=== PATIENT | male | born 1965 | race Caucasian/White ===

== ENCOUNTER 2017-08-11 11:17 | Inpatient (IN) | payer OTHER ==
[2017-08-11] VITALS (15 sets, daily range): BP systolic 61–130; BP diastolic 31–65; PULSE 84–145; RESP 16–24; TEMP 99.1–100.4; O2SAT 86–100
[~2017-08-11] VITALS: Ht 185.4 cm; Wt 152.9 kg
[2017-08-11] MEDS ORDERED: MANNITOL INJ 100 ML ONE (11:28)
[2017-08-11] MEDS ORDERED: DIPHTH/TETANUS/ACEL PERTUSSIS (BOOSTER) 0.5 ML VIAL/PFS IM ONE (11:28)
[2017-08-11] MEDS ORDERED: ceFAZolin 2 GM PREMIX 50 ML ONE (11:28)
[2017-08-11] MEDS ORDERED: ROCURONIUM INJ 50 MG/5 ML VIAL ONE (11:33)
[2017-08-11] MEDS ORDERED: MIDAZOLAM HCL 5 MG/ML VIAL (1 ML) ONE ×2 (11:41→16:43)
[2017-08-11] MEDS ORDERED: fentaNYL DRIP 250 ML IV PRN (11:45)
[2017-08-11] MEDS ORDERED: NALOXONE HCL 0.4 MG/ML AMP IV PUSH PRN (11:45)
[2017-08-11] MEDS ORDERED: SODIUM CHLORIDE 0.9% FLUSH 10 ML FLUSH IV FLUSH PRN (11:45)
[2017-08-11] MEDS ORDERED: PROPOFOL 1000 MG/100 ML INJ 100 ML IV PRN (11:45)
[2017-08-11] MEDS ORDERED: Post-op Orders (for Pharmacy) XX ONE (11:45)
[2017-08-11 11:48] LABS: AUTOMATED NEUTROPHIL # 20.5 TH/MM3 (1.8-7.7); BASOPHIL # 0.2 TH/MM3 (0-0.2); BASOPHIL % 0.6 % (0.0-2.0); EOSINOPHIL # 0.3 TH/MM3 (0-0.4); HEMATOCRIT 39.2 % (39.0-51.0); HEMOGLOBIN 12.4 GM/DL (13.0-17.0); LYMPH % 23.8 % (9.0-44.0); LYMPHOCYTE # 6.9 TH/MM3 (1.0-4.8); MEAN CELL VOLUME 86.7 FL (80.0-100.0); MEAN CORPUSCULAR HEMOGLOBIN 27.4 PG (27.0-34.0); MEAN CORPUSCULAR HGB CONC 31.6 % (32.0-36.0); MEAN PLATELET VOLUME 8.3 FL (7.0-11.0); MONO % 3.7 % (0.0-8.0); MONOCYTE # 1.1 TH/MM3 (0-0.9); NEUT % 70.9 % (16.0-70.0); PLATELET COUNT 452 TH/MM3 (150-450); RED BLOOD COUNT 4.52 MIL/MM3 (4.50-5.90); RED CELL DISTRIBUTION WIDTH 14.2 % (11.6-17.2); WHITE BLOOD COUNT 28.9 TH/MM3 (4.0-11.0)
--- NOTE | 2017-08-11 11:53 | RADRPT ---
EXAM DATE: 08/11/2017 11:36 AM EDT AGE/SEX: 89 years / Male INDICATIONS: Trauma alert, fell CLINICAL DATA: This is the patient's initial encounter. Patient reports that signs and symptoms have been present for 1 day and indicates a pain score of Nonresponsive. MEDICAL/SURGICAL HISTORY: Non-responsive. Non-responsive. COMPARISON: No prior exams available for comparison. FINDINGS: 2 AP views of the chest performed on a trauma backboard demonstrates a normal-sized cardiac silhouett e. Mediastinum is prominent in transverse diameter. There is airspace consolidation in the left upper and left midlung zone. No definite pneumothorax is identified. The right fourth and ribs appear frac tured laterally. Also, there is at least one fracture involving the left fourth rib. There are degene rative changes of the thoracic spine. Metallic samantha overlie the patient. CONCLUSION: 1. Airspace consolidation in the left upper left midlung zone likely representing pulmonary contusio n given the recent trauma. No definite pneumothorax is seen. 2. There is a left pleural-based opacity in the upper hemithorax. 3. Bilateral rib fractures are identified. Electronically signed by: Colin Ziegler MD 08/11/2017 11:52 AM EDT
[2017-08-11 11:57] LABS: INTERNATIONAL NORMALIZED RATIO 1.1 RATIO; PROTHROMBIN TIME - PATIENT 10.7 SEC (9.8-11.6)
--- NOTE | 2017-08-11 12:02 | RADRPT ---
EXAM DATE: 08/11/2017 11:54 AM EDT AGE/SEX: 89 years / Male INDICATIONS: TRAUMA ALERT. Fall from a tree. CLINICAL DATA: This is the patient's initial encounter. Patient reports that signs and symptoms have been present for 1 day and indicates a pain score of Nonresponsive. MEDICAL/SURGICAL HISTORY: Non-responsive. Non-responsive. RADIATION DOSE: 69.73 CTDI (mGy) COMPARISON: No prior exams available for comparison. TECHNIQUE: CT of the head without contrast. Using automated exposure control and adjustment of the mA and/or kV according to patient size, radiation dose was kept as low as reasonably achievable to ob tain optimal diagnostic quality images. FINDINGS: There is a 1 cm thick subdural hematoma involving the right frontal region most conspicuous at the hi gh convexity level. There is mild parenchymal and subarachnoid hemorrhage most evident in the right t emporal region. There is mild effacement of hemispheric cortical sulci and slight asymmetric compress ion of the right lateral ventricle without significant brain shift at present. Minimal blood in the p aramesencephalic cisterns. Sinuses are opacified and facial fractures are evident. CONCLUSION: Intracranial hemorrhage with extra-axial blood and parenchymal blood most significantly in the right frontal and temporal regions. Electronically signed by: Colin Tinsley MD 08/11/2017 12:01 PM EDT
[2017-08-11 12:14] LABS: BICARBONATE 18.5 MEQ/L (21.0-32.0); CALCIUM 7.9 MG/DL (8.5-10.1); CREATININE 1.28 MG/DL (0.60-1.30)
[2017-08-11 12:29] LABS: BANDS 9 % (0-6); LYMPHOCYTES 27 % (9-44); MONOCYTES 3 % (0-8); NEUTROPHIL # MANUAL DIFF 20.2 TH/MM3 (1.8-7.7); POLYS (SEG NEUTROPHILS) 61 % (16-70)
[2017-08-11] MEDS: SODIUM CHLOR 0.9% 1000 ML INJ 1,000 ML IV SCH ×2 (12:30→21:17)
--- NOTE | 2017-08-11 12:31 | RADRPT ---
EXAM DATE: 08/11/2017 12:23 PM EDT AGE/SEX: 89 years / Male INDICATIONS: TRAUMA ALERT. Fall from a tree. CLINICAL DATA: This is the patient's initial encounter. Patient reports that signs and symptoms have been present for 1 day and indicates a pain score of Nonresponsive. MEDICAL/SURGICAL HISTORY: Non-responsive. Non-responsive. RADIATION DOSE: 20.43 CTDI (mGy) ; Combined studies COMPARISON: No prior exams available for comparison. TECHNIQUE: Multiple contiguous axial images were obtained through the chest during bolus infusion of 91 ml Omnipaque 350 (iohexol) nonionic water-soluble contrast as a cumulative dose for multiple exa ms. Images were obtained in suspended respiration using multiple row detector helical technique. U sing automated exposure control and adjustment of the mA and/or kV according to patient size, radiati on dose was kept as low as reasonably achievable to obtain optimal diagnostic quality images. FINDINGS: Lungs: There is moderate airspace opacity involving the posterior lung paul bilaterally, worse on the left than the right and somewhat upper lobe predominant. Mediastinum: There is a hematoma in the anterior upper mediastinum associated with some fractures at the costosternal junction. No evidence of great vessel injury. No mediastinal mass or adenopathy Pleurae: No evidence of pneumothorax. Small left hemothorax. Axillae: Unremarkable. Bony Structures: Multiple bilateral rib fractures. Comminuted left clavicle fracture. CONCLUSION: 1. Bilateral parenchymal lung airspace opacities which may be contusion, however aspiration could phelan ve a similar appearance. 2. Upper mediastinal hematoma appears related to musculoskeletal injury. There does not appear to be a great vessel injury. Electronically signed by: Colin Tinsley MD 08/11/2017 12:30 PM EDT
--- NOTE | 2017-08-11 12:35 | RADRPT ---
EXAM DATE: 08/11/2017 12:22 PM EDT AGE/SEX: 89 years / Male INDICATIONS: TRAUMA ALERT. Fall from a tree. CLINICAL DATA: This is the patient's initial encounter. Patient reports that signs and symptoms have been present for 1 day and indicates a pain score of Nonresponsive. MEDICAL/SURGICAL HISTORY: Non-responsive. Non-responsive. ORAL CONTRAST: No oral contrast ingested. RADIATION DOSE: 20.43 CTDI (mGy) ; Combined studies COMPARISON: No prior exams available for comparison. TECHNIQUE: Multiple contiguous axial images were obtained through the abdomen and pelvis following b olus infusion of 91 ml Omnipaque 350 (iohexol) nonionic water-soluble contrast as a cumulative dose for multiple exams. No oral contrast ingested. Using automated exposure control and adjustment of t he mA and/or kV according to patient size, the radiation dose was kept as low as reasonably achievabl e to obtain optimal diagnostic quality images. FINDINGS: Liver: The liver has a homogeneous density without space-occupying lesion. There is no dilation of th e biliary tree. Spleen: Mild splenic contusion. Minimal perisplenic hematoma. Pancreas: Unremarkable without mass or calcification. Kidneys: Normal in size and shape. No evidence of mass or hydronephrosis. Adrenal Glands: Unremarkable. Aorta: The aorta and proximal iliac vessels are grossly unremarkable without aneurysmal dilation. Bowel/Mesentery: The bowel loops are grossly unremarkable. The cecum and sigmoid colon have a normal configuration. Abdominal Wall: Intact. Retroperitoneum: No evidence of adenopathy in the retrocrural, para-aortic, or deep pelvic regions. Bladder: Contours are smooth. Reproductive Organs: No abnormal masses or calcifications seen. Inguinal: The inguinal region is unremarkable without evidence of adenopathy. Bony Structures: Rib fractures CONCLUSION: Mild splenic contusion and minimal perisplenic hematoma. Electronically signed by: Colin Tinsley MD 08/11/2017 12:34 PM EDT
--- NOTE | 2017-08-11 12:42 | PD.CONS ---
HPI Service Neurosurgery Consult Requested By Trauma surgeon Reason for Consult Trauma alert Primary Care Physician Unknown History of Present Illness This is a 52-year-old male who was working on a tree and fell downonto the concrete deck below about 10 feet. The reported. No tonic-clonic movement seen. No tongue biting. No incontinence of stool or urine. Nobody witnessed the event; however, apparently was bleeding on the pavement and finally ambulance was called. It is unknown how long patient had been lying there. The patient was brought to [place] as Trauma alert, priority 1 trauma alert, intubated in the field with C-collar in place on a spinal board by air ambulance. On arrival, patient's [place] Coma Scale was 3 which improved to about 5. He had unequal pupils with anisocoria. He was resuscitated according to the ATLS protocol. Trauma workup revealed multiple injuries including a severe left-sided facial fractures involving the orbit, zygoma, maxilla, nasal fracture, as well as fracture of the base of the skull going through the petrous bone, a right frontotemporal subarachnoid and subdural bleeding with brain contusions on the right, multiple left rib fractures with chest wall deformity, bilateral lung contusion and bilateral aspiration lacerations, laceration probably grade II of the spleen with slight amount of blood around the spleen Neurosurgical consultation was requested Review of Systems Unobtainable due to his neurological condition ROS Limitations: Clinical Condition, Intubated, Altered Mental Status, Unresponsive Past Family Social History Allergies: Coded Allergies: No Known Allergies (Unverified , 08/11/17) Past Medical History Unobtainable due to his neurological condition Past Surgical History Unobtainable due to his neurological condition Reported Medications Unobtainable due to his neurological condition Active Ordered Medications Current Medications Mannitol 100 ml @ As Directed STK-MED ONCE .ROUTE ; Start 08/11/17 at 11:28; Stop 08/11/17 at 11:29; Status DC Cefazolin Sodium/ Dextrose 50 ml @ As Directed STK-MED ONCE .ROUTE ; Start at 11:28; Stop 08/11/17 at 11:29; Status DC Diphtheria/ Tetanus/Acell Pertussis (Boostrix Inj) 0.5 ml STK-MED ONCE IM ; Start 08/11/17 at 11:28; Stop 08/11/17 at 11:29; Status DC Rocuronium Ethel (Zemuron Inj) 50 mg STK-MED ONCE .ROUTE ; Start 08/11/17 at 11 :33; Stop 08/11/17 at 11:34; Status DC Midazolam HCl (Versed Inj) 5 mg STK-MED ONCE .ROUTE ; Start 08/11/17 at 11:41; Stop 08/11/17 at 11:42; Status DC Sodium Chloride 1,000 ml @ 100 mls/hr Q10H IV Last administered on 08/11/17at 12 :30; Start 08/11/17 at 11:44 Sodium Chloride (NS Flush) 2 ml UNSCH PRN IV FLUSH FLUSH AFTER USING IV ACCESS ; Start 08/11/17 at 11:45 Sodium Chloride (NS Flush) 2 ml BID IV FLUSH ; Start 08/11/17 at 21:00 Pantoprazole Sodium (Protonix Inj) 40 mg Q24H IV PUSH Last administered on at 14:00; Start 08/11/17 at 14:00 Cefazolin Sodium 1000 mg/Sodium Chloride 100 ml @ 200 mls/hr Q8H IV ; Start 08/11/17 at 20:00; Stop 08/12/17 at 12:29 Miscellaneous Information ([facility] [place] Post-op Orders (for Pharmacy)) STAT ONCE XX Last administered on 08/11/17at 11:45; Start 08/11/17 at 11:45; Stop 08/11/17 at 13: 50; Status DC Naloxone HCl (Narcan Inj) 0.4 mg UNSCH PRN IV PUSH SEE LABEL COMMENTS; Start at 11:45 Propofol 100 ml @ 0 mls/hr TITRATE PRN IV SEDATION; Start 08/11/17 at 11:45; Stop 08/11/17 at 13:58; Status DC Fentanyl Citrate 250 ml TITRATE PRN IV SEDATION; Start 08/11/17 at 11:45; Stop 08/11/17 at 13:57; Status DC Levetriacetam 500 mg/Sodium Chloride 105 ml @ 420 mls/hr Q12HR IV Last administered on 08/11/17at 13:15; Start 08/11/17 at 13:15 Sodium Chloride 500 ml @ 30 mls/hr UNSCH PRN IV icp; Start 08/11/17 at 12:00; Stop 08/16/17 at 11:59 Iohexol (Omnipaque 350 Inj) 100 ml STK-MED ONCE IVCONTRAST Last administered on 08/11/17at 12:51; Start 08/11/17 at 12:51; Stop 08/11/17 at 12:52; Status DC Fentanyl Citrate 250 ml @ 5 mls/hr TITRATE PRN IV Sedation Last administered on 08/11/17at 15:30; Start 08/11/17 at 14:00 Propofol 100 ml @ 3.987 mls/ hr TITRATE PRN IV SEDATION Last administered on at 15:30; Start 08/11/17 at 14:00 Norepinephrine Bitartrate 4 mg/ Sodium Chloride 250 ml @ 7.5 mls/hr TITRATE PRN IV Maintain MAP > 65 mmHg; Start 08/11/17 at 14:15 Senna/Docusate Sodium (Ronda-Colace) 1 tab BID PO ; Start 08/11/17 at 21:00 Magnesium Hydroxide (Milk Of Magnesia Liq) 30 ml BID PO ; Start 08/11/17 at 21:00 Lactulose (Lactulose Liq) 30 ml DAILY PRN PO If no BM in 2 days; Start 08/11/17 at 14:30 Potassium Chloride 100 ml @ 50 mls/hr Q2H PRN IV For Potassium 2.8 - 3.2 mEq/L ; Start 08/11/17 at 14:30 Potassium Chloride 100 ml @ 50 mls/hr Q2H PRN IV For Potassium 2.8 - 3.2 mEq/L ; Start 08/11/17 at 14:30 Potassium Bicarb/ Potassium Chloride (K-Lyte Cl Eff) 50 meq UNSCH PRN PO For Potassium 3.3 - 3.5 mEq/L; Start 08/11/17 at 14:30 Potassium Chloride 100 ml @ 25 mls/hr UNSCH PRN IV For Potassium 3.3 - 3.5 mEq /L; Start 08/11/17 at 14:30 Potassium Chloride 100 ml @ 50 mls/hr Q2H PRN IV For Potassium 3.3 - 3.5 mEq/L ; Start 08/11/17 at 14:30 Magnesium Sulfate 4 gm/Sodium Chloride 100 ml @ 50 mls/hr UNSCH PRN IV For Magnesium 0.9 - 1.1 mg/dL; Start 08/11/17 at 14:30 Magnesium Oxide (Mag-Ox) 800 mg UNSCH PRN PO For Magnesium 1.2 - 1.6 mg/dL; Start 08/11/17 at 14:30 Magnesium Sulfate 2 gm/Sodium Chloride 100 ml @ 50 mls/hr UNSCH PRN IV For Magnesium 1.2 - 1.6 mg/dL; Start 08/11/17 at 14:30 Potassium Phosphate (K-Phos) 2,000 mg Q4H PRN PO For Phosphorus < 2.5 mg/dL; Start 08/11/17 at 14:30 Sodium Phosphate 30 mmol/Sodium Chloride 250 ml @ 42 mls/hr UNSCH PRN IV For Phosphorus < 2.5 mg/dL; Start 08/11/17 at 14:30 Potassium Phosphate (K-Phos) 2,000 mg UNSCH PRN PO/TUBE SEE LABEL COMMENTS; Start 08/11/17 at 14:30 Potassium Phosphate 30 mmol/ Sodium Chloride 260 ml @ 42 mls/hr UNSCH PRN IV SEE LABEL COMMENTS; Start 08/11/17 at 14:30 Chlorhexidine Gluconate (Peridex 0.12% Liq) 15 ml BID@08,20 MT ; Start 08/11/17 at 20:00 Methocarbamol (Robaxin) 500 mg Q8HR PO ; Start 08/11/17 at 22:00 Lidocaine HCl (Lidoderm 5% Patch.12 Hr) 1 patch DAILY T-DERMAL ; Start 08/11/17 at 14:30 Acetaminophen 100 ml @ 400 mls/hr Q6H IV Last administered on 08/11/17at 15:00; Start 08/11/17 at 15:00; Stop 08/12/17 at 14:59 Insulin Aspart (NovoLOG SUPPLEMENTAL SCALE) 1 Q6HR SQ ; Start 08/11/17 at 18:00 Dextrose (D50w (Syr) Inj) 50 ml UNSCH PRN IV PUSH HYPOGLYCEMIA-SEE COMMENTS; Start 08/11/17 at 14:30 Glucagon (Glucagon Inj) 1 mg UNSCH PRN OTHER HYPOGLYCEMIA-SEE COMMENTS; Start 08/11/17 at 14:30 Albuterol/ Ipratropium (Duoneb Neb) 1 ampule Q6HR NEB NEB ; Start 08/11/17 at 16 :00 Albuterol/ Ipratropium (Duoneb Neb) 1 ampule Q2HR NEB PRN NEB wheezing; Start 08/11/17 at 14:45 Miscellaneous Information 1 Q24H T-DERMAL ; Start 08/11/17 at 21:00 Family History Unobtainable due to his neurological condition Social History Unobtainable due to his neurological condition Physical Exam Vital Signs Vital Signs Date Time Temp Pulse Resp B/P (MAP) Pulse Ox O2 Delivery O2 Flow Rate FiO2 08/11/17 12:31 88 100 08/11/17 11:34 86 100 Physical Exam He has facial abrasions to left cheeck and left ear GENERAL: Reveals a 52-year-old male. HEENT: Normocephalic, trauma to the head consisting of left severe facial bruising with swelling of the left palpebral and raccoon eye on the left, some bruising over the right side. Pupils are unequal. Left pupil is fixed and dilated. The right pupil is poorly reactive, but small, about 2 mm. The extraocular muscles cannot be tested. Bilateral blood in the ears; however, patient on the right side has blood in the ear and on the left side, appears to be hemotympanum with some leakage of clear fluid, might be cerebrospinal. NECK: Very short. Bilateral carotid pulses. No bruits. CHEST: Bilateral breath sounds. The patient has clearly a left chest deformity with swelling over the left chest. Clavicle is clearly broken and there is movement of the left chest consistent with serial rib fractures on the left. HEART: Regular rhythm. Blood pressure on arrival was 80/50, which improved with some fluids. ABDOMEN: Soft. No rebound, no guarding, no masses. Morbidly obese. Some bruising noted over the left flank. EXTREMITIES: The patient has bilateral femoral, popliteal, dorsalis pedis and posterior tibial pulses. No signs of acute vascular deficit. No deformations. NEUROLOGIC: Cervical spine in the hard collar He withdraws minimally the arms and withdrawals the legs. Deep tendon reflexes are trace bilaterally. There is a Babinski on the left. Sensory exam he withdraws minimally to pain Cerebellar examination is not possible due to his neurological condition Laboratory Laboratory Tests Test 08/11/17 11:25 White Blood Count 28.9 Red Blood Count 4.52 Hemoglobin 12.4 Bedside Hemoglobin 12.9 Hematocrit 39.2 Bedside Hematocrit 38.0 Mean Corpuscular Volume 86.7 Mean Corpuscular Hemoglobin 27.4 Mean Corpuscular Hemoglobin Concent 31.6 Red Cell Distribution Width 14.2 Platelet Count 452 Mean Platelet Volume 8.3 Neutrophils (%) (Auto) 70.9 Lymphocytes (%) (Auto) 23.8 Monocytes (%) (Auto) 3.7 Eosinophils (%) (Auto) 1.0 Basophils (%) (Auto) 0.6 Neutrophils # (Auto) 20.5 Lymphocytes # (Auto) 6.9 Monocytes # (Auto) 1.1 Eosinophils # (Auto) 0.3 Basophils # (Auto) 0.2 CBC Comment AUTO DIFF Differential Total Cells Counted 100 Neutrophils % (Manual) 61 Band Neutrophils % 9 Lymphocytes % 27 Monocytes % 3 Neutrophils # (Manual) 20.2 Differential Comment FINAL DIFF MANUAL Platelet Estimate HIGH Platelet Morphology Comment NORMAL Prothrombin Time 10.7 Prothromb Time International Ratio 1.1 Activated Partial Thromboplast Time 22.4 Fibrinogen 235 Bedside Sodium 140 Blood Urea Nitrogen 15 Creatinine 1.28 Random Glucose 271 Calcium Level 7.9 Sodium Level 139 Potassium Level 4.2 Chloride Level 105 Carbon Dioxide Level 18.5 Bedside Potassium 4.3 Bedside Chloride 103 Anion Gap 16 Bedside Blood Urea Nitrogen 15 Bedside Creatinine 1.1 Estimat Glomerular Filtration Rate 48 Bedside Glucose 261 Result Diagram: 08/11/17 1125 08/11/17 1125 Attending Statement Last [address] 08/11/17 1121 Signed Impressions: CONCLUSION: Intracranial hemorrhage with extra-axial blood and parenchymal blood most signi ficantly in the right frontal and temporal regions. Chest X-Ray 08/11/17 1120 Signed Impressions: CONCLUSION: 1. Airspace consolidation in the left upper left midlung zone likely represent ing pulmonary contusion given the recent trauma. No definite pneumothorax is se en. 2. There is a left pleural-based opacity in the upper hemithorax. 3. Bilateral rib fractures are identified. Chest CT 08/11/17 0000 Signed Impressions: CONCLUSION: 1. Bilateral parenchymal lung airspace opacities which may be contusion, howev er aspiration could have a similar appearance. 2. Upper mediastinal hematoma appears related to musculoskeletal injury. There does not appear to be a great vessel injury. Abdomen/Pelvis CT 08/11/17 0000 Signed Impressions: CONCLUSION: Mild splenic contusion and minimal perisplenic hematoma. Right frontotemporal subarachnoid and subdural bleeding with brain contusions on the right. Neuro checks. Placement of ICP monitor was indicated as recommended by the Trauma [employer] of [employer]. HOB elevation 30 degrees. Monitor PCO2 facial abrasion. Wound care with bacitracin Thoracic spine fracture. Recommend nonoperative treatment. Pain controlled with analgesics Severe left-sided facial fractures involving the orbit, zygoma, maxilla, nasal fracture, as well as fracture of the base of the skull going through the petrous bone. Consult oral maxillofacial surgeon Multiple left rib fractures with chest wall deformity, bilateral lung contusion and bilateral aspiration. A small amount of subcutaneous air, but no pneumothorax. Narcotics for pain control Spleen lacerations, laceration probably grade II of the spleen with slight amount of blood around the spleen. Defer to trauma surgeon. Monitor hemoglobin and hematocrit Pulmonary..aggressive pulmonary toilette, nasotracheal suction, and breathing treatments with nebulizers. Nutrition. NPO Renal. monitor closely urine output, BUN and creatinine Endocrine. Monitor serial Acu checks and SSI as needed in detail ID monitor for signs of infection Protonix for stress ulcer prophylaxis Sonido hose and SCD's for DVT prophylaxis. Further recommendations will depend on his clinical evolution and follow up Studies Kameron Peoples MD Aug 11, 2017 12:42
--- NOTE | 2017-08-11 12:45 | RADRPT ---
EXAM DATE: 08/11/2017 12:25 PM EDT AGE/SEX: 89 years / Male INDICATIONS: TRAUMA ALERT. Fall from a tree. CLINICAL DATA: This is the patient's initial encounter. Patient reports that signs and symptoms have been present for 1 day and indicates a pain score of Nonresponsive. MEDICAL/SURGICAL HISTORY: Non-responsive. Non-responsive. RADIATION DOSE: 64.36 CTDI (mGy) COMPARISON: No prior exams available for comparison. TECHNIQUE: Contiguous images in the axial and coronal planes were obtained using helical multirow de tector technique. Using automated exposure control and adjustment of the mA and/or kV according to p atient size, radiation dose was kept as low as reasonably achievable to obtain optimal diagnostic lucretia lity images. FINDINGS: There is fracturing at the left middle cranial fossa. There is fracturing of the squamosal portion of the left temporal bone extending towards the anterior aspect of the petrous temporal bone. There is also fracturing of the left sphenoid bone involving the anterior lateral aspect of the left middle cranial fossa extending to the anterior floor of the left middle cranial fossa and through th e lateral aspect of the left sphenoid sinus. There is fracturing at the posterior medial right sphenoid bone extending into the posterior aspect o f the carotid canal. This fracture is seen along the posterior aspect of the intercanalicular right i nternal carotid artery. There is fracturing of the anterior aspects of the pterygoid plates bilaterally. There is fracturing of the left zygomatic arch and the left frontal zygomatic suture region and the l eft superior lateral orbital margin There is fracturing of the proximal medial left nasal bone. There is fracturing of the anterior medial right maxillary sinus there is is seen medial to the orbit al foramen. There is fracturing of the lateral right maxillary sinus. The right orbit is intact. There is soft tissue swelling and skin colby seen in the left frontal and temporal scalp regions. T here is left periorbital soft tissue swelling. There is increased density and hemorrhage seen through out the paranasal sinuses. CONCLUSION: Numerous fractures as described above. These include skull base fractures and facial fractures. Electronically signed by: Colin Greene MD 08/11/2017 12:44 PM EDT
[2017-08-11] MEDS ORDERED: IOHEXOL 350 MG/ML 10 ML VIAL (for RAD DIAG) IVCONTRAST ONE (12:51)
[2017-08-11] MEDS: NOREPINEPHRINE INJ 4 MG in SODIUM CHLOR 0.9% 250 ML INJ 246 ML IV PRN ×5 (13:00→23:37)
[2017-08-11] MEDS: PROPOFOL 1000 MG/100 ML IV PRN ×2 (13:00→15:30)
[2017-08-11] MEDS: levETIRAcetam INJ 500 MG in SODIUM CHLORIDE 0.9% INJ 100 ML IV SCH ×2 (13:15→21:16)
--- NOTE | 2017-08-11 13:24 | RADRPT ---
EXAM DATE: 08/11/2017 12:53 PM EDT AGE/SEX: 89 years / Male INDICATIONS: Trauma, fall from tree. CLINICAL DATA: This is the patient's initial encounter. Patient reports that signs and symptoms have been present for 1 day and indicates a pain score of Nonresponsive. MEDICAL/SURGICAL HISTORY: Non-responsive. Non-responsive. RADIATION DOSE: . CTDI (mGy) ; Reconstructed from previous dataset, no dose COMPARISON: [facility] [place], CT THORAX W CONTRAST, 08/11/2017. . TECHNIQUE: Contiguous axial images were acquired using a multirow detector CT scanner after intraven ous administration of 100 ml Omnipaque 350 (iohexol) nonionic water-soluble contrast as a single exa m dose. Multiplanar reconstruction in the sagittal and coronal planes was performed. Using automat ed exposure control and adjustment of the mA and/or kV according to patient size, radiation dose was kept as low as reasonably achievable to obtain optimal diagnostic quality images. FINDINGS: There is normal sagittal spinal alignment of the thoracic spine. No compression deformity is present and there is no anterolisthesis or retrolisthesis. There are endplate osteophytes at multiple levels extending from C3 through T12. There is a minimally displaced fracture at the tip of the left T1 drake sverse process. No other thoracic spine fracture is identified. The canal is not well visualized give n the technique but no definite canal stenosis or abnormality is seen. There are multiple bilateral r ib fractures. These include the left second through sixth ribs and the left ninth rib. There is also a fracture of the right third rib. CONCLUSION: 1. There is a minimally displaced fracture at the tip of the left T1 transverse process. No other th oracic spine fracture or acute injury is identified. 2. Multiple bilateral rib fractures, as above. These are more completely visualized on the contempor aneously acquired chest CT. Electronically signed by: Colin Ziegler MD 08/11/2017 1:22 PM EDT
--- NOTE | 2017-08-11 13:27 | RADRPT ---
EXAM DATE: 08/11/2017 12:50 PM EDT AGE/SEX: 89 years / Male INDICATIONS: Trauma, fall from tree. CLINICAL DATA: This is the patient's initial encounter. Patient reports that signs and symptoms have been present for 1 day and indicates a pain score of Nonresponsive. MEDICAL/SURGICAL HISTORY: Non-responsive. Non-responsive. RADIATION DOSE: . CTDI (mGy) ; Reconstructed from previous dataset, no dose COMPARISON: [facility] [place], CT ABDOMEN & PELVIS W CONTRAST, 08/11/2017. . TECHNIQUE: Contiguous axial images were acquired with a multirow detector CT scanner after intraveno us administration of 100 ml Omnipaque 350 (iohexol) nonionic water-soluble contrast as a single exam dose. Multiplanar reconstructions in the sagittal and coronal plane were also performed. Using auto mated exposure control and adjustment of the mA and/or kV according to patient size, radiation dose w as kept as low as reasonably achievable to obtain optimal diagnostic quality images. FINDINGS: There is normal sagittal spinal alignment. No fracture or compression deformity is present. No teodoro listhesis or retrolisthesis is present. Facet hypertrophy is present at L4-L5 and to a lesser extent L5-S1. The spinal canal is not well visualized but no definite abnormality is identified. The paraspi nous soft tissues are further described on the contemporaneously acquired abdomen and pelvis CT. CONCLUSION: 1. No acute lumbar spine abnormality is identified. 2. There is facet arthrosis at L4-L5 and L5-S1. Electronically signed by: Colin Ziegler MD 08/11/2017 1:26 PM EDT
[2017-08-11] MEDS: 3% SALINE INJ 500 ML IV PRN (13:30)
[2017-08-11] MEDS: PANTOPRAZOLE SODIUM 40 MG VIAL IV PUSH SCH (14:00)
--- NOTE | 2017-08-11 14:10 | RADRPT ---
EXAM DATE: 08/11/2017 12:17 PM EDT AGE/SEX: 89 years / Male INDICATIONS: TRAUMA ALERT. Fall from a tree. CLINICAL DATA: This is the patient's initial encounter. Patient reports that signs and symptoms have been present for 1 day and indicates a pain score of Nonresponsive. MEDICAL/SURGICAL HISTORY: Non-responsive. Non-responsive. RADIATION DOSE: 25.96 CTDI (mGy) COMPARISON: No prior exams available for comparison. TECHNIQUE: Contiguous axial images were obtained using helical multirow detector technique. The vol umetric data was post-processed with multiplanar reconstruction in oblique axial, sagittal, and coron al planes. Using automated exposure control and adjustment of the mA and/or kV according to patient s ize, radiation dose was kept as low as reasonably achievable to obtain optimal diagnostic quality shavonne ges. FINDINGS: There is normal sagittal spinal alignment of the cervical spine. A mildly comminuted fracture of the left C7 transverse process is present with a minimally displaced fracture at the left T1 transverse p rocess tip. No other fracture is identified. No spinal canal stenosis is appreciated. The atlantoaxia l relationship is within normal limits. Patient is intubated and there is opacification of the paranasal sinuses. Please refer to maxillofaci al CT and chest CT for further evaluation of the adjacent findings. CONCLUSION: 1. Mildly comminuted fracture of the left C7 transverse process. 2. Minimally displaced fracture at the tip of the left T1 transverse process. Electronically signed by: Colin Ziegler MD 08/11/2017 2:09 PM EDT
[2017-08-11 14:12] LABS: HEMATOCRIT 34.2 % (39.0-51.0)
--- NOTE | 2017-08-11 14:19 | RADRPT ---
EXAM DATE: 08/11/2017 2:07 PM EDT AGE/SEX: 52 years / Male INDICATIONS: Left chest tube placement and right central line placement. CLINICAL DATA: This is the patient's subsequent encounter. Patient reports that signs and symptoms h ave been present for 1 day and indicates a pain score of Nonresponsive. MEDICAL/SURGICAL HISTORY: None. . Unknown COMPARISON: [facility] – [place], CHEST SINGLE AP, 08/11/2017. . FINDINGS: There is now a small lateral left pneumothorax. A left thoracostomy tube is present at the mid lung l evel. Airspace disease involving much of the left lung and the right upper lung zone. A right subclav emir central line has been placed and is in good position. No evidence of pneumothorax on the right po st placement. Endotracheal tube and nasogastric tube are present in satisfactory position. Cardiac co ntours are unchanged. Multiple rib fractures again noted and comminuted left clavicle fracture noted. CONCLUSION: Satisfactory central line positioning. Small left pneumothorax with left thoracostomy tube in place. Electronically signed by: Colin Tinsley MD 08/11/2017 2:18 PM EDT
[2017-08-11] MEDS ORDERED: POTASSIUM PHOSPHATE INJ 30 MMOL in SODIUM CHLOR 0.9% 250 ML INJ 250 ML IV PRN (14:30)
[2017-08-11] MEDS ORDERED: LACTULOSE SYRUP 20 GM/30 ML CUP PO PRN (14:30)
[2017-08-11] MEDS ORDERED: MAGNESIUM OXIDE 400 MG TAB PO PRN (14:30)
[2017-08-11] MEDS ORDERED: GLUCAGON 1 MG/ML VIAL OTHER PRN (14:30)
[2017-08-11] MEDS ORDERED: MAGNESIUM SULFATE INJ 4 GM in SODIUM CHLORIDE 0.9% INJ 92 ML IV PRN (14:30)
[2017-08-11] MEDS ORDERED: POTASSIUM PHOSPHATE MONOBASIC 500 MG TAB PO PRN (14:30)
[2017-08-11] MEDS ORDERED: POTASSIUM PHOSPHATE MONOBASIC 500 MG TAB PO/TUBE PRN (14:30)
[2017-08-11] MEDS ORDERED: POTASSIUM CHLORIDE 25 MEQ EFFERVESCENT TAB PO PRN (14:30)
[2017-08-11] MEDS ORDERED: DEXTROSE 50% IN WATER 50 ML SYRINGE IV PUSH PRN (14:30)
[2017-08-11] MEDS ORDERED: SODIUM PHOSPHATE INJ 30 MMOL in SODIUM CHLOR 0.9% 250 ML INJ 240 ML IV PRN (14:30)
[2017-08-11] MEDS ORDERED: MAGNESIUM SULFATE INJ 2 GM in SODIUM CHLORIDE 0.9% INJ 96 ML IV PRN (14:30)
[2017-08-11] MEDS ORDERED: POTASSIUM CHLOR 40 MEQ PREMIX 100 ML IV PRN (14:30)
[2017-08-11] MEDS ORDERED: RESP: ALBUTEROL 2.5 MG/IPRATROPIUM 0.5 MG NEB (PRN) NEB (14:45)
--- NOTE | 2017-08-11 14:59 | MH ---
cc: Alfred Wright MD DATE OF ADMISSION: 08/11/2017 ADMITTING PHYSICIAN: Alfred Wright MD, trauma surgery ADMITTING DIAGNOSIS: Fall out of a tree, massive multi-organ trauma. HISTORY OF PRESENT DISEASE: This 52-year-old male fell while working on a tree onto the concrete deck below about 10 feet. Nobody witnessed the event; however, apparently was bleeding on the pavement and finally ambulance was called. It is unknown how long patient had been lying there. The patient was brought to our institution as priority 1 trauma alert, intubated in the field with C-collar in place on a spinal board by air ambulance. On arrival, patient's [place] Coma Scale was 3 and improved to about 5. PAST MEDICAL HISTORY: Hypertension, diabetes mellitus, and N1H1 flu a few years ago, for which the patient was apparently on a respirator for about 2 weeks. PAST SURGICAL HISTORY: Unknown. MEDICATIONS: Unknown. ALLERGIES: UNKNOWN. SOCIAL HISTORY: The patient does not smoke. PHYSICAL EXAMINATION: GENERAL: Reveals a 52-year-old male. HEENT: Normocephalic, trauma to the head consisting of left severe facial bruising with swelling of the left palpebral and raccoon eye on the left, some bruising over the right side. Pupils are unequal. Left pupil is fixed and dilated. The right pupil is poorly reactive, but small, about 2 mm. The extraocular muscles cannot be tested. Bilateral blood in the ears; however, patient on the right side has blood in the ear and on the left side, appears to be hemotympanum with some leakage of clear fluid, might be cerebrospinal. NECK: Very short. Bilateral carotid pulses. No bruits. CHEST: Bilateral breath sounds. The patient has clearly a left chest deformity with swelling over the left chest. Clavicle is clearly broken and there is movement of the left chest consistent with serial rib fractures on the left. HEART: Regular rhythm. Blood pressure on arrival was 80/50, which improved with some fluids. ABDOMEN: Soft. No rebound, no guarding, no masses. Morbidly obese. Some bruising noted over the left flank. EXTREMITIES: The patient has bilateral femoral, popliteal, dorsalis pedis and posterior tibial pulses. No signs of acute vascular deficit. No deformations. NEUROLOGIC: Amelie Coma Scale is 3, improved to about 5. The patient moves a little bit the arms and withdrawals the leg. Motorically, exam cannot be performed but patient seems to be moving all 4. Deep tendon reflexes are weak, bilateral. There is a Babinski on the left. PROTOCOL RESUSCITATION: The patient is resuscitated according to trauma principles. Primary, secondary survey, resuscitation, definitive care carried out simultaneously. The patient was then taken to the CT scan. FINAL INJURIES DETECTED: 1. Severe left-sided facial fractures involving the orbit, zygoma, maxilla, nasal fracture, as well as fracture of the base of the skull going through the petrous bone. 2. Right frontotemporal subarachnoid and subdural bleeding with brain contusions on the right. 3. Chest revealed serial left rib fractures with chest wall deformity, bilateral lung contusion and bilateral aspiration. A small amount of subcutaneous air, but no pneumothorax. Left clavicle fracture 4. Abdominal CAT scan revealed small lacerations, laceration probably grade II of the spleen with slight amount of blood around the spleen, but that is about it. PLAN: Neurosurgery is consulted. The patient will be placed in the ICU. Neuroprotective measures are instituted. Further care per clinical indices. CRITICAL CARE TIME: 1 hour. MD CAIN Liu/TANJA , 02:27 PM , 02:58 PM TIANA
[2017-08-11] MEDS: ACETAMINOPHEN 1000 MG/100 ML 100 ML IV SCH ×2 (15:00→20:26)
--- NOTE | 2017-08-11 15:20 | MP ---
cc: Alfred Wright MD DATE OF OPERATION: DATE OF SURGERY: 08/11/2017. PREOPERATIVE DIAGNOSES: Multilevel trauma, contusions both lungs, brain injury. POSTOPERATIVE DIAGNOSES: Multilevel trauma, contusions both lungs, brain injury. PROCEDURE PERFORMED: Left chest tube placement. SURGEON: Dr. Wright. ANESTHESIA: 1% Xylocaine and general. ESTIMATED BLOOD LOSS: Minimal. INDICATIONS FOR PROCEDURE: This gentleman had a massive chest trauma resulting in multiple rib fractures and pulmonary contusions. Initially, there was no pneumothorax; however, now I can feel subcutaneous air in prepectoral area on the left. Hence, the patient is on the ventilator. Chest tube is recommended. PROCEDURE: The patient was prepped and draped in usual fashion. The area infiltrated with 1% Xylocaine. Small incision was made in the fifth intercostal space in the midaxillary line, deepened down with a hemostat into the chest cavity. A 32-Pashto chest tube was placed, sutured in place with 0 silk connected to Pleur-Evac and small air leak is noted. The patient tolerated the procedure well. MD CAIN Liu/LETI , 03:05 PM , 03:19 PM
[2017-08-11] MEDS: fentaNYL 2,500 MCG/NS 250 ML IV PRN ×2 (15:30→23:34)
--- NOTE | 2017-08-11 15:32 | MP ---
cc: Alfred Wright MD DATE OF OPERATION: 08/11/2017 PREOPERATIVE DIAGNOSIS: Chest and brain trauma. POSTOPERATIVE DIAGNOSIS: Chest and brain trauma. PROCEDURE PERFORMED: Triple lumen placement, right subclavian. SURGEON: Alfred Wright MD ANESTHESIA: 1% Xylocaine. ESTIMATED BLOOD LOSS: Minimal. DESCRIPTION OF PROCEDURE: The patient was prepped and draped in the usual sterile fashion. The was area infiltrated with 1% Xylocaine. Needle inserted into the right subclavian. Through the needle, the J-wire was passed. Over the J-wire, the dilator and a triple lumen placed. Triple lumen was sutured in place with 2-0 silk. Chest x-ray obtained. Alfred Wright MD SJ/KD , 03:06 PM , 03:31 PM
--- NOTE | 2017-08-11 15:51 | PD.OP ---
Operative Report Date of Surgery: Aug 11, 2017 Preoperative Diagnosis: Severe traumatic brain injury Postoperative Diagnosis: Severe traumatic brain injury Procedure: Right frontal mela hole, placement of bur hole with placement of intracranial pressure monitor. Anesthesia: Local Surgeon: Kameron Peoples Mine Car Repairer(s): ZACH Operation and Findings: INDICATIONS FOR THE PROCEDURE The patient is an adult male who was brought to [facility] as a trauma alert with a severe traumatic brain injury GCS was 3 CT of the brain showed traumatic subarachnoid hemorrhage and a small subdural hematoma. Placement of ICP monitor was indicated as recommended by the Tra[employer] of [employer] DETAILS OF THE SURGICAL PROCEDURE The right frontal area was shaved, prepped and draped in the usual sterile fashion. An entry point was selected behind the hairline, approximately 30 mm lateral to the midline. The incision was infiltrated with 1% lidocaine with epinephrine 1:100,000 dilution. A small incision was made with a 15 blade down to the level of the periosteum. Using a twist drill a mela hole was made. The dura was opened with a blunt stylet, and a Evelyn bolt was secured to the bone. A fiberoptic transducer was calibrated according to the deployment engineer's instructions, and advanced into the parenchyma of the frontal lobe through the bolt. An intracranial pressure of 12 mmHg was achieved with a good waveform. A Betadine sterile dressing was applied. The patient tolerated the procedure well. There were no intraoperative complications. Blood loss was minimal. Kameron Peoples MD Aug 11, 2017 15:51
[2017-08-11] MEDS: RESP: ALBUTEROL 2.5 MG/IPRATROPIUM 0.5 MG NEB (SCH) NEB ×2 (16:00→19:59)
[2017-08-11] MEDS: PHENYLEPHRINE INJ 40 MG in SODIUM CHLORID 0.9% 500 ML INJ 496 ML IV PRN ×3 (16:40→22:20)
[2017-08-11] MEDS ORDERED: PHENYLEPHRINE HCL 10 MG/ML VIAL ONE (16:45)
[2017-08-11] MEDS ORDERED: ALBUMIN 5% INJ 250 ML IV ONE (16:59)
[2017-08-11] MEDS ORDERED: ALBUMIN 5% INJ 500 ML IV ONE (17:15)
--- NOTE | 2017-08-11 17:22 | HHI.CCPN ---
Subjective Brief History This 52-year-old male fell while working on a tree onto the concrete deck below about 10 feet. Nobody witnessed the event; however, apparently was bleeding on the pavement and finally ambulance was called. It is unknown how long patient had been lying there. The patient was brought to our institution as priority 1 trauma alert, intubated in the field with C-collar in place on a spinal board by air ambulance. On arrival, patient's Amelie Coma Scale was 3 and improved to about 5. FINAL INJURIES DETECTED: 1. Severe left-sided facial fractures involving the orbit, zygoma, maxilla, nasal fracture, as well as fracture of the base of the skull going through the petrous bone. 2. Right frontotemporal subarachnoid and subdural bleeding with brain contusions on the right. 2.a.C7 transverse process fracture right 3. Chest revealed serial left rib fractures with chest wall deformity, bilateral lung contusion and bilateral aspiration. A small amount of subcutaneous air, but no pneumothorax. 4. Abdominal CAT scan revealed small lacerations, laceration probably grade II of the spleen with slight amount of blood around the spleen This patient has severe multisystem injuries and in addition it is not clear whether patient might of had suffered a heart attack or some other posterior problem prior to falling off the ladder. This will be worked up now after patient is admitted Neurosurgery is consulted and workup and further ICU resuscitation is in progress Patient is critical and there is a high mortality rate associated with these injuries probably ranging over 50% in the age group Objective Vital Signs Date Time Temp Pulse Resp B/P (MAP) Pulse Ox O2 Delivery O2 Flow Rate FiO2 08/11/17 15:19 99 70 08/11/17 14:00 132 08/11/17 12:30 99.3 16 130/59 (82) Result Diagram: 08/11/17 1333 08/11/17 1125 Other Results Laboratory Tests Test 08/11/17 12:45 Blood Gas Puncture Site RT RADIAL Blood Gas Patient Temperature 98.6 Blood Gas HCO3 21 mmol/L (22-26) Blood Gas Base Excess -5.9 mmol/L (-2-2) Blood Gas Oxygen Saturation 86 % (90-100) Arterial Blood pH 7.22 (7.380-7.420) Arterial Blood Partial Pressure CO2 51 mmHg (38-42) Arterial Blood Partial Pressure O2 65 mmHg (61-120) Arterial Blood Oxygen Content 14.6 Vol % (12.0-20.0) Arterial Blood Carboxyhemoglobin 0.6 % (0-4) Arterial Blood Methemoglobin 1.4 % (0-2) Blood Gas Hemoglobin 12.1 G/DL (12.0-16.0) Oxygen Delivery Device VENTILATOR Blood Gas Ventilator Setting Blood Gas Inspired Oxygen 100 % Imaging Last [address] 08/11/171120 Signed Impressions: CONCLUSION: Intracranial hemorrhage with extra-axial blood and parenchymal blood most signi ficantly in the right frontal and temporal regions. Cervical Spine CT 08/11/171120 Signed Impressions: CONCLUSION: 1. Mildly comminuted fracture of the left C7 transverse process. 2. Minimally displaced fracture at the tip of the left T1 transverse process. Chest X-Ray 08/11/171119 Signed Impressions: CONCLUSION: 1. Airspace consolidation in the left upper left midlung zone likely represent ing pulmonary contusion given the recent trauma. No definite pneumothorax is se en. 2. There is a left pleural-based opacity in the upper hemithorax. 3. Bilateral rib fractures are identified. Thoracic Spine CT 08/11/17 Signed Impressions: CONCLUSION: 1. There is a minimally displaced fracture at the tip of the left T1 transvers e process. No other thoracic spine fracture or acute injury is identified. 2. Multiple bilateral rib fractures, as above. These are more completely visua lized on the contemporaneously acquired chest CT. Maxillofacial CT 08/11/17 Signed Impressions: CONCLUSION: Numerous fractures as described above. These include skull base fractures and f acial fractures. Lumbar Spine CT 08/11/17 Signed Impressions: CONCLUSION: 1. No acute lumbar spine abnormality is identified. 2. There is facet arthrosis at L4-L5 and L5-S1. Chest X-Ray 08/11/17 Signed Impressions: CONCLUSION: Satisfactory central line positioning. Small left pneumothorax with left thoracostomy tube in place. Chest CT 08/11/17 Signed Impressions: CONCLUSION: 1. Bilateral parenchymal lung airspace opacities which may be contusion, howev er aspiration could have a similar appearance. 2. Upper mediastinal hematoma appears related to musculoskeletal injury. There does not appear to be a great vessel injury. Abdomen/Pelvis CT 08/11/17 Signed Impressions: CONCLUSION: Mild splenic contusion and minimal perisplenic hematoma. Alfred Wright MD Aug 11, 2017 17:22
[2017-08-11] MEDS ORDERED: TERBUTALINE INJ 1 MG/ML AMP SQ PRN ×2 (17:45→18:00)
[2017-08-11] MEDS: MIDAZOLAM 50 MG/NS 50 ML DRIP Premix IV PRN ×2 (17:50→20:27)
[2017-08-11] MEDS ORDERED: PHENYLEPHRINE 40 MG in D5W 500 ML IV PRN (18:00)
[2017-08-11] MEDS: INSULIN ASPART SUPPLEMENTAL SCALE SQ SCH ×2 (18:00→23:34)
--- NOTE | 2017-08-11 18:19 | ECHRPT ---
Indication: R/O CARDIAC CONTUSION CONCLUSIONS The left ventricle is not well visualized. Normal left ventricular size. Mild concentric left ventricular hypertrophy. The left ventricular systolic function is low normal with an estimated ejection fraction in the rang e of 50- 55%. No atrial level shunt is demonstrated by color flow Doppler interrogation. The aortic root and proximal ascending aorta are not well visualized. The pulmonary valve is not well visualized. There is less than 50% respiratory change in dimension of the inferior vena cava (abnormal). A prominent epicardial fat pad is present. BP: / HR: Rhythm: Sinus MEASUREMENTS (Male / Female) Normal Values Technical Quality:Very technically difficult study 2D ECHO LV Diastolic Diameter PLAX 4.1 cm 4.2 - 5.9 / 3.9 - 5.3 cm LV Systolic Diameter PLAX 2.6 cm IVS Diastolic Thickness 1.2 cm 0.6 - 1.0 / 0.6 - 0.9 cm LVPW Diastolic Thickness 1.2 cm 0.6 - 1.0 / 0.6 - 0.9 cm LV Relative Wall Thickness 0.6 RV Internal Dim ED PLAX 2.6 cm LA Systolic Diameter LX 3.1 cm 3.0 - 4.0 / 2.7 - 3.8 cm DOPPLER LVOT Peak Velocity 50.4 cm/s LVOT Peak Gradient 1.0 mmHg LVOT Velocity Time Integral 9.8 cm Mitral E Point Velocity 47.4 cm/s Mitral A Point Velocity 38.5 cm/s Mitral E to A Ratio 1.2 FINDINGS LEFT VENTRICLE The left ventricle is not well visualized. Normal left ventricular size. Mild concentric left ventricular hypertrophy. The left ventricular systolic function is low normal with an estimated ejection fraction in the rang e of 50- 55%. RIGHT VENTRICLE Normal right ventricular size and systolic function. LEFT ATRIUM The left atrial size is normal. RIGHT ATRIUM The right atrial size is normal. ATRIAL SEPTUM No atrial level shunt is demonstrated by color flow Doppler interrogation. AORTA The aortic root and proximal ascending aorta are not well visualized. MITRAL VALVE Structurally normal mitral valve. No mitral valve stenosis or regurgitation. AORTIC VALVE No aortic valve stenosis or regurgitation. TRICUSPID VALVE Structurally normal tricuspid valve. No tricuspid valve stenosis or regurgitation. PULMONARY VALVE The pulmonary valve is not well visualized. VESSELS The inferior vena cava is normal in size. There is less than 50% respiratory change in dimension of the inferior vena cava (abnormal). PERICARDIUM No pericardial effusion. A prominent epicardial fat pad is present. Eliazar Minor MD, FACC (Electronically Signed) Final Date:11 August 2017 18:18
[2017-08-11] MEDS: METHOCARBAMOL 500 MG TAB PO SCH (20:26)
[2017-08-11] MEDS: MAGNESIUM HYDROXIDE SUSP 30 ML CUP PO SCH (20:26)
[2017-08-11] MEDS: DOCUSATE SODIUM 50 MG/SENNA 8.6 MG TAB PO SCH (20:26)
[2017-08-11] MEDS: CHLORHEXIDINE 0.12% (ORAL KIT) 15 ML CUP MT SCH (20:27)
[2017-08-11] MEDS: REMOVE OLD LIDOCAINE PATCH T-DERMAL SCH (20:28)
[2017-08-11] MEDS: SODIUM CHLORIDE 0.9% FLUSH 10 ML FLUSH IV FLUSH SCH (20:28)
[2017-08-12] VITALS (20 sets, daily range): BP systolic 108–147; BP diastolic 52–66; PULSE 69–84; RESP 21–26; TEMP 99.7–102; O2SAT 94–100
[2017-08-12] MEDS: NOREPINEPHRINE INJ 4 MG in SODIUM CHLOR 0.9% 250 ML INJ 246 ML IV PRN ×8 (01:32→21:45)
[2017-08-12] MEDS: ACETAMINOPHEN 1000 MG/100 ML 100 ML IV SCH ×2 (01:32→09:19)
[2017-08-12] MEDS: MIDAZOLAM 50 MG/NS 50 ML DRIP Premix IV PRN ×6 (01:32→22:42)
[2017-08-12] MEDS: PHENYLEPHRINE INJ 40 MG in SODIUM CHLORID 0.9% 500 ML INJ 496 ML IV PRN ×4 (03:02→18:13)
[2017-08-12] MEDS: RESP: ALBUTEROL 2.5 MG/IPRATROPIUM 0.5 MG NEB (SCH) NEB ×4 (03:05→19:33)
[2017-08-12] MEDS: 3% SALINE INJ 500 ML IV PRN ×2 (03:06→19:48)
[2017-08-12] MEDS: PROPOFOL 1000 MG/100 ML IV PRN ×7 (03:40→22:18)
[2017-08-12] MEDS: METHOCARBAMOL 500 MG TAB PO SCH ×3 (04:21→20:34)
--- NOTE | 2017-08-12 04:52 | RADRPT ---
EXAM DATE: 08/12/2017 4:46 AM EDT AGE/SEX: 52 years / Male INDICATIONS: Follow up trauma. CLINICAL DATA: This is the patient's subsequent encounter. Patient reports that signs and symptoms h ave been present for 2 days and indicates a pain score of Nonresponsive. MEDICAL/SURGICAL HISTORY: Non-responsive. Non-responsive. COMPARISON: [facility], CHEST SINGLE AP, 08/11/2017. . FINDINGS: NG enters stomach. Endotracheal tube in good position. Right central line in superior vena cava. Left chest tube without significant pneumothorax. Slight increase in right basilar airspace disease since August 11. Left-sided airspace disease and right upper lobe disease remain. There is left-sided pleural thickening or loculated fluid. CONCLUSION: Support apparatus unchanged. Left chest tube without significant pneumothorax. Slight worsening of ri ght basilar airspace disease. Electronically signed by: Tesfaye Pacheco MD 08/12/2017 4:51 AM EDT
[2017-08-12] MEDS ORDERED: SODIUM CHLORIDE 23.4% INJ 240 MEQ in SYRINGE/BAG 1 EA IV SCH (05:15)
[2017-08-12] MEDS: INSULIN ASPART SUPPLEMENTAL SCALE SQ SCH ×4 (05:47→22:43)
[2017-08-12 06:26] LABS: AUTOMATED NEUTROPHIL # 8.9 TH/MM3 (1.8-7.7); BASOPHIL % 0.3 % (0.0-2.0); EOSINOPHIL % 0.1 % (0.0-4.0); HEMATOCRIT 28.3 % (39.0-51.0); HEMOGLOBIN 9.7 GM/DL (13.0-17.0); MEAN CORPUSCULAR HEMOGLOBIN 28.9 PG (27.0-34.0); MEAN CORPUSCULAR HGB CONC 34.4 % (32.0-36.0); MEAN PLATELET VOLUME 8.1 FL (7.0-11.0); MONO % 9.2 % (0.0-8.0); NEUT % 81.4 % (16.0-70.0); PLATELET COUNT 217 TH/MM3 (150-450); RED BLOOD COUNT 3.37 MIL/MM3 (4.50-5.90); RED CELL DISTRIBUTION WIDTH 14.5 % (11.6-17.2); WHITE BLOOD COUNT 10.9 TH/MM3 (4.0-11.0)
[2017-08-12 07:01] LABS: ALBUMIN 2.5 GM/DL (3.4-5.0); BICARBONATE 19.5 MEQ/L (21.0-32.0); CALCIUM 6.3 MG/DL (8.5-10.1); CREATININE 0.98 MG/DL (0.60-1.30); DIRECT BILIRUBIN ADULT 0.2 MG/DL (0.0-0.2); INDIRECT BILIRUBIN 0.4 MG/DL (0.0-0.8); TOTAL BILIRUBIN ADULT 0.6 MG/DL (0.2-1.0)
[2017-08-12 07:59] LABS: CALCIUM-PROTEIN CORRECTED 7.3 MG/DL (8.5-10.1)
--- NOTE | 2017-08-12 08:30 | MB ---
cc: Te Jiemnez MD DATE: 08/12/2017 REASON FOR CONSULTATION: Left clavicle fracture. CONSULTING PHYSICIAN: Dr. Wright HISTORY OF PRESENT ILLNESS: Callum is a 52-year-old male who was reportedly working on trimming a tree. He fell approximately 10 feet and landed on concrete. He was found on the ground. It is unclear how long he was on the ground. He presented to the emergency room where he was found to have multiple facial fractures and skull fracture. He was also found to have multiple left rib fractures and left clavicle fracture. He is currently intubated and sedated in the intensive care unit. No other history is obtainable. PAST MEDICAL HISTORY: Unobtainable. FAMILY HISTORY: Unobtainable. REVIEW OF SYSTEMS: Unobtainable. SOCIAL HISTORY: Unobtainable. PHYSICAL EXAMINATION: GENERAL: The patient is a 52-year-old male who is intubated and sedated. He is morbidly obese. VITAL SIGNS: Temperature 102, pulse 84, respirations 24, blood pressure 138/63, O2 saturation 96 percent on FiO2 of 60 percent. HEAD: The patient has swelling and bruising of his face. He has an intracranial pressure monitor in place. NECK: Soft, nontender. The trachea is in the midline. ABDOMEN: Soft, nontender, nondistended. EXTREMITIES: Examination of bilateral upper extremities reveals no obvious pain or deformity with shoulder, elbow or wrist motion. He has good capillary refill in his fingers. Motor and sensory exams are not possible. He does have some mild deformity of the left clavicle. Skin is intact. There is mild swelling present. Examination of bilateral lower extremities reveals no pain with hip, knee or ankle motion. Skin is intact. Dorsalis pedis pulses are palpable. Motor and sensory exams are not possible. IMAGING STUDIES: CT scan of thorax was reviewed. The patient has a comminuted fracture of the medial left clavicle shaft. IMPRESSION: 1. Multiple facial fractures. 2. Skull fracture. 3. Left clavicle fracture. 4. Multiple left rib fractures. 5. Splenic laceration. PLAN: At this point, I would recommend nonsurgical treatment of the left clavicle fracture and left-sided rib fractures. The patient will need to wear a sling and avoid use of the left arm at this time. He will need to continue the critical care treatment in the intensive care unit. I will continue to follow the patient's progress. A mid-level provider in my office, nurse practitioner or PA, may see this patient on a follow-up basis and continue to implement the objective of this plan including: Starting or adjusting medications, injections of muscle, tendon, bursa or joints, cast application, orthotic or brace application, physical therapy, further radiographic studies including x-ray, MRI, CT, ultrasounds or bone scan, vascular studies, neurologic studies, or other specialist consultations, and proceeding with surgical management as appropriate. MD ALCON Bartlett/TANJA , 07:50 AM , 08:29 AM
[2017-08-12] MEDS: CHLORHEXIDINE 0.12% (ORAL KIT) 15 ML CUP MT SCH ×2 (08:46→19:49)
[2017-08-12] MEDS: LIDOCAINE HCL 5% PATCH T-DERMAL SCH (09:00)
[2017-08-12] MEDS: SODIUM CHLORIDE 0.9% FLUSH 10 ML FLUSH IV FLUSH SCH ×2 (09:00→19:49)
[2017-08-12] MEDS: MAGNESIUM HYDROXIDE SUSP 30 ML CUP PO SCH ×2 (09:00→20:34)
[2017-08-12 09:10] LABS: TROPONIN I 0.28 NG/ML (0.02-0.05)
[2017-08-12] MEDS: levETIRAcetam INJ 500 MG in SODIUM CHLORIDE 0.9% INJ 100 ML IV SCH ×2 (09:19→20:34)
[2017-08-12] MEDS: DOCUSATE SODIUM 50 MG/SENNA 8.6 MG TAB PO SCH ×2 (09:19→20:34)
--- NOTE | 2017-08-12 11:32 | PD.HHIRBSE ---
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 The patient was trimming a tree and fell out of the tree onto concrete. He was admitted as Level I Trauma. His GCS was 3 in the field, 5 on arrival. Injuries are significant and include facial fractures, serial rib fractures and lung contusions. Head CT showed right frontotemporal SAH and SDH with contusions, and basal skull fracture. He is referred for baseline neurobehavioral status examination per trauma protocol to assess cognitive, behavioral and emotional aspects of the injury and to provide treatment recommendations. Past Surgical/Medical History Past Surgery: No Major surgery in last 100 days: Unknown Hx of Neuro Prob: No Hx of Musculoskeletal Pro: No Hx of Cardiovascular Prob: No Hx of Respiratory Problem: Yes Hx Sleep Apnea: Yes Hx of GI Problems: Yes (Obesity) Hx of Problems: No Hx of Immuno Disor: No Hx of Endocrine Problems: Yes Hx Diabetes: Yes Does Patient Currently Take Gl: No Hx of Eye Probl: No Hx of Hearing or Ear Problems: No Hx Dental Problems: No Hx Psychiatric Problems: No Hx Blood Dyscrasias: No Hx of MDRO: No Hx of MRSA: No Hx of VRE: No Hx of CDIFF: No Hx of Tuberculosis: No Hx Chicken Pox: Yes If No, Have You Been Exposed W: No Hx Measles: No Hx of Body/Medical Devices: No Blood Transfusion History Will receive Blood /Blood prod: Yes Hx Blood Transfusions: No Medication Active Medications Acetaminophen 100 ml @ 400 mls/hr Q6H IV Last administered on 08/12/17at 09:19; Admin Dose 400 MLS/HR; Start 08/11/17 at 15:00; Stop 08/12/17 at 09:44; Status DC Acetaminophen 100 ml @ 400 mls/hr Q6H PRN IV; Start 08/12/17 at 15:00 Albumin Human 250 ml @ As Directed STK-MED ONCE IV; Start 08/11/17 at 16:59; Stop 08/11/17 at 17:00; Status DC Albumin Human 500 ml @ 500 mls/hr ONCE ONCE IV Last administered on 08/11/17at 17:15; Admin Dose 500 MLS/HR; Start 08/11/17 at 17:15; Stop 08/11/17 at 18:14; Status DC Albuterol/ Ipratropium (Duoneb Neb) 1 ampule Q2HR NEB PRN NEB; Start 08/11/17 at 14:45 Albuterol/ Ipratropium (Duoneb Neb) 1 ampule Q6HR NEB NEB Last administered on 08/12/17at 08:13; Admin Dose 1 AMPULE; Start 08/11/17 at 16:00 Cefazolin Sodium 1000 mg/Sodium Chloride 100 ml @ 200 mls/hr Q8H IV Last administered on 08/12/17at 03:05; Admin Dose 200 MLS/HR; Start 08/11/17 at 20:00; Stop 08/12/17 at 12:29 Chlorhexidine Gluconate (Peridex 0.12% Liq) 15 ml BID@08,20 MT Last administered on 08/12/17at 08:46; Admin Dose 15 ML; Start 08/11/17 at 20:00 Dextrose (D50w (Syr) Inj) 50 ml UNSCH PRN IV PUSH; Start 08/11/17 at 14:30 Fentanyl Citrate 250 ml TITRATE PRN IV; Start 08/11/17 at 11:45; Stop 08/11/17 at 13:57; Status DC Fentanyl Citrate 250 ml @ 5 mls/hr TITRATE PRN IV Last administered on at 23:34; Admin Dose 20 MLS/HR; Start 08/11/17 at 14:00 Glucagon (Glucagon Inj) 1 mg UNSCH PRN OTHER; Start 08/11/17 at 14:30 Insulin Aspart (NovoLOG SUPPLEMENTAL SCALE) 1 Q6HR SQ; Start 08/11/17 at 18:00 Iohexol (Omnipaque 350 Inj) 100 ml STK-MED ONCE IVCONTRAST Last administered on 08/11/17at 12:51; Admin Dose 100 ML; Start 08/11/17 at 12:51; Stop 08/11/17 at 12:52 ; Status DC Lactulose (Lactulose Liq) 30 ml DAILY PRN PO; Start 08/11/17 at 14:30 Levetriacetam 500 mg/Sodium Chloride 105 ml @ 420 mls/hr Q12HR IV Last administered on 08/12/17at 09:19; Admin Dose 420 MLS/HR; Start 08/11/17 at 13:15 Lidocaine HCl (Lidoderm 5% Patch.12 Hr) 1 patch DAILY T-DERMAL Last administered on 08/12/17at 09:00; Admin Dose 1 PATCH; Start 08/11/17 at 14:30 Magnesium Hydroxide (Milk Of Jodi Liq) 30 ml BID PO Last administered on 08/11at 20:26; Admin Dose 30 ML; Start 08/11/17 at 21:00 Magnesium Oxide (Mag-Ox) 800 mg UNSCH PRN PO; Start 08/11/17 at 14:30 Magnesium Sulfate 2 gm/Sodium Chloride 100 ml @ 50 mls/hr UNSCH PRN IV; Start 08/11/17 at 14:30 Magnesium Sulfate 4 gm/Sodium Chloride 100 ml @ 50 mls/hr UNSCH PRN IV; Start 08/11/17 at 14:30 Methocarbamol (Robaxin) 500 mg Q8HR PO Last administered on 08/12/17 04:21; Admin Dose 500 MG; Start 08/11/17 at 22:00 Midazolam HCl 50 ml @ 2 mls/hr TITRATE PRN IV Last administered on 08/12/17at 11: 03; Admin Dose 10 MLS/HR; Start 08/11/17 at 17:45 Midazolam HCl (Versed Inj) 5 mg STK-MED ONCE .ROUTE; Start 08/11/17 at 11:41; Stop 08/11/17 at 11:42; Status DC Midazolam HCl (Versed Inj) 5 mg STK-MED ONCE .ROUTE; Start 08/11/17 at 16:43; Stop 08/11/17 at 16:44; Status DC Miscellaneous Information 1 Q24H T-DERMAL; Start 08/11/17 at 21:00 Miscellaneous Information [facility] STAT ONCE XX Last administered on 08/11/17at 11:45; Admin Dose 1; Start 08/11/17 at 11:45; Stop 08/11/17 at 13:50; Status DC Naloxone HCl (Narcan Inj) 0.4 mg UNSCH PRN IV PUSH; Start 08/11/17 at 11:45 Norepinephrine Bitartrate 4 mg/ Sodium Chloride 250 ml @ 7.5 mls/hr TITRATE PRN IV Last administered on 08/12/17at 04:19; Admin Dose 93.75 MLS/HR; Start at 14:15 Pantoprazole Sodium (Protonix Inj) 40 mg Q24H IV PUSH Last administered on at 14:00; Admin Dose 40 MG; Start 08/11/17 at 14:00 Phenylephrine HCl (Neosynephrine Inj) 40 mg STK-MED ONCE .ROUTE; Start 08/11/17 at 16:45; Stop 08/11/17 at 16:46; Status DC Phenylephrine HCl 40 mg/Dextrose 500 ml @ 30 mls/hr TITRATE PRN IV; Start 08/11 at 18:00; Status Cancel Phenylephrine HCl 40 mg/Sodium Chloride 500 ml @ 30 mls/hr TITRATE PRN IV Last administered on 08/12/17at 05:06; Admin Dose 150 MLS/HR; Start 08/11/17 at 17: 45 Potassium Phosphate (K-Phos) 2,000 mg Q4H PRN PO; Start 08/11/17 at 14:30 Potassium Phosphate (K-Phos) 2,000 mg UNSCH PRN PO/TUBE; Start 08/11/17 at 14:30 Potassium Phosphate 30 mmol/ Sodium Chloride 260 ml @ 42 mls/hr UNSCH PRN IV; Start 08/11/17 at 14:30 Potassium Bicarb/ Potassium Chloride (K-Lyte Cl Eff) 50 meq UNSCH PRN PO; Start 08/11/17 at 14:30 Potassium Chloride 100 ml @ 25 mls/hr UNSCH PRN IV; Start 08/11/17 at 14:30 Potassium Chloride 100 ml @ 50 mls/hr Q2H PRN IV; Start 08/11/17 at 14:30 Potassium Chloride 100 ml @ 50 mls/hr Q2H PRN IV; Start 08/11/17 at 14:30 Potassium Chloride 100 ml @ 50 mls/hr Q2H PRN IV; Start 08/11/17 at 14:30 Propofol 100 ml @ 3.987 mls/ hr TITRATE PRN IV Last administered on 08/12/17at 06:26; Admin Dose 23.922 MLS/HR; Start 08/11/17 at 14:00 Propofol 100 ml @ 0 mls/hr TITRATE PRN IV; Start 08/11/17 at 11:45; Stop at 13:58; Status DC Rocuronium [place] (Zemuron Inj) 50 mg STK-MED ONCE .ROUTE; Start 08/11/17 at 11: 33; Stop 08/11/17 at 11:34; Status DC Senna/Docusate Sodium (Ronda-Colace) 1 tab BID PO Last administered on 08/12/17at 09:19; Admin Dose 1 TAB; Start 08/11/17 at 21:00 Sodium Chloride 500 ml @ 20 mls/hr UNSCH PRN IV Last administered on 08/12/17at 03:06; Admin Dose 30 MLS/HR; Start 08/11/17 at 12:00; Stop 08/16/17 at 11:59 Sodium Chloride 1,000 ml @ 100 mls/hr Q10H IV Last administered on 08/11/17at 21: 17; Admin Dose 100 MLS/HR; Start 08/11/17 at 11:44; Stop 08/12/17 at 09:40; Status DC Sodium Chloride (NS Flush) 2 ml BID IV FLUSH Last administered on 08/11/17at 20:28 ; Admin Dose 2 ML; Start 08/11/17 at 21:00 Sodium Chloride (NS Flush) 2 ml UNSCH PRN IV FLUSH; Start 08/11/17 at 11:45 Sodium Chloride 240 meq/Syringe / Bag 60 ml @ 60 mls/hr NOW IV Last administered on 08/12/17at 05:05; Admin Dose 60 MLS/HR; Start 08/12/17 at 05:15; Stop 08/12/17 at 06:14; Status DC Sodium Phosphate 30 mmol/Sodium Chloride 250 ml @ 42 mls/hr UNSCH PRN IV; Start 08/11/17 at 14:30 Terbutaline Sulfate (Brethine Inj) 1 mg UNSCH PRN SQ; Start 08/11/17 at 17:45 Terbutaline Sulfate (Brethine Inj) 1 mg UNSCH PRN SQ; Start 08/11/17 at 18:00 Mental Status Assessment Orientation: unable to asses Self, unable to asses Place, unable to asses Time , unable to asses Situation Observation The patient is intubated and sedated. Adjustment/Coping Assessment Adjustment/Coping: Not Assessed: Depression, Anxiety, Pain, Apathy, Awareness, Insight Observation The patient is intubated and sedated, LTG Status: Deferred STG Status: Deferred Team Members: Neuropsychologist Behavior Assessment Agitation: None Treatment Engagement: No effort Observation Behaviorally, the patient demonstrated no signs of agitation, impulsivity or disinhibition. There was no remarkable evidence of a formal thought disorder or psychosis. LTG - Status: Deferred STG Status: Deferred Team Members: Neuropsychologist Diagnosis/Discharge Plan Impression 52 year old male s/p TBI 2T fall from tree on 08/11/2017. Diagnosis: (1) Major neurocognitive disorder as late effect of traumatic brain injury without behavioral disturbance [facility] Level: I:No response-total assistance Maximizing acute care outcome It is recommended that the patient be monitored for emergent behavioral impulsivity as the medical condition evolves. This patients neuropathological challenges may limit his rehabilitation potential going forward, and these challenges will require specialized therapeutic skills to maximize outcome. Additionally, the patients family is experiencing ongoing issues of adjustment given the traumatic nature of the injury, and they may benefit from ongoing psychological assistance. At this point in the recovery process, the patient does not have cognitive capacity as the patient is unable to understand a situation and its likely consequences, nor is he able to manipulate information rationally. Cognitive capacity will be assessed throughout the recovery process. Discharge Planning Anticipated Problems Ongoing areas of concern will include behavioral impulsivity, lack of insight and judgment, which is expected to improve with time and treatment. Presently , the patient is critically ill and may not survive. Given the severity of the patient's injuries it is my clinical opinion that this patient will be unable to return to any type of productive employment for at least one year, perhaps longer and likely never. This patient is not considered safe to discharge home without supervision. Treatment Plan This clinician will continue to follow with you throughout the course of this patients critical care treatment, and I will be available to meet with the patients family/support system to facilitate their understanding and the ongoing care of their family member. The goals of neuropsychological intervention shall be both educational and supportive to the family/support system as is deemed clinically appropriate. Thank you Thank you for the opportunity to assist in this patients care. Roger Flores, Ph.D., ABPP Board Certified in Clinical Neuropsychology [place] [employer] [place] Licensed Psychologist #[id number] Roger Flores PhD Aug 12, 2017 11:32
[2017-08-12] MEDS: fentaNYL 2,500 MCG/NS 250 ML IV PRN ×2 (11:44→19:48)
--- NOTE | 2017-08-12 12:11 | HHI.NSPN ---
(Rosy Alvarado) Note Status Status: Progress Note (Rosy Alvarado) Interval History Interval History This is a 52-year-old male who was working on a tree and fell downonto the concrete deck below about 10 feet. The reported. No tonic-clonic movement seen. No tongue biting. No incontinence of stool or urine. Nobody witnessed the event; however, apparently was bleeding on the pavement and finally ambulance was called. It is unknown how long patient had been lying there. The patient was brought to [place] as Trauma alert, priority 1 trauma alert, intubated in the field with C-collar in place on a spinal board by air ambulance. On arrival, patient's Amelie Coma Scale was 3 which improved to about 5. He had unequal pupils with anisocoria. He was resuscitated according to the ATLS protocol. Trauma workup revealed multiple injuries including a severe left-sided facial fractures involving the orbit, zygoma, maxilla, nasal fracture, as well as fracture of the base of the skull going through the petrous bone, a right frontotemporal subarachnoid and subdural bleeding with brain contusions on the right, multiple left rib fractures with chest wall deformity, bilateral lung contusion and bilateral aspiration lacerations, laceration probably grade II of the spleen with slight amount of blood around the spleen Neurosurgical consultation was requested 08/12: ICPs currently 16. intubated, sedated. (Rosy Alvarado) Labs, Micro, & Vital Signs Results Date Time Temp Pulse Resp B/P (MAP) Pulse Ox O2 Delivery O2 Flow Rate FiO2 08/12/17 11:45 104/51 08/12/17 11:00 97 50 08/12/17 09:54 50 08/12/17 08:04 96 50 08/12/17 08:04 96 50 08/12/17 06:00 84 08/12/17 05:06 82 138/63 08/12/17 04:19 85 143/63 08/12/17 04:04 96 60 08/12/17 04:00 84 08/12/17 04:00 102.0 84 24 147/60 (89) 96 6/8/18 04:00 60 6/8/18 03:02 85 134/61 6/8/18 02:00 83 6/8/18 01:32 85 134/61 6/8/18 01:31 60 6/8/18 01:31 95 60 6/8/18 00:00 83 6/8/18 00:00 60 6/8/18 00:00 101.1 83 24 133/61 (85) 94 6/7/18 23:37 82 134/62 6/7/18 22:20 84 131/59 6/7/18 22:09 84 130/60 6/7/18 22:00 84 6/7/18 20:37 100.4 88 24 128/59 94 6/7/18 20:25 119/54 6/7/18 20:25 117/53 6/7/18 20:00 100.0 84 24 126/58 (80) 97 6/7/18 20:00 84 6/7/18 20:00 50 6/7/18 19:24 96 50 6/7/18 19:00 100 Mechanical Ventilator 70 6/7/18 18:05 99.3 86 18 120/65 100 6/7/18 18:00 88 6/7/18 18:00 88 122/62 6/7/18 17:50 99.1 88 17 118/63 100 6/7/18 17:50 116 75/40 6/7/18 17:15 116 61/31 6/7/18 17:15 87 117/62 6/7/18 16:40 102 67/42 6/7/18 16:00 70 6/7/18 16:00 99.3 116 24 61/31 (41) 96 6/7/18 16:00 116 6/7/18 15:30 124 62/38 6/7/18 15:19 99 70 6/7/18 14:30 132 80/42 6/7/18 14:00 132 6/7/18 13:30 138 88/58 6/7/18 13:15 136 88/55 6/7/18 13:00 138 87/49 6/7/18 12:45 92 100 6/7/18 12:31 88 100 6/7/18 12:30 100 6/7/18 12:30 145 08/11/17 12:30 99.3 142 16 130/59 (82) 88 08/13/17 07:00 Intake Total 815 ml Balance 815 ml Constitutional Vital Signs Date Time Temp Pulse Resp B/P (MAP) Pulse Ox O2 Delivery O2 Flow Rate FiO2 08/12/17 11:45 104/51 08/12/17 11:00 97 50 08/12/17 09:54 50 08/12/17 08:04 96 50 08/12/17 08:04 96 50 08/12/17 06:00 84 08/12/17 05:06 82 138/63 08/12/17 04:19 85 143/63 08/12/17 04:04 96 60 08/12/17 04:00 84 08/12/17 04:00 102.0 84 24 147/60 (89) 96 08/12/17 04:00 60 08/12/17 03:02 85 134/61 08/12/17 02:00 83 08/12/17 01:32 85 134/61 08/12/17 01:31 60 08/12/17 01:31 95 60 08/12/17 00:00 83 08/12/17 00:00 60 08/12/17 00:00 101.1 83 24 133/61 (85) 94 08/11/17 23:37 82 134/62 08/11/17 22:20 84 131/59 08/11/17 22:09 84 130/60 08/11/17 22:00 84 08/11/17 20:37 100.4 88 24 128/59 94 08/11/17 20:25 119/54 08/11/17 20:25 117/53 08/11/17 20:00 100.0 84 24 126/58 (80) 97 08/11/17 20:00 84 08/11/17 20:00 50 08/11/17 19:24 96 50 08/11/17 19:00 100 Mechanical Ventilator 70 08/11/17 18:05 99.3 86 18 120/65 100 08/11/17 18:00 88 08/11/17 18:00 88 122/62 08/11/17 17:50 99.1 88 17 118/63 100 08/11/17 17:50 116 75/40 08/11/17 17:15 116 61/31 08/11/17 17:15 87 117/62 08/11/17 16:40 102 67/42 08/11/17 16:00 70 08/11/17 16:00 99.3 116 24 61/31 (41) 96 08/11/17 16:00 116 08/11/17 15:30 124 62/38 08/11/17 15:19 99 70 08/11/17 14:30 132 80/42 08/11/17 14:00 132 08/11/17 13:30 138 88/58 08/11/17 13:15 136 88/55 08/11/17 13:00 138 87/49 08/11/17 12:45 92 100 08/11/17 12:31 88 100 08/11/17 12:30 100 08/11/17 12:30 145 08/11/17 12:30 99.3 142 16 130/59 (82) 88 08/13/17 07:00 Intake Total 815 ml Balance 815 ml (Rosy Alvarado) Review of Systems ROS Limitations: Intubated (Rosy Alvarado) Physical Exam GENERAL: middle age male well nourished HEENT: Normocephalic, obvious trauma to the head with left severe facial bruising with left periorbital ecchymoses and swelling. Pupils are unequal. Left pupils 4 mm, right pupils 2 mm. The extraocular muscles cannot be tested. A right frontal ICP is in place with ICPs 16. NECK: Immobilized by cervical collar. No JVD. HEART: Regular rate rhythm. ABDOMEN: Soft. no masses. Morbidly obese. MUSCULOSKELETAL: No deformations. Normal tone. No spontaneous movements. NEUROLOGIC: Sedated. No spontaneous eye opening. Not following for motor testing. Sensory exam he withdraws minimally to pain. Cerebellar examination is not possible due to his neurological condition (Rosy Alvarado) GENERAL: Mr Correa is intubated, well nourished, no acute distress HEENT: Normocephalic, obvious trauma to the head with left severe facial bruising with left periorbital ecchymoses and swelling. Pupils are unequal. Left pupils 4 mm, right pupils 2 mm. The extraocular muscles cannot be tested. A right frontal ICP is in place with ICPs 16. NECK: Immobilized by cervical collar. No JVD. HEART: Regular rate rhythm. ABDOMEN: Soft. no masses. Morbidly obese. Skin. Abrasions to head and left ear laceration MUSCULOSKELETAL: No deformations. Normal tone. No spontaneous movements. NEUROLOGIC: Sedated. No spontaneous eye opening. Not following for motor testing. Sensory exam he withdraws minimally to pain. Cerebellar examination is not possible due to his neurological condition (Kameron Peoples MD) Medications Current Medications Current Medications Medications (Trade) Dose Ordered Sig/Mark Route PRN Reason Start Time Stop Time Status Last Admin Dose Admin Sodium Chloride (NS Flush) 2 ml UNSCH PRN IV FLUSH FLUSH AFTER USING IV ACCESS 08/11/17 11:45 Sodium Chloride (NS Flush) 2 ml BID IV FLUSH 08/11/17 21:00 08/11/17 20:28 Pantoprazole Sodium (Protonix Inj) 40 mg Q24H IV PUSH 08/11/17 14:00 08/11/17 14:00 Cefazolin Sodium 1000 mg/Sodium Chloride 100 ml @ 200 mls/hr Q8H IV 08/11/17 20:00 08/12/17 12:29 08/12/17 03:05 Naloxone HCl (Narcan Inj) 0.4 mg UNSCH PRN IV PUSH SEE LABEL COMMENTS 08/11/17 11:45 Levetriacetam 500 mg/Sodium Chloride 105 ml @ 420 mls/hr Q12HR IV 08/11/17 13:15 08/12/17 09:19 Sodium Chloride 500 ml @ 20 mls/hr UNSCH PRN IV icp 08/11/17 12:00 08/16/17 11:59 08/12/17 03:06 Fentanyl Citrate 250 ml @ 5 mls/hr TITRATE PRN IV Sedation 08/11/17 14:00 08/12/17 11:44 Propofol 100 ml @ 3.987 mls/ hr TITRATE PRN IV SEDATION 08/11/17 14:00 08/12/17 11:46 Norepinephrine Bitartrate 4 mg/ Sodium Chloride 250 ml @ 7.5 mls/hr TITRATE PRN IV Maintain MAP > 65 mmHg 08/11/17 14:15 08/12/17 04:19 Senna/Docusate Sodium (Ronda-Colace) 1 tab BID PO 08/11/17 21:00 08/12/17 09:19 Magnesium Hydroxide (Milk Of Magnesia Liq) 30 ml BID PO 08/11/17 21:00 08/11/17 20:26 Lactulose (Lactulose Liq) 30 ml DAILY PRN PO If no BM in 2 days 08/11/17 14:30 Potassium Chloride 100 ml @ 50 mls/hr Q2H PRN IV For Potassium 2.8 - 3.2 mEq/L 08/11/17 14:30 Potassium Chloride 100 ml @ 50 mls/hr Q2H PRN IV For Potassium 2.8 - 3.2 mEq/L 08/11/17 14:30 Potassium Bicarb/ Potassium Chloride (K-Lyte Cl Eff) 50 meq UNSCH PRN PO For Potassium 3.3 - 3.5 mEq/L 08/11/17 14:30 Potassium Chloride 100 ml @ 25 mls/hr UNSCH PRN IV For Potassium 3.3 - 3.5 mEq/L 08/11/17 14:30 Potassium Chloride 100 ml @ 50 mls/hr Q2H PRN IV For Potassium 3.3 - 3.5 mEq/L 08/11/17 14:30 Magnesium Sulfate 4 gm/Sodium Chloride 100 ml @ 50 mls/hr UNSCH PRN IV For Magnesium 0.9 - 1.1 mg/dL 08/11/17 14:30 Magnesium Oxide (Mag-Ox) 800 mg UNSCH PRN PO For Magnesium 1.2 - 1.6 mg/dL 08/11/17 14:30 Magnesium Sulfate 2 gm/Sodium Chloride 100 ml @ 50 mls/hr UNSCH PRN IV For Magnesium 1.2 - 1.6 mg/dL 08/11/17 14:30 Potassium Phosphate (K-Phos) 2,000 mg Q4H PRN PO For Phosphorus < 2.5 mg/dL 08/11/17 14:30 Sodium Phosphate 30 mmol/Sodium Chloride 250 ml @ 42 mls/hr UNSCH PRN IV For Phosphorus < 2.5 mg/dL 08/11/17 14:30 Potassium Phosphate (K-Phos) 2,000 mg UNSCH PRN PO/TUBE SEE LABEL COMMENTS 08/11/17 14:30 Potassium Phosphate 30 mmol/ Sodium Chloride 260 ml @ 42 mls/hr UNSCH PRN IV SEE LABEL COMMENTS 08/11/17 14:30 Chlorhexidine Gluconate (Peridex 0.12% Liq) 15 ml BID@08,20 MT 08/11/17 20:00 08/12/17 08:46 Methocarbamol (Robaxin) 500 mg Q8HR PO 08/11/17 22:00 08/12/17 04:21 Lidocaine HCl (Lidoderm 5% Patch.12 Hr) 1 patch DAILY T-DERMAL 08/11/17 14:30 08/12/17 09:00 Insulin Aspart (NovoLOG SUPPLEMENTAL SCALE) 1 Q6HR SQ 08/11/17 18:00 Dextrose (D50w (Syr) Inj) 50 ml UNSCH PRN IV PUSH HYPOGLYCEMIA-SEE COMMENTS 08/11/17 14:30 Glucagon (Glucagon Inj) 1 mg UNSCH PRN OTHER HYPOGLYCEMIA-SEE COMMENTS 08/11/17 14:30 Albuterol/ Ipratropium (Duoneb Neb) 1 ampule Q6HR NEB NEB 08/11/17 16:00 08/12/17 08:13 Albuterol/ Ipratropium (Duoneb Neb) 1 ampule Q2HR NEB PRN NEB wheezing 08/11/17 14:45 Miscellaneous Information 1 Q24H T-DERMAL 08/11/17 21:00 Terbutaline Sulfate (Brethine Inj) 1 mg UNSCH PRN SQ FOR EXTRAVASATION PROTOCOL 08/11/17 18:00 Phenylephrine HCl 40 mg/Sodium Chloride 500 ml @ 30 mls/hr TITRATE PRN IV Blood Pressure Management 08/11/17 17:45 08/12/17 11:45 Terbutaline Sulfate (Brethine Inj) 1 mg UNSCH PRN SQ FOR EXTRAVASATION PROTOCOL 08/11/17 17:45 Midazolam HCl 50 ml @ 2 mls/hr TITRATE PRN IV SEDATION 08/11/17 17:45 08/12/17 11:03 Acetaminophen 100 ml @ 400 mls/hr Q6H PRN IV Temp > 101.5 08/12/17 15:00 (Rosy Alvarado) Current Medications Current Medications Mannitol 100 ml @ As Directed STK-MED ONCE .ROUTE ; Start 08/11/17 at 11:28; Stop 08/11/17 at 11:29; Status DC Cefazolin Sodium/ Dextrose 50 ml @ As Directed STK-MED ONCE .ROUTE ; Start at 11:28; Stop 08/11/17 at 11:29; Status DC Diphtheria/ Tetanus/Acell Pertussis (Boostrix Inj) 0.5 ml STK-MED ONCE IM ; Start 08/11/17 at 11:28; Stop 08/11/17 at 11:29; Status DC Rocuronium [place] (Zemuron Inj) 50 mg STK-MED ONCE .ROUTE ; Start 08/11/17 at 11 :33; Stop 08/11/17 at 11:34; Status DC Midazolam HCl (Versed Inj) 5 mg STK-MED ONCE .ROUTE ; Start 08/11/17 at 11:41; Stop 08/11/17 at 11:42; Status DC Sodium Chloride 1,000 ml @ 100 mls/hr Q10H IV Last administered on 08/11/17at 21 :17; Start 08/11/17 at 11:44; Stop 08/12/17 at 09:40; Status DC Sodium Chloride (NS Flush) 2 ml UNSCH PRN IV FLUSH FLUSH AFTER USING IV ACCESS ; Start 08/11/17 at 11:45 Sodium Chloride (NS Flush) 2 ml BID IV FLUSH Last administered on 08/17/17at 09: 00; Start 08/11/17 at 21:00 Pantoprazole Sodium (Protonix Inj) 40 mg Q24H IV PUSH Last administered on 08/15at 17:29; Start 08/11/17 at 14:00; Stop 08/15/17 at 23:59; Status DC Cefazolin Sodium 1000 mg/Sodium Chloride 100 ml @ 200 mls/hr Q8H IV Last administered on 08/12/17at 12:20; Start 08/11/17 at 20:00; Stop 08/12/17 at 12:29; Status DC Miscellaneous Information (Misc Post-op Orders (for Pharmacy)) STAT ONCE XX Last administered on 08/11/17at 11:45; Start 08/11/17 at 11:45; Stop 08/11/17 at 13: 50; Status DC Naloxone HCl (Narcan Inj) 0.4 mg UNSCH PRN IV PUSH SEE LABEL COMMENTS; Start at 11:45 Propofol 100 ml @ 0 mls/hr TITRATE PRN IV SEDATION; Start 08/11/17 at 11:45; Stop 08/11/17 at 13:58; Status DC Fentanyl Citrate 250 ml TITRATE PRN IV SEDATION; Start 08/11/17 at 11:45; Stop 08/11/17 at 13:57; Status DC Levetriacetam 500 mg/Sodium Chloride 105 ml @ 420 mls/hr Q12HR IV Last administered on 08/15/17at 09:28; Start 08/11/17 at 13:15; Stop 08/15/17 at 13:42 ; Status DC Sodium Chloride 500 ml @ 20 mls/hr UNSCH PRN IV icp Last administered on at 03:52; Start 08/11/17 at 12:00; Stop 08/15/17 at 09:53; Status DC Iohexol (Omnipaque 350 Inj) 100 ml STK-MED ONCE IVCONTRAST Last administered on 08/11/17at 12:51; Start 08/11/17 at 12:51; Stop 08/11/17 at 12:52; Status DC Fentanyl Citrate 250 ml @ 5 mls/hr TITRATE PRN IV Sedation Last administered on 08/16/17at 01:08; Start 08/11/17 at 14:00; Stop 08/16/17 at 09:50; Status DC Propofol 100 ml @ 3.987 mls/ hr TITRATE PRN IV SEDATION Last administered on at 08:50; Start 08/11/17 at 14:00; Stop 08/16/17 at 09:50; Status DC Norepinephrine Bitartrate 4 mg/ Sodium Chloride 250 ml @ 7.5 mls/hr TITRATE PRN IV Maintain MAP > 65 mmHg Last administered on 08/15/17at 00:24; Start at 14:15; Stop 08/15/17 at 04:26; Status DC Senna/Docusate Sodium (Ronda-Colace) 1 tab BID PO Last administered on at 09:28; Start 08/11/17 at 21:00; Stop 08/15/17 at 13:40; Status DC Magnesium Hydroxide (Milk Of Magnesia Liq) 30 ml BID PO Last administered on at 09:08; Start 08/11/17 at 21:00 Lactulose (Lactulose Liq) 30 ml DAILY PRN PO If no BM in 2 days; Start 08/11/17 at 14:30; Stop 08/16/17 at 08:20; Status DC Potassium Chloride 100 ml @ 50 mls/hr Q2H PRN IV For Potassium 2.8 - 3.2 mEq/ L Last administered on 08/17/17at 00:31; Start 08/11/17 at 14:30 Potassium Chloride 100 ml @ 50 mls/hr Q2H PRN IV For Potassium 2.8 - 3.2 mEq/ L Last administered on 08/15/17at 18:59; Start 08/11/17 at 14:30 Potassium Bicarb/ Potassium Chloride (K-Lyte Cl Eff) 50 meq UNSCH PRN PO For Potassium 3.3 - 3.5 mEq/L; Start 08/11/17 at 14:30 Potassium Chloride 100 ml @ 25 mls/hr UNSCH PRN IV For Potassium 3.3 - 3.5 mEq /L; Start 08/11/17 at 14:30 Potassium Chloride 100 ml @ 50 mls/hr Q2H PRN IV For Potassium 3.3 - 3.5 mEq/ L Last administered on 08/14/17at 13:22; Start 08/11/17 at 14:30 Magnesium Sulfate 4 gm/Sodium Chloride 100 ml @ 50 mls/hr UNSCH PRN IV For Magnesium 0.9 - 1.1 mg/dL; Start 08/11/17 at 14:30 Magnesium Oxide (Mag-Ox) 800 mg UNSCH PRN PO For Magnesium 1.2 - 1.6 mg/dL; Start 08/11/17 at 14:30 Magnesium Sulfate 2 gm/Sodium Chloride 100 ml @ 50 mls/hr UNSCH PRN IV For Magnesium 1.2 - 1.6 mg/dL; Start 08/11/17 at 14:30 Potassium Phosphate (K-Phos) 2,000 mg Q4H PRN PO For Phosphorus < 2.5 mg/dL; Start 08/11/17 at 14:30 Sodium Phosphate 30 mmol/Sodium Chloride 250 ml @ 42 mls/hr UNSCH PRN IV For Phosphorus < 2.5 mg/dL; Start 08/11/17 at 14:30 Potassium Phosphate (K-Phos) 2,000 mg UNSCH PRN PO/TUBE SEE LABEL COMMENTS; Start 08/11/17 at 14:30 Potassium Phosphate 30 mmol/ Sodium Chloride 260 ml @ 42 mls/hr UNSCH PRN IV SEE LABEL COMMENTS; Start 08/11/17 at 14:30 Chlorhexidine Gluconate (Peridex 0.12% Liq) 15 ml BID@08,20 MT Last administered on 08/17/17at 08:00; Start 08/11/17 at 20:00 Methocarbamol (Robaxin) 500 mg Q8HR PO Last administered on 08/17/17at 14:02; Start 08/11/17 at 22:00 Lidocaine HCl (Lidoderm 5% Patch.12 Hr) 1 patch DAILY T-DERMAL Last administered on 08/17/17 09:09; Start 08/11/17 at 14:30 Acetaminophen 100 ml @ 400 mls/hr Q6H IV Last administered on 08/12/17 09:19; Start 08/11/17 at 15:00; Stop 08/12/17 at 09:44; Status DC Insulin Aspart (NovoLOG SUPPLEMENTAL SCALE) 1 Q6HR SQ Last administered on 08/17at 06:40; Start 08/11/17 at 18:00 Dextrose (D50w (Syr) Inj) 50 ml UNSCH PRN IV PUSH HYPOGLYCEMIA-SEE COMMENTS; Start 08/11/17 at 14:30 Glucagon (Glucagon Inj) 1 mg UNSCH PRN OTHER HYPOGLYCEMIA-SEE COMMENTS; Start 08/11/17 at 14:30 Albuterol/ Ipratropium (Duoneb Neb) 1 ampule Q6HR NEB NEB Last administered on 08/15/17at 15:55; Start 08/11/17 at 16:00; Stop 08/15/17 at 15:59; Status DC Albuterol/ Ipratropium (Duoneb Neb) 1 ampule Q2HR NEB PRN NEB wheezing Last administered on 08/15/17at 20:33; Start 08/11/17 at 14:45 Miscellaneous Information 1 Q24H T-DERMAL Last administered on 08/16/17 20:19 ; Start 08/11/17 at 21:00 Midazolam HCl (Versed Inj) 5 mg STK-MED ONCE .ROUTE Last administered on 16:43; Start 08/11/17 at 16:43; Stop 08/11/17 at 16:44; Status DC Phenylephrine HCl (Neosynephrine Inj) 40 mg STK-MED ONCE .ROUTE ; Start 08/11/17 at 16:45; Stop 08/11/17 at 16:46; Status DC Albumin Human 250 ml @ As Directed STK-MED ONCE IV ; Start 08/11/17 at 16:59; Stop 08/11/17 at 17:00; Status DC Albumin Human 500 ml @ 500 mls/hr ONCE ONCE IV Last administered on 08/11/17at 17:15; Start 08/11/17 at 17:15; Stop 08/11/17 at 18:14; Status DC Phenylephrine HCl 40 mg/Dextrose 500 ml @ 30 mls/hr TITRATE PRN IV Blood Pressure Management; Start 08/11/17 at 18:00; Status Cancel Terbutaline Sulfate (Brethine Inj) 1 mg UNSCH PRN SQ FOR EXTRAVASATION PROTOCOL ; Start 08/11/17 at 18:00 Phenylephrine HCl 40 mg/Sodium Chloride 500 ml @ 30 mls/hr TITRATE PRN IV Blood Pressure Management Last administered on 08/13/17at 02:37; Start 08/11/17 at 17:45 Terbutaline Sulfate (Brethine Inj) 1 mg UNSCH PRN SQ FOR EXTRAVASATION PROTOCOL ; Start 08/11/17 at 17:45; Stop 08/15/17 at 13:33; Status DC Midazolam HCl 50 ml @ 2 mls/hr TITRATE PRN IV SEDATION Last administered on 02/21at 08:58; Start 08/11/17 at 17:45; Stop 08/16/17 at 09:50; Status DC Sodium Chloride 240 meq/Syringe / Bag 60 ml @ 60 mls/hr NOW IV Last administered on 08/12/17at 05:05; Start 08/12/17 at 05:15; Stop 08/12/17 at 06:14; Status DC Acetaminophen 100 ml @ 400 mls/hr Q6H PRN IV Temp > 101.5 Last administered on 08/13/17at 17:11; Start 08/12/17 at 15:00 Albumin Human 500 ml @ 500 mls/hr ONCE ONCE IV Last administered on 08/12/17at 14:39; Start 08/12/17 at 14:30; Stop 08/12/17 at 15:29; Status DC Furosemide (Lasix Inj) 20 mg ONCE ONCE IV PUSH Last administered on 08/13/17at 10:19; Start 08/13/17 at 09:45; Stop 08/13/17 at 09:46; Status DC Furosemide (Lasix Inj) 40 mg ONCE ONCE IV PUSH Last administered on 08/14/17at 09:54; Start 08/14/17 at 09:45; Stop 08/14/17 at 09:48; Status DC Potassium Bicarbonate (Effer-K Eff) 25 meq ONCE ONCE PO Last administered on at 11:00; Start 08/14/17 at 09:45; Stop 08/14/17 at 09:48; Status DC Norepinephrine Bitartrate 4 mg/ Sodium Chloride 250 ml @ 7.5 mls/hr TITRATE PRN IV Maintain MAP > 65 mmHg Last administered on 08/16/17at 07:02; Start at 04:30; Stop 08/16/17 at 09:08; Status DC Mannitol (Mannitol Inj) 25 gm ONCE ONCE IV Last administered on 08/15/17at 10: 15; Start 08/15/17 at 09:45; Stop 08/15/17 at 10:01; Status DC Fentanyl Citrate (fentaNYL INJ) 500 mcg STK-MED ONCE .ROUTE ; Start 08/15/17 at 11:22; Stop 08/15/17 at 11:23; Status DC Fentanyl Citrate (fentaNYL INJ) 250 mcg STK-MED ONCE .ROUTE ; Start 08/15/17 at 11:22; Stop 08/15/17 at 11:23; Status DC Microfibriller Collagen Hemostat (Avitene Bandage) 1 bandage STK-MED ONCE .ROUTE Last administered on 08/15/17at 14:00; Start 08/15/17 at 11:34; Stop 01/22 at 11:35; Status DC Lidocaine/ Epinephrine (Xylocaine-Epi 1%-1:100,000 Inj) 30 ml STK-MED ONCE .ROUTE Last administered on 08/15/17at 13:10; Start 08/15/17 at 11:34; Stop 01/22 at 11:35; Status DC Thrombin (Thrombin Top Soln) 10,000 units STK-MED ONCE .ROUTE ; Start 08/15/17 at 11:34; Stop 08/15/17 at 11:35; Status DC Gelatin (Gelfoam 100 Top) 1 foam STK-MED ONCE .ROUTE ; Start 08/15/17 at 11:34; Stop 08/15/17 at 11:35; Status DC Potassium Chloride/Sodium Chloride 1,000 ml @ 100 mls/hr Q10H IV Last administered on 08/15/17at 17:23; Start 08/15/17 at 14:00; Stop 08/15/17 at 20:54 ; Status DC Cefazolin Sodium/ Dextrose 50 ml @ 100 mls/hr Q8H IV Last administered on 08/16at 06:19; Start 08/15/17 at 15:00; Stop 08/16/17 at 07:29; Status DC Levetriacetam 500 mg/Sodium Chloride 105 ml @ 400 mls/hr Q12H IV Last administered on 08/15/17at 21:23; Start 08/15/17 at 21:00; Stop 08/16/17 at 09:08 ; Status DC Bisacodyl (Dulcolax Supp) 10 mg DAILY PRN RECTAL CONSTIPATION; Start 08/15/17 at 12:30 Docusate Sodium (Colace) 100 mg BID PO Last administered on 08/15/17at 20:46; Start 08/15/17 at 21:00; Stop 08/16/17 at 08:20; Status DC Pantoprazole Sodium (Protonix) 40 mg DAILY PO ; Start 08/16/17 at 09:00; Stop at 09:00; Status DC Pantoprazole Sodium (Protonix Inj) 40 mg DAILY IVP Last administered on at 09:08; Start 08/16/17 at 09:00 Ondansetron HCl (Zofran Odt) 4 mg Q6H PRN PO NAUSEA OR VOMITING; Start at 13:45 Calcium Gluconate (Calcium Gluconate Inj) 1 gm UNSCH PRN IV SEE LABEL COMMENTS ; Start 08/15/17 at 12:30 Potassium Chloride 100 ml @ 50 mls/hr UNSCH PRN IV POTASSIUM LESS THAN 4; Start 08/15/17 at 12:30 Magnesium Sulfate 4 gm/Sodium Chloride 108 ml @ 108 mls/hr UNSCH PRN IV MAGNESIUM LESS THAN 2; Start 08/15/17 at 12:30 Acetaminophen/ Hydrocodone Bitart ([place] 10-325 Mg) 1 tab Q4H PRN PO PAIN SCALE 1 TO 5; Start 08/15/17 at 12:30; Stop 08/16/17 at 08:28; Status DC Acetaminophen/ Hydrocodone Bitart ([place] 10-325 Mg) 2 tab Q4H PRN PO PAIN SCALE 6 TO 10; Start 08/15/17 at 12:30; Stop 08/16/17 at 08:28; Status DC Morphine Sulfate (Morphine Inj) 2 mg Q2H PRN IV PUSH PAIN SCALE 1 TO 6; Start 08/15/17 at 12:30; Stop 08/16/17 at 08:28; Status DC Morphine Sulfate (Morphine Inj) 4 mg Q2H PRN IV PUSH PAIN SCALE 7 TO 10; Start 08/15/17 at 12:30; Stop 08/16/17 at 08:28; Status DC Acetaminophen (Tylenol) 650 mg Q4H PRN PO TEMPERATURE > 101.5 F; Start at 12:30 Propofol 50 ml @ As Directed STK-MED ONCE .ROUTE ; Start 08/15/17 at 12:29; Stop 08/15/17 at 12:30; Status DC Norepinephrine Bitartrate (Levophed Inj) 4 mg STK-MED ONCE .ROUTE ; Start at 12:30; Stop 08/15/17 at 12:31; Status DC Gentamicin Sulfate (Gentamicin Inj) 240 mg STK-MED ONCE .ROUTE Last administered on 08/15/17at 13:45; Start 08/15/17 at 13:28; Stop 08/15/17 at 13:29 ; Status DC Bacitracin (Baciguent Oint) 15 applic STK-MED ONCE .ROUTE Last administered on 08/15/17at 14:30; Start 08/15/17 at 14:25; Stop 08/15/17 at 14:26; Status DC Fentanyl Citrate (fentaNYL INJ) 100 mcg STK-MED ONCE .ROUTE ; Start 08/15/17 at 15:18; Stop 08/15/17 at 15:19; Status DC Cisatracurium Besylate 100 mg/ Sodium Chloride 260 ml @ 22.96 mls/ hr TITRATE PRN IV TOF 1/4 Last administered on 08/16/17at 07:03; Start 08/15/17 at 21:45; Stop 08/16/17 at 09:08; Status DC Furosemide (Lasix Inj) 20 mg NOW IV PUSH Last administered on 08/15/17at 23:35; Start 08/15/17 at 21:45; Stop 08/15/17 at 23:57; Status DC Lactulose (Lactulose Liq) 30 ml DAILY PO Last administered on 08/17/17at 09:08; Start 08/16/17 at 09:00 Senna/Docusate Sodium (Ronda-Colace) 1 tab BID PO Last administered on at 09:10; Start 08/16/17 at 09:00 Water (Free Water) 200 ml Q6HR G-TUBE Last administered on 08/17/17at 12:00; Start 08/16/17 at 08:30 Norepinephrine Bitartrate 4 mg/ Dextrose 250 ml @ 7.5 mls/hr TITRATE PRN IV Maintain MAP > 65 mmHg Last administered on 08/16/17at 18:53; Start 08/16/17 at 09:15; Stop 08/16/17 at 19:54; Status DC Levetriacetam 500 mg/Dextrose 105 ml @ 400 mls/hr Q12H IV ; Start 08/16/17 at 09:15; Stop 08/16/17 at 09:15; Status DC Cisatracurium Besylate 100 mg/ Dextrose 260 ml @ 22.96 mls/ hr TITRATE PRN IV TOF 1/4; Start 08/16/17 at 09:15; Stop 08/16/17 at 09:18; Status DC Levetriacetam 500 mg/Dextrose 105 ml @ 400 mls/hr Q12HR IV Last administered on 08/17/17at 09:00; Start 08/16/17 at 10:00 Cisatracurium Besylate 100 mg/ Dextrose 250 ml @ 22.08 mls/ hr TITRATE PRN IV TOF 1/4 Last administered on 08/17/17at 14:03; Start 08/16/17 at 09:30 Fentanyl Citrate 250 ml @ 5 mls/hr TITRATE PRN IV Sedation Last administered on 08/17/17at 06:41; Start 08/16/17 at 09:45 Midazolam HCl 50 ml @ 2 mls/hr TITRATE PRN IV SEDATION Last administered on at 09:35; Start 08/16/17 at 09:45 Propofol 100 ml @ 3.987 mls/ hr TITRATE PRN IV SEDATION Last administered on at 12:15; Start 08/16/17 at 09:45 Furosemide (Lasix Inj) 20 mg ONCE ONCE IV PUSH Last administered on 08/16/17at 10:45; Start 08/16/17 at 11:00; Stop 08/16/17 at 11:01; Status DC Dextrose 1,000 ml @ 20 mls/hr Q24H IV Last administered on 08/16/17at 09:45; Start 08/16/17 at 09:45 Potassium Bicarb/ Potassium Chloride (K-Lyte Cl Eff) 50 meq DAILY NG Last administered on 08/16/17at 10:45; Start 08/16/17 at 11:00; Stop 08/16/17 at 11:01 ; Status DC Epoprostenol Sodium 60 ml/ Sodium Chloride 100 ml @ 5 mls/hr Q8H NEB Last administered on 08/17/17at 04:46; Start 08/16/17 at 11:00 Parenteral Electrolytes 1,000 ml @ As Directed STK-MED ONCE IV ; Start at 12:00; Stop 08/16/17 at 14:59; Status DC Lidocaine HCl (Xylocaine-Mpf 1% Inj) 5 ml STK-MED ONCE OTHER ; Start 08/15/17 at 12:00; Stop 08/16/17 at 14:59; Status DC Vecuronium [place] (Norcuron 20 Mg Inj) 20 mg STK-MED ONCE IV ; Start 08/15/17 at 12:00; Stop 08/16/17 at 14:59; Status DC Cefazolin Sodium (Ancef Inj) 2,000 mg STK-MED ONCE IV ; Start 08/15/17 at 12:00 ; Stop 08/16/17 at 14:59; Status DC Propofol (Diprivan 200 Mg/20 ml Inj) 200 mg STK-MED ONCE IV ; Start 08/15/17 at 12:00; Stop 08/16/17 at 14:59; Status DC Sterile Water (Sterile Water For Injection) 20 ml STK-MED ONCE IV ; Start at 12:00; Stop 08/16/17 at 14:59; Status DC Mupirocin (Bactroban 2% Oint) 1 applic TID TOPICAL Last administered on at 13:00; Start 08/16/17 at 18:00 Norepinephrine Bitartrate 250 ml @ 7.5 mls/hr TITRATE PRN IV Maintain MAP > 65 mmHg Last administered on 08/17/17at 13:59; Start 08/16/17 at 20:00 Bisacodyl (Dulcolax Supp) 10 mg ONCE ONCE RECTAL Last administered on at 08:45; Start 08/17/17 at 08:45; Stop 08/17/17 at 08:46; Status DC Furosemide (Lasix Inj) 40 mg ONCE ONCE IV PUSH Last administered on 08/17/17at 10:28; Start 08/17/17 at 09:30; Stop 08/17/17 at 09:31; Status DC Potassium Bicarbonate (Effer-K Eff) 50 meq ONCE ONCE PO Last administered on at 10:28; Start 08/17/17 at 09:30; Stop 08/17/17 at 09:31; Status DC (Kameron Peoples MD) Medical Decision Making MDM Remarks 52 year old male fall off tree TBI, Right 1 cm subdural hematoma, right temporal parenchymal and subarachnoid hemorrhage Left C7 transverse process fracture Left T1 transverse process fracture Left facial fractures (Rosy Alvarado) Plan Plan Remarks cont ICP monitoring cont critical care/trauma management serial neuro checks maintain cervical collar GI prophylaxis seizure prophylaxis SCDs and TEDs for dvt prophylaxis (Rosy Alvarado) Attending Statement He remains in a critical condition, with multiple injuries and high chance of mortality. Right frontotemporal subarachnoid and subdural bleeding with brain contusions on the right. Continue Neuro checks. Status post Placement of ICP monitor. HOB elevation 30 degrees. Monitor PCO2. Monitor ICP and CPP. Keppra for seizxure prophylaxis Hypertonic saline as needed facial abrasion. Wound care with bacitracin Ear injury. Will benefit by plastic surgery eval as cartilage exposed Thoracic spine fracture. Nonoperative treatment. Pain controlled with analgesics Severe left-sided facial fractures involving the orbit, zygoma, maxilla, nasal fracture, as well as fracture of the base of the skull going through the petrous bone. Consult oral maxillofacial surgeon Multiple left rib fractures with chest wall deformity, bilateral lung contusion and bilateral aspiration. Chest tube placement. A small amount of subcutaneous air, but no pneumothorax. Narcotics for pain control Spleen lacerations, laceration probably grade II of the spleen with slight amount of blood around the spleen. Defer to trauma surgeon. Monitor hemoglobin and hematocrit Pulmonary..aggressive pulmonary toilette, nasotracheal suction, and breathing treatments with nebulizers. Nutrition. NPO Renal. monitor closely urine output, BUN and creatinine Endocrine. Monitor serial Acu checks and SSI as needed in detail ID monitor for signs of infection Protonix for stress ulcer prophylaxis Sonido hose and SCD's for DVT prophylaxis. Further recommendations will depend on his clinical evolution and follow up Studies The exam, history, and the medical decision-making described in the above note were completed with the assistance of the mid-level provider. I reviewed and agree with the findings presented. I attest that I had a [id number] encounter with the patient on the same day, and personally performed and documented my assessment and findings in the medical record. (Kameron Peoples MD) Rosy Alvarado Aug 12, 2017 12:10 Kameron Peoples MD Aug 17, 2017 15:55
[2017-08-12] MEDS: PANTOPRAZOLE SODIUM 40 MG VIAL IV PUSH SCH (13:44)
[2017-08-12] MEDS ORDERED: ALBUMIN 5% INJ 500 ML IV ONE (14:30)
--- NOTE | 2017-08-12 15:45 | EKG ---
Date Performed: 08/11/2017 Time Performed: 18:13:04 PTAGE: 52 years EKG: Sinus rhythm WITH 2ND DEGREE AV BLOCK, MOBITZ TYPE II LOW QRS VOLTAGE IN PRECORDIAL LEADS ABNORMAL ECG Since the PREVIOUS TRACING , no significant change noted PREVIOUS TRACIN08/11/2017 @ 16.39 DOCTOR: Elizabeth Abebe Interpretating Date/Time 08/12/2017 15:44:34
--- NOTE | 2017-08-12 15:45 | EKG ---
Date Performed: 08/11/2017 Time Performed: 16:39:12 PTAGE: 52 years EKG: --- Warning: Data quality may affect interpretation --- Sinus tachycardia. rSr'(V1) - proba ble normal variant Possible anterior infarct - age undetermined Low QRS voltages in precordial leads Since the previous tracing, no significant change noted Abnormal ECG NO PREVIOUS TRACING DOCTOR: Elizabeth Abebe Interpretating Date/Time 08/12/2017 15:44:04
[2017-08-12] MEDS ORDERED: ATOR20TA15 PO (16:35)
[2017-08-12] MEDS ORDERED: LORA-650 PO (16:37)
[2017-08-12] MEDS ORDERED: METF500T4 PO (16:37)
[2017-08-12] MEDS ORDERED: MELO15TA20 PO (16:38)
[2017-08-12] MEDS ORDERED: LISI2.5T3 PO (16:38)
[2017-08-12] MEDS ORDERED: CYCL10TA PO (16:39)
--- NOTE | 2017-08-12 19:35 | HHI.CCPN ---
Subjective Brief History This 52-year-old male fell while working on a tree onto the concrete deck below about 10 feet. Nobody witnessed the event; however, apparently was bleeding on the pavement and finally ambulance was called. It is unknown how long patient had been lying there. The patient was brought to our institution as priority 1 trauma alert, intubated in the field with C-collar in place on a spinal board by air ambulance. On arrival, patient's Amelie Coma Scale was 3 and improved to about 5. FINAL INJURIES DETECTED: 1. Severe left-sided facial fractures involving the orbit, zygoma, maxilla, nasal fracture, as well as fracture of the base of the skull going through the petrous bone. 2. Right frontotemporal subarachnoid and subdural bleeding with brain contusions on the right. 2.a.C7 transverse process fracture right 3. Chest revealed serial left rib fractures with chest wall deformity, bilateral lung contusion and bilateral aspiration. A small amount of subcutaneous air, but no pneumothorax. 4. L Clavicle FX 5. Abdominal CAT scan revealed small lacerations, laceration probably grade II of the spleen with slight amount of blood around the spleen This patient has severe multisystem injuries and in addition it is not clear whether patient might of had suffered a heart attack or some other posterior problem prior to falling off the ladder. This will be worked up now after patient is admitted Neurosurgery is consulted and workup and further ICU resuscitation is in progress Patient is critical and there is a high mortality rate associated with these injuries probably ranging over 50% in the age group 24 Hour Review/Hospital Course 08/12/2017 Patient with massive multisystem injuries including brain and chest Neurologically patient remains intubated ventilated sedated Neuroprotective measures including propofol fentanyl and Versed required in order to keep ICP below 20 mmHg ICP ranging between 14 and 20 mmHg Hemodynamically patient was initially unstable but starting to stabilize slowly Large amount of fluids and 4 units of PRBC administered in order to account for systemic inflammatory response and third space loss. Patient extremely hyperdynamic with cardiac output about 8 L and systemic vascular resistance very low around 500 Requiring active vasomotor support with Levophed and Mark-Synephrine now gradually being weaned off If necessary patient will placed on vasopressin but I would like to avoid that if possible considering his precarious cardiac function Initial elevation of troponins which are now normalizing may be related to the fall itself Bilateral breath sounds decreased over the left side where patient has massive pulmonary contusion with injury to the left upper importance of lower lobe Chest tube drainage decreased and patient does have retained hemothorax In order to maintain adequate PO2 FiO2 gradient and not over extend the right lung patient has been placed on bilevel ventilation Settings currently 50% FiO2 PSVT 28/2 sec high and PSV 0/0.7 seconds low This allows for about 16 L/min ventilation Patient will probably eventually need thoracoscopy and evacuation of hemothorax on the left however right now patient is unstable to go for any further studies to fully evaluate evolving extent of lung injury Abdomen soft no signs of trauma except small splenic laceration which appears to be stable Renal function preserved now the patient is well preloaded I discussed at length the care of this patient with the family and explained to them that there is a high mortality associated with multiplicity and severity of the injuries Objective Vital Signs Date Time Temp Pulse Resp B/P (MAP) Pulse Ox O2 Delivery O2 Flow Rate FiO2 08/12/17 18:14 131/61 08/12/17 15:44 96 50 08/12/17 14:00 84 08/12/17 12:00 101.3 22 08/11/17 19:00 Mechanical Ventilator Intake and Output 08/12/17 08/12/17 08/13/17 08:00 16:00 00:00 Intake Total 1960 ml 2255 ml 100 ml Output Total 3012 ml Balance -1052 ml 2255 ml 100 ml Result Diagram: 08/12/17 0605 08/12/17 1430 Other Results Laboratory Tests Test 08/11/17 21:20 08/12/17 03:48 08/12/17 09:00 08/12/17 10:20 Blood Gas Puncture Site ART LINE ART LINE ART LINE ART LINE Blood Gas Patient Temperature 98.6 98.6 98.6 98.6 Blood Gas HCO3 17 mmol/L (22-26) 18 mmol/L (22-26) 18 mmol/L (22-26) 19 mmol/L (22-26) Blood Gas Base Excess -8.0 mmol/L (-2-2) -6.8 mmol/L (-2-2) -6.2 mmol/L (-2-2) -5.8 mmol/L (-2-2) Blood Gas Oxygen Saturation 86 % (90-100) 92 % (90-100) 95 % (90-100) 96 % ( 90-100) Arterial Blood pH 7.29 (7.380-7.420) 7.31 (7.380-7.420) 7.35 (7.380-7.420) 7.34 (7.380-7.420) Arterial Blood Partial Pressure CO2 37 mmHg (38-42) 37 mmHg (38-42) 34 mmHg (38-42) 36 mmHg (38-42) Arterial Blood Partial Pressure O2 58 mmHg (61-120) 77 mmHg (61-120) 88 mmHg (61-120) 106 mmHg (61-120) Arterial Blood Oxygen Content 11.8 Vol % (12.0-20.0) 12.5 Vol % (12.0-20.0) 14.0 Vol % (12.0-20.0) 12.7 Vol % (12.0-20.0) Arterial Blood Carboxyhemoglobin 1.0 % (0-4) 1.0 % (0-4) 0.9 % (0-4) 0.9 % (0-4) Arterial Blood Methemoglobin 1.4 % (0-2) 1.6 % (0-2) 1.5 % (0-2) 1.4 % (0-2) Blood Gas Hemoglobin 9.7 G/DL (12.0-16.0) 9.6 G/DL (12.0-16.0) 10.4 G/DL (12.0-16.0) 9.3 G/DL (12.0-16.0) Oxygen Delivery Device VENTILATOR VENTILATOR VENTILATOR VENTILATOR Blood Gas Ventilator Setting PRVC/AC PRVC/AC Blood Gas Inspired Oxygen 50 % 60 % 50 % 50 % Imaging Last 24 hours Impressions Chest X-Ray 08/12/17 0600 Signed Impressions: CONCLUSION: Support apparatus unchanged. Left chest tube without significant pneumothorax. Slight worsening of right basilar airspace disease. 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 Patient extremely hyperdynamic with cardiac output about 8 L and systemic vascular resistance very low around 500 Requiring active vasomotor support with Levophed and Mark-Synephrine now gradually being weaned off If necessary patient will placed on vasopressin but I would like to avoid that if possible considering his precarious cardiac function Initial elevation of troponins which are now normalizing may be related to the fall itself Pulmonary/Respiratory Bilateral breath sounds decreased over the left side where patient has massive pulmonary contusion with injury to the left upper importance of lower lobe Chest tube drainage decreased and patient does have retained hemothorax In order to maintain adequate PO2 FiO2 gradient and not over extend the right lung patient has been placed on bilevel ventilation Settings currently 50% FiO2 PSVT 28/2 sec high and PSV 0/0.7 seconds low This allows for about 16 L/min ventilation Patient will probably eventually need thoracoscopy and evacuation of hemothorax on the left however right now patient is unstable to go for any further studies to fully evaluate evolving extent of lung injury Abdomen/GI Nutrition Abdomen soft no signs of trauma except small splenic laceration which appears to be stable Renal/I&O Renal function preserved now the patient is well preloaded I Assessment and Plan Attestation I discussed at length the care of this patient with the family and explained to them that there is a high mortality associated with multiplicity and severity of the injuries Critical care time 48 minutes Alfred Wright MD Aug 12, 2017 19:35
[2017-08-12] MEDS: REMOVE OLD LIDOCAINE PATCH T-DERMAL SCH (22:05)
[2017-08-13] VITALS (14 sets, daily range): BP systolic 104–128; BP diastolic 55–66; PULSE 63–87; RESP 22–24; TEMP 98.6–103; O2SAT 97–100
[2017-08-13] MEDS: PROPOFOL 1000 MG/100 ML IV PRN ×9 (02:00→23:17)
[2017-08-13] MEDS: NOREPINEPHRINE INJ 4 MG in SODIUM CHLOR 0.9% 250 ML INJ 246 ML IV PRN ×4 (02:06→23:21)
[2017-08-13] MEDS: PHENYLEPHRINE INJ 40 MG in SODIUM CHLORID 0.9% 500 ML INJ 496 ML IV PRN (02:37)
[2017-08-13] MEDS: RESP: ALBUTEROL 2.5 MG/IPRATROPIUM 0.5 MG NEB (SCH) NEB ×4 (03:29→20:56)
--- NOTE | 2017-08-13 04:24 | RADRPT ---
EXAM DATE: 08/13/2017 3:49 AM EDT AGE/SEX: 52 years / Male INDICATIONS: Shortness of breath CLINICAL DATA: This is the patient's subsequent encounter. Patient reports that signs and symptoms h ave been present for 3 days and indicates a pain score of Nonresponsive. MEDICAL/SURGICAL HISTORY: Non-responsive. Non-responsive. COMPARISON: C, CHEST SINGLE AP, 08/12/2017. . FINDINGS: Endotracheal tube tip in good position. NG enters stomach. Right central line tip in superior vena ca va. Left chest tube without pneumothorax. Bilateral airspace disease, left greater than right. CONCLUSION: Slight improvement in left-sided airspace disease over the last day. Left chest tube remains in place without pneumothorax. Support apparatus unchanged. Left clavicle fracture noted with multiple left r ib fractures. Electronically signed by: Tesfaye Pacheco MD 08/13/2017 4:23 AM EDT
[2017-08-13] MEDS: METHOCARBAMOL 500 MG TAB PO SCH ×3 (04:56→20:49)
[2017-08-13] MEDS: MIDAZOLAM 50 MG/NS 50 ML DRIP Premix IV PRN ×4 (04:57→21:38)
[2017-08-13] MEDS: fentaNYL 2,500 MCG/NS 250 ML IV PRN ×3 (05:00→21:38)
[2017-08-13] MEDS: INSULIN ASPART SUPPLEMENTAL SCALE SQ SCH ×4 (06:00→23:17)
[2017-08-13 07:01] LABS: AUTOMATED NEUTROPHIL # 8.7 TH/MM3 (1.8-7.7); BASOPHIL % 0.4 % (0.0-2.0); EOSINOPHIL # 0.1 TH/MM3 (0-0.4); EOSINOPHIL % 0.6 % (0.0-4.0); HEMATOCRIT 22.9 % (39.0-51.0); HEMOGLOBIN 7.7 GM/DL (13.0-17.0); LYMPH % 7.9 % (9.0-44.0); LYMPHOCYTE # 0.8 TH/MM3 (1.0-4.8); MEAN CELL VOLUME 83.9 FL (80.0-100.0); MEAN CORPUSCULAR HEMOGLOBIN 28.3 PG (27.0-34.0); MEAN CORPUSCULAR HGB CONC 33.7 % (32.0-36.0); MEAN PLATELET VOLUME 8.6 FL (7.0-11.0); MONO % 7.9 % (0.0-8.0); MONOCYTE # 0.8 TH/MM3 (0-0.9); NEUT % 83.2 % (16.0-70.0); PLATELET COUNT 173 TH/MM3 (150-450); RED BLOOD COUNT 2.73 MIL/MM3 (4.50-5.90); RED CELL DISTRIBUTION WIDTH 14.8 % (11.6-17.2); WHITE BLOOD COUNT 10.4 TH/MM3 (4.0-11.0)
[2017-08-13 07:36] LABS: ALBUMIN 2.3 GM/DL (3.4-5.0); CALCIUM 6.8 MG/DL (8.5-10.1); CALCIUM-PROTEIN CORRECTED 7.8 MG/DL (8.5-10.1); CREATININE 0.76 MG/DL (0.60-1.30); TOTAL BILIRUBIN ADULT 0.6 MG/DL (0.2-1.0); TOTAL PROTEIN 5.2 GM/DL (6.4-8.2)
[2017-08-13] MEDS: CHLORHEXIDINE 0.12% (ORAL KIT) 15 ML CUP MT SCH ×2 (08:00→20:51)
--- NOTE | 2017-08-13 08:57 | PD.CAR.PN ---
CVT Progress Note Objective: Vital Signs Date Time Temp Pulse Resp B/P (MAP) Pulse Ox O2 Delivery O2 Flow Rate FiO2 08/13/17 07:59 98 35 08/13/17 07:59 98 35 08/13/17 06:18 125/60 08/13/17 06:00 72 08/13/17 04:00 100.8 72 22 128/60 (82) 99 08/13/17 04:00 50 08/13/17 04:00 72 08/13/17 02:37 120/59 08/13/17 02:06 71 118/57 08/13/17 02:00 71 08/13/17 00:00 50 08/13/17 00:00 70 08/13/17 00:00 100.2 70 22 118/58 (78) 100 08/12/17 23:47 100 40 08/12/17 22:00 69 08/12/17 21:45 68 122/61 08/12/17 20:00 99.7 72 22 140/66 (90) 99 08/12/17 20:00 50 08/12/17 20:00 72 08/12/17 19:50 71 140/65 08/12/17 19:34 100 45 08/12/17 18:20 153/73 08/12/17 18:20 153/73 08/12/17 18:14 131/61 08/12/17 18:13 131/61 08/12/17 18:00 71 08/12/17 16:00 77 08/12/17 16:00 50 08/12/17 16:00 100.4 77 21 128/62 (84) 100 08/12/17 15:44 96 50 08/12/17 14:00 84 08/12/17 14:00 119/54 08/12/17 12:00 50 08/12/17 12:00 101.3 79 22 108/52 (70) 98 08/12/17 12:00 79 08/12/17 11:45 104/51 08/12/17 11:00 97 50 08/12/17 11:00 113/53 08/12/17 10:00 80 08/12/17 09:54 50 08/12/17 09:50 99 50 08/12/17 09:45 127/60 08/12/17 09:30 139/64 6/8/18 09:05 135/62 Labs: Laboratory Tests Test 08/12/17 21:35 08/13/17 03:49 08/13/17 06:20 Sodium Level 150 MEQ/L (136-145) 151 MEQ/L (136-145) Serum Osmolality 318 MOSM/KG (275-295) 307 MOSM/KG (275-295) Blood Gas Puncture Site JESSY Blood Gas Patient Temperature 98.6 Blood Gas HCO3 20 mmol/L (22-26) Blood Gas Base Excess -3.8 mmol/L (-2-2) Blood Gas Oxygen Saturation 96 % (90-100) Arterial Blood pH 7.38 (7.380-7.420) Arterial Blood Partial Pressure CO2 35 mmHg (38-42) Arterial Blood Partial Pressure O2 138 mmHg (61-120) Arterial Blood Oxygen Content 10.8 Vol % (12.0-20.0) Arterial Blood Carboxyhemoglobin 1.0 % (0-4) Arterial Blood Methemoglobin 1.5 % (0-2) Blood Gas Hemoglobin 7.7 G/DL (12.0-16.0) Oxygen Delivery Device VENTILATOR Blood Gas Ventilator Setting SEE COMMENT Blood Gas Inspired Oxygen 45 % White Blood Count 10.4 TH/MM3 (4.0-11.0) Red Blood Count 2.73 MIL/MM3 (4.50-5.90) Hemoglobin 7.7 GM/DL (13.0-17.0) Hematocrit 22.9 % (39.0-51.0) Mean Corpuscular Volume 83.9 FL (80.0-100.0) Mean Corpuscular Hemoglobin 28.3 PG (27.0-34.0) Mean Corpuscular Hemoglobin Concent 33.7 % (32.0-36.0) Red Cell Distribution Width 14.8 % (11.6-17.2) Platelet Count 173 TH/MM3 (150-450) Mean Platelet Volume 8.6 FL (7.0-11.0) Neutrophils (%) (Auto) 83.2 % (16.0-70.0) Lymphocytes (%) (Auto) 7.9 % (9.0-44.0) Monocytes (%) (Auto) 7.9 % (0.0-8.0) Eosinophils (%) (Auto) 0.6 % (0.0-4.0) Basophils (%) (Auto) 0.4 % (0.0-2.0) Neutrophils # (Auto) 8.7 TH/MM3 (1.8-7.7) Lymphocytes # (Auto) 0.8 TH/MM3 (1.0-4.8) Monocytes # (Auto) 0.8 TH/MM3 (0-0.9) Eosinophils # (Auto) 0.1 TH/MM3 (0-0.4) Basophils # (Auto) 0.0 TH/MM3 (0-0.2) CBC Comment DIFF FINAL Differential Comment Blood Urea Nitrogen 11 MG/DL (7-18) Creatinine 0.76 MG/DL (0.60-1.30) Random Glucose 142 MG/DL (74-106) Total Protein 5.2 GM/DL (6.4-8.2) Albumin 2.3 GM/DL (3.4-5.0) Calcium Level 6.8 MG/DL (8.5-10.1) Alkaline Phosphatase 64 U/L (45-117) Aspartate Amino Transf (AST/SGOT) 91 U/L (15-37) Alanine Aminotransferase (ALT/SGPT) 40 U/L (12-78) Total Bilirubin 0.6 MG/DL (0.2-1.0) Potassium Level 3.5 MEQ/L (3.5-5.1) Chloride Level 121 MEQ/L (98-107) Carbon Dioxide Level 21.0 MEQ/L (21.0-32.0) Anion Gap 9 MEQ/L (5-15) Estimat Glomerular Filtration Rate 107 ML/MIN (>89) Protein Corrected Calcium 7.8 MG/DL (8.5-10.1) Result Diagram: 08/13/1720 08/13/17 0620 Alfred Wright MD Aug 13, 2017 08:57
[2017-08-13] MEDS: SODIUM CHLORIDE 0.9% FLUSH 10 ML FLUSH IV FLUSH SCH ×2 (09:00→20:50)
[2017-08-13] MEDS: DOCUSATE SODIUM 50 MG/SENNA 8.6 MG TAB PO SCH ×2 (09:00→20:49)
[2017-08-13] MEDS: MAGNESIUM HYDROXIDE SUSP 30 ML CUP PO SCH ×2 (09:00→20:49)
[2017-08-13] MEDS: levETIRAcetam INJ 500 MG in SODIUM CHLORIDE 0.9% INJ 100 ML IV SCH ×2 (09:40→20:49)
[2017-08-13] MEDS: POTASSIUM CHLOR 20 MEQ PREMIX 100 ML IV PRN ×2 (09:41→09:43)
[2017-08-13] MEDS: LIDOCAINE HCL 5% PATCH T-DERMAL SCH (09:41)
[2017-08-13] MEDS ORDERED: FUROSEMIDE 20 MG/2 ML VIAL IV PUSH ONE (09:45)
[2017-08-13] MEDS: ACETAMINOPHEN 1000 MG/100 ML 100 ML IV PRN ×2 (12:26→17:11)
[2017-08-13] MEDS: PANTOPRAZOLE SODIUM 40 MG VIAL IV PUSH SCH (13:13)
--- NOTE | 2017-08-13 14:02 | HHI.CCPN ---
Subjective Brief History This 52-year-old male fell while working on a tree onto the concrete deck below about 10 feet. Nobody witnessed the event; however, apparently was bleeding on the pavement and finally ambulance was called. It is unknown how long patient had been lying there. The patient was brought to our institution as priority 1 trauma alert, intubated in the field with C-collar in place on a spinal board by air ambulance. On arrival, patient's Amelie Coma Scale was 3 and improved to about 5. FINAL INJURIES DETECTED: 1. Severe left-sided facial fractures involving the orbit, zygoma, maxilla, nasal fracture, as well as fracture of the base of the skull going through the petrous bone. 2. Right frontotemporal subarachnoid and subdural bleeding with brain contusions on the right. 2.a.C7 transverse process fracture right 3. Chest revealed serial left rib fractures with chest wall deformity, bilateral lung contusion and bilateral aspiration. A small amount of subcutaneous air, but no pneumothorax. 4. L Clavicle FX 5. Abdominal CAT scan revealed small lacerations, laceration probably grade II of the spleen with slight amount of blood around the spleen This patient has severe multisystem injuries and in addition it is not clear whether patient might of had suffered a heart attack or some other posterior problem prior to falling off the ladder. This will be worked up now after patient is admitted Neurosurgery is consulted and workup and further ICU resuscitation is in progress Patient is critical and there is a high mortality rate associated with these injuries probably ranging over 50% in the age group 24 Hour Review/Hospital Course 08/12/2017 Patient with massive multisystem injuries including brain and chest Neurologically patient remains intubated ventilated sedated Neuroprotective measures including propofol fentanyl and Versed required in order to keep ICP below 20 mmHg ICP ranging between 14 and 20 mmHg Hemodynamically patient was initially unstable but starting to stabilize slowly Large amount of fluids and 4 units of PRBC administered in order to account for systemic inflammatory response and third space loss. Patient extremely hyperdynamic with cardiac output about 8 L and systemic vascular resistance very low around 500 Requiring active vasomotor support with Levophed and Mark-Synephrine now gradually being weaned off If necessary patient will placed on vasopressin but I would like to avoid that if possible considering his precarious cardiac function Initial elevation of troponins which are now normalizing may be related to the fall itself Bilateral breath sounds decreased over the left side where patient has massive pulmonary contusion with injury to the left upper importance of lower lobe Chest tube drainage decreased and patient does have retained hemothorax In order to maintain adequate PO2 FiO2 gradient and not over extend the right lung patient has been placed on bilevel ventilation Settings currently 50% FiO2 PSVT 28/2 sec high and PSV 0/0.7 seconds low This allows for about 16 L/min ventilation Patient will probably eventually need thoracoscopy and evacuation of hemothorax on the left however right now patient is unstable to go for any further studies to fully evaluate evolving extent of lung injury Abdomen soft no signs of trauma except small splenic laceration which appears to be stable Renal function preserved now the patient is well preloaded I discussed at length the care of this patient with the family and explained to them that there is a high mortality associated with multiplicity and severity of the injuries 08/13/2017 Patient slightly improved Remains sedated ventilated on propofol fentanyl and Versed ICP remains 12-18 mmHg Hemodynamically patient is slowly stabilizing Mark-Synephrine has been weaned off but patient remains still on Levophed Track flow reveals cardiac output of about 7.5 L and SVR about 550 consistent with hyperdynamic state vasodilatation and systemic inflammatory response SIRS Bilateral breath sounds Patient has been placed on bilevel ventilation yesterday which she is tolerating well and arterial blood gases have improved significantly Chest x-ray slowly clearing up the left lung field Abdomen soft will start on trickle feeds Objective Vital Signs Date Time Temp Pulse Resp B/P (MAP) Pulse Ox O2 Delivery O2 Flow Rate FiO2 08/13/17 08:00 100.2 73 24 112/55 (74) 100 08/13/17 08:00 35 08/11/17 19:00 Mechanical Ventilator Intake and Output 08/13/17 08/13/17 08/14/17 08:00 16:00 00:00 Intake Total 1250 ml Output Total 1020 ml Balance 230 ml Result Diagram: 08/13/17 0620 08/13/17 0840 Other Results Laboratory Tests Test 08/13/17 03:49 Blood Gas Puncture Site JESSY Blood Gas Patient Temperature 98.6 Blood Gas HCO3 20 mmol/L (22-26) Blood Gas Base Excess -3.8 mmol/L (-2-2) Blood Gas Oxygen Saturation 96 % (90-100) Arterial Blood pH 7.38 (7.380-7.420) Arterial Blood Partial Pressure CO2 35 mmHg (38-42) Arterial Blood Partial Pressure O2 138 mmHg (61-120) Arterial Blood Oxygen Content 10.8 Vol % (12.0-20.0) Arterial Blood Carboxyhemoglobin 1.0 % (0-4) Arterial Blood Methemoglobin 1.5 % (0-2) Blood Gas Hemoglobin 7.7 G/DL (12.0-16.0) Oxygen Delivery Device VENTILATOR Blood Gas Ventilator Setting SEE COMMENT Blood Gas Inspired Oxygen 45 % Imaging Last 24 hours Impressions Chest X-Ray 08/13/17 0600 Signed Impressions: CONCLUSION: Slight improvement in left-sided airspace disease over the last day. Left chest tube remains in place without pneumothorax. Support apparatus unchanged. Left clavicle fracture noted with multiple left rib fractures. 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 Patient slightly improved Remains sedated ventilated on propofol fentanyl and Versed ICP remains 12-18 mmHg Hemodynamic/Cardiac Hemodynamically patient is slowly stabilizing Mark-Synephrine has been weaned off but patient remains still on Levophed Track flow reveals cardiac output of about 7.5 L and SVR about 550 consistent with hyperdynamic state vasodilatation and systemic inflammatory response SIRS Pulmonary/Respiratory Bilateral breath sounds Patient has been placed on bilevel ventilation yesterday which she is tolerating well and arterial blood gases have improved significantly Chest x-ray slowly clearing up the left lung field Abdomen soft will start on trickle feeds Abdomen/GI Nutrition Abdomen soft Renal/I&O Renal function preserved Sodium 151 mEq/L and remains on 3% saline Hematologic Patient somewhat anemic hemoglobin 7.7 g/dL. will transfuse 2 units PRBC Assessment and Plan Attestation Critical care time 36 minutes Alfred Wright MD Aug 13, 2017 14:01
--- NOTE | 2017-08-13 16:41 | HHI.NSPN ---
History Chief Complaint: Intubated Interval History 08/13/2017: Remains intubated. Sedated on Versed, propofol, fentanyl. On Levophed. Current systolic blood pressure 180s. Map 87. ICP 21-22. Exam Results Vital Signs Date Time Temp Pulse Resp B/P (MAP) Pulse Ox O2 Delivery O2 Flow Rate FiO2 08/13/17 16:02 98 50 08/13/17 13:30 103.0 08/13/17 12:00 87 24 104/55 (71) 08/11/17 19:00 Mechanical Ventilator Intake and Output 08/13/17 08/13/17 08/14/17 08:00 16:00 00:00 Intake Total 1250 ml Output Total 1020 ml Balance 230 ml Physical Examination GENERAL: middle age male well nourished HEENT: Normocephalic, obvious trauma to the head with left severe facial bruising with left periorbital ecchymoses and swelling. Pupils are unequal. Left pupil 5-6, right pupil 3. The extraocular muscles cannot be tested. A right frontal ICP is in place with ICPs 22 NECK: Immobilized by cervical collar. No JVD. HEART: Regular rate rhythm. ABDOMEN: Soft. no masses. Morbidly obese. MUSCULOSKELETAL: No deformations. Normal tone. No spontaneous movements. NEUROLOGIC: Sedated. No spontaneous eye opening. Not following for motor testing. Sensory exam he withdraws minimally to pain. Cerebellar examination is not possible due to his neurological condition Lab, Micro, Other Results Laboratory Tests Test 08/12/17 21:35 08/13/17 03:49 08/13/17 06:20 08/13/17 08:40 Sodium Level 150 MEQ/L 151 MEQ/L 151 MEQ/L Serum Osmolality 318 MOSM/KG 307 MOSM/KG Blood Gas Puncture Site JESSY Blood Gas Patient Temperature 98.6 Blood Gas HCO3 20 mmol/L Blood Gas Base Excess -3.8 mmol/L Blood Gas Oxygen Saturation 96 % Arterial Blood pH 7.38 Arterial Blood Partial Pressure CO2 35 mmHg Arterial Blood Partial Pressure O2 138 mmHg Arterial Blood Oxygen Content 10.8 Vol % Arterial Blood Carboxyhemoglobin 1.0 % Arterial Blood Methemoglobin 1.5 % Blood Gas Hemoglobin 7.7 G/DL Oxygen Delivery Device VENTILATOR Blood Gas Ventilator Setting SEE COMMENT Blood Gas Inspired Oxygen 45 % White Blood Count 10.4 TH/MM3 Red Blood Count 2.73 MIL/MM3 Hemoglobin 7.7 GM/DL Hematocrit 22.9 % Mean Corpuscular Volume 83.9 FL Mean Corpuscular Hemoglobin 28.3 PG Mean Corpuscular Hemoglobin Concent 33.7 % Red Cell Distribution Width 14.8 % Platelet Count 173 TH/MM3 Mean Platelet Volume 8.6 FL Neutrophils (%) (Auto) 83.2 % Lymphocytes (%) (Auto) 7.9 % Monocytes (%) (Auto) 7.9 % Eosinophils (%) (Auto) 0.6 % Basophils (%) (Auto) 0.4 % Neutrophils # (Auto) 8.7 TH/MM3 Lymphocytes # (Auto) 0.8 TH/MM3 Monocytes # (Auto) 0.8 TH/MM3 Eosinophils # (Auto) 0.1 TH/MM3 Basophils # (Auto) 0.0 TH/MM3 CBC Comment DIFF FINAL Differential Comment Blood Urea Nitrogen 11 MG/DL Creatinine 0.76 MG/DL Random Glucose 142 MG/DL Total Protein 5.2 GM/DL Albumin 2.3 GM/DL Calcium Level 6.8 MG/DL Alkaline Phosphatase 64 U/L Aspartate Amino Transf (AST/SGOT) 91 U/L Alanine Aminotransferase (ALT/SGPT) 40 U/L Total Bilirubin 0.6 MG/DL Potassium Level 3.5 MEQ/L Chloride Level 121 MEQ/L Carbon Dioxide Level 21.0 MEQ/L Anion Gap 9 MEQ/L Estimat Glomerular Filtration Rate 107 ML/MIN Protein Corrected Calcium 7.8 MG/DL Test 08/13/17 13:40 Sodium Level 152 MEQ/L Serum Osmolality 310 MOSM/KG Medical Decision Making Impression and Plan Traumatic brain injury Cervical spine fractures Plan: ICPs are increased to low 20's this afternoon. Patient reportedly desaturating with any suctioning or repositioning Serum sodium and osmolality are optimized. Holding further hypertonic saline or mannitol at this point. On cooling blanket for increased temperature Discussed with nursing staff. Continue pressors to maintain CPP. CT scan head for further increase in ICP, however at risk for further deterioration in pulmonary and hemodynamic status with transport. Landon Borrego MD Aug 13, 2017 16:40
[2017-08-13] MEDS: 3% SALINE INJ 500 ML IV PRN (20:51)
[2017-08-13] MEDS: REMOVE OLD LIDOCAINE PATCH T-DERMAL SCH (21:39)
[2017-08-14] VITALS (17 sets, daily range): BP systolic 114–138; BP diastolic 55–71; PULSE 58–76; RESP 22–28; TEMP 96.7–99.1; O2SAT 96–100
[2017-08-14] MEDS: PROPOFOL 1000 MG/100 ML IV PRN ×8 (02:55→21:23)
[2017-08-14] MEDS: MIDAZOLAM 50 MG/NS 50 ML DRIP Premix IV PRN ×4 (02:56→19:06)
[2017-08-14] MEDS: RESP: ALBUTEROL 2.5 MG/IPRATROPIUM 0.5 MG NEB (SCH) NEB ×4 (03:54→20:55)
--- NOTE | 2017-08-14 03:56 | RADRPT ---
EXAM DATE: 08/14/2017 3:50 AM EDT AGE/SEX: 52 years / Male INDICATIONS: Respiratory disease. CLINICAL DATA: This is the patient's subsequent encounter. Patient reports that signs and symptoms h ave been present for 4 - 6 days and indicates a pain score of Nonresponsive. MEDICAL/SURGICAL HISTORY: Non-responsive. Non-responsive. COMPARISON: [facility], CHEST SINGLE AP, 08/13/2017. . FINDINGS: The endotracheal tube, nasogastric tube and right subclavian central line are in good position. Left chest tube in good position with some minimal residual pleural air in the left midlung zone. Dense co nsolidation left lung base. Small bilateral pleural effusions left greater than right. CONCLUSION: Dense consolidation left lung base with a tiny amount residual pleural air. Tubes and catheters are i n good position. Electronically signed by: Eliazar Shaw MD 08/14/2017 3:54 AM EDT
[2017-08-14] MEDS: METHOCARBAMOL 500 MG TAB PO SCH ×3 (05:01→21:22)
[2017-08-14] MEDS: INSULIN ASPART SUPPLEMENTAL SCALE SQ SCH ×4 (05:01→23:23)
[2017-08-14 06:39] LABS: AUTOMATED NEUTROPHIL # 8.5 TH/MM3 (1.8-7.7); BASOPHIL # 0.1 TH/MM3 (0-0.2); BASOPHIL % 0.6 % (0.0-2.0); EOSINOPHIL # 0.1 TH/MM3 (0-0.4); EOSINOPHIL % 0.7 % (0.0-4.0); HEMOGLOBIN 7.9 GM/DL (13.0-17.0); LYMPH % 6.5 % (9.0-44.0); LYMPHOCYTE # 0.6 TH/MM3 (1.0-4.8); MEAN CELL VOLUME 84.5 FL (80.0-100.0); MEAN CORPUSCULAR HGB CONC 34.3 % (32.0-36.0); MEAN PLATELET VOLUME 8.4 FL (7.0-11.0); MONO % 7.1 % (0.0-8.0); MONOCYTE # 0.7 TH/MM3 (0-0.9); NEUT % 85.1 % (16.0-70.0); PLATELET COUNT 163 TH/MM3 (150-450); RED BLOOD COUNT 2.72 MIL/MM3 (4.50-5.90); RED CELL DISTRIBUTION WIDTH 14.8 % (11.6-17.2)
[2017-08-14 07:02] LABS: ALBUMIN 2.1 GM/DL (3.4-5.0); BICARBONATE 23.8 MEQ/L (21.0-32.0); CALCIUM 7.2 MG/DL (8.5-10.1); CREATININE 0.63 MG/DL (0.60-1.30); TOTAL BILIRUBIN ADULT 0.6 MG/DL (0.2-1.0); TOTAL PROTEIN 5.6 GM/DL (6.4-8.2)
[2017-08-14] MEDS: CHLORHEXIDINE 0.12% (ORAL KIT) 15 ML CUP MT SCH ×2 (09:32→20:24)
[2017-08-14] MEDS: levETIRAcetam INJ 500 MG in SODIUM CHLORIDE 0.9% INJ 100 ML IV SCH ×2 (09:34→20:24)
[2017-08-14] MEDS: SODIUM CHLORIDE 0.9% FLUSH 10 ML FLUSH IV FLUSH SCH ×2 (09:35→20:24)
[2017-08-14] MEDS: DOCUSATE SODIUM 50 MG/SENNA 8.6 MG TAB PO SCH ×2 (09:35→20:25)
[2017-08-14] MEDS: MAGNESIUM HYDROXIDE SUSP 30 ML CUP PO SCH ×2 (09:35→20:24)
[2017-08-14] MEDS: LIDOCAINE HCL 5% PATCH T-DERMAL SCH (09:36)
[2017-08-14] MEDS ORDERED: FUROSEMIDE 40 MG/4 ML VIAL IV PUSH ONE (09:45)
[2017-08-14] MEDS ORDERED: POTASSIUM BICARBONATE 25 MEQ EFFERVESCENT TAB PO ONE (09:45)
[2017-08-14] MEDS: POTASSIUM CHLOR 20 MEQ PREMIX 100 ML IV PRN ×2 (09:48→13:22)
[2017-08-14] MEDS: fentaNYL 2,500 MCG/NS 250 ML IV PRN ×2 (10:05→19:38)
[2017-08-14] MEDS: NOREPINEPHRINE INJ 4 MG in SODIUM CHLOR 0.9% 250 ML INJ 246 ML IV PRN ×2 (10:14→17:19)
--- NOTE | 2017-08-14 11:01 | HHI.NSPN ---
History Chief Complaint: Unable to obtain due to patient's clinical condition. 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 The reported. No tonic-clonic movement seen. No tongue biting. No incontinence of stool or urine. Nobody witnessed the event; however, apparently was bleeding on the pavement and finally ambulance was called. It is unknown how long patient had been lying there. The patient was brought to [facility] as Trauma alert, priority 1 trauma alert, intubated in the field with C-collar in place on a spinal board by air ambulance. On arrival, patient' s Amelie Coma Scale was 3 which improved to about 5. He had unequal pupils with anisocoria. He was resuscitated according to the ATLS protocol. Trauma workup revealed multiple injuries including a severe left-sided facial fractures involving the orbit, zygoma, maxilla, nasal fracture, as well as fracture of the base of the skull going through the petrous bone, a right frontotemporal subarachnoid and subdural bleeding with brain contusions on the right, multiple left rib fractures with chest wall deformity, bilateral lung contusion and bilateral aspiration lacerations, laceration probably grade II of the spleen with slight amount of blood around the spleen Neurosurgical consultation was requested 08/12: ICPs currently 16. intubated, sedated. 08/13/2017: Remains intubated. Sedated on Versed, propofol, fentanyl. On Levophed. Current systolic blood pressure 180s. Map 87. ICP 21-22. 08/14: Nursing reports that the patient's ICP went up and stayed in the 30s earlier. Adjustments were made in his vent settings and his ICPs responded and were running in the mid teens to low twenties per Nursing. Respiratory reported that the patient had an intact cough reflex and was taking spontaneous breaths. He does have norepinephrine infusing for blood pressure support. He does have his propofol at the maximum. He had no response to command or noxious stimulation. Exam Results 6/8/18 6/8/18 6/9/18 6/9/18 6/10/18 6/10/18 06:00 18:00 06:00 18:00 06:00 18:00 Intake Total 5055 ml 3345 ml 3505 ml 100 ml 2091 ml Output Total 3012 ml 2020 ml 1020 ml 2005 ml 1320 ml Balance 2043 ml 1325 ml 2485 ml -1905 ml 771 ml Intake IV Total 4255 ml 3345 ml 3505 ml 100 ml 1755 ml Tube Feeding 276 ml Packed Cells 800 ml Tube Irrigant 60 ml Output Urine Total 3000 ml 1800 ml 1000 ml 2000 ml 1300 ml Gastric Drainage Total 0 ml 0 ml Chest Tube Drainage Total 12 ml 220 ml 20 ml 5 ml 20 ml # Bowel Movements 0 0 0 0 Vital Signs Date Time Temp Pulse Resp B/P (MAP) Pulse Ox O2 Delivery O2 Flow Rate FiO2 08/14/17 10:14 69 136/70 08/14/17 07:28 97 50 08/14/17 06:00 76 08/14/17 04:00 97.0 62 22 126/64 (84) 96 08/14/17 04:00 62 08/14/17 04:00 50 08/14/17 03:54 98 50 08/14/17 02:00 62 08/14/17 00:00 50 08/14/17 00:00 97.8 62 22 138/71 (93) 99 08/14/17 00:00 62 08/13/17 23:45 99 50 08/13/17 23:21 137/72 08/13/17 22:00 63 08/13/17 20:55 99 50 08/13/17 20:55 99 50 08/13/17 20:00 98.6 64 22 126/66 (86) 99 08/13/17 20:00 64 08/13/17 20:00 50 08/13/17 17:12 83 129/68 08/13/17 16:02 98 50 08/13/17 16:02 97 50 08/13/17 16:00 100.5 75 22 124/65 (84) 99 08/13/17 16:00 50 08/13/17 14:30 50 08/13/17 13:30 103.0 08/13/17 12:00 103.0 87 24 104/55 (71) 100 08/13/17 12:00 35 08/13/17 08:00 100.2 73 24 112/55 (74) 100 6/18 08:00 35 6/9/18 07:59 98 35 6/9/18 07:59 98 35 6/9/18 06:18 125/60 6/18 06:00 72 6/18 04:00 100.8 72 22 128/60 (82) 99 18 04:00 50 618 04:00 72 18 02:37 120/59 6/18 02:06 71 118/57 618 02:00 71 18 00:00 50 618 00:00 70 618 00:00 100.2 70 22 118/58 (78) 100 18 23:47 100 40 18 22:00 69 18 21:45 68 122/61 18 20:00 99.7 72 22 140/66 (90) 99 08/12/17 20:00 50 18 20:00 72 18 19:50 71 140/65 18 19:34 100 45 6/18 18:20 153/73 618 18:20 153/73 18 18:14 131/61 18 18:13 131/61 18 18:00 71 18 16:00 77 18 16:00 50 18 16:00 100.4 77 21 128/62 (84) 100 18 15:44 96 50 18 14:00 84 18 14:00 119/54 18 12:00 50 618 12:00 101.3 79 22 108/52 (70) 98 18 12:00 79 618 11:45 104/51 618 11:00 97 50 618 11:00 113/53 18 10:00 80 618 09:54 50 618 09:50 99 50 618 09:45 127/60 18 09:30 139/64 6/8/18 09:05 135/62 6/8/18 08:30 130/60 6/8/18 08:04 96 50 6/8/18 08:04 96 50 6/8/18 08:00 101.7 80 26 132/61 (84) 97 6/8/18 08:00 80 6/818 06:00 84 6/8/18 05:06 82 138/63 6/8/18 04:19 85 143/63 68/18 04:04 96 60 6818 04:00 84 6/8/18 04:00 102.0 84 24 147/60 (89) 96 18 04:00 60 18 03:02 85 134/61 618 02:00 83 18 01:32 85 134/61 6/8/18 01:31 60 6//18 01:31 95 60 6/8/18 00:00 83 6/18 00:00 60 6//18 00:00 101.1 83 24 133/61 (85) 94 6/7/18 23:37 82 134/62 6//18 22:20 84 131/59 6/7/18 22:09 84 130/60 6/18 22:00 84 6//18 20:37 100.4 88 24 128/59 94 6/7/18 20:25 119/54 6/7/18 20:25 117/53 6/7/18 20:00 100.0 84 24 126/58 (80) 97 08/11/18 20:00 84 6/18 20:00 50 6/7/18 19:24 96 50 6/7/18 19:00 100 Mechanical Ventilator 70 6/7/18 18:05 99.3 86 18 120/65 100 6/7/18 18:00 88 6/7/18 18:00 88 122/62 6/7/18 17:50 99.1 88 17 118/63 100 6/7/18 17:50 116 75/40 6/7/18 17:15 116 61/31 6/7/18 17:15 87 117/62 6/7/18 16:40 102 67/42 6/7/18 16:00 70 6/7/18 16:00 99.3 116 24 61/31 (41) 96 08/11/17 16:00 116 08/11/17 15:30 124 62/38 08/11/17 15:19 99 70 08/11/17 14:30 132 80/42 08/11/17 14:00 132 08/11/17 13:30 138 88/58 08/11/17 13:15 136 88/55 08/11/17 13:00 138 87/49 08/11/17 12:45 92 100 08/11/17 12:31 88 100 08/11/17 12:30 100 08/11/17 12:30 145 08/11/17 12:30 99.3 142 16 130/59 (82) 88 08/11/17 12:00 86 100 08/11/17 11:34 86 100 Physical Examination GENERAL: Comatose, intubated & mechanically ventilated. Sedation w/propofol at 50 mcg/kg/min. Also w/fentanyl at 250 mcg/hr for pain control. He has norepinephrine infusing at 12 mcg/min for blood pressure support. He is not in any apparent distress. HEENT: Normocephalic. Left-sided facial abrasions & ecchymosis w/left periorbital ecchymosis. Right frontal ICP monitor bolt in place w/o any evident drainage, erythema or streaking. Left pupil 5-6 mm & right pupil 3 mm, both non- reactive. No corneal reflex bilaterally. Orally intubated. OGT. NECK: Dubois J cervical collar in place. No JVD. Trachea midline. MUSCULOSKELETAL: No movement of extremities spontaneously, to command or noxious stimulation. No evident deformity or clubbing noted. NEUROLOGIC: Comatose but sedated w/propofol. No eye opening to any stimulation. Left pupil 5-6 mm & right pupil 3 mm, both non-reactive. No corneal reflex bilaterally. Nonverbal, orally intubated. Not following any commands. No response to local or central noxious stimulation. ICP ranging from 15 to 20 mm Hg w/good waveform. Lab, Micro, Other Results Recent Impressions Chest X-Ray 08/14/17 0600 Signed Impressions: CONCLUSION: Dense consolidation left lung base with a tiny amount residual pleural air. Tub es and catheters are in good position. Chest X-Ray 08/13/17 06 Signed Impressions: CONCLUSION: Slight improvement in left-sided airspace disease over the last day. Left chest tube remains in place without pneumothorax. Support apparatus unchanged. Left clavicle fracture noted with multiple left rib fractures. Chest X-Ray 08/12/17599 Signed Impressions: CONCLUSION: Support apparatus unchanged. Left chest tube without significant pneumothorax. Slight worsening of right basilar airspace disease. Head CT 08/11/171120 Signed Impressions: CONCLUSION: Intracranial hemorrhage with extra-axial blood and parenchymal blood most signi ficantly in the right frontal and temporal regions. Cervical Spine CT 08/11/171120 Signed Impressions: CONCLUSION: 1. Mildly comminuted fracture of the left C7 transverse process. 2. Minimally displaced fracture at the tip of the left T1 transverse process. Chest X-Ray 08/11/171119 Signed Impressions: CONCLUSION: 1. Airspace consolidation in the left upper left midlung zone likely represent ing pulmonary contusion given the recent trauma. No definite pneumothorax is se en. 2. There is a left pleural-based opacity in the upper hemithorax. 3. Bilateral rib fractures are identified. Laboratory Tests Test 08/11/17 11:25 08/11/17 12:45 08/11/17 13:33 08/11/17 16:36 White Blood Count 28.9 TH/MM3 Red Blood Count 4.52 MIL/MM3 Hemoglobin 12.4 GM/DL 11.0 GM/DL Bedside Hemoglobin 12.9 G/DL Hematocrit 39.2 % 34.2 % Bedside Hematocrit 38.0 % Mean Corpuscular Volume 86.7 FL Mean Corpuscular Hemoglobin 27.4 PG Mean Corpuscular Hemoglobin Concent 31.6 % Red Cell Distribution Width 14.2 % Platelet Count 452 TH/MM3 Mean Platelet Volume 8.3 FL Neutrophils (%) (Auto) 70.9 % Lymphocytes (%) (Auto) 23.8 % Monocytes (%) (Auto) 3.7 % Eosinophils (%) (Auto) 1.0 % Basophils (%) (Auto) 0.6 % Neutrophils # (Auto) 20.5 TH/MM3 Lymphocytes # (Auto) 6.9 TH/MM3 Monocytes # (Auto) 1.1 TH/MM3 Eosinophils # (Auto) 0.3 TH/MM3 Basophils # (Auto) 0.2 TH/MM3 CBC Comment AUTO DIFF Differential Total Cells Counted 100 Neutrophils % (Manual) 61 % Band Neutrophils % 9 % Lymphocytes % 27 % Monocytes % 3 % Neutrophils # (Manual) 20.2 TH/MM3 Differential Comment FINAL DIFF MANUAL Platelet Estimate HIGH Platelet Morphology Comment NORMAL Prothrombin Time 10.7 SEC Prothromb Time International Ratio 1.1 RATIO Activated Partial Thromboplast Time 22.4 SEC Fibrinogen 235 mg/dL Bedside Sodium 140 MMOL/L Blood Urea Nitrogen 15 MG/DL Creatinine 1.28 MG/DL Random Glucose 271 MG/DL Calcium Level 7.9 MG/DL Sodium Level 139 MEQ/L Potassium Level 4.2 MEQ/L Chloride Level 105 MEQ/L Carbon Dioxide Level 18.5 MEQ/L Bedside Potassium 4.3 MMOL/L Bedside Chloride 103 MMOL/L Anion Gap 16 MEQ/L Bedside Blood Urea Nitrogen 15 MG/DL Bedside Creatinine 1.1 MG/DL Estimat Glomerular Filtration Rate 48 ML/MIN Bedside Glucose 261 MG/DL Phosphorus Level 5.5 MG/DL Blood Gas Puncture Site RT RADIAL Blood Gas Patient Temperature 98.6 Blood Gas HCO3 21 mmol/L Blood Gas Base Excess -5.9 mmol/L Blood Gas Oxygen Saturation 86 % Arterial Blood pH 7.22 Arterial Blood Partial Pressure CO2 51 mmHg Arterial Blood Partial Pressure O2 65 mmHg Arterial Blood Oxygen Content 14.6 Vol % Arterial Blood Carboxyhemoglobin 0.6 % Arterial Blood Methemoglobin 1.4 % Blood Gas Hemoglobin 12.1 G/DL Oxygen Delivery Device VENTILATOR Blood Gas Ventilator Setting Blood Gas Inspired Oxygen 100 % Nasal Screen MRSA (PCR) MRSA NOT DETECTED Troponin I 0.62 NG/ML Albumin 2.8 GM/DL Test 08/11/17 19:55 08/11/17 21:20 08/11/17 23:15 08/12/17 01:35 Sodium Level 144 MEQ/L 145 MEQ/L Blood Gas Puncture Site ART LINE Blood Gas Patient Temperature 98.6 Blood Gas HCO3 17 mmol/L Blood Gas Base Excess -8.0 mmol/L Blood Gas Oxygen Saturation 86 % Arterial Blood pH 7.29 Arterial Blood Partial Pressure CO2 37 mmHg Arterial Blood Partial Pressure O2 58 mmHg Arterial Blood Oxygen Content 11.8 Vol % Arterial Blood Carboxyhemoglobin 1.0 % Arterial Blood Methemoglobin 1.4 % Blood Gas Hemoglobin 9.7 G/DL Oxygen Delivery Device VENTILATOR Blood Gas Ventilator Setting PRVC/AC Blood Gas Inspired Oxygen 50 % Troponin I 0.44 NG/ML Test 6/8/18 03:48 08/12/17 06:05 08/12/17 08:25 08/12/17 09:00 Blood Gas Puncture Site ART LINE ART LINE Blood Gas Patient Temperature 98.6 98.6 Blood Gas HCO3 18 mmol/L 18 mmol/L Blood Gas Base Excess -6.8 mmol/L -6.2 mmol/L Blood Gas Oxygen Saturation 92 % 95 % Arterial Blood pH 7.31 7.35 Arterial Blood Partial Pressure CO2 37 mmHg 34 mmHg Arterial Blood Partial Pressure O2 77 mmHg 88 mmHg Arterial Blood Oxygen Content 12.5 Vol % 14.0 Vol % Arterial Blood Carboxyhemoglobin 1.0 % 0.9 % Arterial Blood Methemoglobin 1.6 % 1.5 % Blood Gas Hemoglobin 9.6 G/DL 10.4 G/DL Oxygen Delivery Device VENTILATOR VENTILATOR Blood Gas Ventilator Setting PRVC/AC Blood Gas Inspired Oxygen 60 % 50 % White Blood Count 10.9 TH/MM3 Red Blood Count 3.37 MIL/MM3 Hemoglobin 9.7 GM/DL Hematocrit 28.3 % Mean Corpuscular Volume 84.0 FL Mean Corpuscular Hemoglobin 28.9 PG Mean Corpuscular Hemoglobin Concent 34.4 % Red Cell Distribution Width 14.5 % Platelet Count 217 TH/MM3 Mean Platelet Volume 8.1 FL Neutrophils (%) (Auto) 81.4 % Lymphocytes (%) (Auto) 9.0 % Monocytes (%) (Auto) 9.2 % Eosinophils (%) (Auto) 0.1 % Basophils (%) (Auto) 0.3 % Neutrophils # (Auto) 8.9 TH/MM3 Lymphocytes # (Auto) 1.0 TH/MM3 Monocytes # (Auto) 1.0 TH/MM3 Eosinophils # (Auto) 0.0 TH/MM3 Basophils # (Auto) 0.0 TH/MM3 CBC Comment DIFF FINAL Differential Comment Blood Urea Nitrogen 13 MG/DL Creatinine 0.98 MG/DL Random Glucose 141 MG/DL Total Protein 5.0 GM/DL Albumin 2.5 GM/DL Calcium Level 6.3 MG/DL Alkaline Phosphatase 57 U/L Aspartate Amino Transf (AST/SGOT) 102 U/L Alanine Aminotransferase (ALT/SGPT) 62 U/L Total Bilirubin 0.6 MG/DL Direct Bilirubin 0.2 MG/DL Sodium Level 152 MEQ/L 151 MEQ/L Potassium Level 4.1 MEQ/L Chloride Level 122 MEQ/L Carbon Dioxide Level 19.5 MEQ/L Anion Gap 11 MEQ/L Estimat Glomerular Filtration Rate 80 ML/MIN Protein Corrected Calcium 7.3 MG/DL Indirect Bilirubin 0.4 MG/DL Troponin I 0.28 NG/ML Test 08/12/17 10:20 08/12/17 14:30 08/12/17 21:35 08/13/17 03:49 Blood Gas Puncture Site ART LINE JESSY Blood Gas Patient Temperature 98.6 98.6 Blood Gas HCO3 19 mmol/L 20 mmol/L Blood Gas Base Excess -5.8 mmol/L -3.8 mmol/L Blood Gas Oxygen Saturation 96 % 96 % Arterial Blood pH 7.34 7.38 Arterial Blood Partial Pressure CO2 36 mmHg 35 mmHg Arterial Blood Partial Pressure O2 106 mmHg 138 mmHg Arterial Blood Oxygen Content 12.7 Vol % 10.8 Vol % Arterial Blood Carboxyhemoglobin 0.9 % 1.0 % Arterial Blood Methemoglobin 1.4 % 1.5 % Blood Gas Hemoglobin 9.3 G/DL 7.7 G/DL Oxygen Delivery Device VENTILATOR VENTILATOR Blood Gas Ventilator Setting SEE COMMENT Blood Gas Inspired Oxygen 50 % 45 % Sodium Level 150 MEQ/L 150 MEQ/L Serum Osmolality 309 MOSM/KG 318 MOSM/KG Troponin I 0.18 NG/ML Test 08/13/17 06:20 08/13/17 08:40 08/13/17 13:40 08/13/17 21:45 White Blood Count 10.4 TH/MM3 Red Blood Count 2.73 MIL/MM3 Hemoglobin 7.7 GM/DL Hematocrit 22.9 % Mean Corpuscular Volume 83.9 FL Mean Corpuscular Hemoglobin 28.3 PG Mean Corpuscular Hemoglobin Concent 33.7 % Red Cell Distribution Width 14.8 % Platelet Count 173 TH/MM3 Mean Platelet Volume 8.6 FL Neutrophils (%) (Auto) 83.2 % Lymphocytes (%) (Auto) 7.9 % Monocytes (%) (Auto) 7.9 % Eosinophils (%) (Auto) 0.6 % Basophils (%) (Auto) 0.4 % Neutrophils # (Auto) 8.7 TH/MM3 Lymphocytes # (Auto) 0.8 TH/MM3 Monocytes # (Auto) 0.8 TH/MM3 Eosinophils # (Auto) 0.1 TH/MM3 Basophils # (Auto) 0.0 TH/MM3 CBC Comment DIFF FINAL Differential Comment Blood Urea Nitrogen 11 MG/DL Creatinine 0.76 MG/DL Random Glucose 142 MG/DL Total Protein 5.2 GM/DL Albumin 2.3 GM/DL Calcium Level 6.8 MG/DL Alkaline Phosphatase 64 U/L Aspartate Amino Transf (AST/SGOT) 91 U/L Alanine Aminotransferase (ALT/SGPT) 40 U/L Total Bilirubin 0.6 MG/DL Sodium Level 151 MEQ/L 151 MEQ/L 152 MEQ/L 150 MEQ/L Potassium Level 3.5 MEQ/L Chloride Level 121 MEQ/L Carbon Dioxide Level 21.0 MEQ/L Anion Gap 9 MEQ/L Estimat Glomerular Filtration Rate 107 ML/MIN Serum Osmolality 307 MOSM/KG 310 MOSM/KG 313 MOSM/KG Protein Corrected Calcium 7.8 MG/DL Test 08/14/17 03:10 08/14/17 06:20 08/14/17 06:40 08/14/17 08:29 Blood Gas Puncture Site ART LINE ART LINE ART LINE Blood Gas Patient Temperature 98.6 98.6 98.6 Blood Gas HCO3 21 mmol/L 22 mmol/L 21 mmol/L Blood Gas Base Excess -4.4 mmol/L -4.6 mmol/L -3.0 mmol/L Blood Gas Oxygen Saturation 96 % 93 % 96 % Arterial Blood pH 7.32 7.23 7.39 Arterial Blood Partial Pressure CO2 41 mmHg 55 mmHg 36 mmHg Arterial Blood Partial Pressure O2 116 mmHg 83 mmHg 98 mmHg Arterial Blood Oxygen Content 10.8 Vol % 10.0 Vol % 11.6 Vol % Arterial Blood Carboxyhemoglobin 1.0 % 1.1 % 1.2 % Arterial Blood Methemoglobin 1.1 % 1.2 % 1.3 % Blood Gas Hemoglobin 7.8 G/DL 7.6 G/DL 8.5 G/DL Oxygen Delivery Device VENTILATOR VENTILATOR VENTILATOR Blood Gas Ventilator Setting BILEVEL BILEVEL/APRV PRVC28/600/0.7/+8 Blood Gas Inspired Oxygen 50 % 50 % 50 % White Blood Count 10.0 TH/MM3 Red Blood Count 2.72 MIL/MM3 Hemoglobin 7.9 GM/DL Hematocrit 23.0 % Mean Corpuscular Volume 84.5 FL Mean Corpuscular Hemoglobin 29.0 PG Mean Corpuscular Hemoglobin Concent 34.3 % Red Cell Distribution Width 14.8 % Platelet Count 163 TH/MM3 Mean Platelet Volume 8.4 FL Neutrophils (%) (Auto) 85.1 % Lymphocytes (%) (Auto) 6.5 % Monocytes (%) (Auto) 7.1 % Eosinophils (%) (Auto) 0.7 % Basophils (%) (Auto) 0.6 % Neutrophils # (Auto) 8.5 TH/MM3 Lymphocytes # (Auto) 0.6 TH/MM3 Monocytes # (Auto) 0.7 TH/MM3 Eosinophils # (Auto) 0.1 TH/MM3 Basophils # (Auto) 0.1 TH/MM3 CBC Comment DIFF FINAL Differential Comment Blood Urea Nitrogen 12 MG/DL Creatinine 0.63 MG/DL Random Glucose 161 MG/DL Total Protein 5.6 GM/DL Albumin 2.1 GM/DL Calcium Level 7.2 MG/DL Alkaline Phosphatase 86 U/L Aspartate Amino Transf (AST/SGOT) 69 U/L Alanine Aminotransferase (ALT/SGPT) 32 U/L Total Bilirubin 0.6 MG/DL Sodium Level 153 MEQ/L Potassium Level 3.5 MEQ/L Chloride Level 123 MEQ/L Carbon Dioxide Level 23.8 MEQ/L Anion Gap 6 MEQ/L Estimat Glomerular Filtration Rate 133 ML/MIN Serum Osmolality 316 MOSM/KG Protein Corrected Calcium 8.0 MG/DL Test 08/14/17 09:10 Sodium Level 154 MEQ/L Medical Decision Making Impression and Plan Impression: Traumatic brain injury Cervical spine fractures Serum sodium and osmolality are optimized. Patient remains critical. On maximum sedation w/propofol due to increased ICPs earlier. When seen ICPs in upper limits of normal. No motor response to any stimulation. Plan: cont ICP monitoring cont critical care/trauma management serial neuro checks maintain cervical collar GI prophylaxis seizure prophylaxis SCDs and TEDs for dvt prophylaxis Holding further hypertonic saline or mannitol at this point. Cooling blanket for increased temperature Continue pressors to maintain CPP. CT scan head for further increase in ICP, however at risk for further deterioration in pulmonary and hemodynamic status with transport. Topher Alvarez Aug 14, 2017 11:01
--- NOTE | 2017-08-14 12:21 | HHI.CCPN ---
Subjective Brief History This 52-year-old male fell while working on a tree onto the concrete deck below about 10 feet. Nobody witnessed the event; however, apparently was bleeding on the pavement and finally ambulance was called. It is unknown how long patient had been lying there. The patient was brought to our institution as priority 1 trauma alert, intubated in the field with C-collar in place on a spinal board by air ambulance. On arrival, patient's Amelie Coma Scale was 3 and improved to about 5. FINAL INJURIES DETECTED: 1. Severe left-sided facial fractures involving the orbit, zygoma, maxilla, nasal fracture, as well as fracture of the base of the skull going through the petrous bone. 2. Right frontotemporal subarachnoid and subdural bleeding with brain contusions on the right. 2.a.C7 transverse process fracture right 3. Chest revealed serial left rib fractures with chest wall deformity, bilateral lung contusion and bilateral aspiration. A small amount of subcutaneous air, but no pneumothorax. 4. L Clavicle FX 5. Abdominal CAT scan revealed small lacerations, laceration probably grade II of the spleen with slight amount of blood around the spleen This patient has severe multisystem injuries and in addition it is not clear whether patient might of had suffered a heart attack or some other posterior problem prior to falling off the ladder. This will be worked up now after patient is admitted Neurosurgery is consulted and workup and further ICU resuscitation is in progress Patient is critical and there is a high mortality rate associated with these injuries probably ranging over 50% in the age group 24 Hour Review/Hospital Course 08/12/2017 Patient with massive multisystem injuries including brain and chest Neurologically patient remains intubated ventilated sedated Neuroprotective measures including propofol fentanyl and Versed required in order to keep ICP below 20 mmHg ICP ranging between 14 and 20 mmHg Hemodynamically patient was initially unstable but starting to stabilize slowly Large amount of fluids and 4 units of PRBC administered in order to account for systemic inflammatory response and third space loss. Patient extremely hyperdynamic with cardiac output about 8 L and systemic vascular resistance very low around 500 Requiring active vasomotor support with Levophed and Mark-Synephrine now gradually being weaned off If necessary patient will placed on vasopressin but I would like to avoid that if possible considering his precarious cardiac function Initial elevation of troponins which are now normalizing may be related to the fall itself Bilateral breath sounds decreased over the left side where patient has massive pulmonary contusion with injury to the left upper importance of lower lobe Chest tube drainage decreased and patient does have retained hemothorax In order to maintain adequate PO2 FiO2 gradient and not over extend the right lung patient has been placed on bilevel ventilation Settings currently 50% FiO2 PSVT 28/2 sec high and PSV 0/0.7 seconds low This allows for about 16 L/min ventilation Patient will probably eventually need thoracoscopy and evacuation of hemothorax on the left however right now patient is unstable to go for any further studies to fully evaluate evolving extent of lung injury Abdomen soft no signs of trauma except small splenic laceration which appears to be stable Renal function preserved now the patient is well preloaded I discussed at length the care of this patient with the family and explained to them that there is a high mortality associated with multiplicity and severity of the injuries 08/13/2017 Patient slightly improved Remains sedated ventilated on propofol fentanyl and Versed ICP remains 12-18 mmHg Hemodynamically patient is slowly stabilizing Mark-Synephrine has been weaned off but patient remains still on Levophed Track flow reveals cardiac output of about 7.5 L and SVR about 550 consistent with hyperdynamic state vasodilatation and systemic inflammatory response SIRS Bilateral breath sounds Patient has been placed on bilevel ventilation yesterday which she is tolerating well and arterial blood gases have improved significantly Chest x-ray slowly clearing up the left lung field Abdomen soft will start on trickle feeds 08/14/2017 Neurologically patient is unchanged Intubated ventilated on neuroprotective measures Propofol/fentanyl and addition of Versed in order to keep ICP within physiologic range Even with maximum neuroprotective measures patient's ICP now ranges between 18 and 24 mmHg Around 4-50 days when the brain swelling is most prominent so this is not unexpected Remains on small dose of hypertonic saline and with rising sodium will DC the same Hemodynamically patient is slowly stabilizing with decreasing amounts of Mark- Synephrine and Levophed Maintaining central perfusion pressure as to accommodate for ICP variance Bilateral breath sounds with minimal drainage from the left chest tube Patient was on bilevel ventilation for the last 48 hours but I had to take him down to AC mode due to hypercapnia With correction of hypercapnia the ICP readily stabilized Left lung is clearing up nicely and PO2 FiO2 gradient is improving Considering the severity of injuries to the brain and to the chest this patient is not expected to recover rapidly and will require tracheostomy Objective Vital Signs Date Time Temp Pulse Resp B/P (MAP) Pulse Ox O2 Delivery O2 Flow Rate FiO2 08/14/17 11:05 100 50 08/14/17 10:14 69 136/70 08/14/17 04:00 97.0 22 08/11/17 19:00 Mechanical Ventilator Intake and Output 08/14/17 08/14/17 08/15/17 08:00 16:00 00:00 Intake Total 586 ml 755 ml Output Total 1320 ml Balance -734 ml 755 ml Result Diagram: 08/14/17 0620 08/14/17 0910 Other Results Laboratory Tests Test 08/14/17 03:10 08/14/17 06:40 08/14/17 08:29 Blood Gas Puncture Site ART LINE ART LINE ART LINE Blood Gas Patient Temperature 98.6 98.6 98.6 Blood Gas HCO3 21 mmol/L (22-26) 22 mmol/L (22-26) 21 mmol/L (22-26) Blood Gas Base Excess -4.4 mmol/L (-2-2) -4.6 mmol/L (-2-2) -3.0 mmol/L (-2-2) Blood Gas Oxygen Saturation 96 % (90-100) 93 % (90-100) 96 % (90-100) Arterial Blood pH 7.32 (7.380-7.420) 7.23 (7.380-7.420) 7.39 (7.380-7.420) Arterial Blood Partial Pressure CO2 41 mmHg (38-42) 55 mmHg (38-42) 36 mmHg (38-42) Arterial Blood Partial Pressure O2 116 mmHg (61-120) 83 mmHg (61-120) 98 mmHg (61-120) Arterial Blood Oxygen Content 10.8 Vol % (12.0-20.0) 10.0 Vol % (12.0-20.0) 11.6 Vol % (12.0-20.0) Arterial Blood Carboxyhemoglobin 1.0 % (0-4) 1.1 % (0-4) 1.2 % (0-4) Arterial Blood Methemoglobin 1.1 % (0-2) 1.2 % (0-2) 1.3 % (0-2) Blood Gas Hemoglobin 7.8 G/DL (12.0-16.0) 7.6 G/DL (12.0-16.0) 8.5 G/DL (12.0-16.0) Oxygen Delivery Device VENTILATOR VENTILATOR VENTILATOR Blood Gas Ventilator Setting BILEVEL BILEVEL/APRV PRVC28/600/0.7/+8 Blood Gas Inspired Oxygen 50 % 50 % 50 % Imaging Last 24 hours Impressions Chest X-Ray 08/14/17 0600 Signed Impressions: CONCLUSION: Dense consolidation left lung base with a tiny amount residual pleural air. Tub es and catheters are in good position. 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 Neurologically patient is unchanged Intubated ventilated on neuroprotective measures Propofol/fentanyl and addition of Versed in order to keep ICP within physiologic range Even with maximum neuroprotective measures patient's ICP now ranges between 18 and 24 mmHg Around 4-5 days when the brain swelling is most prominent so this is not unexpected Remains on small dose of hypertonic saline and with rising sodium will DC the same Hemodynamic/Cardiac Hemodynamically patient is slowly stabilizing with decreasing amounts of Mark- Synephrine and Levophed Maintaining central perfusion pressure as to accommodate for ICP variance Pulmonary/Respiratory Bilateral breath sounds with minimal drainage from the left chest tube Patient was on bilevel ventilation for the last 48 hours but I had to take him down to AC mode due to hypercapnia With correction of hypercapnia the ICP readily stabilized Left lung is clearing up nicely and PO2 FiO2 gradient is improving Abdomen/GI Nutrition Abdomen soft will start on enteral feedings Renal/I&O Renal function preserved with good urine output patient is very positive since the arrival / will diurese gently Assessment and Plan Attestation Patient very critical at this time I have explained this to the family and although he is improving he is still in very precarious situation and mortality is very high Neurosurgery expert help is greatly appreciated Critical care 36 minutes Alfred Wright MD Aug 14, 2017 12:21
[2017-08-14] MEDS: PANTOPRAZOLE SODIUM 40 MG VIAL IV PUSH SCH (13:19)
[2017-08-14] MEDS: REMOVE OLD LIDOCAINE PATCH T-DERMAL SCH (20:29)
[2017-08-14] MEDS: POTASSIUM CHLOR 40 MEQ PREMIX 100 ML IV PRN (22:32)
[2017-08-15] VITALS (19 sets, daily range): BP systolic 108–142; BP diastolic 50–80; PULSE 55–86; RESP 21–30; TEMP 96.8–98.6; O2SAT 95–100
[2017-08-15] MEDS: PROPOFOL 1000 MG/100 ML IV PRN ×8 (00:23→21:23)
[2017-08-15] MEDS: NOREPINEPHRINE INJ 4 MG in SODIUM CHLOR 0.9% 250 ML INJ 246 ML IV PRN ×3 (00:24→21:24)
[2017-08-15] MEDS: MIDAZOLAM 50 MG/NS 50 ML DRIP Premix IV PRN ×6 (00:25→23:33)
[2017-08-15 03:47] LABS: AUTOMATED NEUTROPHIL # 9.3 TH/MM3 (1.8-7.7); BASOPHIL # 0.1 TH/MM3 (0-0.2); BASOPHIL % 0.5 % (0.0-2.0); EOSINOPHIL # 0.3 TH/MM3 (0-0.4); EOSINOPHIL % 2.4 % (0.0-4.0); HEMATOCRIT 21.8 % (39.0-51.0); HEMOGLOBIN 7.3 GM/DL (13.0-17.0); LYMPHOCYTE # 0.8 TH/MM3 (1.0-4.8); MEAN CELL VOLUME 83.5 FL (80.0-100.0); MEAN CORPUSCULAR HGB CONC 33.6 % (32.0-36.0); MEAN PLATELET VOLUME 8.5 FL (7.0-11.0); MONO % 8.5 % (0.0-8.0); NEUT % 81.6 % (16.0-70.0); PLATELET COUNT 197 TH/MM3 (150-450); RED BLOOD COUNT 2.61 MIL/MM3 (4.50-5.90); RED CELL DISTRIBUTION WIDTH 14.9 % (11.6-17.2); WHITE BLOOD COUNT 11.4 TH/MM3 (4.0-11.0)
[2017-08-15] MEDS: 3% SALINE INJ 500 ML IV PRN (03:52)
--- NOTE | 2017-08-15 03:55 | RADRPT ---
EXAM DATE: 08/15/2017 3:39 AM EDT AGE/SEX: 52 years / Male INDICATIONS: Follow up trauma. CLINICAL DATA: This is the patient's subsequent encounter. Patient reports that signs and symptoms h ave been present for 4 - 6 days and indicates a pain score of Nonresponsive. MEDICAL/SURGICAL HISTORY: Non-responsive. Non-responsive. COMPARISON: [facility], CHEST SINGLE AP, 08/14/2017. . FINDINGS: Endotracheal tube, nasogastric tube, right clavian central venous catheter remain in place. Bilateral hazy pulmonary opacity is again seen with increase on the right when compared to the prior study. Bi lateral pleural effusions are noted. Cardiac silhouette enlargement unchanged. CONCLUSION: Bilateral pulmonary parenchymal opacity is now fairly symmetric with increase in the right-sided opac ity when compared to the prior study. Electronically signed by: Zay García MD 08/15/2017 3:54 AM EDT
[2017-08-15 04:15] LABS: ALBUMIN 1.9 GM/DL (3.4-5.0); BICARBONATE 23.5 MEQ/L (21.0-32.0); CALCIUM 7.3 MG/DL (8.5-10.1); CALCIUM-PROTEIN CORRECTED 8.1 MG/DL (8.5-10.1); CREATININE 0.62 MG/DL (0.60-1.30); TOTAL BILIRUBIN ADULT 0.9 MG/DL (0.2-1.0); TOTAL PROTEIN 5.6 GM/DL (6.4-8.2)
[2017-08-15] MEDS: RESP: ALBUTEROL 2.5 MG/IPRATROPIUM 0.5 MG NEB (SCH) NEB ×3 (04:21→15:55)
[2017-08-15] MEDS: fentaNYL 2,500 MCG/NS 250 ML IV PRN ×2 (05:08→15:20)
[2017-08-15] MEDS: POTASSIUM CHLOR 40 MEQ PREMIX 100 ML IV PRN (05:11)
[2017-08-15] MEDS: METHOCARBAMOL 500 MG TAB PO SCH ×3 (06:06→20:46)
[2017-08-15] MEDS: INSULIN ASPART SUPPLEMENTAL SCALE SQ SCH ×4 (06:48→23:31)
[2017-08-15] MEDS: CHLORHEXIDINE 0.12% (ORAL KIT) 15 ML CUP MT SCH ×2 (08:00→20:45)
--- NOTE | 2017-08-15 08:20 | HHI.PR ---
Neuropsych Emotional Emotional: UnabletoAssess: Emotional, Anxious/Fearful, Depressed/Sad, Hostile/ Resentful, Irritable/Angry/Frustrate, Labile, Constricted/Blunted Behavior Behavior: Intact: Impulsive/Agitated, Unable to Asses: Behavior, Coping/ Acceptance, Cooperative w/ Treatment, Motivation, Frustration Tolerance/[place], Suicidal/Homicidal Risk Cognitive Cognitive: Unable to Asses: Cognitive, Attention/Concentration, Confused/ Orientation, Insight/Awareness, Judgement/Problem-Solving, Memory Psychosocial Psychosocial: Intact: Psychosocial, Severe: Family/Other Adjustment, Realistic Expectation, Unable to Asses: Self-Esteem/Confidence Progress Notes/Response to Tx Contents of Sessions: Adjustment, Level of Consciousness Time with Patient: 30 minutes Premorbid psychological status Premorbid Cognitive, Emotional and Behavioral Status: Stable. The patient has high school years of education and a solid work history prior to this injury. The patient has no prior psychiatric difficulties, as described above. Substance abuse history is unremarkable. Behavioral Reactions of Patient and Family/Support System: Deferred. The patients family is experiencing ongoing issues of adjustment given the nature of the injury, and this aspect of recovery will require ongoing monitoring. Emotional/Behavioral Status of Patient and Family/Support System: Deferred. Pertinent issues, if appropriate to this patients clinical care, are described in detail above. Maximizing acute care outcome It is recommended that the patient be monitored for emergent behavioral impulsivity as the medical condition evolves. This patients neuropathological challenges may limit his rehabilitation potential going forward, and these challenges will require specialized therapeutic skills to maximize outcome. Additionally, the patients family is experiencing ongoing issues of adjustment given the traumatic nature of the injury, and they may benefit from ongoing psychological assistance. At this point in the recovery process, the patient does not have cognitive capacity as the patient is unable to understand a situation and its likely consequences, nor is he able to manipulate information rationally. Cognitive capacity will be assessed throughout the recovery process. Anticipated Problems Ongoing areas of concern will include behavioral impulsivity, lack of insight and judgment, which is expected to improve with time and treatment. Presently , the patient is critically ill and may not survive. Given the severity of the patient's injuries it is my clinical opinion that this patient will be unable to return to any type of productive employment for at least one year, perhaps longer and likely never. This patient is not considered safe to discharge home without supervision. Treatment Plan This clinician will continue to follow with you throughout the course of this patients critical care treatment, and I will be available to meet with the patients family/support system to facilitate their understanding and the ongoing care of their family member. The goals of neuropsychological intervention shall be both educational and supportive to the family/support system as is deemed clinically appropriate. Fidencio [facility] [place] Level: I:No response-total assistance Impression 52 year old male s/p TBI 2T fall from tree on 08/11/2017. Diagnosis: (1) Major neurocognitive disorder as late effect of traumatic brain injury without behavioral disturbance Progress Note Narrative PTD 4. The patient is neurobehaviorally unchanged, and remains sedated and intubated. His ICPs had been in the 18-24 range, spiking to 40s. No issues of agitation/restlessness. He is [place]. I will follow. Roger Flores PhD Aug 15, 2017 8:20 am
[2017-08-15] MEDS: SODIUM CHLORIDE 0.9% FLUSH 10 ML FLUSH IV FLUSH SCH ×2 (09:00→20:46)
[2017-08-15] MEDS: MAGNESIUM HYDROXIDE SUSP 30 ML CUP PO SCH ×2 (09:28→20:46)
[2017-08-15] MEDS: DOCUSATE SODIUM 50 MG/SENNA 8.6 MG TAB PO SCH (09:28)
[2017-08-15] MEDS: LIDOCAINE HCL 5% PATCH T-DERMAL SCH (09:28)
[2017-08-15] MEDS: levETIRAcetam INJ 500 MG in SODIUM CHLORIDE 0.9% INJ 100 ML IV SCH (09:28)
[2017-08-15] MEDS ORDERED: MANNITOL 12.5 GM/50 ML VIAL IV ONE (09:45)
[2017-08-15] MEDS: POTASSIUM CHLOR 20 MEQ PREMIX 100 ML IV PRN ×3 (10:09→18:59)
--- NOTE | 2017-08-15 11:12 | RADRPT ---
EXAM DATE: 08/15/2017 11:02 AM EDT AGE/SEX: 52 years / Male INDICATIONS: Follow up traumatic brain injury. CLINICAL DATA: This is the patient's subsequent encounter. Patient reports that signs and symptoms h ave been present for 4 - 6 days and indicates a pain score of Nonresponsive. MEDICAL/SURGICAL HISTORY: Diabetes. None. RADIATION DOSE: 64.63 CTDI (mGy) COMPARISON: [facility] [place], CT BRAIN W/O CONTRAST, 08/11/2017. . TECHNIQUE: CT of the head without contrast. Using automated exposure control and adjustment of the mA and/or kV according to patient size, radiation dose was kept as low as reasonably achievable to ob tain optimal diagnostic quality images. FINDINGS: There has been a significant change when compared to the prior examination. Diffuse low attenuation c hange involving the entire left cerebral hemisphere consistent with infarction is now observed. A sma ller area of low attenuation change is seen involving the right temporal lobe. The subdural hematoma overlying the right frontal lobe is no longer visualized. The small amount of subdural blood adjacent to the falx near the vertex is slightly more pronounced. Intraparenchymal hemorrhage involving the r ight temporal lobe is stable in size. It is more apparent due to the surrounding low attenuation [place] ge of the brain parenchyma. Intraparenchymal hemorrhage is seen involving the left temporal lobe in t he area of infarction. This is new. 12 mm of midline shift from left to right now observed. The later al ventricles remain patent. There is effacement of the suprasellar cistern. Low attenuation change i s seen involving the left cerebral peduncle. Posterior cranial fossa is unremarkable. Fracture throug h the left zygomatic arch air-fluid levels within the maxillary sinuses and ethmoid air cells bilater ally. Complete opacification of the sphenoid sinuses. Surgical colby overlie the left temporopariet al region. CONCLUSION: 1. Significant change when compared to prior exam now with diffuse infarction involving the left cer ebral hemisphere with small area of infarction involving the right temporal lobe. There is now 12 mm of midline shift towards the patient's right. New small scattered areas of intraparenchymal hemorrhag e involving the left cerebral hemisphere. Right temporal lobe intraparenchymal hemorrhage is stable. Small volume subdural hemorrhage adjacent to the falx near the vertex is new. Electronically signed by: Deng Cedeño MD 08/15/2017 11:10 AM EDT
[2017-08-15] MEDS ORDERED: fentaNYL CITRATE 250 MCG/5 ML AMP ONE ×2 (11:22)
--- NOTE | 2017-08-15 11:30 | RADRPT ---
EXAM DATE: 08/15/2017 11:09 AM EDT AGE/SEX: 52 years / Male INDICATIONS: Trauma, follow up left rib fractures and hemothorax. CLINICAL DATA: This is the patient's subsequent encounter. Patient reports that signs and symptoms h ave been present for 4 - 6 days and indicates a pain score of Nonresponsive. MEDICAL/SURGICAL HISTORY: Diabetes. None. RADIATION DOSE: 20.87 CTDI (mGy) COMPARISON: [facility] – [place], CT THORAX W CONTRAST, 08/11/2017. . TECHNIQUE: Multiple contiguous axial images were obtained through the chest without contrast. Image s were obtained in suspended respiration using multiple row detector helical technique. Using automa clifton exposure control and adjustment of the mA and/or kV according to patient size, radiation dose was kept as low as reasonably achievable to obtain optimal diagnostic quality images. FINDINGS: Bibasilar consolidative changes are noted with left chest tube in good position. These findings have progressed in the interval. There is no pericardial effusion. Trace pneumothorax is evident. Upper left anterior mediastinal hematoma is noted. There are fractures of the head of the clavicle. T here are fractures of the upper first second third fourth fifth sixth and seventh ribs. Nondisplaced right rib fractures are noted of the second third and fourth ribs. The thoracic spine is intact. CONCLUSION: 1. Increasing bibasilar consolidative changes 2. Left chest tube in good position with trace pneumothorax. 3. Multiple bilateral rib fractures with fracture of the left clavicular head. Electronically signed by: Callum Kidd MD 08/15/2017 11:29 AM EDT
[2017-08-15] MEDS ORDERED: GELFOAM SIZE 100 ONE (11:34)
[2017-08-15] MEDS ORDERED: THROMBIN (TOPICAL) 5,000 UNIT VIAL ONE (11:34)
[2017-08-15] MEDS ORDERED: PROPOFOL 200 MG/20 ML AMP IV ONE (12:00)
[2017-08-15] MEDS ORDERED: ceFAZolin INJ 1,000 MG VIAL IV ONE (12:00)
[2017-08-15] MEDS ORDERED: STERILE WATER FOR INJECTION 20 ML VIAL IV ONE (12:00)
[2017-08-15] MEDS ORDERED: VECURONIUM BROMIDE 20 MG VIAL IV ONE (12:00)
[2017-08-15] MEDS ORDERED: NORMOSOL R INJ 1,000 ML IV ONE (12:00)
[2017-08-15] MEDS ORDERED: LIDOCAINE HCL 1% PF 5 ML SYRINGE OTHER ONE (12:00)
[2017-08-15] MEDS ORDERED: PROPOFOL 500 MG/50 ML INJ 50 ML ONE (12:29)
[2017-08-15] MEDS ORDERED: POTASSIUM CHLOR 20 MEQ PREMIX 100 ML IV PRN (12:30)
[2017-08-15] MEDS ORDERED: ACETAMINOPHEN 325 MG TAB PO PRN (12:30)
[2017-08-15] MEDS ORDERED: MORPHINE SULFATE 4 MG/ML INJ IV PUSH PRN ×2 (12:30)
[2017-08-15] MEDS ORDERED: BISACODYL 10 MG SUPP RECTAL PRN (12:30)
[2017-08-15] MEDS ORDERED: ACETAMINOPHEN/HYDROcodone 325 MG/10 MG TAB PO PRN ×2 (12:30)
[2017-08-15] MEDS ORDERED: MAGNESIUM SULFATE INJ 4 GM in SODIUM CHLORIDE 0.9% INJ 100 ML IV PRN (12:30)
[2017-08-15] MEDS ORDERED: CALCIUM GLUCONATE 10% 1 GM/10 ML VIAL IV PRN (12:30)
[2017-08-15] MEDS ORDERED: NOREPINEPHRINE 4 MG/4 ML AMP ONE (12:30)
[2017-08-15] MEDS: LIDOCAINE 1%/EPINEPHrine 1:100,000 SOLN 30 ML VIAL ONE ×2 (13:10→17:11)
[2017-08-15] MEDS ORDERED: ONDANSETRON ODT 4 MG TAB PO PRN (13:45)
[2017-08-15] MEDS: GENTAMICIN SULFATE 80 MG/2 ML VIAL ONE ×2 (13:45→17:12)
[2017-08-15] MEDS ORDERED: NS + KCL 20 MEQ INJ 1,000 ML IV SCH (14:00)
[2017-08-15] MEDS: MICROFIBRILLAR COLLAGEN HEMOSTAT 70 X 35 MM BANDAGE ONE ×2 (14:00→17:10)
[2017-08-15 14:22] LABS: BASOPHIL # 0.1 TH/MM3 (0-0.2); BASOPHIL % 0.6 % (0.0-2.0); EOSINOPHIL # 0.2 TH/MM3 (0-0.4); EOSINOPHIL % 2.1 % (0.0-4.0); HEMATOCRIT 25.1 % (39.0-51.0); HEMOGLOBIN 8.6 GM/DL (13.0-17.0); LYMPH % 8.3 % (9.0-44.0); LYMPHOCYTE # 0.9 TH/MM3 (1.0-4.8); MEAN CELL VOLUME 83.7 FL (80.0-100.0); MEAN CORPUSCULAR HEMOGLOBIN 28.8 PG (27.0-34.0); MEAN CORPUSCULAR HGB CONC 34.4 % (32.0-36.0); MEAN PLATELET VOLUME 8.5 FL (7.0-11.0); MONO % 7.1 % (0.0-8.0); MONOCYTE # 0.8 TH/MM3 (0-0.9); NEUT % 81.9 % (16.0-70.0); PLATELET COUNT 191 TH/MM3 (150-450); WHITE BLOOD COUNT 10.9 TH/MM3 (4.0-11.0)
[2017-08-15] MEDS: BACITRACIN TOP OINT 15 GM TUBE ONE ×2 (14:30→17:13)
[2017-08-15 15:31] LABS: BANDS 11 % (0-6); LYMPHOCYTES 7 % (9-44); MONOCYTES 4 % (0-8); NEUTROPHIL # MANUAL DIFF 9.5 TH/MM3 (1.8-7.7); POLYS (SEG NEUTROPHILS) 76 % (16-70)
--- NOTE | 2017-08-15 16:32 | RADRPT ---
EXAM DATE: 08/15/2017 4:27 PM EDT AGE/SEX: 52 years / Male INDICATIONS: Post intubation. Post op. CLINICAL DATA: This is the patient's subsequent encounter. Patient reports that signs and symptoms h ave been present for 1 week and indicates a pain score of Nonresponsive. MEDICAL/SURGICAL HISTORY: Diabetes mellitus type II. None. COMPARISON: [facility], CHEST SINGLE AP, 08/15/2017. . FINDINGS: The endotracheal tube has its tip 4 cm above the darian. A nasogastric tube has tip below diaphragm. Right subclavian central line has its tip in superior vena cava. The heart is enlarged. Moderate pulm onary vascular congestion is noted. Small bilateral pleural effusions are noted. Degenerative changes are noted throughout the thoracic spine. CONCLUSION: 1. Endotracheal tube in good position with its tip 4 cm above the darian. 2. Moderate pulmonary vascular congestion. 3. Small bilateral pleural effusions. 4. Cardiomegaly. 5. Degenerative changes throughout the thoracic spine. Electronically signed by: Dylan Hernandez MD 08/15/2017 4:31 PM EDT
[2017-08-15] MEDS: ceFAZolin 2 GM PREMIX 50 ML IV SCH ×2 (17:00→22:03)
[2017-08-15 17:04] LABS: TOTAL PROTEIN,CSF 11.9 MG/DL (15.0-45.0)
[2017-08-15 17:24] LABS: RBC TUBE #1 764 /MM3; SUPERNATE COLOR TUBE #1 CLEAR (CLEAR); WBC TUBE #1 0 /MM3 (0-10)
[2017-08-15 17:25] LABS: CSF LYMPHOCYTES 0 %; CSF NEUTROPHILS 0 %
[2017-08-15] MEDS: PANTOPRAZOLE SODIUM 40 MG VIAL IV PUSH SCH (17:29)
--- NOTE | 2017-08-15 18:16 | HHI.CCPN ---
Subjective Brief History This 52-year-old male fell while working on a tree onto the concrete deck below about 10 feet. Nobody witnessed the event; however, apparently was bleeding on the pavement and finally ambulance was called. It is unknown how long patient had been lying there. The patient was brought to our institution as priority 1 trauma alert, intubated in the field with C-collar in place on a spinal board by air ambulance. On arrival, patient's Amelie Coma Scale was 3 and improved to about 5. FINAL INJURIES DETECTED: 1. Severe left-sided facial fractures involving the orbit, zygoma, maxilla, nasal fracture, as well as fracture of the base of the skull going through the petrous bone. 2. Right frontotemporal subarachnoid and subdural bleeding with brain contusions on the right. 2.a.C7 transverse process fracture right 3. Chest revealed serial left rib fractures with chest wall deformity, bilateral lung contusion and bilateral aspiration. A small amount of subcutaneous air, but no pneumothorax. 4. L Clavicle FX 5. Abdominal CAT scan revealed small lacerations, laceration probably grade II of the spleen with slight amount of blood around the spleen This patient has severe multisystem injuries and in addition it is not clear whether patient might of had suffered a heart attack or some other posterior problem prior to falling off the ladder. This will be worked up now after patient is admitted Neurosurgery is consulted and workup and further ICU resuscitation is in progress Patient is critical and there is a high mortality rate associated with these injuries probably ranging over 50% in the age group 24 Hour Review/Hospital Course 08/12/2017 Patient with massive multisystem injuries including brain and chest Neurologically patient remains intubated ventilated sedated Neuroprotective measures including propofol fentanyl and Versed required in order to keep ICP below 20 mmHg ICP ranging between 14 and 20 mmHg Hemodynamically patient was initially unstable but starting to stabilize slowly Large amount of fluids and 4 units of PRBC administered in order to account for systemic inflammatory response and third space loss. Patient extremely hyperdynamic with cardiac output about 8 L and systemic vascular resistance very low around 500 Requiring active vasomotor support with Levophed and Mark-Synephrine now gradually being weaned off If necessary patient will placed on vasopressin but I would like to avoid that if possible considering his precarious cardiac function Initial elevation of troponins which are now normalizing may be related to the fall itself Bilateral breath sounds decreased over the left side where patient has massive pulmonary contusion with injury to the left upper importance of lower lobe Chest tube drainage decreased and patient does have retained hemothorax In order to maintain adequate PO2 FiO2 gradient and not over extend the right lung patient has been placed on bilevel ventilation Settings currently 50% FiO2 PSVT 28/2 sec high and PSV 0/0.7 seconds low This allows for about 16 L/min ventilation Patient will probably eventually need thoracoscopy and evacuation of hemothorax on the left however right now patient is unstable to go for any further studies to fully evaluate evolving extent of lung injury Abdomen soft no signs of trauma except small splenic laceration which appears to be stable Renal function preserved now the patient is well preloaded I discussed at length the care of this patient with the family and explained to them that there is a high mortality associated with multiplicity and severity of the injuries 08/13/2017 Patient slightly improved Remains sedated ventilated on propofol fentanyl and Versed ICP remains 12-18 mmHg Hemodynamically patient is slowly stabilizing Mark-Synephrine has been weaned off but patient remains still on Levophed Track flow reveals cardiac output of about 7.5 L and SVR about 550 consistent with hyperdynamic state vasodilatation and systemic inflammatory response SIRS Bilateral breath sounds Patient has been placed on bilevel ventilation yesterday which she is tolerating well and arterial blood gases have improved significantly Chest x-ray slowly clearing up the left lung field Abdomen soft will start on trickle feeds 08/14/2017 Neurologically patient is unchanged Intubated ventilated on neuroprotective measures Propofol/fentanyl and addition of Versed in order to keep ICP within physiologic range Even with maximum neuroprotective measures patient's ICP now ranges between 18 and 24 mmHg Around 4-50 days when the brain swelling is most prominent so this is not unexpected Remains on small dose of hypertonic saline and with rising sodium will DC the same Hemodynamically patient is slowly stabilizing with decreasing amounts of Mark- Synephrine and Levophed Maintaining central perfusion pressure as to accommodate for ICP variance Bilateral breath sounds with minimal drainage from the left chest tube Patient was on bilevel ventilation for the last 48 hours but I had to take him down to AC mode due to hypercapnia With correction of hypercapnia the ICP readily stabilized Left lung is clearing up nicely and PO2 FiO2 gradient is improving Considering the severity of injuries to the brain and to the chest this patient is not expected to recover rapidly and will require tracheostomy 08/15/2017 Neurologically patient has worsened throughout the night. As expected and predicted the intracranial pressure has risen due to the brain swelling now that this is the fourth and fifth day post injury ICPs were managed through the night and we were in the range of 20-24 mmHg while this morning ICP suddenly antoine to as high as [address] of the head and chest and was taken to the operating room for decompressive craniectomy after discussing this with the neurosurgeon Upon return from the operating room patient's ICPs down to about 4-8 mmHg Central perfusion pressure is maintained in adequate parameters Hemodynamically patient still is somewhat unstable requiring additional Levophed in order to maintain mean arterial pressure to satisfy CPP requirements Transfuse 2 units PRBC with consequent hemoglobin of 8.9 g/dL Bilateral breath sounds Patient is on assist control ventilation and will switch at this point to bilevel ventilation for patient PO2 FiO2 gradient has worsened throughout the surgical procedure while in the OR Will place on high PSV 30 mmHg / low 0 mm bro[place]lyn and adjust the time of inspiration and expiration in such a way as to allow for adequate CO2 elimination and slight hypocapnia May need additional adjustments for the same Enteral feeds tolerated This patient will have a kassidy postoperative course and have discussed this again at length with the family stressing that patient will have a long recovery will require tracheostomy and neurologic and overall outcome is still questionable Objective Vital Signs Date Time Temp Pulse Resp B/P (MAP) Pulse Ox O2 Delivery O2 Flow Rate FiO2 08/15/17 15:05 100 100 08/15/17 10:00 62 08/15/17 08:00 96.8 30 142/80 (100) 08/11/17 19:00 Mechanical Ventilator Intake and Output 08/15/17 08/15/17 08/16/17 08:00 16:00 00:00 Intake Total 2639 ml 1255 ml 10 ml Output Total 1395 ml Balance 1244 ml 1255 ml 10 ml Result Diagram: 08/15/17 1359 08/15/17 0337 Other Results Laboratory Tests Test 08/15/17 01:58 08/15/17 04:36 08/15/17 08:59 08/15/17 13:15 Blood Gas Puncture Site JESSY JIMÉNEZ ART LINE DRAWN IN OR Blood Gas Patient Temperature 98.6 98.6 98.6 98.6 Blood Gas HCO3 23 mmol/L (22-26) 23 mmol/L (22-26) 22 mmol/L (22-26) 22 mmol/L (22-26) Blood Gas Base Excess -1.8 mmol/L (-2-2) -1.4 mmol/L (-2-2) -2.7 mmol/L (-2-2) -2.9 mmol/L (-2-2) Blood Gas Oxygen Saturation 93 % (90-100) 95 % (90-100) 95 % (90-100) 96 % ( 90-100) Arterial Blood pH 7.37 (7.380-7.420) 7.41 (7.380-7.420) 7.38 (7.380-7.420) 7.32 (7.380-7.420) Arterial Blood Partial Pressure CO2 40 mmHg (38-42) 36 mmHg (38-42) 37 mmHg (38-42) 44 mmHg (38-42) Arterial Blood Partial Pressure O2 74 mmHg (61-120) 82 mmHg (61-120) 90 mmHg (61-120) 183 mmHg (61-120) Arterial Blood Oxygen Content 11.0 Vol % (12.0-20.0) 9.4 Vol % (12.0-20.0) 12.2 Vol % (12.0-20.0) 14.2 Vol % (12.0-20.0) Arterial Blood Carboxyhemoglobin 1.4 % (0-4) 1.4 % (0-4) 1.3 % (0-4) 0.9 % (0-4) Arterial Blood Methemoglobin 1.2 % (0-2) 1.0 % (0-2) 1.1 % (0-2) 1.4 % (0-2) Blood Gas Hemoglobin 8.4 G/DL (12.0-16.0) 6.9 G/DL (12.0-16.0) 9.0 G/DL (12.0-16.0) 10.2 G/DL (12.0-16.0) Oxygen Delivery Device VENT VENT PRVC28/600/0.7/+8 OR Blood Gas Ventilator Setting SEE COMMENTS SEE COMMENT OR Blood Gas Inspired Oxygen 50 % 50 % 50 % 100 % Test 08/15/17 15:55 Blood Gas Puncture Site ART LINE Blood Gas Patient Temperature 98.6 Blood Gas HCO3 23 mmol/L (22-26) Blood Gas Base Excess -2.2 mmol/L (-2-2) Blood Gas Oxygen Saturation 94 % (90-100) Arterial Blood pH 7.32 (7.380-7.420) Arterial Blood Partial Pressure CO2 46 mmHg (38-42) Arterial Blood Partial Pressure O2 88 mmHg (61-120) Arterial Blood Oxygen Content 11.1 Vol % (12.0-20.0) Arterial Blood Carboxyhemoglobin 1.4 % (0-4) Arterial Blood Methemoglobin 1.3 % (0-2) Blood Gas Hemoglobin 8.3 G/DL (12.0-16.0) Oxygen Delivery Device VENTILATOR Blood Gas Ventilator Setting PRVC28/600/0.7/+8 Blood Gas Inspired Oxygen 100 % Imaging Last 24 hours Impressions Chest X-Ray 08/15/17 1223 Signed Impressions: CONCLUSION: 1. Endotracheal tube in good position with its tip 4 cm above the darian. 2. Moderate pulmonary vascular congestion. 3. Small bilateral pleural effusions. 4. Cardiomegaly. 5. Degenerative changes throughout the thoracic spine. Chest X-Ray 08/15/17 0600 Signed Impressions: CONCLUSION: Bilateral pulmonary parenchymal opacity is now fairly symmetric with increase i n the right-sided opacity when compared to the prior study. Head CT 08/15/17 0000 Signed Impressions: CONCLUSION: 1. Significant change when compared to prior exam now with diffuse infarction involving the left cerebral hemisphere with small area of infarction involving the right temporal lobe. There is now 12 mm of midline shift towards the patien t's right. New small scattered areas of intraparenchymal hemorrhage involving t he left cerebral hemisphere. Right temporal lobe intraparenchymal hemorrhage is stable. Small volume subdural hemorrhage adjacent to the falx near the vertex is new. Chest CT 08/15/17 0000 Signed Impressions: CONCLUSION: 1. Increasing bibasilar consolidative changes 2. Left chest tube in good position with trace pneumothorax. 3. Multiple bilateral rib fractures with fracture of the left clavicular head. Exam CRTTS Neurologically patient has worsened throughout the night. As expected and predicted the intracranial pressure has risen due to the brain swelling now that this is the fourth and fifth day post injury ICPs were managed through the night and we were in the range of 20-24 mmHg while this morning ICP suddenly antoine to as high as [address] of the head and chest and was taken to the operating room for decompressive craniectomy after discussing this with the neurosurgeon Upon return from the operating room patient's ICPs down to about 4-8 mmHg Will start weaning propofol and fentanyl in order to support hemodynamic parameters easier while keeping ICP low Central perfusion pressure is maintained in adequate parameters Hemodynamic/Cardiac Hemodynamically patient still is somewhat unstable requiring additional Levophed in order to maintain mean arterial pressure to satisfy CPP requirements Transfuse 2 units PRBC with consequent hemoglobin of 8.9 g/dL Pulmonary/Respiratory Bilateral breath sounds Patient is on assist control ventilation and will switch at this point to bilevel ventilation for patient PO2 FiO2 gradient has worsened throughout the surgical procedure while in the OR Will place on high PSV 30 mmHg / low 0 mm bro[place] and adjust the time of inspiration and expiration in such a way as to allow for adequate CO2 elimination and slight hypocapnia May need additional adjustments for the same Abdomen/GI Nutrition Enteral feeds tolerated Renal/I&O Renal function preserved Assessment and Plan Attestation This patient will have a kassidy postoperative course and have discussed this again at length with the family stressing that patient will have a long recovery will require tracheostomy and neurologic and overall outcome is still questionable Critical care time 48 minutes Alfred Wright MD Aug 15, 2017 18:16
--- NOTE | 2017-08-15 18:56 | PD.OP ---
Operative Report Date of Surgery: Aug 15, 2017 Preoperative Diagnosis: Severe traumatic brain injury. ischemic infarction Postoperative Diagnosis: Severe traumatic brain injury. ischemic infarction Procedure: Right frontal Stitzer hole with placement of a ventriculostomy catheter Anesthesia: general Surgeon: Kameron Peoples Funeral Car Driver(s): ZACH Operation and Findings: NDICATIONS FOR THE PROCEDURE The patient is a 52 year old male who was brought to [facility] as a trauma alert with a severe traumatic brain injury GCS was 3 CT of the brain showed traumatic subarachnoid hemorrhage and a small subdural hematoma.His clinical condition deteriorated and his ICP's became persistently elevated. A follow up CT showed a left side infarction causing mass effect and midline shift. Placement of a venriculostomy catheter was indicated as recommended by the Trauma Commitee of [place] [employer] The [id number] details of the procedure, its indications, alternatives, risks and potential complications were fully discussed with the patients family. She fully understood. All questions were answered. No guarantees were given. The patient voiced requesting the procedure and provided informed consents. The patient familywas offered the alternative of not having aggressive management. DETAILS OF THE SURGICAL PROCEDURE The frontal area was shaved, prepped and draped in the usual sterile fashion. An entry point was selected 90 millimeters posterior to the supraorbital rim and 25 millimeters from the midline. The area was infiltrated with 1% lidocaine with epinephrine. A skin incision was made with a #15 blade down to the level of the periosteum. Using a twist drill, a mela hole was made. The dura was carefully opened with a brain needle and a ventriculostomy catheter was advanced into the ventricular system. At a depth of 60 millimeters, cerebrospinal fluid was obtained. Opening pressure was 12 centimeters of water. A specimen of cerebrospinal fluid was collected and sent to the lab for analysis of the glucose, protein, cell count and cultures. The catheter was then tunneled under the galea and externalized through a separate stab incision. The incision was closed with 3-0 nylon in a single plane. The patient tolerated the procedure well. COMPLICATIONS There were no intraoperative complications. BLOOD LOSS Blood loss was minimal. Kameron Peoples MD Aug 15, 2017 18:56
--- NOTE | 2017-08-15 19:00 | PD.OP ---
Operative Report Date of Surgery: Aug 15, 2017 Preoperative Diagnosis: Severe traumatic brain injury. Left cerebral infarction Postoperative Diagnosis: Severe traumatic brain injury. Left cerebral infarction Procedure: Left fronto temporal parietal decompressive craniectomy. Duroplasty Anesthesia: general Surgeon: Kameron Peoples Handbag Frames Inspector(s): Lidia Jones Operation and Findings: NDICATIONS FOR THE PROCEDURE The patient is a 52 year old male who was brought to [facility] as a trauma alert with a severe traumatic brain injury GCS was 3 CT of the brain showed traumatic subarachnoid hemorrhage and a small subdural hematoma.His clinical condition deteriorated and his ICP's became persistently elevated. A follow up CT showed a left side infarction causing mass effect and midline shift. Placement of a venriculostomy catheter was indicated as recommended by the Trauma Commitee of [employer] [place] [employer] The [id number] details of the procedure, its indications, alternatives, risks and potential complications were fully discussed with the patients family. She fully understood. All questions were answered. No guarantees were given. The patient voiced requesting the procedure and provided informed consents. The patient familywas offered the alternative of not having aggressive management. DETAILS OF THE SURGICAL PROCEDURE The patient was endotracheally intubated and mechanically ventilated. A Caballero catheter, bilateral CELSO hose and sequential compression devices were placed and kept throughout the procedure. The patient was positioned supine on a 3080 table over a soft mattress. The head was placed on a horseshoe tilting head band sawyer over a gel doughnut. All pressure points were carefully padded with egg crate mattress. The eyes were tapped shut after ointment was applied by the anesthesiologist to prevent corneal abrasion. The Left frontotemporal parietal area was shaved, prepped and draped in the usual sterile fashion. A standard inverted question brooklyn incision was outlined on the scalp and infiltrated with 1% lidocaine with epinephrine. The skin incision was made with a #10 blade down to the level of the periosteum in the frontoparietal region and to the temporalis fascia in the temporal region. Brooks clips were applied to the scalp. Using a Bovie, the temporalis fascia and muscle were incised and a subperiosteal dissection was performed reflecting the scalp flap anteriorly. The scalp was covered with a moist sponge and held in position using fish hooks. The TPS drill was brought to the field and a bur hole was made in the temporal region using the craniotome attachment. Then, using the footplate attachment, a large frontotemporoparietal craniotomy flap was elevated. The dura was bulging, very tense with severe pressure. The dura was opened with a 15 blade and Metzenbaum scissors. The brain was bulging due to underling edema. The bone flap was packed in sterile conditions and stored in the operative room freezer. Then the incision was irrigated with saline solution. The dural edges were tacked to the bone. The Dura was losely reconstructed with Duragen. A 7 millimeter Morgan-Herrera drain was then left in the subgaleal space and externalized through a separate stab incision. The incision was then closed in layers. 0 Vicryl in interrupted sutures were used to close the temporalis fascia. The galea was closed with interrupted 3-0 Vicryl. Sweet Grass were applied to the skin. The drain was secured with a 3-0 nylon. At the end of the procedure, the sponge, needle and instrument counts were all correct. Estimated blood loss was less than 100 cc or less. No blood transfusion was given. No intraoperative complications occurred. The patient received prophylactic antibiotics. The patient was then transferred to the surgical 9intensive care unit in stable condition. COMPLICATIONS None ESTIMATED BLOOD LOSS Less than 100 cc. Kameron Peoples MD Aug 15, 2017 19:00
[2017-08-15] MEDS: REMOVE OLD LIDOCAINE PATCH T-DERMAL SCH (20:46)
[2017-08-15] MEDS ORDERED: DOCUSATE SODIUM 100 MG CAP PO SCH (21:00)
[2017-08-15] MEDS ORDERED: levETIRAcetam INJ 500 MG in SODIUM CHLORIDE 0.9% INJ 100 ML IV SCH (21:00)
[2017-08-15] MEDS ORDERED: FUROSEMIDE 20 MG/2 ML VIAL IV PUSH SCH (21:45)
[2017-08-15 22:14] LABS: TOXIC GRANULATION 1+ (NORMAL)
[2017-08-15] MEDS: CISATRACURIUM INJ 100 MG in SODIUM CHLOR 0.9% 250 ML INJ 250 ML IV PRN (22:19)
[2017-08-16] VITALS (18 sets, daily range): BP systolic 113–129; BP diastolic 49–96; PULSE 59–69; RESP 28–30; TEMP 96.9–98.4; O2SAT 93–100
[2017-08-16] MEDS: PROPOFOL 1000 MG/100 ML IV PRN ×3 (01:08→08:50)
[2017-08-16] MEDS: fentaNYL 2,500 MCG/NS 250 ML IV PRN (01:08)
[2017-08-16] MEDS: CISATRACURIUM INJ 100 MG in SODIUM CHLOR 0.9% 250 ML INJ 250 ML IV PRN ×2 (02:54→07:03)
[2017-08-16] MEDS: MIDAZOLAM 50 MG/NS 50 ML DRIP Premix IV PRN ×2 (03:47→08:58)
--- NOTE | 2017-08-16 03:59 | RADRPT ---
EXAM DATE: 08/16/2017 3:40 AM EDT AGE/SEX: 52 years / Male INDICATIONS: Trauma CLINICAL DATA: This is the patient's subsequent encounter. Patient reports that signs and symptoms h ave been present for 2 weeks and indicates a pain score of Nonresponsive. MEDICAL/SURGICAL HISTORY: Diabetes mellitus type I. None. COMPARISON: [facility] [place], CHEST SINGLE AP, 08/15/2017. . FINDINGS: Single AP view of the chest. Endotracheal tube, nasogastric tube, right subclavian central venous cat heter remain in place. Persistent bilateral pulmonary parenchymal opacity and bilateral pleural effus ions. No significant interval change. CONCLUSION: No significant interval change with persistent bilateral pulmonary parenchymal opacity left greater t granda right and bilateral pleural effusions. Electronically signed by: Zay García MD 08/16/2017 3:58 AM EDT
[2017-08-16 05:55] LABS: AUTOMATED NEUTROPHIL # 7.2 TH/MM3 (1.8-7.7); BASOPHIL # 0.1 TH/MM3 (0-0.2); BASOPHIL % 0.6 % (0.0-2.0); EOSINOPHIL # 0.3 TH/MM3 (0-0.4); EOSINOPHIL % 3.5 % (0.0-4.0); HEMATOCRIT 23.5 % (39.0-51.0); HEMOGLOBIN 8.1 GM/DL (13.0-17.0); LYMPH % 10.1 % (9.0-44.0); LYMPHOCYTE # 0.9 TH/MM3 (1.0-4.8); MEAN CELL VOLUME 83.8 FL (80.0-100.0); MEAN CORPUSCULAR HEMOGLOBIN 28.8 PG (27.0-34.0); MEAN CORPUSCULAR HGB CONC 34.4 % (32.0-36.0); MEAN PLATELET VOLUME 8.5 FL (7.0-11.0); MONO % 9.1 % (0.0-8.0); MONOCYTE # 0.9 TH/MM3 (0-0.9); NEUT % 76.7 % (16.0-70.0); PLATELET COUNT 226 TH/MM3 (150-450); RED CELL DISTRIBUTION WIDTH 15.3 % (11.6-17.2); WHITE BLOOD COUNT 9.4 TH/MM3 (4.0-11.0)
[2017-08-16 06:04] LABS: ALBUMIN 1.7 GM/DL (3.4-5.0); ALT (GPT) 23 U/L (12-78); AST (GOT) 37 U/L (15-37); BICARBONATE 27.6 MEQ/L (21.0-32.0); BLOOD UREA NITROGEN 14 MG/DL (7-18); CALCIUM 7.6 MG/DL (8.5-10.1); CHLORIDE 128 MEQ/L (98-107); CREATININE 0.69 MG/DL (0.60-1.30); GLOMERULAR FILTRATION RATE 119 ML/MIN (>89); GLUCOSE,RANDOM 155 MG/DL (74-106); MAGNESIUM 2.6 MG/DL (1.5-2.5)
[2017-08-16 06:05] LABS: SODIUM (NA) 161 MEQ/L (136-145)
[2017-08-16 06:06] LABS: ALKALINE PHOSPHATASE 138 U/L (45-117); TOTAL PROTEIN 5.5 GM/DL (6.4-8.2)
[2017-08-16] MEDS: METHOCARBAMOL 500 MG TAB PO SCH ×3 (06:18→20:20)
[2017-08-16] MEDS: ceFAZolin 2 GM PREMIX 50 ML IV SCH (06:19)
[2017-08-16] MEDS: INSULIN ASPART SUPPLEMENTAL SCALE SQ SCH ×3 (06:19→18:00)
[2017-08-16] MEDS: NOREPINEPHRINE INJ 4 MG in SODIUM CHLOR 0.9% 250 ML INJ 246 ML IV PRN (07:02)
[2017-08-16] MEDS: POTASSIUM CHLOR 40 MEQ PREMIX 100 ML IV PRN ×3 (07:03→22:32)
[2017-08-16 07:17] LABS: BANDS 26 % (0-6); CORRECTED NUCLEATED RBC 1 /100 WBC (0-0); LYMPHOCYTES 3 % (9-44); METAMYELOCYTES 1 % (0-1); MONOCYTES 6 % (0-8); NEUTROPHIL # MANUAL DIFF 8.2 TH/MM3 (1.8-7.7); NUCLEATED RED BLOOD CELL 1 (0-0); POLYS (SEG NEUTROPHILS) 60 % (16-70)
[2017-08-16 07:18] LABS: TOXIC GRANULATION 1+ (NORMAL)
[2017-08-16] MEDS: CHLORHEXIDINE 0.12% (ORAL KIT) 15 ML CUP MT SCH ×2 (08:00→20:17)
--- NOTE | 2017-08-16 08:14 | HHI.PR ---
Neuropsych Emotional Emotional: UnabletoAssess: Emotional, Anxious/Fearful, Depressed/Sad, Hostile/ Resentful, Irritable/Angry/Frustrate, Labile, Constricted/Blunted Behavior Behavior: Intact: Impulsive/Agitated, Unable to Asses: Behavior, Coping/ Acceptance, Cooperative w/ Treatment, Motivation, Frustration Tolerance/[place], Suicidal/Homicidal Risk Cognitive Cognitive: Unable to Asses: Cognitive, Attention/Concentration, Confused/ Orientation, Insight/Awareness, Judgement/Problem-Solving, Memory Psychosocial Psychosocial: Unable to Asses: Psychosocial, Family/Other Adjustment, Realistic Expectation, Self-Esteem/Confidence Progress Notes/Response to Tx Contents of Sessions: Adjustment, Level of Consciousness Time with Patient: 30 minutes Premorbid psychological status Premorbid Cognitive, Emotional and Behavioral Status: Stable. The patient has high school years of education and a solid work history prior to this injury. The patient has no prior psychiatric difficulties, as described above. Substance abuse history is unremarkable. Behavioral Reactions of Patient and Family/Support System: Deferred. The patients family is experiencing ongoing issues of adjustment given the nature of the injury, and this aspect of recovery will require ongoing monitoring. Emotional/Behavioral Status of Patient and Family/Support System: Deferred. Pertinent issues, if appropriate to this patients clinical care, are described in detail above. Maximizing acute care outcome It is recommended that the patient be monitored for emergent behavioral impulsivity as the medical condition evolves. This patients neuropathological challenges may limit his rehabilitation potential going forward, and these challenges will require specialized therapeutic skills to maximize outcome. Additionally, the patients family is experiencing ongoing issues of adjustment given the traumatic nature of the injury, and they may benefit from ongoing psychological assistance. At this point in the recovery process, the patient does not have cognitive capacity as the patient is unable to understand a situation and its likely consequences, nor is he able to manipulate information rationally. Cognitive capacity will be assessed throughout the recovery process. Anticipated Problems Ongoing areas of concern will include behavioral impulsivity, lack of insight and judgment, which is expected to improve with time and treatment. Presently , the patient is critically ill and may not survive. Given the severity of the patient's injuries it is my clinical opinion that this patient will be unable to return to any type of productive employment for at least one year, perhaps longer and likely never. This patient is not considered safe to discharge home without supervision. Treatment Plan This clinician will continue to follow with you throughout the course of this patients critical care treatment, and I will be available to meet with the patients family/support system to facilitate their understanding and the ongoing care of their family member. The goals of neuropsychological intervention shall be both educational and supportive to the family/support system as is deemed clinically appropriate. Fidencio Escalante Level: I:No response-total assistance Impression 52 year old male s/p TBI 2T fall from tree on 08/11/2017. Diagnosis: (1) Major neurocognitive disorder as late effect of traumatic brain injury without behavioral disturbance Progress Note Narrative PTD 5. Patient underwent DC yesterday in light of labile ICPs, and now ICPs are managed. He remains critically ill, intubated and sedated, and Gilbertcho I. I will follow. Roger Flores PhD Aug 16, 2017 8:14 am
[2017-08-16] MEDS ORDERED: PANTOPRAZOLE SOD 40 MG DELAYED RELEASE TAB PO SCH (09:00)
[2017-08-16] MEDS ORDERED: DEXTROSE 5% IV SCH ×2 (09:15)
[2017-08-16] MEDS ORDERED: LEVETIRACETAM IV SCH ×2 (09:15)
[2017-08-16] MEDS ORDERED: WATER IV PRN ×2 (09:15)
[2017-08-16] MEDS ORDERED: DEXTROSE 5% IV PRN ×2 (09:15)
[2017-08-16] MEDS ORDERED: WATER IV SCH ×2 (09:15)
[2017-08-16] MEDS ORDERED: CISATRACURIUM IV PRN ×2 (09:15)
[2017-08-16] MEDS: DEXTROSE 5% IV PRN ×16 (09:31→21:58)
[2017-08-16] MEDS: WATER IV SCH ×4 (09:31→20:18)
[2017-08-16] MEDS: CISATRACURIUM IV PRN ×8 (09:31→21:58)
[2017-08-16] MEDS: LEVETIRACETAM IV SCH ×4 (09:31→20:18)
[2017-08-16] MEDS: WATER IV PRN ×16 (09:31→21:58)
[2017-08-16] MEDS: DEXTROSE 5% IV SCH ×4 (09:31→20:18)
[2017-08-16] MEDS: NOREPINEPHRINE IV PRN ×8 (09:32→18:53)
[2017-08-16] MEDS: PROPOFOL 1000 MG/100 ML INJ 100 ML IV PRN ×4 (09:40→21:07)
[2017-08-16] MEDS: MIDAZOLAM 50 MG/50 ML INJ 50 ML IV PRN ×4 (09:40→21:08)
[2017-08-16] MEDS: fentaNYL DRIP 250 ML IV PRN ×2 (09:40→14:52)
[2017-08-16] MEDS: DEXTROSE 5% IN WATE 1000ML INJ 1,000 ML IV SCH (09:45)
[2017-08-16] MEDS: MAGNESIUM HYDROXIDE SUSP 30 ML CUP PO SCH ×2 (10:45→20:18)
[2017-08-16] MEDS: PANTOPRAZOLE SODIUM 40 MG VIAL IVP SCH (10:45)
[2017-08-16] MEDS: LIDOCAINE HCL 5% PATCH T-DERMAL SCH (10:45)
[2017-08-16] MEDS: FREE WATER G-TUBE SCH ×3 (10:45→18:00)
[2017-08-16] MEDS: DOCUSATE SODIUM 50 MG/SENNA 8.6 MG TAB PO SCH ×2 (10:45→20:18)
[2017-08-16] MEDS: SODIUM CHLORIDE 0.9% FLUSH 10 ML FLUSH IV FLUSH SCH ×2 (10:45→20:18)
[2017-08-16] MEDS: LACTULOSE SYRUP 20 GM/30 ML CUP PO SCH (10:45)
[2017-08-16] MEDS ORDERED: POTASSIUM CHLORIDE 25 MEQ EFFERVESCENT TAB NG SCH (11:00)
[2017-08-16] MEDS ORDERED: FUROSEMIDE 20 MG/2 ML VIAL IV PUSH ONE (11:00)
--- NOTE | 2017-08-16 11:11 | ECHRPT ---
Indication: Hypertensive heart disease with heart failure CONCLUSIONS The transthoracic study is normal by two-dimensional, color flow imaging and Doppler interrogation. Technically difficult study. BP: / HR: Rhythm: MEASUREMENTS (Male / Female) Normal Values Technical Quality:Technically difficult study 2D ECHO LV Diastolic Diameter PLAX 5.3 cm 4.2 - 5.9 / 3.9 - 5.3 cm LV Systolic Diameter PLAX 3.8 cm IVS Diastolic Thickness 1.2 cm 0.6 - 1.0 / 0.6 - 0.9 cm LVPW Diastolic Thickness 1.2 cm 0.6 - 1.0 / 0.6 - 0.9 cm LV Relative Wall Thickness 0.5 RV Internal Dim ED PLAX 2.8 cm M-MODE Aortic Root Diameter MM 4.4 cm LA Systolic Diameter MM 4.3 cm LA Ao Ratio MM 1.0 AV Cusp Separation MM 1.9 cm DOPPLER Mitral E Point Velocity 80.1 cm/s Mitral A Point Velocity 76.0 cm/s Mitral E to A Ratio 1.1 FINDINGS LEFT VENTRICLE Normal left ventricular size. The left ventricular systolic function is normal with an estimated ejection fraction in the range of 60-65%. Wall thickness is measured at the upper limits of normal. RIGHT VENTRICLE Normal right ventricular size and systolic function. LEFT ATRIUM The left atrial size is normal. RIGHT ATRIUM The right atrial size is normal. ATRIAL SEPTUM Normal atrial septal thickness without atrial level shunting by limited color doppler interrogation. AORTA The aortic root and proximal ascending aorta are not well visualized. MITRAL VALVE Structurally normal mitral valve. No mitral valve stenosis or regurgitation. The mitral valve is not well visualized. AORTIC VALVE Trileaflet aortic valve. No aortic valve stenosis or regurgitation. . The aortic valve is not well visualized. TRICUSPID VALVE Structurally normal tricuspid valve. No tricuspid valve stenosis or regurgitation. The tricuspid valve is not well visualized. PULMONARY VALVE The pulmonary valve is not well visualized. VESSELS The inferior vena cava was not well visualized. PERICARDIUM No pericardial effusion. Eliazar Lepe MD, FACC (Electronically Signed) Final Date:16 August 2017 11:10
[2017-08-16] MEDS: EPOPROSTENOL NEB SOLUTION 30 NG/KG/MIN 100 ML NEB SCH ×6 (13:52→19:00)
--- NOTE | 2017-08-16 14:52 | HHI.NSPN ---
(Rosy Alvarado) Note Status Status: Progress Note (Rosy Alvarado) Interval History Interval History This is a 52-year-old male who was working on a tree and fell downonto the concrete deck below about 10 feet. The reported. No tonic-clonic movement seen. No tongue biting. No incontinence of stool or urine. Nobody witnessed the event; however, apparently was bleeding on the pavement and finally ambulance was called. It is unknown how long patient had been lying there. The patient was brought to [place] as Trauma alert, priority 1 trauma alert, intubated in the field with C-collar in place on a spinal board by air ambulance. On arrival, patient's [place] Coma Scale was 3 which improved to about 5. He had unequal pupils with anisocoria. He was resuscitated according to the ATLS protocol. Trauma workup revealed multiple injuries including a severe left-sided facial fractures involving the orbit, zygoma, maxilla, nasal fracture, as well as fracture of the base of the skull going through the petrous bone, a right frontotemporal subarachnoid and subdural bleeding with brain contusions on the right, multiple left rib fractures with chest wall deformity, bilateral lung contusion and bilateral aspiration lacerations, laceration probably grade II of the spleen with slight amount of blood around the spleen Neurosurgical consultation was requested 08/12: ICPs currently 16. intubated, sedated. 08/16: patient underwent emergent decompressive craniectomy yesterday, also with placement of ventriculostomy drain. intubated, and sedated. ICPs controlled. (Rosy Alvarado) Labs, Micro, & Vital Signs Results Date Time Temp Pulse Resp B/P (MAP) Pulse Ox O2 Delivery O2 Flow Rate FiO2 08/16/17 13:52 60 99/79 08/16/17 11:27 93 90 08/16/17 09:32 61 117/54 08/16/17 08:16 94 100 08/16/17 07:02 67 124/58 08/16/17 06:00 65 08/16/17 05:38 99 100 08/16/17 04:00 100 08/16/17 04:00 97.7 62 28 124/54 (77) 100 08/16/17 04:00 62 08/16/17 02:00 62 08/16/17 00:00 69 08/16/17 00:00 98.4 69 28 124/57 (79) 100 08/16/17 00:00 100 100 08/16/17 00:00 100 08/15/17 22:00 76 08/15/17 21:24 83 108/51 08/15/17 20:37 97 100 08/15/17 20:37 97 100 08/15/17 20:00 86 08/15/17 20:00 100 08/15/17 20:00 98.6 86 28 110/50 (70) 95 08/15/17 18:00 98.4 82 21 108/50 (69) 100 08/15/17 18:00 82 08/15/17 17:00 98.2 82 28 110/57 (74) 100 08/15/17 16:00 97.9 80 28 122/54 (76) 100 08/15/17 16:00 97.9 80 28 122/54 (76) 100 08/15/17 16:00 100 08/15/17 16:00 80 08/15/17 15:05 97.8 82 28 116/57 (76) 100 08/15/17 15:05 100 100 08/17/17 06:59 Intake Total 1196 ml Balance 1196 ml Constitutional Vital Signs Date Time Temp Pulse Resp B/P (MAP) Pulse Ox O2 Delivery O2 Flow Rate FiO2 08/16/17 13:52 60 99/79 08/16/17 11:27 93 90 08/16/17 09:32 61 117/54 08/16/17 08:16 94 100 08/16/17 07:02 67 124/58 08/16/17 06:00 65 08/16/17 05:38 99 100 08/16/17 04:00 100 08/16/17 04:00 97.7 62 28 124/54 (77) 100 08/16/17 04:00 62 08/16/17 02:00 62 08/16/17 00:00 69 08/16/17 00:00 98.4 69 28 124/57 (79) 100 08/16/17 00:00 100 100 08/16/17 00:00 100 08/15/17 22:00 76 08/15/17 21:24 83 108/51 08/15/17 20:37 97 100 08/15/17 20:37 97 100 08/15/17 20:00 86 08/15/17 20:00 100 08/15/17 20:00 98.6 86 28 110/50 (70) 95 08/15/17 18:00 98.4 82 21 108/50 (69) 100 08/15/17 18:00 82 08/15/17 17:00 98.2 82 28 110/57 (74) 100 08/15/17 16:00 97.9 80 28 122/54 (76) 100 08/15/17 16:00 97.9 80 28 122/54 (76) 100 08/15/17 16:00 100 08/15/17 16:00 80 08/15/17 15:05 97.8 82 28 116/57 (76) 100 08/15/17 15:05 100 100 08/17/17 06:59 Intake Total 1196 ml Balance 1196 ml (Rosy Alvarado) Review of Systems ROS Limitations: Clinical Condition, Intubated (Rosy Alvarado) Physical Exam Mr. Correa is intubated and sedated. Left craniectomy site is full, hard to palpate. Incision clean and dry. Ventriculostomy draining clear CSF at 0 cm H20, ICP in the mid teens. Left frontal scalp avulsion s/p repair. Cranial Nerves: Left pupil 6-7mm, right 4 mm bilaterally nonreactive. Motor: no spontaneous movements, no response to pain stimuli x 4 extremities Reflexes: Plantars silent bilaterally. Absent corneal reflexes bilaterally. (Rosy Alvarado) Medications Current Medications Current Medications Medications (Trade) Dose Ordered Sig/Mark Route PRN Reason Start Time Stop Time Status Last Admin Dose Admin Sodium Chloride (NS Flush) 2 ml UNSCH PRN IV FLUSH FLUSH AFTER USING IV ACCESS 08/11/17 11:45 Sodium Chloride (NS Flush) 2 ml BID IV FLUSH 08/11/17 21:00 08/16/17 10:45 Naloxone HCl (Narcan Inj) 0.4 mg UNSCH PRN IV PUSH SEE LABEL COMMENTS 08/11/17 11:45 Magnesium Hydroxide (Milk Of Magnesia Liq) 30 ml BID PO 08/11/17 21:00 08/16/17 10:45 Potassium Chloride 100 ml @ 50 mls/hr Q2H PRN IV For Potassium 2.8 - 3.2 mEq/L 08/11/17 14:30 08/16/17 11:00 Potassium Chloride 100 ml @ 50 mls/hr Q2H PRN IV For Potassium 2.8 - 3.2 mEq/L 08/11/17 14:30 08/15/17 18:59 Potassium Bicarb/ Potassium Chloride (K-Lyte Cl Eff) 50 meq UNSCH PRN PO For Potassium 3.3 - 3.5 mEq/L 08/11/17 14:30 Potassium Chloride 100 ml @ 25 mls/hr UNSCH PRN IV For Potassium 3.3 - 3.5 mEq/L 08/11/17 14:30 Potassium Chloride 100 ml @ 50 mls/hr Q2H PRN IV For Potassium 3.3 - 3.5 mEq/L 08/11/17 14:30 08/14/17 13:22 Magnesium Sulfate 4 gm/Sodium Chloride 100 ml @ 50 mls/hr UNSCH PRN IV For Magnesium 0.9 - 1.1 mg/dL 08/11/17 14:30 Magnesium Oxide (Mag-Ox) 800 mg UNSCH PRN PO For Magnesium 1.2 - 1.6 mg/dL 08/11/17 14:30 Magnesium Sulfate 2 gm/Sodium Chloride 100 ml @ 50 mls/hr UNSCH PRN IV For Magnesium 1.2 - 1.6 mg/dL 08/11/17 14:30 Potassium Phosphate (K-Phos) 2,000 mg Q4H PRN PO For Phosphorus < 2.5 mg/dL 08/11/17 14:30 Sodium Phosphate 30 mmol/Sodium Chloride 250 ml @ 42 mls/hr UNSCH PRN IV For Phosphorus < 2.5 mg/dL 08/11/17 14:30 Potassium Phosphate (K-Phos) 2,000 mg UNSCH PRN PO/TUBE SEE LABEL COMMENTS 08/11/17 14:30 Potassium Phosphate 30 mmol/ Sodium Chloride 260 ml @ 42 mls/hr UNSCH PRN IV SEE LABEL COMMENTS 08/11/17 14:30 Chlorhexidine Gluconate (Peridex 0.12% Liq) 15 ml BID@08,20 MT 08/11/17 20:00 08/16/17 08:00 Methocarbamol (Robaxin) 500 mg Q8HR PO 08/11/17 22:00 08/16/17 14:29 Lidocaine HCl (Lidoderm 5% Patch.12 Hr) 1 patch DAILY T-DERMAL 08/11/17 14:30 08/16/17 10:45 Insulin Aspart (NovoLOG SUPPLEMENTAL SCALE) 1 Q6HR SQ 08/11/17 18:00 08/16/17 12:00 Dextrose (D50w (Syr) Inj) 50 ml UNSCH PRN IV PUSH HYPOGLYCEMIA-SEE COMMENTS 08/11/17 14:30 Glucagon (Glucagon Inj) 1 mg UNSCH PRN OTHER HYPOGLYCEMIA-SEE COMMENTS 08/11/17 14:30 Albuterol/ Ipratropium (Duoneb Neb) 1 ampule Q2HR NEB PRN NEB wheezing 08/11/17 14:45 08/15/17 20:33 Miscellaneous Information 1 Q24H T-DERMAL 08/11/17 21:00 08/15/17 20:46 Terbutaline Sulfate (Brethine Inj) 1 mg UNSCH PRN SQ FOR EXTRAVASATION PROTOCOL 08/11/17 18:00 Phenylephrine HCl 40 mg/Sodium Chloride 500 ml @ 30 mls/hr TITRATE PRN IV Blood Pressure Management 08/11/17 17:45 08/13/17 02:37 Acetaminophen 100 ml @ 400 mls/hr Q6H PRN IV Temp > 101.5 08/12/17 15:00 08/13/17 17:11 Bisacodyl (Dulcolax Supp) 10 mg DAILY PRN RECTAL CONSTIPATION 08/15/17 12:30 Pantoprazole Sodium (Protonix Inj) 40 mg DAILY IVP 08/16/17 09:00 08/16/17 10:45 Ondansetron HCl (Zofran Odt) 4 mg Q6H PRN PO NAUSEA OR VOMITING 08/15/17 13:45 Calcium Gluconate (Calcium Gluconate Inj) 1 gm UNSCH PRN IV SEE LABEL COMMENTS 08/15/17 12:30 Potassium Chloride 100 ml @ 50 mls/hr UNSCH PRN IV POTASSIUM LESS THAN 4 08/15/17 12:30 Magnesium Sulfate 4 gm/Sodium Chloride 108 ml @ 108 mls/hr UNSCH PRN IV MAGNESIUM LESS THAN 2 08/15/17 12:30 Acetaminophen (Tylenol) 650 mg Q4H PRN PO TEMPERATURE > 101.5 F 08/15/17 12:30 Lactulose (Lactulose Liq) 30 ml DAILY PO 08/16/17 09:00 08/16/17 10:45 Senna/Docusate Sodium (Ronda-Colace) 1 tab BID PO 08/16/17 09:00 08/16/17 10:45 Water (Free Water) 200 ml Q6HR G-TUBE 08/16/17 08:30 08/16/17 13:53 Norepinephrine Bitartrate 4 mg/ Dextrose 250 ml @ 7.5 mls/hr TITRATE PRN IV Maintain MAP > 65 mmHg 08/16/17 09:15 08/16/17 13:52 Levetriacetam 500 mg/Dextrose 105 ml @ 400 mls/hr Q12HR IV 08/16/17 10:00 08/16/17 09:31 Cisatracurium Besylate 100 mg/ Dextrose 250 ml @ 22.08 mls/ hr TITRATE PRN IV TOF 1/4 08/16/17 09:30 08/16/17 13:51 Fentanyl Citrate 250 ml @ 5 mls/hr TITRATE PRN IV Sedation 08/16/17 09:45 08/16/17 09:40 Midazolam HCl 50 ml @ 2 mls/hr TITRATE PRN IV SEDATION 08/16/17 09:45 08/16/17 11:32 Propofol 100 ml @ 3.987 mls/ hr TITRATE PRN IV SEDATION 08/16/17 09:45 08/16/17 12:49 Dextrose 1,000 ml @ 20 mls/hr Q24H IV 08/16/17 09:45 08/16/17 09:45 Epoprostenol Sodium 60 ml/ Sodium Chloride 100 ml @ 5 mls/hr Q8H NEB 08/16/17 11:00 (Rosy Alvarado) Medical Decision Making MDM Remarks 52 year old male fall off tree TBI, Right 1 cm subdural hematoma, right temporal parenchymal and subarachnoid hemorrhage on arrival, 08/15 with elevated ICPs in the 30's, f/u CT Brain with left cerebral ischemia, edema with 1.2 cm left to right midline shift, underwent emergent left decompressive craniectomy, and with placement of ventriculostomy drain 08/15/17, ICP improved Left C7 transverse process fracture Left T1 transverse process fracture Left facial fractures (Rosy Alvarado) Plan Plan Remarks cont ventriculostomy draining at 0 cm H20, cont ICP monitoring neuro checks and follow exam cont critical care/trauma management (Rosy Alvarado) Attending Statement The exam, history, and the medical decision-making described in the above note were completed with the assistance of the mid-level provider. I reviewed and agree with the findings presented. I attest that I had a [id number] encounter with the patient on the same day, and personally performed and documented my assessment and findings in the medical record. (Kameron Peoples MD) Rosy Alvarado Aug 16, 2017 14:52 Kameron Peoples MD Aug 17, 2017 15:05
--- NOTE | 2017-08-16 17:04 | HHI.CCPN ---
Subjective Brief History This 52-year-old male fell while working on a tree onto the concrete deck below about 10 feet. Nobody witnessed the event; however, apparently was bleeding on the pavement and finally ambulance was called. It is unknown how long patient had been lying there. The patient was brought to our institution as priority 1 trauma alert, intubated in the field with C-collar in place on a spinal board by air ambulance. On arrival, patient's Amelie Coma Scale was 3 and improved to about 5. FINAL INJURIES DETECTED: 1. Severe left-sided facial fractures involving the orbit, zygoma, maxilla, nasal fracture, as well as fracture of the base of the skull going through the petrous bone. 2. Right frontotemporal subarachnoid and subdural bleeding with brain contusions on the right. 2.a.C7 transverse process fracture right 3. Chest revealed serial left rib fractures with chest wall deformity, bilateral lung contusion and bilateral aspiration. A small amount of subcutaneous air, but no pneumothorax. 4. L Clavicle FX 5. Abdominal CAT scan revealed small lacerations, laceration probably grade II of the spleen with slight amount of blood around the spleen This patient has severe multisystem injuries and in addition it is not clear whether patient might of had suffered a heart attack or some other posterior problem prior to falling off the ladder. This will be worked up now after patient is admitted Neurosurgery is consulted and workup and further ICU resuscitation is in progress Patient is critical and there is a high mortality rate associated with these injuries probably ranging over 50% in the age group 24 Hour Review/Hospital Course 08/12/2017 Patient with massive multisystem injuries including brain and chest Neurologically patient remains intubated ventilated sedated Neuroprotective measures including propofol fentanyl and Versed required in order to keep ICP below 20 mmHg ICP ranging between 14 and 20 mmHg Hemodynamically patient was initially unstable but starting to stabilize slowly Large amount of fluids and 4 units of PRBC administered in order to account for systemic inflammatory response and third space loss. Patient extremely hyperdynamic with cardiac output about 8 L and systemic vascular resistance very low around 500 Requiring active vasomotor support with Levophed and Mark-Synephrine now gradually being weaned off If necessary patient will placed on vasopressin but I would like to avoid that if possible considering his precarious cardiac function Initial elevation of troponins which are now normalizing may be related to the fall itself Bilateral breath sounds decreased over the left side where patient has massive pulmonary contusion with injury to the left upper importance of lower lobe Chest tube drainage decreased and patient does have retained hemothorax In order to maintain adequate PO2 FiO2 gradient and not over extend the right lung patient has been placed on bilevel ventilation Settings currently 50% FiO2 PSVT 28/2 sec high and PSV 0/0.7 seconds low This allows for about 16 L/min ventilation Patient will probably eventually need thoracoscopy and evacuation of hemothorax on the left however right now patient is unstable to go for any further studies to fully evaluate evolving extent of lung injury Abdomen soft no signs of trauma except small splenic laceration which appears to be stable Renal function preserved now the patient is well preloaded I discussed at length the care of this patient with the family and explained to them that there is a high mortality associated with multiplicity and severity of the injuries 08/13/2017 Patient slightly improved Remains sedated ventilated on propofol fentanyl and Versed ICP remains 12-18 mmHg Hemodynamically patient is slowly stabilizing Mark-Synephrine has been weaned off but patient remains still on Levophed Track flow reveals cardiac output of about 7.5 L and SVR about 550 consistent with hyperdynamic state vasodilatation and systemic inflammatory response SIRS Bilateral breath sounds Patient has been placed on bilevel ventilation yesterday which she is tolerating well and arterial blood gases have improved significantly Chest x-ray slowly clearing up the left lung field Abdomen soft will start on trickle feeds 08/14/2017 Neurologically patient is unchanged Intubated ventilated on neuroprotective measures Propofol/fentanyl and addition of Versed in order to keep ICP within physiologic range Even with maximum neuroprotective measures patient's ICP now ranges between 18 and 24 mmHg Around 4-50 days when the brain swelling is most prominent so this is not unexpected Remains on small dose of hypertonic saline and with rising sodium will DC the same Hemodynamically patient is slowly stabilizing with decreasing amounts of Mark- Synephrine and Levophed Maintaining central perfusion pressure as to accommodate for ICP variance Bilateral breath sounds with minimal drainage from the left chest tube Patient was on bilevel ventilation for the last 48 hours but I had to take him down to AC mode due to hypercapnia With correction of hypercapnia the ICP readily stabilized Left lung is clearing up nicely and PO2 FiO2 gradient is improving Considering the severity of injuries to the brain and to the chest this patient is not expected to recover rapidly and will require tracheostomy 08/15/2017 Neurologically patient has worsened throughout the night. As expected and predicted the intracranial pressure has risen due to the brain swelling now that this is the fourth and fifth day post injury ICPs were managed through the night and we were in the range of 20-24 mmHg while this morning ICP suddenly antoine to as high as [address] of the head and chest and was taken to the operating room for decompressive craniectomy after discussing this with the neurosurgeon Upon return from the operating room patient's ICPs down to about 4-8 mmHg Central perfusion pressure is maintained in adequate parameters Hemodynamically patient still is somewhat unstable requiring additional Levophed in order to maintain mean arterial pressure to satisfy CPP requirements Transfuse 2 units PRBC with consequent hemoglobin of 8.9 g/dL Bilateral breath sounds Patient is on assist control ventilation and will switch at this point to bilevel ventilation for patient PO2 FiO2 gradient has worsened throughout the surgical procedure while in the OR Will place on high PSV 30 mmHg / low 0 mm [place] and adjust the time of inspiration and expiration in such a way as to allow for adequate CO2 elimination and slight hypocapnia May need additional adjustments for the same Enteral feeds tolerated This patient will have a kassidy postoperative course and have discussed this again at length with the family stressing that patient will have a long recovery will require tracheostomy and neurologic and overall outcome is still questionable 08/16/2017 Patient with severe brain injury underwent yesterday decompressive craniectomy due to uncontrollable ICP Post craniectomy and ventriculostomy ICP remains initial around 12 mmHg and now about 6-8 mmHg Adequate CPP based on mean arterial pressure Sodium 161 mEq/L with serum osmolality around 320 mOsm per liter Hemodynamically patient is slowly stabilizing with decreasing amounts of Levophed Pulmonary patient has worsened significantly Patient went to the operating room on 40% FiO2 5 of PEEP and excellent PO2 FiO2 gradient and return from the operating room 100% FiO2 and PO2 FiO2 gradient consistent with severe ARDS Ventilatory settings were adjusted yesterday and bilevel ventilation was attempted however patient would not tolerate that and resulted in a rising CO2 Patient was then placed on AC ventilation increased PEEP and 100% FiO2 With rising peak inspiratory pressures patient had to be paralyzed with cisatracurium and will remain probably so for the next few days Patient now has florid ARDS which was probably result of aspiration into the both lungs We will gradually wean the FiO2 as the PO2 FiO2 gradient improves If necessary we will place patient on Flolan-epoprostenol inhaler Renal function preserved Once the PO2 FiO2 gradient improves, patient will be scheduled for tracheostomy Objective Vital Signs Date Time Temp Pulse Resp B/P (MAP) Pulse Ox O2 Delivery O2 Flow Rate FiO2 08/16/17 16:11 100 70 08/16/17 16:00 97.2 61 30 129/57 (81) Intake and Output 08/16/17 08/16/17 08/16/17 07:59 15:59 23:59 Intake Total 1060 ml 686 ml Output Total 3490 ml Balance -2430 ml 686 ml Result Diagram: 08/16/17 0530 08/16/17 1224 Other Results Laboratory Tests Test 08/15/17 18:30 08/15/17 21:00 08/16/17 00:03 08/16/17 05:39 Blood Gas Puncture Site ART LINE ART LINE ART LINE ART LINE Blood Gas Patient Temperature 98.6 98.6 98.6 98.6 Blood Gas HCO3 24 mmol/L (22-26) 25 mmol/L (22-26) 24 mmol/L (22-26) 25 mmol/L (22-26) Blood Gas Base Excess -3.1 mmol/L (-2-2) -0.7 mmol/L (-2-2) -0.1 mmol/L (-2-2) 0.1 mmol/L (-2-2) Blood Gas Oxygen Saturation 95 % (90-100) 95 % (90-100) 97 % (90-100) 95 % ( 90-100) Arterial Blood pH 7.23 (7.380-7.420) 7.32 (7.380-7.420) 7.38 (7.380-7.420) 7.34 (7.380-7.420) Arterial Blood Partial Pressure CO2 59 mmHg (38-42) 50 mmHg (38-42) 43 mmHg (38-42) 47 mmHg (38-42) Arterial Blood Partial Pressure O2 102 mmHg (61-120) 93 mmHg (61-120) 137 mmHg (61-120) 91 mmHg (61-120) Arterial Blood Oxygen Content 14.6 Vol % (12.0-20.0) 13.1 Vol % (12.0-20.0) 15.3 Vol % (12.0-20.0) 14.4 Vol % (12.0-20.0) Arterial Blood Carboxyhemoglobin 0.8 % (0-4) 1.1 % (0-4) 1.0 % (0-4) 1.0 % (0-4) Arterial Blood Methemoglobin 1.1 % (0-2) 1.3 % (0-2) 1.1 % (0-2) 1.1 % (0-2) Blood Gas Hemoglobin 10.9 G/DL (12.0-16.0) 9.8 G/DL (12.0-16.0) 11.1 G/DL (12.0-16.0) 10.7 G/DL (12.0-16.0) Oxygen Delivery Device VENTILATOR VENTILATOR VENTILATOR VENTILATOR Blood Gas Ventilator Setting APRV PRVC/AC PRVC-AC PRVC-AC Blood Gas Inspired Oxygen 100 % 100 % 100 % 100 % Imaging Last 24 hours Impressions Chest X-Ray 08/16/17 0600 Signed Impressions: CONCLUSION: No significant interval change with persistent bilateral pulmonary parenchymal opacity left greater than right and bilateral pleural effusions. Exam COMBATANT DIVER QUALIFIED Patient with severe brain injury underwent yesterday decompressive craniectomy due to uncontrollable ICP Post craniectomy and ventriculostomy ICP remains initial around 12 mmHg and now about 6-8 mmHg Adequate CPP based on mean arterial pressure Sodium 161 mEq/L with serum osmolality around 320 mOsm per liter Hemodynamic/Cardiac Hemodynamically patient is slowly stabilizing with decreasing amounts of Levophed Pulmonary/Respiratory Pulmonary patient has worsened significantly Patient went to the operating room on 40% FiO2 5 of PEEP and excellent PO2 FiO2 gradient and return from the operating room 100% FiO2 and PO2 FiO2 gradient consistent with severe ARDS Ventilatory settings were adjusted yesterday and bilevel ventilation was attempted however patient would not tolerate that and resulted in a rising CO2 Patient was then placed on AC ventilation increased PEEP and 100% FiO2 With rising peak inspiratory pressures patient had to be paralyzed with cisatracurium and will remain probably so for the next few days Patient now has florid ARDS which was probably result of aspiration into the both lungs We will gradually wean the FiO2 as the PO2 FiO2 gradient improves If necessary we will place patient on Flolan-epoprostenol inhaler Once the PO2 FiO2 gradient improves, patient will be scheduled for tracheostomy Abdomen/GI Nutrition Abdomen soft enteral feeds tolerated Renal/I&O Renal function preserved Assessment and Plan Attestation Critical care time 42 minutes Alfred Wright MD Aug 16, 2017 17:04
[2017-08-16] MEDS: MUPIROCIN 2% OINT 22 GM TUBE TOPICAL SCH (18:00)
--- NOTE | 2017-08-16 19:38 | PD.CONS ---
History of Present Illness Service Plastic surgery Consult Requested By Primary team Reason for Consult Left ear laceration Primary Care Physician Unknown Diagnoses: (1) Laceration of ear History of Present Illness This 52-year-old male fell while working on a tree onto the concrete deck below about 10 feet. Nobody witnessed the event; however, apparently was bleeding on the pavement and finally ambulance was called. It is unknown how long patient had been lying there. The patient was brought to our institution as priority 1 trauma alert, intubated in the field with C-collar in place on a spinal board by air ambulance. On arrival, patient's [place] Coma Scale was 3 and improved to about 5. Plastic surgery was consulted today for a left ear laceration. PAST MEDICAL HISTORY: Hypertension, diabetes mellitus, and N1H1 flu a few years ago, for which the patient was apparently on a respirator for about 2 weeks. PAST SURGICAL HISTORY: Unknown. MEDICATIONS: Medication list reviewed ALLERGIES: UNKNOWN. SOCIAL HISTORY: The patient does not smoke. Family history Noncontributory to presenting complaint Except as noted in the HPI review of systems negative to presenting complaint Past Family Social History Allergies: Coded Allergies: No Known Allergies (Unverified , 08/11/17) Physical Exam Vital Signs Vital Signs Date Time Temp Pulse Resp B/P (MAP) Pulse Ox O2 Delivery O2 Flow Rate FiO2 08/16/17 18:53 58 108/89 08/16/17 18:00 64 08/16/17 18:00 70 08/16/17 16:11 100 70 08/16/17 16:00 80 08/16/17 16:00 97.2 61 30 129/57 (81) 100 08/16/17 16:00 61 08/16/17 14:00 61 08/16/17 13:52 60 99/79 08/16/17 12:00 90 08/16/17 12:00 59 08/16/17 12:00 96.9 59 30 121/54 (76) 94 08/16/17 11:27 93 90 08/16/17 10:00 61 08/16/17 09:32 61 117/54 08/16/17 08:16 94 100 08/16/17 08:00 97.0 64 28 113/49 (70) 95 08/16/17 08:00 100 08/16/17 08:00 64 08/16/17 07:02 67 124/58 08/16/17 06:00 65 08/16/17 05:38 99 100 08/16/17 04:00 100 08/16/17 04:00 97.7 62 28 124/54 (77) 100 08/16/17 04:00 62 08/16/17 02:00 62 08/16/17 00:00 69 08/16/17 00:00 98.4 69 28 124/57 (79) 100 08/16/17 00:00 100 100 08/16/17 00:00 100 08/15/17 22:00 76 08/15/17 21:24 83 108/51 08/15/17 20:37 97 100 08/15/17 20:37 97 100 08/15/17 20:00 86 08/15/17 20:00 100 08/15/17 20:00 98.6 86 28 110/50 (70) 95 Physical Exam Intubated sedated No overbreathing of the ventilator Nonresponsive to pain All 4 extremities cool to touch though appear well perfused Moist mucous membranes Left periorbital ecchymosis Skin without rash abdomen distended [place] with clear yellow urine Left ear with 2 cm curvilinear degloving laceration down to cartilage involving the superior cymba and inferior yaneth of the antihelix No signs of infection Cartilage exposed Laboratory Laboratory Tests Test 08/15/17 21:00 08/16/17 00:03 08/16/17 01:27 08/16/17 05:30 Blood Gas Puncture Site ART LINE ART LINE Blood Gas Patient Temperature 98.6 98.6 Blood Gas HCO3 25 24 Blood Gas Base Excess -0.7 -0.1 Blood Gas Oxygen Saturation 95 97 Arterial Blood pH 7.32 7.38 Arterial Blood Partial Pressure CO2 50 43 Arterial Blood Partial Pressure O2 93 137 Arterial Blood Oxygen Content 13.1 15.3 Arterial Blood Carboxyhemoglobin 1.1 1.0 Arterial Blood Methemoglobin 1.3 1.1 Blood Gas Hemoglobin 9.8 11.1 Oxygen Delivery Device VENTILATOR VENTILATOR Blood Gas Ventilator Setting PRVC/AC PRVC-AC Blood Gas Inspired Oxygen 100 100 Sodium Level 163 161 Serum Osmolality 337 336 White Blood Count 9.4 Red Blood Count 2.80 Hemoglobin 8.1 Hematocrit 23.5 Mean Corpuscular Volume 83.8 Mean Corpuscular Hemoglobin 28.8 Mean Corpuscular Hemoglobin Concent 34.4 Red Cell Distribution Width 15.3 Platelet Count 226 Mean Platelet Volume 8.5 Neutrophils (%) (Auto) 76.7 Lymphocytes (%) (Auto) 10.1 Monocytes (%) (Auto) 9.1 Eosinophils (%) (Auto) 3.5 Basophils (%) (Auto) 0.6 Neutrophils # (Auto) 7.2 Lymphocytes # (Auto) 0.9 Monocytes # (Auto) 0.9 Eosinophils # (Auto) 0.3 Basophils # (Auto) 0.1 CBC Comment AUTO DIFF Differential Total Cells Counted 100 Neutrophils % (Manual) 60 Band Neutrophils % 26 Lymphocytes % 3 Monocytes % 6 Eosinophils % 4 Neutrophils # (Manual) 8.2 Metamyelocytes 1 Nucleated Red Blood Cells 1 Differential Comment FINAL DIFF MANUAL Toxic Granulation 1+ Platelet Estimate NORMAL Platelet Morphology Comment NORMAL Blood Urea Nitrogen 14 Creatinine 0.69 Random Glucose 155 Total Protein 5.5 Albumin 1.7 Calcium Level 7.6 Magnesium Level 2.6 Alkaline Phosphatase 138 Aspartate Amino Transf (AST/SGOT) 37 Alanine Aminotransferase (ALT/SGPT) 23 Total Bilirubin 1.0 Potassium Level 2.7 Chloride Level 128 Carbon Dioxide Level 27.6 Anion Gap 5 Estimat Glomerular Filtration Rate 119 Test 08/16/17 05:39 08/16/17 08:54 08/16/17 12:24 Blood Gas Puncture Site ART LINE Blood Gas Patient Temperature 98.6 Blood Gas HCO3 25 Blood Gas Base Excess 0.1 Blood Gas Oxygen Saturation 95 Arterial Blood pH 7.34 Arterial Blood Partial Pressure CO2 47 Arterial Blood Partial Pressure O2 91 Arterial Blood Oxygen Content 14.4 Arterial Blood Carboxyhemoglobin 1.0 Arterial Blood Methemoglobin 1.1 Blood Gas Hemoglobin 10.7 Oxygen Delivery Device VENTILATOR Blood Gas Ventilator Setting [facility]- Blood Gas Inspired Oxygen 100 D-Dimer Quantitative (PE/DVT) 2.35 Sodium Level 161 Serum Osmolality 340 Date/Time Source Procedure Growth Status 08/15/17 14:40 Cerebral Spinal Fluid Shunt Fluid Fungal Smear - Final NO FUNGAL ELEMENTS SEEN. Resulted 08/15/17 14:40 Cerebral Spinal Fluid Shunt Fluid Fungal Culture Pending Resulted Result Diagram: 08/16/17 0530 08/16/17 6253 Assessment and Plan Problem List: (1) Laceration of ear ICD Codes: S01.319A - Laceration without foreign body of unspecified ear, initial encounter Assessment and Plan 52-year-old male with left auricular laceration down to cartilage Risks benefits alternative treatments discussed with the patient's All questions answered and the patient's expressed understanding Asians elected to assume the risks of repair of the above laceration Informed consent obtained The left ear was sterilely prepped and draped Multiple partial-thickness abrasions were debrided as was the above laceration edges of all devitalized tissue The inferior and superior aspects of the anterior auricular skin were extensively undermined, mobilized, and brought into apposition with multiple layers of interrupted and running 4-0 chromic Well-tolerated Nursing instructed to dress the left auricular laceration and left anterior scalp abrasion with mupirocin ointment 3 times daily Please call with questions Flavio York MD Aug 16, 2017 19:38
[2017-08-16] MEDS: REMOVE OLD LIDOCAINE PATCH T-DERMAL SCH (20:19)
[2017-08-16] MEDS: NOREPINEPHRINE-DEXTROSE DRIP 250 ML IV PRN (23:59)
[2017-08-17] VITALS (22 sets, daily range): BP systolic 115–130; BP diastolic 55–65; PULSE 57–97; RESP 26–32; TEMP 96.6–99.7; O2SAT 91–100
[2017-08-17] MEDS: PROPOFOL 1000 MG/100 ML INJ 100 ML IV PRN ×8 (00:09→21:45)
[2017-08-17] MEDS: POTASSIUM CHLOR 40 MEQ PREMIX 100 ML IV PRN (00:31)
[2017-08-17] MEDS: INSULIN ASPART SUPPLEMENTAL SCALE SQ SCH ×4 (00:31→18:00)
[2017-08-17] MEDS: CISATRACURIUM IV PRN ×12 (00:41→22:07)
[2017-08-17] MEDS: DEXTROSE 5% IV PRN ×12 (00:41→22:07)
[2017-08-17] MEDS: WATER IV PRN ×12 (00:41→22:07)
[2017-08-17 02:14] LABS: HEMATOCRIT 23.2 % (39.0-51.0)
[2017-08-17] MEDS: MIDAZOLAM 50 MG/50 ML INJ 50 ML IV PRN ×5 (02:20→20:22)
[2017-08-17] MEDS: FREE WATER G-TUBE SCH ×5 (03:29→23:52)
[2017-08-17 04:08] LABS: AUTOMATED NEUTROPHIL # 7.5 TH/MM3 (1.8-7.7); BASOPHIL # 0.1 TH/MM3 (0-0.2); BASOPHIL % 0.8 % (0.0-2.0); EOSINOPHIL # 0.3 TH/MM3 (0-0.4); EOSINOPHIL % 2.6 % (0.0-4.0); HEMATOCRIT 22.8 % (39.0-51.0); HEMOGLOBIN 7.8 GM/DL (13.0-17.0); LYMPH % 13.7 % (9.0-44.0); LYMPHOCYTE # 1.4 TH/MM3 (1.0-4.8); MEAN CELL VOLUME 84.4 FL (80.0-100.0); MEAN CORPUSCULAR HEMOGLOBIN 28.9 PG (27.0-34.0); MEAN CORPUSCULAR HGB CONC 34.3 % (32.0-36.0); MEAN PLATELET VOLUME 8.3 FL (7.0-11.0); MONO % 8.8 % (0.0-8.0); MONOCYTE # 0.9 TH/MM3 (0-0.9); NEUT % 74.1 % (16.0-70.0); PLATELET COUNT 239 TH/MM3 (150-450); RED CELL DISTRIBUTION WIDTH 15.5 % (11.6-17.2); WHITE BLOOD COUNT 10.2 TH/MM3 (4.0-11.0)
[2017-08-17 04:34] LABS: ALBUMIN 1.6 GM/DL (3.4-5.0); BICARBONATE 28.7 MEQ/L (21.0-32.0); CALCIUM 7.4 MG/DL (8.5-10.1); CALCIUM-PROTEIN CORRECTED 8.2 MG/DL (8.5-10.1); CREATININE 0.6 MG/DL (0.60-1.30); MAGNESIUM 2.8 MG/DL (1.5-2.5); TOTAL PROTEIN 5.6 GM/DL (6.4-8.2)
[2017-08-17] MEDS: METHOCARBAMOL 500 MG TAB PO SCH ×3 (04:46→20:20)
[2017-08-17] MEDS: EPOPROSTENOL NEB SOLUTION 30 NG/KG/MIN 100 ML NEB SCH ×4 (04:46→16:33)
[2017-08-17] MEDS: NOREPINEPHRINE-DEXTROSE DRIP 250 ML IV PRN ×4 (04:47→20:18)
[2017-08-17 04:53] LABS: BANDS 37 % (0-6); BLASTS 1 % (0-0); CORRECTED NUCLEATED RBC 6 /100 WBC (0-0); LYMPHOCYTES 8 % (9-44); METAMYELOCYTES 3 % (0-1); MONOCYTES 3 % (0-8); MYELOCYTES 1 % (0-0); NEUTROPHIL # MANUAL DIFF 8.6 TH/MM3 (1.8-7.7); NUCLEATED RED BLOOD CELL 6 (0-0); PLASMA CELLS 2 % (0-0); POLYS (SEG NEUTROPHILS) 43 % (16-70)
[2017-08-17 04:54] LABS: DOHLE BODIES PRESENT (NONE SEEN); TOXIC GRANULATION 1+ (NORMAL)
--- NOTE | 2017-08-17 05:43 | RADRPT ---
EXAM DATE: 08/17/2017 5:28 AM EDT AGE/SEX: 52 years / Male INDICATIONS: Shortness of breath. CLINICAL DATA: This is the patient's subsequent encounter. Patient reports that signs and symptoms h ave been present for 2 weeks and indicates a pain score of Nonresponsive. MEDICAL/SURGICAL HISTORY: Diabetes mellitus type I. None. COMPARISON: [facility] [place]/16/[place]. . FINDINGS: Single AP view the chest. Endotracheal tube, nasogastric tube, right subclavian central venous cathet er and left-sided chest tube remain in place. Increased bilateral diffuse pulmonary opacity. No evide nce of pneumothorax. CONCLUSION: Increased bilateral diffuse pulmonary parenchymal opacity. Difficult diagnosis includes infection, pu lmonary edema, and ARDS. Electronically signed by: Zay García MD 08/17/2017 5:42 AM EDT
[2017-08-17] MEDS: fentaNYL DRIP 250 ML IV PRN (06:41)
[2017-08-17] MEDS: CHLORHEXIDINE 0.12% (ORAL KIT) 15 ML CUP MT SCH ×2 (08:00→20:18)
--- NOTE | 2017-08-17 08:33 | HHI.PR ---
Neuropsych Emotional Emotional: UnabletoAssess: Emotional, Anxious/Fearful, Depressed/Sad, Hostile/ Resentful, Irritable/Angry/Frustrate, Labile, Constricted/Blunted Behavior Behavior: Intact: Impulsive/Agitated, Unable to Asses: Behavior, Coping/ Acceptance, Cooperative w/ Treatment, Motivation, Frustration Tolerance/[place], Suicidal/Homicidal Risk Cognitive Cognitive: Unable to Asses: Cognitive, Attention/Concentration, Confused/ Orientation, Insight/Awareness, Judgement/Problem-Solving, Memory Psychosocial Psychosocial: Moderate: Psychosocial, Family/Other Adjustment, Realistic Expectation, Unable to Asses: Self-Esteem/Confidence Progress Notes/Response to Tx Contents of Sessions: Adjustment, Level of Consciousness Time with Patient: 30 minutes Premorbid psychological status Premorbid Cognitive, Emotional and Behavioral Status: Stable. The patient has high school years of education and a solid work history prior to this injury. The patient has no prior psychiatric difficulties, as described above. Substance abuse history is unremarkable. Behavioral Reactions of Patient and Family/Support System: Deferred. The patients family is experiencing ongoing issues of adjustment given the nature of the injury, and this aspect of recovery will require ongoing monitoring. Emotional/Behavioral Status of Patient and Family/Support System: Deferred. Pertinent issues, if appropriate to this patients clinical care, are described in detail above. Maximizing acute care outcome It is recommended that the patient be monitored for emergent behavioral impulsivity as the medical condition evolves. This patients neuropathological challenges may limit his rehabilitation potential going forward, and these challenges will require specialized therapeutic skills to maximize outcome. Additionally, the patients family is experiencing ongoing issues of adjustment given the traumatic nature of the injury, and they may benefit from ongoing psychological assistance. At this point in the recovery process, the patient does not have cognitive capacity as the patient is unable to understand a situation and its likely consequences, nor is he able to manipulate information rationally. Cognitive capacity will be assessed throughout the recovery process. Anticipated Problems Ongoing areas of concern will include behavioral impulsivity, lack of insight and judgment, which is expected to improve with time and treatment. Presently , the patient is critically ill and may not survive. Given the severity of the patient's injuries it is my clinical opinion that this patient will be unable to return to any type of productive employment for at least one year, perhaps longer and likely never. This patient is not considered safe to discharge home without supervision. Treatment Plan This clinician will continue to follow with you throughout the course of this patients critical care treatment, and I will be available to meet with the patients family/support system to facilitate their understanding and the ongoing care of their family member. The goals of neuropsychological intervention shall be both educational and supportive to the family/support system as is deemed clinically appropriate. Fidencio Escalante Level: I:No response-total assistance Impression 52 year old male s/p TBI 2T fall from tree on 08/11/2017. Diagnosis: (1) Major neurocognitive disorder as late effect of traumatic brain injury without behavioral disturbance Progress Note Narrative PTD 6. Patient underwent DC, ICPs now better with adequate CPP, but now has ARDS. No issues of agitation/restlessness as the patient is placed in pharmacological paralysis. He is [place]. I will follow. Roger Flores PhD Aug 17, 2017 8:33 am
[2017-08-17] MEDS ORDERED: BISACODYL 10 MG SUPP RECTAL ONE (08:45)
[2017-08-17] MEDS: WATER IV SCH ×4 (09:00→20:21)
[2017-08-17] MEDS: SODIUM CHLORIDE 0.9% FLUSH 10 ML FLUSH IV FLUSH SCH ×2 (09:00→20:21)
[2017-08-17] MEDS: LEVETIRACETAM IV SCH ×4 (09:00→20:21)
[2017-08-17] MEDS: DEXTROSE 5% IV SCH ×4 (09:00→20:21)
[2017-08-17] MEDS: MAGNESIUM HYDROXIDE SUSP 30 ML CUP PO SCH ×2 (09:08→20:20)
[2017-08-17] MEDS: LACTULOSE SYRUP 20 GM/30 ML CUP PO SCH (09:08)
[2017-08-17] MEDS: PANTOPRAZOLE SODIUM 40 MG VIAL IVP SCH (09:08)
[2017-08-17] MEDS: MUPIROCIN 2% OINT 22 GM TUBE TOPICAL SCH ×3 (09:09→18:00)
[2017-08-17] MEDS: LIDOCAINE HCL 5% PATCH T-DERMAL SCH (09:09)
[2017-08-17] MEDS: DOCUSATE SODIUM 50 MG/SENNA 8.6 MG TAB PO SCH ×2 (09:10→20:20)
[2017-08-17] MEDS ORDERED: FUROSEMIDE 40 MG/4 ML VIAL IV PUSH ONE ×2 (09:30→21:00)
[2017-08-17] MEDS ORDERED: POTASSIUM BICARBONATE 25 MEQ EFFERVESCENT TAB PO ONE (09:30)
--- NOTE | 2017-08-17 12:41 | HHI.CCPN ---
Subjective Brief History This 52-year-old male fell while working on a tree onto the concrete deck below about 10 feet. Nobody witnessed the event; however, apparently was bleeding on the pavement and finally ambulance was called. It is unknown how long patient had been lying there. The patient was brought to our institution as priority 1 trauma alert, intubated in the field with C-collar in place on a spinal board by air ambulance. On arrival, patient's Amelie Coma Scale was 3 and improved to about 5. FINAL INJURIES DETECTED: 1. Severe left-sided facial fractures involving the orbit, zygoma, maxilla, nasal fracture, as well as fracture of the base of the skull going through the petrous bone. 2. Right frontotemporal subarachnoid and subdural bleeding with brain contusions on the right. 2.a.C7 transverse process fracture right 3. Chest revealed serial left rib fractures with chest wall deformity, bilateral lung contusion and bilateral aspiration. A small amount of subcutaneous air, but no pneumothorax. 4. L Clavicle FX 5. Abdominal CAT scan revealed small lacerations, laceration probably grade II of the spleen with slight amount of blood around the spleen This patient has severe multisystem injuries and in addition it is not clear whether patient might of had suffered a heart attack or some other posterior problem prior to falling off the ladder. This will be worked up now after patient is admitted Neurosurgery is consulted and workup and further ICU resuscitation is in progress Patient is critical and there is a high mortality rate associated with these injuries probably ranging over 50% in the age group 24 Hour Review/Hospital Course 08/12/2017 Patient with massive multisystem injuries including brain and chest Neurologically patient remains intubated ventilated sedated Neuroprotective measures including propofol fentanyl and Versed required in order to keep ICP below 20 mmHg ICP ranging between 14 and 20 mmHg Hemodynamically patient was initially unstable but starting to stabilize slowly Large amount of fluids and 4 units of PRBC administered in order to account for systemic inflammatory response and third space loss. Patient extremely hyperdynamic with cardiac output about 8 L and systemic vascular resistance very low around 500 Requiring active vasomotor support with Levophed and Mark-Synephrine now gradually being weaned off If necessary patient will placed on vasopressin but I would like to avoid that if possible considering his precarious cardiac function Initial elevation of troponins which are now normalizing may be related to the fall itself Bilateral breath sounds decreased over the left side where patient has massive pulmonary contusion with injury to the left upper importance of lower lobe Chest tube drainage decreased and patient does have retained hemothorax In order to maintain adequate PO2 FiO2 gradient and not over extend the right lung patient has been placed on bilevel ventilation Settings currently 50% FiO2 PSVT 28/2 sec high and PSV 0/0.7 seconds low This allows for about 16 L/min ventilation Patient will probably eventually need thoracoscopy and evacuation of hemothorax on the left however right now patient is unstable to go for any further studies to fully evaluate evolving extent of lung injury Abdomen soft no signs of trauma except small splenic laceration which appears to be stable Renal function preserved now the patient is well preloaded I discussed at length the care of this patient with the family and explained to them that there is a high mortality associated with multiplicity and severity of the injuries 08/13/2017 Patient slightly improved Remains sedated ventilated on propofol fentanyl and Versed ICP remains 12-18 mmHg Hemodynamically patient is slowly stabilizing Mark-Synephrine has been weaned off but patient remains still on Levophed Track flow reveals cardiac output of about 7.5 L and SVR about 550 consistent with hyperdynamic state vasodilatation and systemic inflammatory response SIRS Bilateral breath sounds Patient has been placed on bilevel ventilation yesterday which she is tolerating well and arterial blood gases have improved significantly Chest x-ray slowly clearing up the left lung field Abdomen soft will start on trickle feeds 08/14/2017 Neurologically patient is unchanged Intubated ventilated on neuroprotective measures Propofol/fentanyl and addition of Versed in order to keep ICP within physiologic range Even with maximum neuroprotective measures patient's ICP now ranges between 18 and 24 mmHg Around 4-50 days when the brain swelling is most prominent so this is not unexpected Remains on small dose of hypertonic saline and with rising sodium will DC the same Hemodynamically patient is slowly stabilizing with decreasing amounts of Mark- Synephrine and Levophed Maintaining central perfusion pressure as to accommodate for ICP variance Bilateral breath sounds with minimal drainage from the left chest tube Patient was on bilevel ventilation for the last 48 hours but I had to take him down to AC mode due to hypercapnia With correction of hypercapnia the ICP readily stabilized Left lung is clearing up nicely and PO2 FiO2 gradient is improving Considering the severity of injuries to the brain and to the chest this patient is not expected to recover rapidly and will require tracheostomy 08/15/2017 Neurologically patient has worsened throughout the night. As expected and predicted the intracranial pressure has risen due to the brain swelling now that this is the fourth and fifth day post injury ICPs were managed through the night and we were in the range of 20-24 mmHg while this morning ICP suddenly antoine to as high as [address] of the head and chest and was taken to the operating room for decompressive craniectomy after discussing this with the neurosurgeon Upon return from the operating room patient's ICPs down to about 4-8 mmHg Central perfusion pressure is maintained in adequate parameters Hemodynamically patient still is somewhat unstable requiring additional Levophed in order to maintain mean arterial pressure to satisfy CPP requirements Transfuse 2 units PRBC with consequent hemoglobin of 8.9 g/dL Bilateral breath sounds Patient is on assist control ventilation and will switch at this point to bilevel ventilation for patient PO2 FiO2 gradient has worsened throughout the surgical procedure while in the OR Will place on high PSV 30 mmHg / low 0 mm [place] and adjust the time of inspiration and expiration in such a way as to allow for adequate CO2 elimination and slight hypocapnia May need additional adjustments for the same Enteral feeds tolerated This patient will have a kassidy postoperative course and have discussed this again at length with the family stressing that patient will have a long recovery will require tracheostomy and neurologic and overall outcome is still questionable 08/16/2017 Patient with severe brain injury underwent yesterday decompressive craniectomy due to uncontrollable ICP Post craniectomy and ventriculostomy ICP remains initial around 12 mmHg and now about 6-8 mmHg Adequate CPP based on mean arterial pressure Sodium 161 mEq/L with serum osmolality around 320 mOsm per liter Hemodynamically patient is slowly stabilizing with decreasing amounts of Levophed Pulmonary patient has worsened significantly Patient went to the operating room on 40% FiO2 5 of PEEP and excellent PO2 FiO2 gradient and return from the operating room 100% FiO2 and PO2 FiO2 gradient consistent with severe ARDS Ventilatory settings were adjusted yesterday and bilevel ventilation was attempted however patient would not tolerate that and resulted in a rising CO2 Patient was then placed on AC ventilation increased PEEP and 100% FiO2 With rising peak inspiratory pressures patient had to be paralyzed with cisatracurium and will remain probably so for the next few days Patient now has florid ARDS which was probably result of aspiration into the both lungs We will gradually wean the FiO2 as the PO2 FiO2 gradient improves If necessary we will place patient on Flolan-epoprostenol inhaler Renal function preserved Once the PO2 FiO2 gradient improves, patient will be scheduled for tracheostomy 08/17/2017 Patient with massive head injury status post craniectomy ICPs were initially very low now range between 15 and 20 mmHg About 150 cc of CSF drainage daily from the ventriculostomy Patient remains critical on maximum neuroprotective measures including Propofol/Versed/fentanyl Prognosis is very guarded and this patient will not have a good outcome based on his age and severity of the neurologic injury He will never be able to work again I have explained this to his family and its big question whether patient will have improved sufficiently to have adequate cognitive and physical recovery Objective Vital Signs Date Time Temp Pulse Resp B/P (MAP) Pulse Ox O2 Delivery O2 Flow Rate FiO2 08/17/17 12:19 91 100 08/17/17 09:09 68 112/56 08/17/17 08:06 96.8 32 Intake and Output 08/17/17 08/17/17 08/18/17 08:00 16:00 00:00 Intake Total 2620 ml 20 ml Output Total 1660 ml Balance 960 ml 20 ml Result Diagram: 08/17/17 0355 08/17/17 0355 Other Results Laboratory Tests Test 08/16/17 21:50 08/17/17 01:16 08/17/17 03:49 08/17/17 11:56 Blood Gas Puncture Site RT FEMORAL RT FEMORAL 80 ART LINE Blood Gas Patient Temperature 98.6 98.6 98.6 98.6 Blood Gas HCO3 27 mmol/L (22-26) 27 mmol/L (22-26) 28 mmol/L (22-26) 29 mmol/L (22-26) Blood Gas Base Excess 4.0 mmol/L (-2-2) 2.9 mmol/L (-2-2) 3.3 mmol/L (-2-2) 4.3 mmol/L (-2-2) Blood Gas Oxygen Saturation 91 % (90-100) 88 % (90-100) 92 % (90-100) 92 % ( 90-100) Arterial Blood pH 7.51 (7.380-7.420) 7.40 (7.380-7.420) 7.35 (7.380-7.420) 7.36 (7.380-7.420) Arterial Blood Partial Pressure CO2 34 mmHg (38-42) 45 mmHg (38-42) 53 mmHg (38-42) 53 mmHg (38-42) Arterial Blood Partial Pressure O2 59 mmHg (61-120) 60 mmHg (61-120) 76 mmHg (61-120) 76 mmHg (61-120) Arterial Blood Oxygen Content 14.6 Vol % (12.0-20.0) 10.3 Vol % (12.0-20.0) 14.9 Vol % (12.0-20.0) 17.4 Vol % (12.0-20.0) Arterial Blood Carboxyhemoglobin 1.4 % (0-4) 1.4 % (0-4) 1.2 % (0-4) 1.6 % (0-4) Arterial Blood Methemoglobin 1.0 % (0-2) 1.1 % (0-2) 0.9 % (0-2) 1.2 % (0-2) Blood Gas Hemoglobin 11.5 G/DL (12.0-16.0) 8.3 G/DL (12.0-16.0) 11.4 G/DL (12.0-16.0) 13.5 G/DL (12.0-16.0) Oxygen Delivery Device VENTILATOR VENTILATOR VENTILATOR VENTILATOR Blood Gas Ventilator Setting PRVC / AC / PRVC / AC / PRVC / AC / 32/600/0.75/+10 Blood Gas Inspired Oxygen 70 % 70 % 80 % 100 % Imaging Last 24 hours Impressions Chest X-Ray 08/17/17 0600 Signed Impressions: CONCLUSION: Increased bilateral diffuse pulmonary parenchymal opacity. Difficult diagnosis includes infection, pulmonary edema, and ARDS. Exam [employer] EM[employer] Patient with massive head injury status post craniectomy ICPs were initially very low now range between 15 and 20 mmHg About 150 cc of CSF drainage daily from the ventriculostomy Patient remains critical on maximum neuroprotective measures including Propofol/Versed/fentanyl Prognosis is very guarded and this patient will not have a good outcome based on his age and severity of the neurologic injury He will never be able to work again I have explained this to his family and its big question whether patient will have improved sufficiently to have adequate cognitive and physical recovery Hemodynamic/Cardiac Hemodynamically patient is slowly stabilizing still requiring about 12 mcg of Levophed to maintain systolic blood pressure Patient is volume loaded and will require some diuresis at this time Pulmonary/Respiratory Bilateral breath sounds with poor PO2 FiO2 gradient of less than 100 Remains on AC ventilatory settings 90% FiO2 and 10 of PEEP Patient paralyzed on cisatracurium to minimize peak inspiratory pressure which is run 45 cm water On Flolan-epoprostenol inhaler All measures have been taken to combat severe ARDS Abdomen/GI Nutrition Abdomen soft Renal/I&O Renal function preserved with good urine output patient will need diuresis Assessment and Plan Attestation Critical care 42 minutes Alfred Wright MD Aug 17, 2017 12:41
[2017-08-17 12:47] LABS: HEMATOCRIT 26.5 % (39.0-51.0); HEMOGLOBIN 9.1 GM/DL (13.0-17.0); MEAN CELL VOLUME 85.6 FL (80.0-100.0); MEAN CORPUSCULAR HEMOGLOBIN 29.3 PG (27.0-34.0); MEAN CORPUSCULAR HGB CONC 34.2 % (32.0-36.0); MEAN PLATELET VOLUME 8.8 FL (7.0-11.0); PLATELET COUNT 262 TH/MM3 (150-450); PROTHROMBIN TIME - PATIENT 10.3 SEC (9.8-11.6); RED CELL DISTRIBUTION WIDTH 15.2 % (11.6-17.2); WHITE BLOOD COUNT 11.3 TH/MM3 (4.0-11.0)
[2017-08-17 13:06] LABS: BICARBONATE 30.6 MEQ/L (21.0-32.0); CALCIUM 7.6 MG/DL (8.5-10.1); CREATININE 0.72 MG/DL (0.60-1.30)
--- NOTE | 2017-08-17 14:07 | HHI.NSPN ---
(Rosy Alvarado) Note Status Status: Progress Note (Rosy Alvarado) Interval History Interval History This is a 52-year-old male who was working on a tree and fell downonto the concrete deck below about 10 feet. The reported. No tonic-clonic movement seen. No tongue biting. No incontinence of stool or urine. Nobody witnessed the event; however, apparently was bleeding on the pavement and finally ambulance was called. It is unknown how long patient had been lying there. The patient was brought to [place] as Trauma alert, priority 1 trauma alert, intubated in the field with C-collar in place on a spinal board by air ambulance. On arrival, patient's Amelie Coma Scale was 3 which improved to about 5. He had unequal pupils with anisocoria. He was resuscitated according to the ATLS protocol. Trauma workup revealed multiple injuries including a severe left-sided facial fractures involving the orbit, zygoma, maxilla, nasal fracture, as well as fracture of the base of the skull going through the petrous bone, a right frontotemporal subarachnoid and subdural bleeding with brain contusions on the right, multiple left rib fractures with chest wall deformity, bilateral lung contusion and bilateral aspiration lacerations, laceration probably grade II of the spleen with slight amount of blood around the spleen Neurosurgical consultation was requested 08/12: ICPs currently 16. intubated, sedated. 08/16: patient underwent emergent decompressive craniectomy yesterday, also with placement of ventriculostomy drain. intubated, and sedated. ICPs controlled. 08/17: Intubated and sedated, ventriculostomy draining well, ICPs 1 open, reports when clamped are 20. (Rosy Alvarado) Labs, Micro, & Vital Signs Results Date Time Temp Pulse Resp B/P (MAP) Pulse Ox O2 Delivery O2 Flow Rate FiO2 08/17/17 12:19 91 100 08/17/17 12:00 99.7 89 32 128/60 (82) 91 08/17/17 12:00 80 08/17/17 12:00 89 08/17/17 10:00 80 6/13/18 09:09 68 112/56 08/17/17 08:32 95 80 08/17/17 08:06 96.8 64 32 115/55 96 08/17/17 08:00 97.0 60 32 130/65 (86) 98 08/17/17 08:00 60 08/17/17 08:00 80 08/17/17 06:00 57 08/17/17 05:56 96.6 57 32 128/62 99 08/17/17 04:47 58 113/86 08/17/17 04:45 96 80 08/17/17 04:00 96.6 60 28 128/62 (84) 97 08/17/17 04:00 80 08/17/17 04:00 60 08/17/17 03:25 96 80 08/17/17 02:00 70 08/17/17 01:49 96 80 08/17/17 00:04 96 70 08/17/17 00:04 96 70 08/17/17 00:00 98.0 58 26 121/56 (77) 96 08/17/17 00:00 70 08/17/17 00:00 58 08/16/17 23:59 58 126/60 08/16/17 22:25 96 70 08/16/17 22:00 59 08/16/17 20:14 95 70 08/16/17 20:00 70 08/16/17 20:00 59 08/16/17 20:00 97.2 59 30 119/96 (104) 96 08/16/17 18:53 58 108/89 08/16/17 18:00 64 08/16/17 18:00 70 08/16/17 16:11 100 70 08/16/17 16:00 80 08/16/17 16:00 97.2 61 30 129/57 (81) 100 08/16/17 16:00 61 08/18/17 07:00 Intake Total 20 ml Balance 20 ml Constitutional Vital Signs Date Time Temp Pulse Resp B/P (MAP) Pulse Ox O2 Delivery O2 Flow Rate FiO2 08/17/17 12:19 91 100 08/17/17 12:00 99.7 89 32 128/60 (82) 91 08/17/17 12:00 80 08/17/17 12:00 89 08/17/17 10:00 80 08/17/17 09:09 68 112/56 08/17/17 08:32 95 80 08/17/17 08:06 96.8 64 32 115/55 96 08/17/17 08:00 97.0 60 32 130/65 (86) 98 08/17/17 08:00 60 08/17/17 08:00 80 08/17/17 06:00 57 08/17/17 05:56 96.6 57 32 128/62 99 08/17/17 04:47 58 113/86 08/17/17 04:45 96 80 08/17/17 04:00 96.6 60 28 128/62 (84) 97 08/17/17 04:00 80 08/17/17 04:00 60 08/17/17 03:25 96 80 08/17/17 02:00 70 08/17/17 01:49 96 80 08/17/17 00:04 96 70 08/17/17 00:04 96 70 08/17/17 00:00 98.0 58 26 121/56 (77) 96 08/17/17 00:00 70 08/17/17 00:00 58 08/16/17 23:59 58 126/60 08/16/17 22:25 96 70 08/16/17 22:00 59 08/16/17 20:14 95 70 08/16/17 20:00 70 08/16/17 20:00 59 08/16/17 20:00 97.2 59 30 119/96 (104) 96 08/16/17 18:53 58 108/89 08/16/17 18:00 64 08/16/17 18:00 70 08/16/17 16:11 100 70 08/16/17 16:00 80 08/16/17 16:00 97.2 61 30 129/57 (81) 100 08/16/17 16:00 61 08/18/17 07:00 Intake Total 20 ml Balance 20 ml (Rosy Alvarado) Review of Systems ROS Limitations: Clinical Condition, Intubated (Rosy Alvarado) Physical Exam Mr. Correa is intubated and sedated. Left craniectomy site is full, hard to palpate. Incision clean and dry. Ventriculostomy draining clear CSF at 0 cm H20, ICP=1 open Left frontal scalp avulsion s/p repair. Cranial Nerves: Left pupil 6-7mm, right 4 mm bilaterally nonreactive. Motor: no spontaneous movements, no response to pain stimuli x 4 extremities Reflexes: Plantars silent bilaterally. Absent corneal reflexes bilaterally. (Rosy Alvarado) Medications Current Medications Current Medications Medications (Trade) Dose Ordered Sig/Mark Route PRN Reason Start Time Stop Time Status Last Admin Dose Admin Sodium Chloride (NS Flush) 2 ml UNSCH PRN IV FLUSH FLUSH AFTER USING IV ACCESS 08/11/17 11:45 Sodium Chloride (NS Flush) 2 ml BID IV FLUSH 08/11/17 21:00 08/17/17 09:00 Naloxone HCl (Narcan Inj) 0.4 mg UNSCH PRN IV PUSH SEE LABEL COMMENTS 08/11/17 11:45 Magnesium Hydroxide (Milk Of Magnesia Liq) 30 ml BID PO 08/11/17 21:00 08/17/17 09:08 Potassium Chloride 100 ml @ 50 mls/hr Q2H PRN IV For Potassium 2.8 - 3.2 mEq/L 08/11/17 14:30 08/17/17 00:31 Potassium Chloride 100 ml @ 50 mls/hr Q2H PRN IV For Potassium 2.8 - 3.2 mEq/L 08/11/17 14:30 08/15/17 18:59 Potassium Bicarb/ Potassium Chloride (K-Lyte Cl Eff) 50 meq UNSCH PRN PO For Potassium 3.3 - 3.5 mEq/L 08/11/17 14:30 Potassium Chloride 100 ml @ 25 mls/hr UNSCH PRN IV For Potassium 3.3 - 3.5 mEq/L 08/11/17 14:30 Potassium Chloride 100 ml @ 50 mls/hr Q2H PRN IV For Potassium 3.3 - 3.5 mEq/L 08/11/17 14:30 08/14/17 13:22 Magnesium Sulfate 4 gm/Sodium Chloride 100 ml @ 50 mls/hr UNSCH PRN IV For Magnesium 0.9 - 1.1 mg/dL 08/11/17 14:30 Magnesium Oxide (Mag-Ox) 800 mg UNSCH PRN PO For Magnesium 1.2 - 1.6 mg/dL 08/11/17 14:30 Magnesium Sulfate 2 gm/Sodium Chloride 100 ml @ 50 mls/hr UNSCH PRN IV For Magnesium 1.2 - 1.6 mg/dL 08/11/17 14:30 Potassium Phosphate (K-Phos) 2,000 mg Q4H PRN PO For Phosphorus < 2.5 mg/dL 08/11/17 14:30 Sodium Phosphate 30 mmol/Sodium Chloride 250 ml @ 42 mls/hr UNSCH PRN IV For Phosphorus < 2.5 mg/dL 08/11/17 14:30 Potassium Phosphate (K-Phos) 2,000 mg UNSCH PRN PO/TUBE SEE LABEL COMMENTS 08/11/17 14:30 Potassium Phosphate 30 mmol/ Sodium Chloride 260 ml @ 42 mls/hr UNSCH PRN IV SEE LABEL COMMENTS 08/11/17 14:30 Chlorhexidine Gluconate (Peridex 0.12% Liq) 15 ml BID@08,20 MT 08/11/17 20:00 08/17/17 08:00 Methocarbamol (Robaxin) 500 mg Q8HR PO 08/11/17 22:00 08/17/17 04:46 Lidocaine HCl (Lidoderm 5% Patch.12 Hr) 1 patch DAILY T-DERMAL 08/11/17 14:30 08/17/17 09:09 Insulin Aspart (NovoLOG SUPPLEMENTAL SCALE) 1 Q6HR SQ 08/11/17 18:00 08/17/17 06:40 Dextrose (D50w (Syr) Inj) 50 ml UNSCH PRN IV PUSH HYPOGLYCEMIA-SEE COMMENTS 08/11/17 14:30 Glucagon (Glucagon Inj) 1 mg UNSCH PRN OTHER HYPOGLYCEMIA-SEE COMMENTS 08/11/17 14:30 Albuterol/ Ipratropium (Duoneb Neb) 1 ampule Q2HR NEB PRN NEB wheezing 08/11/17 14:45 08/15/17 20:33 Miscellaneous Information 1 Q24H T-DERMAL 08/11/17 21:00 08/16/17 20:19 Terbutaline Sulfate (Brethine Inj) 1 mg UNSCH PRN SQ FOR EXTRAVASATION PROTOCOL 08/11/17 18:00 Phenylephrine HCl 40 mg/Sodium Chloride 500 ml @ 30 mls/hr TITRATE PRN IV Blood Pressure Management 08/11/17 17:45 08/13/17 02:37 Acetaminophen 100 ml @ 400 mls/hr Q6H PRN IV Temp > 101.5 08/12/17 15:00 08/13/17 17:11 Bisacodyl (Dulcolax Supp) 10 mg DAILY PRN RECTAL CONSTIPATION 08/15/17 12:30 Pantoprazole Sodium (Protonix Inj) 40 mg DAILY IVP 08/16/17 09:00 08/17/17 09:08 Ondansetron HCl (Zofran Odt) 4 mg Q6H PRN PO NAUSEA OR VOMITING 08/15/17 13:45 Calcium Gluconate (Calcium Gluconate Inj) 1 gm UNSCH PRN IV SEE LABEL COMMENTS 08/15/17 12:30 Potassium Chloride 100 ml @ 50 mls/hr UNSCH PRN IV POTASSIUM LESS THAN 4 08/15/17 12:30 Magnesium Sulfate 4 gm/Sodium Chloride 108 ml @ 108 mls/hr UNSCH PRN IV MAGNESIUM LESS THAN 2 08/15/17 12:30 Acetaminophen (Tylenol) 650 mg Q4H PRN PO TEMPERATURE > 101.5 F 08/15/17 12:30 Lactulose (Lactulose Liq) 30 ml DAILY PO 08/16/17 09:00 08/17/17 09:08 Senna/Docusate Sodium (Ronda-Colace) 1 tab BID PO 08/16/17 09:00 08/17/17 09:10 Water (Free Water) 200 ml Q6HR G-TUBE 08/16/17 08:30 08/17/17 12:00 Levetriacetam 500 mg/Dextrose 105 ml @ 400 mls/hr Q12HR IV 08/16/17 10:00 08/17/17 09:00 Cisatracurium Besylate 100 mg/ Dextrose 250 ml @ 22.08 mls/ hr TITRATE PRN IV TOF 1/4 08/16/17 09:30 08/17/17 11:52 Fentanyl Citrate 250 ml @ 5 mls/hr TITRATE PRN IV Sedation 08/16/17 09:45 08/17/17 06:41 Midazolam HCl 50 ml @ 2 mls/hr TITRATE PRN IV SEDATION 08/16/17 09:45 08/17/17 09:35 Propofol 100 ml @ 3.987 mls/ hr TITRATE PRN IV SEDATION 08/16/17 09:45 08/17/17 12:15 Dextrose 1,000 ml @ 20 mls/hr Q24H IV 08/16/17 09:45 08/16/17 09:45 Epoprostenol Sodium 60 ml/ Sodium Chloride 100 ml @ 5 mls/hr Q8H NEB 08/16/17 11:00 08/17/17 04:46 Mupirocin (Bactroban 2% Oint) 1 applic TID TOPICAL 08/16/17 18:00 08/17/17 13:00 Norepinephrine Bitartrate 250 ml @ 7.5 mls/hr TITRATE PRN IV Maintain MAP > 65 mmHg 08/16/17 20:00 08/17/17 09:09 (Rosy Alvarado) Current Medications Current Medications Mannitol 100 ml @ As Directed STK-MED ONCE .ROUTE ; Start 08/11/17 at 11:28; Stop 08/11/17 at 11:29; Status DC Cefazolin Sodium/ Dextrose 50 ml @ As Directed STK-MED ONCE .ROUTE ; Start at 11:28; Stop 08/11/17 at 11:29; Status DC Diphtheria/ Tetanus/Acell Pertussis (Boostrix Inj) 0.5 ml STK-MED ONCE IM ; Start 08/11/17 at 11:28; Stop 08/11/17 at 11:29; Status DC Rocuronium [place] (Zemuron Inj) 50 mg STK-MED ONCE .ROUTE ; Start 08/11/17 at 11 :33; Stop 08/11/17 at 11:34; Status DC Midazolam HCl (Versed Inj) 5 mg STK-MED ONCE .ROUTE ; Start 08/11/17 at 11:41; Stop 08/11/17 at 11:42; Status DC Sodium Chloride 1,000 ml @ 100 mls/hr Q10H IV Last administered on 08/11/17at 21 :17; Start 08/11/17 at 11:44; Stop 08/12/17 at 09:40; Status DC Sodium Chloride (NS Flush) 2 ml UNSCH PRN IV FLUSH FLUSH AFTER USING IV ACCESS ; Start 08/11/17 at 11:45 Sodium Chloride (NS Flush) 2 ml BID IV FLUSH Last administered on 08/17/17at 09: 00; Start 08/11/17 at 21:00 Pantoprazole Sodium (Protonix Inj) 40 mg Q24H IV PUSH Last administered on 08/15at 17:29; Start 08/11/17 at 14:00; Stop 08/15/17 at 23:59; Status DC Cefazolin Sodium 1000 mg/Sodium Chloride 100 ml @ 200 mls/hr Q8H IV Last administered on 08/12/17at 12:20; Start 08/11/17 at 20:00; Stop 08/12/17 at 12:29; Status DC Miscellaneous Information ([facility] [place] Post-op Orders (for Pharmacy)) STAT ONCE XX Last administered on 08/11/17at 11:45; Start 08/11/17 at 11:45; Stop 08/11/17 at 13: 50; Status DC Naloxone HCl (Narcan Inj) 0.4 mg UNSCH PRN IV PUSH SEE LABEL COMMENTS; Start at 11:45 Propofol 100 ml @ 0 mls/hr TITRATE PRN IV SEDATION; Start 08/11/17 at 11:45; Stop 08/11/17 at 13:58; Status DC Fentanyl Citrate 250 ml TITRATE PRN IV SEDATION; Start 08/11/17 at 11:45; Stop 08/11/17 at 13:57; Status DC Levetriacetam 500 mg/Sodium Chloride 105 ml @ 420 mls/hr Q12HR IV Last administered on 08/15/17at 09:28; Start 08/11/17 at 13:15; Stop 08/15/17 at 13:42 ; Status DC Sodium Chloride 500 ml @ 20 mls/hr UNSCH PRN IV icp Last administered on at 03:52; Start 08/11/17 at 12:00; Stop 08/15/17 at 09:53; Status DC Iohexol (Omnipaque 350 Inj) 100 ml STK-MED ONCE IVCONTRAST Last administered on 08/11/17at 12:51; Start 08/11/17 at 12:51; Stop 08/11/17 at 12:52; Status DC Fentanyl Citrate 250 ml @ 5 mls/hr TITRATE PRN IV Sedation Last administered on 08/16/17at 01:08; Start 08/11/17 at 14:00; Stop 08/16/17 at 09:50; Status DC Propofol 100 ml @ 3.987 mls/ hr TITRATE PRN IV SEDATION Last administered on at 08:50; Start 08/11/17 at 14:00; Stop 08/16/17 at 09:50; Status DC Norepinephrine Bitartrate 4 mg/ Sodium Chloride 250 ml @ 7.5 mls/hr TITRATE PRN IV Maintain MAP > 65 mmHg Last administered on 08/15/17at 00:24; Start at 14:15; Stop 08/15/17 at 04:26; Status DC Senna/Docusate Sodium (Ronda-Colace) 1 tab BID PO Last administered on at 09:28; Start 08/11/17 at 21:00; Stop 08/15/17 at 13:40; Status DC Magnesium Hydroxide (Milk Of Magnesia Liq) 30 ml BID PO Last administered on at 09:08; Start 08/11/17 at 21:00 Lactulose (Lactulose Liq) 30 ml DAILY PRN PO If no BM in 2 days; Start 08/11/17 at 14:30; Stop 08/16/17 at 08:20; Status DC Potassium Chloride 100 ml @ 50 mls/hr Q2H PRN IV For Potassium 2.8 - 3.2 mEq/ L Last administered on 08/17/17at 00:31; Start 08/11/17 at 14:30 Potassium Chloride 100 ml @ 50 mls/hr Q2H PRN IV For Potassium 2.8 - 3.2 mEq/ L Last administered on 08/15/17at 18:59; Start 08/11/17 at 14:30 Potassium Bicarb/ Potassium Chloride (K-Lyte Cl Eff) 50 meq UNSCH PRN PO For Potassium 3.3 - 3.5 mEq/L; Start 08/11/17 at 14:30 Potassium Chloride 100 ml @ 25 mls/hr UNSCH PRN IV For Potassium 3.3 - 3.5 mEq /L; Start 08/11/17 at 14:30 Potassium Chloride 100 ml @ 50 mls/hr Q2H PRN IV For Potassium 3.3 - 3.5 mEq/ L Last administered on 08/14/17at 13:22; Start 08/11/17 at 14:30 Magnesium Sulfate 4 gm/Sodium Chloride 100 ml @ 50 mls/hr UNSCH PRN IV For Magnesium 0.9 - 1.1 mg/dL; Start 08/11/17 at 14:30 Magnesium Oxide (Mag-Ox) 800 mg UNSCH PRN PO For Magnesium 1.2 - 1.6 mg/dL; Start 08/11/17 at 14:30 Magnesium Sulfate 2 gm/Sodium Chloride 100 ml @ 50 mls/hr UNSCH PRN IV For Magnesium 1.2 - 1.6 mg/dL; Start 08/11/17 at 14:30 Potassium Phosphate (K-Phos) 2,000 mg Q4H PRN PO For Phosphorus < 2.5 mg/dL; Start 08/11/17 at 14:30 Sodium Phosphate 30 mmol/Sodium Chloride 250 ml @ 42 mls/hr UNSCH PRN IV For Phosphorus < 2.5 mg/dL; Start 08/11/17 at 14:30 Potassium Phosphate (K-Phos) 2,000 mg UNSCH PRN PO/TUBE SEE LABEL COMMENTS; Start 08/11/17 at 14:30 Potassium Phosphate 30 mmol/ Sodium Chloride 260 ml @ 42 mls/hr UNSCH PRN IV SEE LABEL COMMENTS; Start 08/11/17 at 14:30 Chlorhexidine Gluconate (Peridex 0.12% Liq) 15 ml BID@08,20 MT Last administered on 08/17/17at 08:00; Start 08/11/17 at 20:00 Methocarbamol (Robaxin) 500 mg Q8HR PO Last administered on 08/17/17at 14:02; Start 08/11/17 at 22:00 Lidocaine HCl (Lidoderm 5% Patch.12 Hr) 1 patch DAILY T-DERMAL Last administered on 08/17/17at 09:09; Start 08/11/17 at 14:30 Acetaminophen 100 ml @ 400 mls/hr Q6H IV Last administered on 08/12/17at 09:19; Start 08/11/17 at 15:00; Stop 08/12/17 at 09:44; Status DC Insulin Aspart (NovoLOG SUPPLEMENTAL SCALE) 1 Q6HR SQ Last administered on 08/17at 06:40; Start 08/11/17 at 18:00 Dextrose (D50w (Syr) Inj) 50 ml UNSCH PRN IV PUSH HYPOGLYCEMIA-SEE COMMENTS; Start 08/11/17 at 14:30 Glucagon (Glucagon Inj) 1 mg UNSCH PRN OTHER HYPOGLYCEMIA-SEE COMMENTS; Start 08/11/17 at 14:30 Albuterol/ Ipratropium (Duoneb Neb) 1 ampule Q6HR NEB NEB Last administered on 08/15/17at 15:55; Start 08/11/17 at 16:00; Stop 08/15/17 at 15:59; Status DC Albuterol/ Ipratropium (Duoneb Neb) 1 ampule Q2HR NEB PRN NEB wheezing Last administered on 08/15/17at 20:33; Start 08/11/17 at 14:45 Miscellaneous Information 1 Q24H T-DERMAL Last administered on 08/16/17at 20:19 ; Start 08/11/17 at 21:00 Midazolam HCl (Versed Inj) 5 mg STK-MED ONCE .ROUTE Last administered on at 16:43; Start 08/11/17 at 16:43; Stop 08/11/17 at 16:44; Status DC Phenylephrine HCl (Neosynephrine Inj) 40 mg STK-MED ONCE .ROUTE ; Start 08/11/17 at 16:45; Stop 08/11/17 at 16:46; Status DC Albumin Human 250 ml @ As Directed STK-MED ONCE IV ; Start 08/11/17 at 16:59; Stop 08/11/17 at 17:00; Status DC Albumin Human 500 ml @ 500 mls/hr ONCE ONCE IV Last administered on 08/11/17at 17:15; Start 08/11/17 at 17:15; Stop 08/11/17 at 18:14; Status DC Phenylephrine HCl 40 mg/Dextrose 500 ml @ 30 mls/hr TITRATE PRN IV Blood Pressure Management; Start 08/11/17 at 18:00; Status Cancel Terbutaline Sulfate (Brethine Inj) 1 mg UNSCH PRN SQ FOR EXTRAVASATION PROTOCOL ; Start 08/11/17 at 18:00 Phenylephrine HCl 40 mg/Sodium Chloride 500 ml @ 30 mls/hr TITRATE PRN IV Blood Pressure Management Last administered on 08/13/17at 02:37; Start 08/11/17 at 17:45 Terbutaline Sulfate (Brethine Inj) 1 mg UNSCH PRN SQ FOR EXTRAVASATION PROTOCOL ; Start 08/11/17 at 17:45; Stop 08/15/17 at 13:33; Status DC Midazolam HCl 50 ml @ 2 mls/hr TITRATE PRN IV SEDATION Last administered on 02/21at 08:58; Start 08/11/17 at 17:45; Stop 08/16/17 at 09:50; Status DC Sodium Chloride 240 meq/Syringe / Bag 60 ml @ 60 mls/hr NOW IV Last administered on 08/12/17at 05:05; Start 08/12/17 at 05:15; Stop 08/12/17 at 06:14; Status DC Acetaminophen 100 ml @ 400 mls/hr Q6H PRN IV Temp > 101.5 Last administered on 08/13/17at 17:11; Start 08/12/17 at 15:00 Albumin Human 500 ml @ 500 mls/hr ONCE ONCE IV Last administered on 08/12/17at 14:39; Start 08/12/17 at 14:30; Stop 08/12/17 at 15:29; Status DC Furosemide (Lasix Inj) 20 mg ONCE ONCE IV PUSH Last administered on 08/13/17at 10:19; Start 08/13/17 at 09:45; Stop 08/13/17 at 09:46; Status DC Furosemide (Lasix Inj) 40 mg ONCE ONCE IV PUSH Last administered on 08/14/17at 09:54; Start 08/14/17 at 09:45; Stop 08/14/17 at 09:48; Status DC Potassium Bicarbonate (Effer-K Eff) 25 meq ONCE ONCE PO Last administered on at 11:00; Start 08/14/17 at 09:45; Stop 08/14/17 at 09:48; Status DC Norepinephrine Bitartrate 4 mg/ Sodium Chloride 250 ml @ 7.5 mls/hr TITRATE PRN IV Maintain MAP > 65 mmHg Last administered on 08/16/17at 07:02; Start at 04:30; Stop 08/16/17 at 09:08; Status DC Mannitol (Mannitol Inj) 25 gm ONCE ONCE IV Last administered on 08/15/17at 10: 15; Start 08/15/17 at 09:45; Stop 08/15/17 at 10:01; Status DC Fentanyl Citrate (fentaNYL INJ) 500 mcg STK-MED ONCE .ROUTE ; Start 08/15/17 at 11:22; Stop 08/15/17 at 11:23; Status DC Fentanyl Citrate (fentaNYL INJ) 250 mcg STK-MED ONCE .ROUTE ; Start 08/15/17 at 11:22; Stop 08/15/17 at 11:23; Status DC Microfibriller Collagen Hemostat (Avitene Bandage) 1 bandage STK-MED ONCE .ROUTE Last administered on 08/15/17at 14:00; Start 08/15/17 at 11:34; Stop 01/22 at 11:35; Status DC Lidocaine/ Epinephrine (Xylocaine-Epi 1%-1:100,000 Inj) 30 ml STK-MED ONCE .ROUTE Last administered on 08/15/17at 13:10; Start 08/15/17 at 11:34; Stop 01/22 at 11:35; Status DC Thrombin (Thrombin Top Soln) 10,000 units STK-MED ONCE .ROUTE ; Start 08/15/17 at 11:34; Stop 08/15/17 at 11:35; Status DC Gelatin (Gelfoam 100 Top) 1 foam STK-MED ONCE .ROUTE ; Start 08/15/17 at 11:34; Stop 08/15/17 at 11:35; Status DC Potassium Chloride/Sodium Chloride 1,000 ml @ 100 mls/hr Q10H IV Last administered on 08/15/17at 17:23; Start 08/15/17 at 14:00; Stop 08/15/17 at 20:54 ; Status DC Cefazolin Sodium/ Dextrose 50 ml @ 100 mls/hr Q8H IV Last administered on 08/16at 06:19; Start 08/15/17 at 15:00; Stop 08/16/17 at 07:29; Status DC Levetriacetam 500 mg/Sodium Chloride 105 ml @ 400 mls/hr Q12H IV Last administered on 08/15/17at 21:23; Start 08/15/17 at 21:00; Stop 08/16/17 at 09:08 ; Status DC Bisacodyl (Dulcolax Supp) 10 mg DAILY PRN RECTAL CONSTIPATION; Start 08/15/17 at 12:30 Docusate Sodium (Colace) 100 mg BID PO Last administered on 08/15/17at 20:46; Start 08/15/17 at 21:00; Stop 08/16/17 at 08:20; Status DC Pantoprazole Sodium (Protonix) 40 mg DAILY PO ; Start 08/16/17 at 09:00; Stop at 09:00; Status DC Pantoprazole Sodium (Protonix Inj) 40 mg DAILY IVP Last administered on at 09:08; Start 08/16/17 at 09:00 Ondansetron HCl (Zofran Odt) 4 mg Q6H PRN PO NAUSEA OR VOMITING; Start at 13:45 Calcium Gluconate (Calcium Gluconate Inj) 1 gm UNSCH PRN IV SEE LABEL COMMENTS ; Start 08/15/17 at 12:30 Potassium Chloride 100 ml @ 50 mls/hr UNSCH PRN IV POTASSIUM LESS THAN 4; Start 08/15/17 at 12:30 Magnesium Sulfate 4 gm/Sodium Chloride 108 ml @ 108 mls/hr UNSCH PRN IV MAGNESIUM LESS THAN 2; Start 08/15/17 at 12:30 Acetaminophen/ Hydrocodone Bitart ([place] 10-325 Mg) 1 tab Q4H PRN PO PAIN SCALE 1 TO 5; Start 08/15/17 at 12:30; Stop 08/16/17 at 08:28; Status DC Acetaminophen/ Hydrocodone Bitart ([place] 10-325 Mg) 2 tab Q4H PRN PO PAIN SCALE 6 TO 10; Start 08/15/17 at 12:30; Stop 08/16/17 at 08:28; Status DC Morphine Sulfate (Morphine Inj) 2 mg Q2H PRN IV PUSH PAIN SCALE 1 TO 6; Start 08/15/17 at 12:30; Stop 08/16/17 at 08:28; Status DC Morphine Sulfate (Morphine Inj) 4 mg Q2H PRN IV PUSH PAIN SCALE 7 TO 10; Start 08/15/17 at 12:30; Stop 08/16/17 at 08:28; Status DC Acetaminophen (Tylenol) 650 mg Q4H PRN PO TEMPERATURE > 101.5 F; Start at 12:30 Propofol 50 ml @ As Directed STK-MED ONCE .ROUTE ; Start 08/15/17 at 12:29; Stop 08/15/17 at 12:30; Status DC Norepinephrine Bitartrate (Levophed Inj) 4 mg STK-MED ONCE .ROUTE ; Start at 12:30; Stop 08/15/17 at 12:31; Status DC Gentamicin Sulfate (Gentamicin Inj) 240 mg STK-MED ONCE .ROUTE Last administered on 08/15/17at 13:45; Start 08/15/17 at 13:28; Stop 08/15/17 at 13:29 ; Status DC Bacitracin (Baciguent Oint) 15 applic STK-MED ONCE .ROUTE Last administered on 08/15/17at 14:30; Start 08/15/17 at 14:25; Stop 08/15/17 at 14:26; Status DC Fentanyl Citrate (fentaNYL INJ) 100 mcg STK-MED ONCE .ROUTE ; Start 08/15/17 at 15:18; Stop 08/15/17 at 15:19; Status DC Cisatracurium Besylate 100 mg/ Sodium Chloride 260 ml @ 22.96 mls/ hr TITRATE PRN IV TOF 1/4 Last administered on 08/16/17at 07:03; Start 08/15/17 at 21:45; Stop 08/16/17 at 09:08; Status DC Furosemide (Lasix Inj) 20 mg NOW IV PUSH Last administered on 08/15/17at 23:35; Start 08/15/17 at 21:45; Stop 08/15/17 at 23:57; Status DC Lactulose (Lactulose Liq) 30 ml DAILY PO Last administered on 08/17/17at 09:08; Start 08/16/17 at 09:00 Senna/Docusate Sodium (Ronda-Colace) 1 tab BID PO Last administered on at 09:10; Start 08/16/17 at 09:00 Water (Free Water) 200 ml Q6HR G-TUBE Last administered on 08/17/17at 12:00; Start 08/16/17 at 08:30 Norepinephrine Bitartrate 4 mg/ Dextrose 250 ml @ 7.5 mls/hr TITRATE PRN IV Maintain MAP > 65 mmHg Last administered on 08/16/17at 18:53; Start 08/16/17 at 09:15; Stop 08/16/17 at 19:54; Status DC Levetriacetam 500 mg/Dextrose 105 ml @ 400 mls/hr Q12H IV ; Start 08/16/17 at 09:15; Stop 08/16/17 at 09:15; Status DC Cisatracurium Besylate 100 mg/ Dextrose 260 ml @ 22.96 mls/ hr TITRATE PRN IV TOF 1/4; Start 08/16/17 at 09:15; Stop 08/16/17 at 09:18; Status DC Levetriacetam 500 mg/Dextrose 105 ml @ 400 mls/hr Q12HR IV Last administered on 08/17/17at 09:00; Start 08/16/17 at 10:00 Cisatracurium Besylate 100 mg/ Dextrose 250 ml @ 22.08 mls/ hr TITRATE PRN IV TOF 1/4 Last administered on 08/17/17at 14:03; Start 08/16/17 at 09:30 Fentanyl Citrate 250 ml @ 5 mls/hr TITRATE PRN IV Sedation Last administered on 08/17/17at 06:41; Start 08/16/17 at 09:45 Midazolam HCl 50 ml @ 2 mls/hr TITRATE PRN IV SEDATION Last administered on at 09:35; Start 08/16/17 at 09:45 Propofol 100 ml @ 3.987 mls/ hr TITRATE PRN IV SEDATION Last administered on at 12:15; Start 08/16/17 at 09:45 Furosemide (Lasix Inj) 20 mg ONCE ONCE IV PUSH Last administered on 08/16/17at 10:45; Start 08/16/17 at 11:00; Stop 08/16/17 at 11:01; Status DC Dextrose 1,000 ml @ 20 mls/hr Q24H IV Last administered on 08/16/17at 09:45; Start 08/16/17 at 09:45 Potassium Bicarb/ Potassium Chloride (K-Lyte Cl Eff) 50 meq DAILY NG Last administered on 08/16/17at 10:45; Start 08/16/17 at 11:00; Stop 08/16/17 at 11:01 ; Status DC Epoprostenol Sodium 60 ml/ Sodium Chloride 100 ml @ 5 mls/hr Q8H NEB Last administered on 08/17/17at 04:46; Start 08/16/17 at 11:00 Parenteral Electrolytes 1,000 ml @ As Directed STK-MED ONCE IV ; Start at 12:00; Stop 08/16/17 at 14:59; Status DC Lidocaine HCl (Xylocaine-Mpf 1% Inj) 5 ml STK-MED ONCE OTHER ; Start 08/15/17 at 12:00; Stop 08/16/17 at 14:59; Status DC Vecuronium [place] (Norcuron 20 Mg Inj) 20 mg STK-MED ONCE IV ; Start 08/15/17 at 12:00; Stop 08/16/17 at 14:59; Status DC Cefazolin Sodium (Ancef Inj) 2,000 mg STK-MED ONCE IV ; Start 08/15/17 at 12:00 ; Stop 08/16/17 at 14:59; Status DC Propofol (Diprivan 200 Mg/20 ml Inj) 200 mg STK-MED ONCE IV ; Start 08/15/17 at 12:00; Stop 08/16/17 at 14:59; Status DC Sterile Water (Sterile Water For Injection) 20 ml STK-MED ONCE IV ; Start at 12:00; Stop 08/16/17 at 14:59; Status DC Mupirocin (Bactroban 2% Oint) 1 applic TID TOPICAL Last administered on at 13:00; Start 08/16/17 at 18:00 Norepinephrine Bitartrate 250 ml @ 7.5 mls/hr TITRATE PRN IV Maintain MAP > 65 mmHg Last administered on 08/17/17at 13:59; Start 08/16/17 at 20:00 Bisacodyl (Dulcolax Supp) 10 mg ONCE ONCE RECTAL Last administered on at 08:45; Start 08/17/17 at 08:45; Stop 08/17/17 at 08:46; Status DC Furosemide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
[2017-08-17] MEDS: DEXTROSE 5% IN WATE 1000ML INJ 1,000 ML IV SCH (20:18)
[2017-08-17] MEDS: REMOVE OLD LIDOCAINE PATCH T-DERMAL SCH (20:21)
[2017-08-17] MEDS ORDERED: FUROSEMIDE 40 MG/4 ML VIAL ONE (20:48)
[2017-08-17] MEDS ORDERED: VASOPRESSIN 20 UNITS/ML VIAL ONE (23:36)
[2017-08-17] MEDS: VASOPRESSIN 40 U/D5W 100 ML Titrate, Post Cardiac Surgery IV PRN ×2 (23:53)
[2017-08-18] VITALS (13 sets, daily range): BP systolic 107–145; BP diastolic 50–58; PULSE 75–108; RESP 32–36; TEMP 98.7–100.2; O2SAT 85–95
[2017-08-18] MEDS: fentaNYL DRIP 250 ML IV PRN ×2 (00:20→14:54)
[2017-08-18] MEDS: PROPOFOL 1000 MG/100 ML INJ 100 ML IV PRN ×8 (00:21→20:24)
[2017-08-18] MEDS: DEXTROSE 5% IV PRN ×8 (00:31→20:25)
[2017-08-18] MEDS: WATE IV PRN ×8 (00:31→20:25)
[2017-08-18] MEDS: CISATRACURIUM IV PRN ×8 (00:31→20:25)
[2017-08-18] MEDS: MIDAZOLAM 50 MG/50 ML INJ 50 ML IV PRN ×5 (01:11→20:25)
--- NOTE | 2017-08-18 04:34 | RADRPT ---
EXAM DATE: 08/18/2017 4:19 AM EDT AGE/SEX: 52 years / Male INDICATIONS: Short of breath. CLINICAL DATA: This is the patient's subsequent encounter. Patient reports that signs and symptoms h ave been present for 1 week and indicates a pain score of 0/10. MEDICAL/SURGICAL HISTORY: Diabetes mellitus type I. Non-responsive. COMPARISON: [facility], CHEST SINGLE AP, 08/17/2017. . FINDINGS: Single AP view the chest. Endotracheal tube, left-sided chest tube, and right subclavian central veno us catheter remain in place. Persistent bilateral prominent pulmonary parenchymal opacity. No signifi cant interval change. No evidence of pneumothorax. CONCLUSION: No significant interval change with persistent prominent bilateral pulmonary parenchymal opacity. Electronically signed by: Zay García MD 08/18/2017 4:32 AM EDT
[2017-08-18] MEDS: EPOPROSTENOL NEB SOLUTION 30 NG/KG/MIN 100 ML NEB SCH ×6 (04:51→18:28)
[2017-08-18] MEDS: FREE WATER G-TUBE SCH ×4 (04:51→22:29)
[2017-08-18 05:08] LABS: AUTOMATED NEUTROPHIL # 12.4 TH/MM3 (1.8-7.7); BASOPHIL % 0.3 % (0.0-2.0); EOSINOPHIL # 0.5 TH/MM3 (0-0.4); EOSINOPHIL % 3.3 % (0.0-4.0); HEMATOCRIT 27.2 % (39.0-51.0); LYMPHOCYTE # 1.4 TH/MM3 (1.0-4.8); MEAN CELL VOLUME 86.2 FL (80.0-100.0); MEAN CORPUSCULAR HEMOGLOBIN 28.5 PG (27.0-34.0); MEAN CORPUSCULAR HGB CONC 33.1 % (32.0-36.0); MEAN PLATELET VOLUME 8.5 FL (7.0-11.0); MONO % 4.9 % (0.0-8.0); MONOCYTE # 0.7 TH/MM3 (0-0.9); NEUT % 82.5 % (16.0-70.0); PLATELET COUNT 261 TH/MM3 (150-450); RED BLOOD COUNT 3.15 MIL/MM3 (4.50-5.90); RED CELL DISTRIBUTION WIDTH 15.4 % (11.6-17.2)
[2017-08-18 05:30] LABS: ALBUMIN 1.5 GM/DL (3.4-5.0); BICARBONATE 32.5 MEQ/L (21.0-32.0); CALCIUM 7.4 MG/DL (8.5-10.1); CREATININE 0.78 MG/DL (0.60-1.30); MAGNESIUM 2.9 MG/DL (1.5-2.5)
[2017-08-18] MEDS: METHOCARBAMOL 500 MG TAB PO SCH ×3 (05:33→20:24)
[2017-08-18 05:34] LABS: TOTAL BILIRUBIN ADULT 1.4 MG/DL (0.2-1.0); TOTAL PROTEIN 5.6 GM/DL (6.4-8.2)
[2017-08-18 05:37] LABS: CALCIUM-PROTEIN CORRECTED 8.2 MG/DL (8.5-10.1)
[2017-08-18] MEDS: INSULIN ASPART SUPPLEMENTAL SCALE SQ SCH ×5 (05:50→22:38)
[2017-08-18] MEDS ORDERED: FUROSEMIDE 40 MG/4 ML VIAL IV PUSH ONE (07:45)
[2017-08-18 07:50] LABS: BANDS 21 % (0-6); DOHLE BODIES PRESENT (NONE SEEN); LYMPHOCYTES 7 % (9-44); MONOCYTES 6 % (0-8); MYELOCYTES 1 % (0-0); NEUTROPHIL # MANUAL DIFF 12.9 TH/MM3 (1.8-7.7); POLYS (SEG NEUTROPHILS) 64 % (16-70)
[2017-08-18 07:51] LABS: TOXIC GRANULATION 1+ (NORMAL)
[2017-08-18] MEDS: CHLORHEXIDINE 0.12% (ORAL KIT) 15 ML CUP MT SCH ×2 (08:04→20:13)
[2017-08-18] MEDS: LIDOCAINE HCL 5% PATCH T-DERMAL SCH (08:10)
[2017-08-18] MEDS: PANTOPRAZOLE SODIUM 40 MG VIAL IVP SCH (08:10)
[2017-08-18] MEDS: DOCUSATE SODIUM 50 MG/SENNA 8.6 MG TAB PO SCH ×2 (08:10→20:14)
[2017-08-18] MEDS: MAGNESIUM HYDROXIDE SUSP 30 ML CUP PO SCH ×2 (08:10→20:13)
[2017-08-18] MEDS: LACTULOSE SYRUP 20 GM/30 ML CUP PO SCH (08:10)
[2017-08-18] MEDS: MUPIROCIN 2% OINT 22 GM TUBE TOPICAL SCH ×3 (08:11→17:30)
[2017-08-18] MEDS: SODIUM CHLORIDE 0.9% FLUSH 10 ML FLUSH IV FLUSH SCH ×2 (08:11→20:13)
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
[2017-08-18] MEDS: DEXTROSE 5% IV SCH ×4 (09:04→20:29)
[2017-08-18] MEDS: WATER IV SCH ×4 (09:04→20:29)
[2017-08-18] MEDS: LEVETIRACETAM IV SCH ×4 (09:04→20:29)
--- NOTE | 2017-08-18 10:25 | PD.CONS ---
Consult Service Palliative Care Consult Requested By Dr. Wright Primary Care Physician Unknown Reason for Consultation a. To assist with evaluation and management of symptoms including:pain, anxiety, dyspnea b. To assist medical decision maker(s) with: better understanding of current medical conditions; weighing benefits/burdens of medical treatment options; making medical treatment decisions. 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 He is originally from [place], and was working in [place]. It is reported that nobody witnessed the event. Is reported that patient was completing the pavement and finally ambulance was called. Is not known how long patient has been lying in the pavement. EMS was activated, and patient was brought to the hospital for a trauma alert , patient intubated. in the ER: * Glascow coma score was 3 which improved to 5. It is noted pt had unequal pupils. * Vitals 99.3, pulse is 145, respirations 16, blood pressure is 130/59, pulse ox is 86% on FiO2 100%. * WBCs 28.9, hemoglobin is 12.4, hematocrit is 34.2, platelet is 452 * Sodium is 140, potassium is 4.2, chloride 105, bicarb is 18.5, BUN is 15, creatinine is 1.2 * PT is 10.7, INR is 1.1, PT is 22.4 * Thoracic CT shows a minimally displaced fracture at the tip of left T1 transverse process. This multiple bilateral rib fractures. * Numerous skull base and facial fractures. These include skull base fractures and facial fractures. Severe left-sided facial fractures involving the orbit, zygoma, maxilla, nasal fracture, as well as fracture of the base of the skull going through the petrous bone, * Lumbar CT shows no acute lumbar spine abnormality. * C7 transverse process fracture. * Chest x-ray shows small left pneumothorax, left thoracostomy tube in place. * Chests CT. bilateral parenchymal lung airspace opacity. Upper mediastinal hematoma appears related to muscular skeletal injury. No great vessel injury. * Abdominal CT shows mild splenic contusion and minimal perisplenic hematoma. * Head CT shows Right frontotemporal subarachnoid and subdural bleeding with brain contusions on the right. * Pt taken to surgery, icp monitor placed. Left chest tube place for contusion and pneumothorax. * Neurosurgery, critical medicine, general surgery all involved in patient's care. Patient on life support, aggressive fluid resuscitation. Patient required pressor support. 08/12/2017 . Patient remains intubated, sedated, in critical condition. Continue to require pressure support, aggressive IV fluid resuscitation. 08/13/2017. Patient remains intubated and sedated. Hemodynamically patient slowly stabilizing. Mark-Synephrine weaned off, patient remains on Levophed. 08/14-08/15. Patient neurologically has worsened, intracranial pressure has risen due to brain swelling.. Patient has increase brain swelling and remains on hypertonic saline. Head CT 08/15 was ordered. Radiologist read as diffuse infarction involving the left cerebral hemisphere with small areas of infarction involving the right temporal lobe. There is now a 12 mm midline shift towards the patient's right. New scattered areas of intraparenchymal hemorrhage involving the left cerebral hemisphere. Right temporal insula parenchymal hemorrhage is stable. Small subdural hemorrhage adjacent to the falx near the vertex is new. Patient underwent emergency decompressive craniectomy. In addition chest CT shows increasing bibasilar consolidative changes. 08/16/2017. Plastic surgery was consulted for left ear laceration, and was repaired. Intubated, sedated, unresponsive, has ARDS. 08/17 to . Patient's remains critical remains sedated. In summary: Pt fell from tree brought in as trauma alert. Pt found to have TBI , right 1 cm subdrual hematoma, right temporal parenchaymal and subarcahnoid hemorrhage; multiple facial and skull basal fracture; fracture of C7,T1, transverse process. Pt intubated, sedated, requiring aggressive fluid resuccitation, and pressor support with mechanical ventilation.. Course of condition complicated by progressive increase in ICP. Subsequent CT brain shows , left cerebral ischemia and edema with 1.2 cm left to right midline shift. Patient underwent emergent left decompressive craniectomy and placement of ventriculostomy. Pt with ARDS. Patient on my visit is intubated, and sedated. FIO2 100%. He cannot give any clinical history concerning pain, anxiety, and dyspnea. Patient is sedated and paralyzed for vent synchrony, and feeling of discomfort associated with dyspnea , anxiety, and pain. Patient's and pt's mother are at bedside, we have reviewed patient's clinical condition, which is critical and grave. We have talked about his traumatic brain injury, and current respiratory failure/ARDS. There are aware that despite maximal medical management, there is a high likelihood that he decompensate and pass away. We talked about his traumatic injuries of the face , and the ribs. We talked about CPR, ACLS, shock. I offered family the option of DNR/DNI as I suspect that if the patient do under go CPR it may just prolong the dying process and that functional recovery after undergoing that is poor to nil. Pt's mother ask, "they would still do cpr with his rib fractures?" I told them, we do not have to. Pt's ask to discuss the DNR with pt's 3 sons before coming to a final decision. Tearful, amenable to meet me this afternoon to find out about decision. At this point I do not think family is ready to transition to comfort measures only. They said "He is in the hands of the lord." Again I have met with patient's sons and spend additional(advance care planning 40 mins) speaking about pt's clinical condition, is severe ARDS, is coding, brain damage. Pt is dying. spoke about risk of further brain damage with anoxia with code event. Goals of care are the following: == they continue to hope for a miracle, and will not consider compassionate extubation at this point in time. == they however do not want pt to undergo further trama, and will make pt DNR == Goals are aggressive measures short of DNR. resucitation. ==they understand pt is declining and may code in the coming days. Function/Cognitive Trajectory Patient had ARDS in the past form the flu and required a course of 40 day hospitalization. Pt's family said there were no residuals from that hospitalization, and that he was functional and could work. He has sleep apnea. Review of Systems ROS Limitations: Clinical Condition Constitutional: COMPLAINS OF: Fatigue Endocrine: DENIES: Polydipsia, Polyuria Eyes: DENIES: Diplopia Ears, nose, mouth, throat: DENIES: Hearing loss, Vertigo, Nasal discharge Respiratory: COMPLAINS OF: Shortness of breath, DENIES: Cough, Snoring Cardiovascular: COMPLAINS OF: Dyspnea on Exertion, DENIES: Palpitations, Syncope Gastrointestinal: DENIES: Abdominal pain Genitourinary: DENIES: Urinary frequency, Urinary incontinence Integumentary: DENIES: Abnormal pigmentation, Nail changes Hematologic/Lymphatics: DENIES: Bruising, Lymphadenopathy Immunologic/Allergic: DENIES: Urticaria Neurologic: DENIES: Abnormal gait, Headache, Localized weakness Psychiatric: COMPLAINS OF: Confusion Past Family Social History Coded Allergies: No Known Allergies (Unverified , 08/11/17) Past Medical History Hypertension Diabetes not insulin dependent Flu a few years ago and needed mechanical ventilation for about 2 weeks, hospitalization was 40 days. Sleep apnea Past Surgical History decompressive craniectomy chest tube placement. Reported Medications methformin Current Medications Medications (Trade) Dose Ordered Sig/Mark Route Start Time Stop Time Status Last Admin (NS Flush) 2 ml UNSCH PRN IV FLUSH 08/11/17 11:45 (NS Flush) 2 ml BID IV FLUSH 08/11/17 21:00 08/18/17 08:11 (Narcan Inj) 0.4 mg UNSCH PRN IV PUSH 08/11/17 11:45 (Milk Of Magnesia Liq) 30 ml BID PO 08/11/17 21:00 08/18/17 08:10 Potassium Chloride 100 ml @ 50 mls/hr Q2H PRN IV 08/11/17 14:30 08/17/17 00:31 Potassium Chloride 100 ml @ 50 mls/hr Q2H PRN IV 08/11/17 14:30 08/15/17 18:59 (K-Lyte Cl Eff) 50 meq UNSCH PRN PO 08/11/17 14:30 Potassium Chloride 100 ml @ 25 mls/hr UNSCH PRN IV 08/11/17 14:30 Potassium Chloride 100 ml @ 50 mls/hr Q2H PRN IV 08/11/17 14:30 08/14/17 13:22 Magnesium Sulfate 4 gm/Sodium Chloride 100 ml @ 50 mls/hr UNSCH PRN IV 08/11/17 14:30 (Mag-Ox) 800 mg UNSCH PRN PO 08/11/17 14:30 Magnesium Sulfate 2 gm/Sodium Chloride 100 ml @ 50 mls/hr UNSCH PRN IV 08/11/17 14:30 (K-Phos) 2,000 mg Q4H PRN PO 08/11/17 14:30 Sodium Phosphate 30 mmol/Sodium Chloride 250 ml @ 42 mls/hr UNSCH PRN IV 08/11/17 14:30 (K-Phos) 2,000 mg UNSCH PRN PO/TUBE 08/11/17 14:30 Potassium Phosphate 30 mmol/ Sodium Chloride 260 ml @ 42 mls/hr UNSCH PRN IV 08/11/17 14:30 (Peridex 0.12% Liq) 15 ml BID@08,20 MT 08/11/17 20:00 08/18/17 08:04 (Robaxin) 500 mg Q8HR PO 08/11/17 22:00 08/18/17 05:33 (Lidoderm 5% Patch.12 Hr) 1 patch DAILY T-DERMAL 08/11/17 14:30 08/18/17 08:10 (NovoLOG SUPPLEMENTAL SCALE) 1 Q6HR SQ 08/11/17 18:00 08/17/17 18:00 (D50w (Syr) Inj) 50 ml UNSCH PRN IV PUSH 08/11/17 14:30 (Glucagon Inj) 1 mg UNSCH PRN OTHER 08/11/17 14:30 (Duoneb Neb) 1 ampule Q2HR NEB PRN NEB 08/11/17 14:45 08/15/17 20:33 Miscellaneous Information 1 Q24H T-DERMAL 08/11/17 21:00 08/17/17 20:21 (Brethine Inj) 1 mg UNSCH PRN SQ 08/11/17 18:00 Acetaminophen 100 ml @ 400 mls/hr Q6H PRN IV 08/12/17 15:00 08/13/17 17:11 (Dulcolax Supp) 10 mg DAILY PRN RECTAL 08/15/17 12:30 (Protonix Inj) 40 mg DAILY IVP 08/16/17 09:00 08/18/17 08:10 (Zofran Odt) 4 mg Q6H PRN PO 08/15/17 13:45 (Calcium Gluconate Inj) 1 gm UNSCH PRN IV 08/15/17 12:30 Potassium Chloride 100 ml @ 50 mls/hr UNSCH PRN IV 08/15/17 12:30 Magnesium Sulfate 4 gm/Sodium Chloride 108 ml @ 108 mls/hr UNSCH PRN IV 08/15/17 12:30 (Tylenol) 650 mg Q4H PRN PO 08/15/17 12:30 (Lactulose Liq) 30 ml DAILY PO 08/16/17 09:00 08/18/17 08:10 (Ronda-Colace) 1 tab BID PO 08/16/17 09:00 08/18/17 08:10 (Free Water) 200 ml Q6HR G-TUBE 08/16/17 08:30 08/18/17 04:51 Levetriacetam 500 mg/Dextrose 105 ml @ 400 mls/hr Q12HR IV 08/16/17 10:00 08/18/17 09:04 Fentanyl Citrate 250 ml @ 5 mls/hr TITRATE PRN IV 08/16/17 09:45 08/18/17 00:20 Midazolam HCl 50 ml @ 2 mls/hr TITRATE PRN IV 08/16/17 09:45 08/18/17 05:48 Propofol 100 ml @ 3.987 mls/ hr TITRATE PRN IV 08/16/17 09:45 08/18/17 08:37 Dextrose 1,000 ml @ 20 mls/hr Q24H IV 08/16/17 09:45 08/17/17 20:18 Epoprostenol Sodium 60 ml/ Sodium Chloride 100 ml @ 5 mls/hr Q8H NEB 08/16/17 11:00 08/18/17 04:51 (Bactroban 2% Oint) 1 applic TID TOPICAL 08/16/17 18:00 08/18/17 08:11 Cisatracurium Besylate 200 mg/ Dextrose 500 ml @ 22.08 mls/ hr TITRATE PRN IV 08/17/17 23:00 08/18/17 08:37 Norepinephrine Bitartrate 16 mg/ Dextrose 250 ml @ 1.87 mls/hr TITRATE PRN IV 08/17/17 23:00 08/18/17 00:00 Vasopressin 40 units/Dextrose 100 ml @ 3 mls/hr TITRATE PRN IV 08/17/17 23:45 08/17/17 23:53 (Lovenox Inj) 30 mg Q12H SQ 08/18/17 09:30 UNV Family History Father- heart disease Mother- diabetes Substance Use Tobacco: No Alcohol: No Prescription med abuse: No Illicits: No Psychosocial History From [place] and has 3 sons This is patient's 2nd marriage. Spiritual/Cultural Factors Catholic Living Will: Never completed Health Care Surrogate: Never completed Durable Power of Child Welfare Assistant: Never completed Physical Exam Vital Signs Date Time Temp Pulse Resp B/P (MAP) Pulse Ox O2 Delivery O2 Flow Rate FiO2 08/18/17 09:21 100 08/18/17 08:43 85 100 08/18/17 08:43 85 100 08/18/17 08:35 90 150/60 08/18/17 08:00 99.3 77 32 116/53 (74) 90 08/18/17 06:00 97 08/18/17 04:00 99.8 84 32 122/58 (79) 89 08/18/17 04:00 100 08/18/17 04:00 97 08/18/17 02:52 91 100 08/18/17 02:50 91 100 08/18/17 02:00 97 08/18/17 00:00 97 08/18/17 00:00 100.1 92 32 118/58 (78) 90 08/18/17 00:00 100 08/18/17 00:00 92 118/58 08/17/17 23:53 97 119/55 08/17/17 23:06 91 100 08/17/17 22:00 97 08/17/17 21:29 93 100 08/17/17 20:18 79 130/57 08/17/17 20:00 98.9 79 32 126/56 (79) 93 08/17/17 20:00 100 08/17/17 20:00 79 08/17/17 18:00 80 08/17/17 17:30 90 08/17/17 16:00 99.1 75 32 123/58 (79) 100 08/17/17 16:00 75 08/17/17 16:00 100 08/17/17 14:00 88 08/17/17 13:59 83 120/57 08/17/17 12:19 91 100 08/17/17 12:00 99.7 89 32 128/60 (82) 91 08/17/17 12:00 80 08/17/17 12:00 89 08/17/17 10:00 80 08/18/17 08/19/17 19:00 07:00 Intake Total 600 ml Balance 600 ml Intake IV Total 600 ml Exam CONSTITUTIONAL/GENERAL: This is a 52 year old intubated, sedated TUBES/LINES/DRAINS: Triple lumen central line, PIV, ventriculostomy drain, chest tube, ET tube SKIN: No jaundice, rashes, or lesions. Ecchymoses on upper extremities. No wounds seen anteriorly. Skin temperature appropriate. Not diaphoretic. HEAD:facial truama. EYES: Pupils dilated, non reactive, bilat. Fundi not examined. ENT: Nose without bleeding or purulent drainage. Throat ET tube NECK: Trachea midline. No palpable thyroid enlargement or nodularity. CARDIOVASCULAR: Regular rate and rhythm without murmurs, gallops, or rubs. No JVD. Peripheral pulses symmetric. RESPIRATORY/CHEST: Symmetric, unlabored respirations. dull to auscultation, decrease breath sound bilaterally GASTROINTESTINAL: Abdomen soft,distended, No guarding, but sedated. Bowel sounds present. GENITOURINARY: Without palpable bladder distension. Caballero catheter in place. MUSCULOSKELETAL: Extremities without clubbing, cyanosis, or edema. No joint tenderness or effusion noted. No calf tenderness. No mottling or clubbing. LYMPHATICS: No palpable cervical or supraclavicular adenopathy. NEUROLOGICAL: unresponsive, not withdrawing to pain on my visit PSYCHIATRIC: could not elicit or perform psych exam. Diagnostic Tests Laboratory Laboratory Tests Test 08/15/17 13:15 08/15/17 13:59 08/15/17 14:40 08/15/17 15:55 Blood Gas Puncture Site DRAWN IN OR ART LINE Blood Gas Patient Temperature 98.6 98.6 Blood Gas HCO3 22 mmol/L (22-26) 23 mmol/L (22-26) Blood Gas Base Excess -2.9 mmol/L (-2-2) -2.2 mmol/L (-2-2) Blood Gas Oxygen Saturation 96 % (90-100) 94 % (90-100) Arterial Blood pH 7.32 (7.380-7.420) 7.32 (7.380-7.420) Arterial Blood Partial Pressure CO2 44 mmHg (38-42) 46 mmHg (38-42) Arterial Blood Partial Pressure O2 183 mmHg (61-120) 88 mmHg (61-120) Arterial Blood Oxygen Content 14.2 Vol % (12.0-20.0) 11.1 Vol % (12.0-20.0) Arterial Blood Carboxyhemoglobin 0.9 % (0-4) 1.4 % (0-4) Arterial Blood Methemoglobin 1.4 % (0-2) 1.3 % (0-2) Blood Gas Hemoglobin 10.2 G/DL (12.0-16.0) 8.3 G/DL (12.0-16.0) Oxygen Delivery Device OR VENTILATOR Blood Gas Ventilator Setting OR PRVC28/600/0.7/+8 Blood Gas Inspired Oxygen 100 % 100 % White Blood Count 10.9 TH/MM3 (4.0-11.0) Red Blood Count 3.00 MIL/MM3 (4.50-5.90) Hemoglobin 8.6 GM/DL (13.0-17.0) Hematocrit 25.1 % (39.0-51.0) Mean Corpuscular Volume 83.7 FL (80.0-100.0) Mean Corpuscular Hemoglobin 28.8 PG (27.0-34.0) Mean Corpuscular Hemoglobin Concent 34.4 % (32.0-36.0) Red Cell Distribution Width 15.0 % (11.6-17.2) Platelet Count 191 TH/MM3 (150-450) Mean Platelet Volume 8.5 FL (7.0-11.0) Neutrophils (%) (Auto) 81.9 % (16.0-70.0) Lymphocytes (%) (Auto) 8.3 % (9.0-44.0) Monocytes (%) (Auto) 7.1 % (0.0-8.0) Eosinophils (%) (Auto) 2.1 % (0.0-4.0) Basophils (%) (Auto) 0.6 % (0.0-2.0) Neutrophils # (Auto) 9.0 TH/MM3 (1.8-7.7) Lymphocytes # (Auto) 0.9 TH/MM3 (1.0-4.8) Monocytes # (Auto) 0.8 TH/MM3 (0-0.9) Eosinophils # (Auto) 0.2 TH/MM3 (0-0.4) Basophils # (Auto) 0.1 TH/MM3 (0-0.2) CBC Comment AUTO DIFF Differential Total Cells Counted 100 Neutrophils % (Manual) 76 % (16-70) Band Neutrophils % 11 % (0-6) Lymphocytes % 7 % (9-44) Monocytes % 4 % (0-8) Eosinophils % 2 % (0-4) Neutrophils # (Manual) 9.5 TH/MM3 (1.8-7.7) Differential Comment FINAL DIFF MANUAL Toxic Granulation 1+ (NORMAL) Platelet Estimate NORMAL (NORMAL) Platelet Morphology Comment NORMAL (NORMAL) CSF Volume (Tube 1) 10.0 ML CSF Supernatant Color (tube 1) CLEAR (CLEAR) CSF Gross Blood (Tube 1) 2+ (0) CSF WBC (Tube 1) 0 /MM3 (0-10) CSF RBC (Tube 1) 764 /MM3 (NONE) CSF Neutrophils 0 % CSF Lymphocytes 0 % CSF Glucose 105 MG/DL (40-80) CSF Total Protein 11.9 MG/DL (15.0-45.0) Test 08/15/17 18:15 08/15/17 18:30 08/15/17 21:00 08/16/17 00:03 Sodium Level 161 MEQ/L (136-145) Serum Osmolality 338 MOSM/KG (275-295) Magnesium Level 2.6 MG/DL (1.5-2.5) Blood Gas Puncture Site ART LINE ART LINE ART LINE Blood Gas Patient Temperature 98.6 98.6 98.6 Blood Gas HCO3 24 mmol/L (22-26) 25 mmol/L (22-26) 24 mmol/L (22-26) Blood Gas Base Excess -3.1 mmol/L (-2-2) -0.7 mmol/L (-2-2) -0.1 mmol/L (-2-2) Blood Gas Oxygen Saturation 95 % (90-100) 95 % (90-100) 97 % (90-100) Arterial Blood pH 7.23 (7.380-7.420) 7.32 (7.380-7.420) 7.38 (7.380-7.420) Arterial Blood Partial Pressure CO2 59 mmHg (38-42) 50 mmHg (38-42) 43 mmHg (38-42) Arterial Blood Partial Pressure O2 102 mmHg (61-120) 93 mmHg (61-120) 137 mmHg (61-120) Arterial Blood Oxygen Content 14.6 Vol % (12.0-20.0) 13.1 Vol % (12.0-20.0) 15.3 Vol % (12.0-20.0) Arterial Blood Carboxyhemoglobin 0.8 % (0-4) 1.1 % (0-4) 1.0 % (0-4) Arterial Blood Methemoglobin 1.1 % (0-2) 1.3 % (0-2) 1.1 % (0-2) Blood Gas Hemoglobin 10.9 G/DL (12.0-16.0) 9.8 G/DL (12.0-16.0) 11.1 G/DL (12.0-16.0) Oxygen Delivery Device VENTILATOR VENTILATOR VENTILATOR Blood Gas Ventilator Setting APRV PRVC/AC PRVC-AC Blood Gas Inspired Oxygen 100 % 100 % 100 % Test 08/16/17 01:27 08/16/17 05:30 08/16/17 05:39 08/16/17 08:54 Sodium Level 163 MEQ/L (136-145) 161 MEQ/L (136-145) Serum Osmolality 337 MOSM/KG (275-295) 336 MOSM/KG (275-295) White Blood Count 9.4 TH/MM3 (4.0-11.0) Red Blood Count 2.80 MIL/MM3 (4.50-5.90) Hemoglobin 8.1 GM/DL (13.0-17.0) Hematocrit 23.5 % (39.0-51.0) Mean Corpuscular Volume 83.8 FL (80.0-100.0) Mean Corpuscular Hemoglobin 28.8 PG (27.0-34.0) Mean Corpuscular Hemoglobin Concent 34.4 % (32.0-36.0) Red Cell Distribution Width 15.3 % (11.6-17.2) Platelet Count 226 TH/MM3 (150-450) Mean Platelet Volume 8.5 FL (7.0-11.0) Neutrophils (%) (Auto) 76.7 % (16.0-70.0) Lymphocytes (%) (Auto) 10.1 % (9.0-44.0) Monocytes (%) (Auto) 9.1 % (0.0-8.0) Eosinophils (%) (Auto) 3.5 % (0.0-4.0) Basophils (%) (Auto) 0.6 % (0.0-2.0) Neutrophils # (Auto) 7.2 TH/MM3 (1.8-7.7) Lymphocytes # (Auto) 0.9 TH/MM3 (1.0-4.8) Monocytes # (Auto) 0.9 TH/MM3 (0-0.9) Eosinophils # (Auto) 0.3 TH/MM3 (0-0.4) Basophils # (Auto) 0.1 TH/MM3 (0-0.2) CBC Comment AUTO DIFF Differential Total Cells Counted 100 Neutrophils % (Manual) 60 % (16-70) Band Neutrophils % 26 % (0-6) Lymphocytes % 3 % (9-44) Monocytes % 6 % (0-8) Eosinophils % 4 % (0-4) Neutrophils # (Manual) 8.2 TH/MM3 (1.8-7.7) Metamyelocytes 1 % (0-1) Nucleated Red Blood Cells 1 /100 WBC (0-0) Differential Comment FINAL DIFF MANUAL Toxic Granulation 1+ (NORMAL) Platelet Estimate NORMAL (NORMAL) Platelet Morphology Comment NORMAL (NORMAL) Blood Urea Nitrogen 14 MG/DL (7-18) Creatinine 0.69 MG/DL (0.60-1.30) Random Glucose 155 MG/DL (74-106) Total Protein 5.5 GM/DL (6.4-8.2) Albumin 1.7 GM/DL (3.4-5.0) Calcium Level 7.6 MG/DL (8.5-10.1) Magnesium Level 2.6 MG/DL (1.5-2.5) Alkaline Phosphatase 138 U/L (45-117) Aspartate Amino Transf (AST/SGOT) 37 U/L (15-37) Alanine Aminotransferase (ALT/SGPT) 23 U/L (12-78) Total Bilirubin 1.0 MG/DL (0.2-1.0) Potassium Level 2.7 MEQ/L (3.5-5.1) Chloride Level 128 MEQ/L (98-107) Carbon Dioxide Level 27.6 MEQ/L (21.0-32.0) Anion Gap 5 MEQ/L (5-15) Estimat Glomerular Filtration Rate 119 ML/MIN (>89) Blood Gas Puncture Site ART LINE Blood Gas Patient Temperature 98.6 Blood Gas HCO3 25 mmol/L (22-26) Blood Gas Base Excess 0.1 mmol/L (-2-2) Blood Gas Oxygen Saturation 95 % (90-100) Arterial Blood pH 7.34 (7.380-7.420) Arterial Blood Partial Pressure CO2 47 mmHg (38-42) Arterial Blood Partial Pressure O2 91 mmHg (61-120) Arterial Blood Oxygen Content 14.4 Vol % (12.0-20.0) Arterial Blood Carboxyhemoglobin 1.0 % (0-4) Arterial Blood Methemoglobin 1.1 % (0-2) Blood Gas Hemoglobin 10.7 G/DL (12.0-16.0) Oxygen Delivery Device VENTILATOR Blood Gas Ventilator Setting PRVC-AC Blood Gas Inspired Oxygen 100 % D-Dimer Quantitative (PE/DVT) 2.35 MG/L FEU (0.00-0.50) Test 08/16/17 12:24 08/16/17 20:30 08/16/17 21:50 08/17/17 01:16 Sodium Level 161 MEQ/L (136-145) 159 MEQ/L (136-145) Serum Osmolality 340 MOSM/KG (275-295) 334 MOSM/KG (275-295) Potassium Level 2.5 MEQ/L (3.5-5.1) Blood Gas Puncture Site RT FEMORAL RT FEMORAL Blood Gas Patient Temperature 98.6 98.6 Blood Gas HCO3 27 mmol/L (22-26) 27 mmol/L (22-26) Blood Gas Base Excess 4.0 mmol/L (-2-2) 2.9 mmol/L (-2-2) Blood Gas Oxygen Saturation 91 % (90-100) 88 % (90-100) Arterial Blood pH 7.51 (7.380-7.420) 7.40 (7.380-7.420) Arterial Blood Partial Pressure CO2 34 mmHg (38-42) 45 mmHg (38-42) Arterial Blood Partial Pressure O2 59 mmHg (61-120) 60 mmHg (61-120) Arterial Blood Oxygen Content 14.6 Vol % (12.0-20.0) 10.3 Vol % (12.0-20.0) Arterial Blood Carboxyhemoglobin 1.4 % (0-4) 1.4 % (0-4) Arterial Blood Methemoglobin 1.0 % (0-2) 1.1 % (0-2) Blood Gas Hemoglobin 11.5 G/DL (12.0-16.0) 8.3 G/DL (12.0-16.0) Oxygen Delivery Device VENTILATOR VENTILATOR Blood Gas Ventilator Setting PRVC / AC / PRVC / AC / Blood Gas Inspired Oxygen 70 % 70 % Test 08/17/17 01:30 08/17/17 01:53 08/17/17 03:49 08/17/17 03:55 Sodium Level 159 MEQ/L (136-145) 158 MEQ/L (136-145) Serum Osmolality 329 MOSM/KG (275-295) 329 MOSM/KG (275-295) Hemoglobin 8.0 GM/DL (13.0-17.0) 7.8 GM/DL (13.0-17.0) Hematocrit 23.2 % (39.0-51.0) 22.8 % (39.0-51.0) Blood Gas Puncture Site 80 Blood Gas Patient Temperature 98.6 Blood Gas HCO3 28 mmol/L (22-26) Blood Gas Base Excess 3.3 mmol/L (-2-2) Blood Gas Oxygen Saturation 92 % (90-100) Arterial Blood pH 7.35 (7.380-7.420) Arterial Blood Partial Pressure CO2 53 mmHg (38-42) Arterial Blood Partial Pressure O2 76 mmHg (61-120) Arterial Blood Oxygen Content 14.9 Vol % (12.0-20.0) Arterial Blood Carboxyhemoglobin 1.2 % (0-4) Arterial Blood Methemoglobin 0.9 % (0-2) Blood Gas Hemoglobin 11.4 G/DL (12.0-16.0) Oxygen Delivery Device VENTILATOR Blood Gas Ventilator Setting PRVC / AC / Blood Gas Inspired Oxygen 80 % White Blood Count 10.2 TH/MM3 (4.0-11.0) Red Blood Count 2.70 MIL/MM3 (4.50-5.90) Mean Corpuscular Volume 84.4 FL (80.0-100.0) Mean Corpuscular Hemoglobin 28.9 PG (27.0-34.0) Mean Corpuscular Hemoglobin Concent 34.3 % (32.0-36.0) Red Cell Distribution Width 15.5 % (11.6-17.2) Platelet Count 239 TH/MM3 (150-450) Mean Platelet Volume 8.3 FL (7.0-11.0) Neutrophils (%) (Auto) 74.1 % (16.0-70.0) Lymphocytes (%) (Auto) 13.7 % (9.0-44.0) Monocytes (%) (Auto) 8.8 % (0.0-8.0) Eosinophils (%) (Auto) 2.6 % (0.0-4.0) Basophils (%) (Auto) 0.8 % (0.0-2.0) Neutrophils # (Auto) 7.5 TH/MM3 (1.8-7.7) Lymphocytes # (Auto) 1.4 TH/MM3 (1.0-4.8) Monocytes # (Auto) 0.9 TH/MM3 (0-0.9) Eosinophils # (Auto) 0.3 TH/MM3 (0-0.4) Basophils # (Auto) 0.1 TH/MM3 (0-0.2) CBC Comment AUTO DIFF Differential Total Cells Counted 100 Neutrophils % (Manual) 43 % (16-70) Band Neutrophils % 37 % (0-6) Lymphocytes % 8 % (9-44) Monocytes % 3 % (0-8) Eosinophils % 2 % (0-4) Neutrophils # (Manual) 8.6 TH/MM3 (1.8-7.7) Metamyelocytes 3 % (0-1) Myelocytes 1 % (0-0) Nucleated Red Blood Cells 6 /100 WBC (0-0) Differential Comment FINAL DIFF MANUAL Blastocytes 1 % (0-0) Plasma Cells 2 % (0-0) Toxic Granulation 1+ (NORMAL) Dohle Bodies PRESENT (NONE SEEN) Platelet Estimate NORMAL (NORMAL) Platelet Morphology Comment ENLARGED (NORMAL) Blood Urea Nitrogen 15 MG/DL (7-18) Creatinine 0.60 MG/DL (0.60-1.30) Random Glucose 180 MG/DL (74-106) Total Protein 5.6 GM/DL (6.4-8.2) Albumin 1.6 GM/DL (3.4-5.0) Calcium Level 7.4 MG/DL (8.5-10.1) Magnesium Level 2.8 MG/DL (1.5-2.5) Alkaline Phosphatase 125 U/L (45-117) Aspartate Amino Transf (AST/SGOT) 36 U/L (15-37) Alanine Aminotransferase (ALT/SGPT) 22 U/L (12-78) Total Bilirubin 1.0 MG/DL (0.2-1.0) Potassium Level 3.6 MEQ/L (3.5-5.1) Chloride Level 123 MEQ/L (98-107) Carbon Dioxide Level 28.7 MEQ/L (21.0-32.0) Anion Gap 6 MEQ/L (5-15) Estimat Glomerular Filtration Rate 140 ML/MIN (>89) Protein Corrected Calcium 8.2 MG/DL (8.5-10.1) Test 08/17/17 11:56 08/17/17 12:07 08/17/17 18:30 08/17/17 23:06 Blood Gas Puncture Site ART LINE ART LINE Blood Gas Patient Temperature 98.6 98.6 Blood Gas HCO3 29 mmol/L (22-26) 31 mmol/L (22-26) Blood Gas Base Excess 4.3 mmol/L (-2-2) 4.8 mmol/L (-2-2) Blood Gas Oxygen Saturation 92 % (90-100) 87 % (90-100) Arterial Blood pH 7.36 (7.380-7.420) 7.29 (7.380-7.420) Arterial Blood Partial Pressure CO2 53 mmHg (38-42) 66 mmHg (38-42) Arterial Blood Partial Pressure O2 76 mmHg (61-120) 63 mmHg (61-120) Arterial Blood Oxygen Content 17.4 Vol % (12.0-20.0) 11.4 Vol % (12.0-20.0) Arterial Blood Carboxyhemoglobin 1.6 % (0-4) 1.4 % (0-4) Arterial Blood Methemoglobin 1.2 % (0-2) 1.2 % (0-2) Blood Gas Hemoglobin 13.5 G/DL (12.0-16.0) 9.3 G/DL (12.0-16.0) Oxygen Delivery Device VENTILATOR VENTILATOR Blood Gas Ventilator Setting 32/600/0.75/+10 PRVC/ AC Blood Gas Inspired Oxygen 100 % 100 % White Blood Count 11.3 TH/MM3 (4.0-11.0) Red Blood Count 3.10 MIL/MM3 (4.50-5.90) Hemoglobin 9.1 GM/DL (13.0-17.0) Hematocrit 26.5 % (39.0-51.0) Mean Corpuscular Volume 85.6 FL (80.0-100.0) Mean Corpuscular Hemoglobin 29.3 PG (27.0-34.0) Mean Corpuscular Hemoglobin Concent 34.2 % (32.0-36.0) Red Cell Distribution Width 15.2 % (11.6-17.2) Platelet Count 262 TH/MM3 (150-450) Mean Platelet Volume 8.8 FL (7.0-11.0) Prothrombin Time 10.3 SEC (9.8-11.6) Prothromb Time International Ratio 1.0 RATIO Activated Partial Thromboplast Time 25.2 SEC (24.3-30.1) Blood Urea Nitrogen 15 MG/DL (7-18) Creatinine 0.72 MG/DL (0.60-1.30) Random Glucose 167 MG/DL (74-106) Calcium Level 7.6 MG/DL (8.5-10.1) Sodium Level 157 MEQ/L (136-145) 156 MEQ/L (136-145) Potassium Level 4.1 MEQ/L (3.5-5.1) Chloride Level 119 MEQ/L (98-107) Carbon Dioxide Level 30.6 MEQ/L (21.0-32.0) Anion Gap 7 MEQ/L (5-15) Estimat Glomerular Filtration Rate 114 ML/MIN (>89) Serum Osmolality 333 MOSM/KG (275-295) 329 MOSM/KG (275-295) Test 08/18/17 00:30 08/18/17 04:11 08/18/17 04:40 Sodium Level 156 MEQ/L (136-145) 154 MEQ/L (136-145) Serum Osmolality 325 MOSM/KG (275-295) Blood Gas Puncture Site ART LINE Blood Gas Patient Temperature 98.6 Blood Gas HCO3 30 mmol/L (22-26) Blood Gas Base Excess 4.5 mmol/L (-2-2) Blood Gas Oxygen Saturation 88 % (90-100) Arterial Blood pH 7.31 (7.380-7.420) Arterial Blood Partial Pressure CO2 63 mmHg (38-42) Arterial Blood Partial Pressure O2 63 mmHg (61-120) Arterial Blood Oxygen Content 12.0 Vol % (12.0-20.0) Arterial Blood Carboxyhemoglobin 1.4 % (0-4) Arterial Blood Methemoglobin 1.1 % (0-2) Blood Gas Hemoglobin 9.7 G/DL (12.0-16.0) Oxygen Delivery Device VENTILATOR Blood Gas Ventilator Setting PRVC /AC Blood Gas Inspired Oxygen 100 % White Blood Count 15.0 TH/MM3 (4.0-11.0) Red Blood Count 3.15 MIL/MM3 (4.50-5.90) Hemoglobin 9.0 GM/DL (13.0-17.0) Hematocrit 27.2 % (39.0-51.0) Mean Corpuscular Volume 86.2 FL (80.0-100.0) Mean Corpuscular Hemoglobin 28.5 PG (27.0-34.0) Mean Corpuscular Hemoglobin Concent 33.1 % (32.0-36.0) Red Cell Distribution Width 15.4 % (11.6-17.2) Platelet Count 261 TH/MM3 (150-450) Mean Platelet Volume 8.5 FL (7.0-11.0) Neutrophils (%) (Auto) 82.5 % (16.0-70.0) Lymphocytes (%) (Auto) 9.0 % (9.0-44.0) Monocytes (%) (Auto) 4.9 % (0.0-8.0) Eosinophils (%) (Auto) 3.3 % (0.0-4.0) Basophils (%) (Auto) 0.3 % (0.0-2.0) Neutrophils # (Auto) 12.4 TH/MM3 (1.8-7.7) Lymphocytes # (Auto) 1.4 TH/MM3 (1.0-4.8) Monocytes # (Auto) 0.7 TH/MM3 (0-0.9) Eosinophils # (Auto) 0.5 TH/MM3 (0-0.4) Basophils # (Auto) 0.0 TH/MM3 (0-0.2) CBC Comment AUTO DIFF Differential Total Cells Counted 100 Neutrophils % (Manual) 64 % (16-70) Band Neutrophils % 21 % (0-6) Lymphocytes % 7 % (9-44) Monocytes % 6 % (0-8) Eosinophils % 1 % (0-4) Neutrophils # (Manual) 12.9 TH/MM3 (1.8-7.7) Myelocytes 1 % (0-0) Differential Comment FINAL DIFF MANUAL Toxic Granulation 1+ (NORMAL) Dohle Bodies PRESENT (NONE SEEN) Platelet Estimate NORMAL (NORMAL) Platelet Morphology Comment NORMAL (NORMAL) Red Cell Morphology Comment NORMAL (NORMAL) Blood Urea Nitrogen 17 MG/DL (7-18) Creatinine 0.78 MG/DL (0.60-1.30) Random Glucose 149 MG/DL (74-106) Total Protein 5.6 GM/DL (6.4-8.2) Albumin 1.5 GM/DL (3.4-5.0) Calcium Level 7.4 MG/DL (8.5-10.1) Magnesium Level 2.9 MG/DL (1.5-2.5) Alkaline Phosphatase 214 U/L (45-117) Aspartate Amino Transf (AST/SGOT) 46 U/L (15-37) Alanine Aminotransferase (ALT/SGPT) 20 U/L (12-78) Total Bilirubin 1.4 MG/DL (0.2-1.0) Potassium Level 4.3 MEQ/L (3.5-5.1) Chloride Level 114 MEQ/L (98-107) Carbon Dioxide Level 32.5 MEQ/L (21.0-32.0) Anion Gap 8 MEQ/L (5-15) Estimat Glomerular Filtration Rate 104 ML/MIN (>89) Protein Corrected Calcium 8.2 MG/DL (8.5-10.1) Result Diagram: 08/18/17 0440 08/18/17 0440 Microbiology Microbiology Date/Time Source Procedure Growth Status 08/15/17 14:40 Cerebral Spinal Fluid Shunt Fluid Fungal Smear - Final NO FUNGAL ELEMENTS SEEN. Resulted 08/15/17 14:40 Cerebral Spinal Fluid Shunt Fluid Fungal Culture Pending Resulted 08/15/17 14:40 Cerebral Spinal Fluid Shunt Fluid Acid Fast Stain - Final NO ACID FAST BACILLI SEEN Resulted 08/15/17 14:40 Cerebral Spinal Fluid Shunt Fluid Mycobacterial Culture Pending Resulted 08/15/17 14:40 Cerebral Spinal Fluid Shunt Fluid Gram Stain - Final Complete 08/15/17 14:40 Cerebral Spinal Fluid Shunt Fluid CSF Culture - Final NO GROWTH IN 72 HOURS Complete Imaging Last Impressions Chest X-Ray 08/18/17 0600 Signed Impressions: CONCLUSION: No significant interval change with persistent prominent bilateral pulmonary pa renchymal opacity. Head CT 08/15/17 0000 Signed Impressions: CONCLUSION: 1. Significant change when compared to prior exam now with diffuse infarction involving the left cerebral hemisphere with small area of infarction involving the right temporal lobe. There is now 12 mm of midline shift towards the patien t's right. New small scattered areas of intraparenchymal hemorrhage involving t he left cerebral hemisphere. Right temporal lobe intraparenchymal hemorrhage is stable. Small volume subdural hemorrhage adjacent to the falx near the vertex is new. Chest CT 08/15/17 0000 Signed Impressions: CONCLUSION: 1. Increasing bibasilar consolidative changes 2. Left chest tube in good position with trace pneumothorax. 3. Multiple bilateral rib fractures with fracture of the left clavicular head. Cervical Spine CT 08/11/17 1121 Signed Impressions: CONCLUSION: 1. Mildly comminuted fracture of the left C7 transverse process. 2. Minimally displaced fracture at the tip of the left T1 transverse process. Thoracic Spine CT 08/11/17 0000 Signed Impressions: CONCLUSION: 1. There is a minimally displaced fracture at the tip of the left T1 transvers e process. No other thoracic spine fracture or acute injury is identified. 2. Multiple bilateral rib fractures, as above. These are more completely visua lized on the contemporaneously acquired chest CT. Maxillofacial CT 08/11/17 0000 Signed Impressions: CONCLUSION: Numerous fractures as described above. These include skull base fractures and f acial fractures. Lumbar Spine CT 08/11/17 0000 Signed Impressions: CONCLUSION: 1. No acute lumbar spine abnormality is identified. 2. There is facet arthrosis at L4-L5 and L5-S1. Abdomen/Pelvis CT 08/11/17 Signed Impressions: CONCLUSION: Mild splenic contusion and minimal perisplenic hematoma. Patient/Family Conference Present at Family Conference: Pt's , pt's mother. Family Conference Time (mins): 68 (68 total.40 with sons.28 min with and pt's mother.) Family Conference Location: Bedside, Consult Room Issues Discussed: * Palliative care role, purpose, approach * Additional medical, psychosocial, and spiritual history * Patients general health, functional status, and cognitive changes in the months leading up to the current hospitalization * Patient/family understanding of the current medical problems * Patient/family understanding of prognosis * Patients goals of care as best understood from advance directives and/or conversations and/or values * Current medical treatment options and benefits/burdens of those options * Likely scenarios comparing ongoing aggressive care with a transition to comfort measures only * Questions answered to the best of my ability * Palliative care contact information provided Assessment and Plan Disease Oriented Problem List: (1) Intracerebral hemorrhage (2) Cerebral edema Comment: left side infarct. (3) ARDS (adult respiratory distress syndrome) (4) Spinal fracture Comment: C7, T! (5) Laceration of ear Symptom Scale: (1) Pain 0-10 Scale: Unable to quantify (2) Anxiety 0-10 Scale: Unable to quantify (3) Dyspnea 0-10 Scale: Unable to quantify Pertinent Non-Medical Issues Psychosocial:, has 3 sons Spiritual:Catholic, caodaism. Legal: No advance directives. Health care Proxy per Nd statuets is . Pamella Correa. Ethical issues impacting care: none Important Contacts Pamella Correa [phone] Gary Correa [phone] Prognosis Pt fell from tree brought in as trauma alert. Pt found to have TBI, right 1 cm subdrual hematoma, right temporal parenchaymal and subarcahnoid hemorrhage; multiple facial and skull basal fracture; fracture of C7,T1, transverse process. Pt intubated, sedated, requiring aggressive fluid resuccitation, and pressor support with mechanical ventilation.. Course of condition complicated by progressive increase in ICP. Subsequent CT brain shows, left cerebral ischemia and edema with 1.2 cm left to right midline shift. Patient underwent emergent left decompressive craniectomy and placement of ventriculostomy. Pt with ARDS, on increase vent settings. At risk for decline, and sudden . Pt overall prognosis is poor. Code Status: Full Code Plan == code- DNR == health care Proxy per Nd statuets is : Pamella Correa. == goals of care.Patient's and pt's mother are at bedside, we have reviewed patient's clinical condition, which is critical and grave. We have talked about his traumatic brain injury, and current respiratory failure/ARDS. There are aware that despite maximal medical management, there is a high likelihood that he decompensate and pass away. We talked about his traumatic injuries of the face, and the ribs. We talked about CPR, ACLS, shock. I offered family the option of DNR/DNI as I suspect that if the patient do under go CPR it may just prolong the dying process and that functional recovery after undergoing that is poor to nil. Pt's mother ask, "they would still do cpr with his rib fractures?" I told them, we do not have to. Additional family meeting was held with the 3 sons. (Aubrievance care planning 40 min). == they continue to hope for a miracle, and will not consider compassionate extubation at this point in time. == they however do not want pt to undergo further trama, and will make pt DNR == Goals are aggressive measures short of DNR. resucitation. ==they understand pt is declining and may code in the coming days. ==symptom- pain- head/facial truma with hemorrhage edema, fracture spine, rib fractures. dyspnea- ARDS anxiety- associated with pain, dyspnea, and functional decline. Continue current regimen of sedation. == palliative care will follow. Thank you for the opportunity to participate in the care of Mr. Correa. Attestation To help prompt me to consider important information that might be impacting today's encounter and assessment, information from prior notes written by myself or my colleagues may have been "brought forward" into today's note. My signature on this note, however, is an attestation that I personally performed the exam, history, and/or decision-making noted today, and, unless otherwise indicated, the interactions with patient, family, and staff as well as the review of records all occurred today. I also attest that the listed assessment and stated plan reflect my best clinical judgment today based on the combination of historical information, prior notes, and today's exam/ interactions. When time spent is documented, it refers only to time spent today by the signer, or if indicated, combined time spent today by collaborating physician/nurse practitioner. Wayne Mcclellan MD Aug 18, 2017 10:25
--- NOTE | 2017-08-18 11:20 | HHI.NSPN ---
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 The reported. No tonic-clonic movement seen. No tongue biting. No incontinence of stool or urine. Nobody witnessed the event; however, apparently was bleeding on the pavement and finally ambulance was called. It is unknown how long patient had been lying there. The patient was brought to [place] as Trauma alert, priority 1 trauma alert, intubated in the field with C-collar in place on a spinal board by air ambulance. On arrival, patient's Falcon Coma Scale was 3 which improved to about 5. He had unequal pupils with anisocoria. He was resuscitated according to the ATLS protocol. Trauma workup revealed multiple injuries including a severe left-sided facial fractures involving the orbit, zygoma, maxilla, nasal fracture, as well as fracture of the base of the skull going through the petrous bone, a right frontotemporal subarachnoid and subdural bleeding with brain contusions on the right, multiple left rib fractures with chest wall deformity, bilateral lung contusion and bilateral aspiration lacerations, laceration probably grade II of the spleen with slight amount of blood around the spleen Neurosurgical consultation was requested 08/12: ICPs currently 16. intubated, sedated. 08/16: patient underwent emergent decompressive craniectomy yesterday, also with placement of ventriculostomy drain. intubated, and sedated. ICPs controlled. 08/17: Intubated and sedated, ventriculostomy draining well, ICPs 1 open, reports when clamped are 20. 08/18: ICPs remain controlled, patient with worsening respiratory status now in ARDS. Intubated and sedated. Labs, Micro, & Vital Signs Results Date Time Temp Pulse Resp B/P (MAP) Pulse Ox O2 Delivery O2 Flow Rate FiO2 08/18/17 10:55 77 99/48 08/18/17 09:21 100 08/18/17 08:43 85 100 08/18/17 08:43 85 100 08/18/17 08:35 90 150/60 08/18/17 08:00 99.3 77 32 116/53 (74) 90 08/18/17 06:00 97 08/18/17 04:00 99.8 84 32 122/58 (79) 89 08/18/17 04:00 100 08/18/17 04:00 97 08/18/17 02:52 91 100 08/18/17 02:50 91 100 08/18/17 02:00 97 08/18/17 00:00 97 08/18/17 00:00 100.1 92 32 118/58 (78) 90 08/18/17 00:00 100 08/18/17 00:00 92 118/58 08/17/17 23:53 97 119/55 08/17/17 23:06 91 100 08/17/17 22:00 97 08/17/17 21:29 93 100 08/17/17 20:18 79 130/57 08/17/17 20:00 98.9 79 32 126/56 (79) 93 08/17/17 20:00 100 08/17/17 20:00 79 08/17/17 18:00 80 08/17/17 17:30 90 08/17/17 16:00 99.1 75 32 123/58 (79) 100 08/17/17 16:00 75 08/17/17 16:00 100 08/17/17 14:00 88 08/17/17 13:59 83 120/57 08/17/17 12:19 91 100 08/17/17 12:00 99.7 89 32 128/60 (82) 91 08/17/17 12:00 80 08/17/17 12:00 89 08/19/17 07:00 Intake Total 600 ml Balance 600 ml Constitutional Vital Signs Date Time Temp Pulse Resp B/P (MAP) Pulse Ox O2 Delivery O2 Flow Rate FiO2 08/18/17 10:55 77 99/48 08/18/17 09:21 100 08/18/17 08:43 85 100 08/18/17 08:43 85 100 08/18/17 08:35 90 150/60 08/18/17 08:00 99.3 77 32 116/53 (74) 90 08/18/17 06:00 97 08/18/17 04:00 99.8 84 32 122/58 (79) 89 08/18/17 04:00 100 08/18/17 04:00 97 08/18/17 02:52 91 100 08/18/17 02:50 91 100 08/18/17 02:00 97 08/18/17 00:00 97 08/18/17 00:00 100.1 92 32 118/58 (78) 90 08/18/17 00:00 100 08/18/17 00:00 92 118/58 08/17/17 23:53 97 119/55 08/17/17 23:06 91 100 08/17/17 22:00 97 08/17/17 21:29 93 100 08/17/17 20:18 79 130/57 08/17/17 20:00 98.9 79 32 126/56 (79) 93 08/17/17 20:00 100 08/17/17 20:00 79 08/17/17 18:00 80 08/17/17 17:30 90 08/17/17 16:00 99.1 75 32 123/58 (79) 100 08/17/17 16:00 75 08/17/17 16:00 100 08/17/17 14:00 88 08/17/17 13:59 83 120/57 08/17/17 12:19 91 100 08/17/17 12:00 99.7 89 32 128/60 (82) 91 08/17/17 12:00 80 08/17/17 12:00 89 08/19/17 07:00 Intake Total 600 ml Balance 600 ml Review of Systems ROS Limitations: Intubated Physical Exam Mr. Correa is intubated and sedated. Left craniectomy site remains full, firm to palpate. Incision clean and dry. ASHLEY drains x 2 with minimal drainage. Ventriculostomy draining clear CSF at 0 cm H20, ICP=1 open Left frontal scalp avulsion s/p repair. Cranial Nerves: Left pupil 6-7mm, right 4 mm bilaterally nonreactive. Conjugate gaze. Motor: no spontaneous movements, no response to pain stimuli x 4 extremities Reflexes: Plantars silent bilaterally. Absent corneal reflexes bilaterally. Medications Current Medications Current Medications Medications (Trade) Dose Ordered Sig/Mark Route PRN Reason Start Time Stop Time Status Last Admin Dose Admin Sodium Chloride (NS Flush) 2 ml UNSCH PRN IV FLUSH FLUSH AFTER USING IV ACCESS 08/11/17 11:45 Sodium Chloride (NS Flush) 2 ml BID IV FLUSH 08/11/17 21:00 08/18/17 08:11 Naloxone HCl (Narcan Inj) 0.4 mg UNSCH PRN IV PUSH SEE LABEL COMMENTS 08/11/17 11:45 Magnesium Hydroxide (Milk Of Jodi Liq) 30 ml BID PO 08/11/17 21:00 08/18/17 08:10 Potassium Chloride 100 ml @ 50 mls/hr Q2H PRN IV For Potassium 2.8 - 3.2 mEq/L 08/11/17 14:30 08/17/17 00:31 Potassium Chloride 100 ml @ 50 mls/hr Q2H PRN IV For Potassium 2.8 - 3.2 mEq/L 08/11/17 14:30 08/15/17 18:59 Potassium Bicarb/ Potassium Chloride (K-Lyte Cl Eff) 50 meq UNSCH PRN PO For Potassium 3.3 - 3.5 mEq/L 08/11/17 14:30 Potassium Chloride 100 ml @ 25 mls/hr UNSCH PRN IV For Potassium 3.3 - 3.5 mEq/L 08/11/17 14:30 Potassium Chloride 100 ml @ 50 mls/hr Q2H PRN IV For Potassium 3.3 - 3.5 mEq/L 08/11/17 14:30 08/14/17 13:22 Magnesium Sulfate 4 gm/Sodium Chloride 100 ml @ 50 mls/hr UNSCH PRN IV For Magnesium 0.9 - 1.1 mg/dL 08/11/17 14:30 Magnesium Oxide (Mag-Ox) 800 mg UNSCH PRN PO For Magnesium 1.2 - 1.6 mg/dL 08/11/17 14:30 Magnesium Sulfate 2 gm/Sodium Chloride 100 ml @ 50 mls/hr UNSCH PRN IV For Magnesium 1.2 - 1.6 mg/dL 08/11/17 14:30 Potassium Phosphate (K-Phos) 2,000 mg Q4H PRN PO For Phosphorus < 2.5 mg/dL 08/11/17 14:30 Sodium Phosphate 30 mmol/Sodium Chloride 250 ml @ 42 mls/hr UNSCH PRN IV For Phosphorus < 2.5 mg/dL 08/11/17 14:30 Potassium Phosphate (K-Phos) 2,000 mg UNSCH PRN PO/TUBE SEE LABEL COMMENTS 08/11/17 14:30 Potassium Phosphate 30 mmol/ Sodium Chloride 260 ml @ 42 mls/hr UNSCH PRN IV SEE LABEL COMMENTS 08/11/17 14:30 Chlorhexidine Gluconate (Peridex 0.12% Liq) 15 ml BID@08,20 MT 08/11/17 20:00 08/18/17 08:04 Methocarbamol (Robaxin) 500 mg Q8HR PO 08/11/17 22:00 08/18/17 05:33 Lidocaine HCl (Lidoderm 5% Patch.12 Hr) 1 patch DAILY T-DERMAL 08/11/17 14:30 08/18/17 08:10 Insulin Aspart (NovoLOG SUPPLEMENTAL SCALE) 1 Q6HR SQ 08/11/17 18:00 08/17/17 18:00 Dextrose (D50w (Syr) Inj) 50 ml UNSCH PRN IV PUSH HYPOGLYCEMIA-SEE COMMENTS 08/11/17 14:30 Glucagon (Glucagon Inj) 1 mg UNSCH PRN OTHER HYPOGLYCEMIA-SEE COMMENTS 08/11/17 14:30 Albuterol/ Ipratropium (Duoneb Neb) 1 ampule Q2HR NEB PRN NEB wheezing 08/11/17 14:45 08/15/17 20:33 Miscellaneous Information 1 Q24H T-DERMAL 08/11/17 21:00 08/17/17 20:21 Terbutaline Sulfate (Brethine Inj) 1 mg UNSCH PRN SQ FOR EXTRAVASATION PROTOCOL 08/11/17 18:00 Acetaminophen 100 ml @ 400 mls/hr Q6H PRN IV Temp > 101.5 08/12/17 15:00 08/13/17 17:11 Bisacodyl (Dulcolax Supp) 10 mg DAILY PRN RECTAL CONSTIPATION 08/15/17 12:30 Pantoprazole Sodium (Protonix Inj) 40 mg DAILY IVP 08/16/17 09:00 08/18/17 08:10 Ondansetron HCl (Zofran Odt) 4 mg Q6H PRN PO NAUSEA OR VOMITING 08/15/17 13:45 Calcium Gluconate (Calcium Gluconate Inj) 1 gm UNSCH PRN IV SEE LABEL COMMENTS 08/15/17 12:30 Potassium Chloride 100 ml @ 50 mls/hr UNSCH PRN IV POTASSIUM LESS THAN 4 08/15/17 12:30 Magnesium Sulfate 4 gm/Sodium Chloride 108 ml @ 108 mls/hr UNSCH PRN IV MAGNESIUM LESS THAN 2 08/15/17 12:30 Acetaminophen (Tylenol) 650 mg Q4H PRN PO TEMPERATURE > 101.5 F 08/15/17 12:30 Lactulose (Lactulose Liq) 30 ml DAILY PO 08/16/17 09:00 08/18/17 08:10 Senna/Docusate Sodium (Ronda-Colace) 1 tab BID PO 08/16/17 09:00 08/18/17 08:10 Water (Free Water) 200 ml Q6HR G-TUBE 08/16/17 08:30 08/18/17 04:51 Levetriacetam 500 mg/Dextrose 105 ml @ 400 mls/hr Q12HR IV 08/16/17 10:00 08/18/17 09:04 Fentanyl Citrate 250 ml @ 5 mls/hr TITRATE PRN IV Sedation 08/16/17 09:45 08/18/17 00:20 Midazolam HCl 50 ml @ 2 mls/hr TITRATE PRN IV SEDATION 08/16/17 09:45 08/18/17 05:48 Propofol 100 ml @ 3.987 mls/ hr TITRATE PRN IV SEDATION 08/16/17 09:45 08/18/17 08:37 Dextrose 1,000 ml @ 20 mls/hr Q24H IV 08/16/17 09:45 08/17/17 20:18 Epoprostenol Sodium 60 ml/ Sodium Chloride 100 ml @ 5 mls/hr Q8H NEB 08/16/17 11:00 08/18/17 04:51 Mupirocin (Bactroban 2% Oint) 1 applic TID TOPICAL 08/16/17 18:00 08/18/17 08:11 Cisatracurium Besylate 200 mg/ Dextrose 500 ml @ 22.08 mls/ hr TITRATE PRN IV TOF 1/4 08/17/17 23:00 08/18/17 08:37 Norepinephrine Bitartrate 16 mg/ Dextrose 250 ml @ 1.87 mls/hr TITRATE PRN IV Maintain MAP > 65 mmHg 08/17/17 23:00 08/18/17 00:00 Vasopressin 40 units/Dextrose 100 ml @ 3 mls/hr TITRATE PRN IV Blood Pressure Management 08/17/17 23:45 08/17/17 23:53 Enoxaparin Sodium (Lovenox Inj) 30 mg Q12H SQ 08/18/17 10:00 Medical Decision Making MDM Remarks 52 year old male fall off tree TBI, Right 1 cm subdural hematoma, right temporal parenchymal and subarachnoid hemorrhage on arrival, 08/15 with elevated ICPs in the 30's, f/u CT Brain with left cerebral ischemia, edema with 1.2 cm left to right midline shift, underwent emergent left decompressive craniectomy, and with placement of ventriculostomy drain 08/15/17, with improved ICPs following decompression Left C7 transverse process fracture Left T1 transverse process fracture Left facial fractures worsened pulmonary status, ARDS Plan Plan Remarks cont ventriculostomy draining at 0 cm H20, cont ICP monitoring ASHLEY drains x 2 removed, steri-strips placed cont neuro checks and follow exam cont critical care/trauma management Dr. Shelton gomez family in [facility],Rosy MEYERS Aug 18, 2017 11:20
[2017-08-18] MEDS: ENOXAPARIN SODIUM 30 MG/0.3 ML SYRINGE SQ SCH ×2 (11:27→20:24)
[2017-08-18] MEDS: DEXTROSE 5% IN WATE 1000ML INJ 1,000 ML IV SCH (11:27)
--- NOTE | 2017-08-18 16:24 | HHI.CCPN ---
Subjective Brief History This 52-year-old male fell while working on a tree onto the concrete deck below about 10 feet. Nobody witnessed the event; however, apparently was bleeding on the pavement and finally ambulance was called. It is unknown how long patient had been lying there. The patient was brought to our institution as priority 1 trauma alert, intubated in the field with C-collar in place on a spinal board by air ambulance. On arrival, patient's Amelie Coma Scale was 3 and improved to about 5. FINAL INJURIES DETECTED: 1. Severe left-sided facial fractures involving the orbit, zygoma, maxilla, nasal fracture, as well as fracture of the base of the skull going through the petrous bone. 2. Right frontotemporal subarachnoid and subdural bleeding with brain contusions on the right. 2.a.C7 transverse process fracture right 3. Chest revealed serial left rib fractures with chest wall deformity, bilateral lung contusion and bilateral aspiration. A small amount of subcutaneous air, but no pneumothorax. 4. L Clavicle FX 5. Abdominal CAT scan revealed small lacerations, laceration probably grade II of the spleen with slight amount of blood around the spleen This patient has severe multisystem injuries and in addition it is not clear whether patient might of had suffered a heart attack or some other posterior problem prior to falling off the ladder. This will be worked up now after patient is admitted Neurosurgery is consulted and workup and further ICU resuscitation is in progress Patient is critical and there is a high mortality rate associated with these injuries probably ranging over 50% in the age group 24 Hour Review/Hospital Course 08/12/2017 Patient with massive multisystem injuries including brain and chest Neurologically patient remains intubated ventilated sedated Neuroprotective measures including propofol fentanyl and Versed required in order to keep ICP below 20 mmHg ICP ranging between 14 and 20 mmHg Hemodynamically patient was initially unstable but starting to stabilize slowly Large amount of fluids and 4 units of PRBC administered in order to account for systemic inflammatory response and third space loss. Patient extremely hyperdynamic with cardiac output about 8 L and systemic vascular resistance very low around 500 Requiring active vasomotor support with Levophed and Mark-Synephrine now gradually being weaned off If necessary patient will placed on vasopressin but I would like to avoid that if possible considering his precarious cardiac function Initial elevation of troponins which are now normalizing may be related to the fall itself Bilateral breath sounds decreased over the left side where patient has massive pulmonary contusion with injury to the left upper importance of lower lobe Chest tube drainage decreased and patient does have retained hemothorax In order to maintain adequate PO2 FiO2 gradient and not over extend the right lung patient has been placed on bilevel ventilation Settings currently 50% FiO2 PSVT 28/2 sec high and PSV 0/0.7 seconds low This allows for about 16 L/min ventilation Patient will probably eventually need thoracoscopy and evacuation of hemothorax on the left however right now patient is unstable to go for any further studies to fully evaluate evolving extent of lung injury Abdomen soft no signs of trauma except small splenic laceration which appears to be stable Renal function preserved now the patient is well preloaded I discussed at length the care of this patient with the family and explained to them that there is a high mortality associated with multiplicity and severity of the injuries 08/13/2017 Patient slightly improved Remains sedated ventilated on propofol fentanyl and Versed ICP remains 12-18 mmHg Hemodynamically patient is slowly stabilizing Mark-Synephrine has been weaned off but patient remains still on Levophed Track flow reveals cardiac output of about 7.5 L and SVR about 550 consistent with hyperdynamic state vasodilatation and systemic inflammatory response SIRS Bilateral breath sounds Patient has been placed on bilevel ventilation yesterday which she is tolerating well and arterial blood gases have improved significantly Chest x-ray slowly clearing up the left lung field Abdomen soft will start on trickle feeds 08/14/2017 Neurologically patient is unchanged Intubated ventilated on neuroprotective measures Propofol/fentanyl and addition of Versed in order to keep ICP within physiologic range Even with maximum neuroprotective measures patient's ICP now ranges between 18 and 24 mmHg Around 4-50 days when the brain swelling is most prominent so this is not unexpected Remains on small dose of hypertonic saline and with rising sodium will DC the same Hemodynamically patient is slowly stabilizing with decreasing amounts of Mark- Synephrine and Levophed Maintaining central perfusion pressure as to accommodate for ICP variance Bilateral breath sounds with minimal drainage from the left chest tube Patient was on bilevel ventilation for the last 48 hours but I had to take him down to AC mode due to hypercapnia With correction of hypercapnia the ICP readily stabilized Left lung is clearing up nicely and PO2 FiO2 gradient is improving Considering the severity of injuries to the brain and to the chest this patient is not expected to recover rapidly and will require tracheostomy 08/15/2017 Neurologically patient has worsened throughout the night. As expected and predicted the intracranial pressure has risen due to the brain swelling now that this is the fourth and fifth day post injury ICPs were managed through the night and we were in the range of 20-24 mmHg while this morning ICP suddenly antoine to as high as [address] of the head and chest and was taken to the operating room for decompressive craniectomy after discussing this with the neurosurgeon Upon return from the operating room patient's ICPs down to about 4-8 mmHg Central perfusion pressure is maintained in adequate parameters Hemodynamically patient still is somewhat unstable requiring additional Levophed in order to maintain mean arterial pressure to satisfy CPP requirements Transfuse 2 units PRBC with consequent hemoglobin of 8.9 g/dL Bilateral breath sounds Patient is on assist control ventilation and will switch at this point to bilevel ventilation for patient PO2 FiO2 gradient has worsened throughout the surgical procedure while in the OR Will place on high PSV 30 mmHg / low 0 mm [place] and adjust the time of inspiration and expiration in such a way as to allow for adequate CO2 elimination and slight hypocapnia May need additional adjustments for the same Enteral feeds tolerated This patient will have a kassidy postoperative course and have discussed this again at length with the family stressing that patient will have a long recovery will require tracheostomy and neurologic and overall outcome is still questionable 08/16/2017 Patient with severe brain injury underwent yesterday decompressive craniectomy due to uncontrollable ICP Post craniectomy and ventriculostomy ICP remains initial around 12 mmHg and now about 6-8 mmHg Adequate CPP based on mean arterial pressure Sodium 161 mEq/L with serum osmolality around 320 mOsm per liter Hemodynamically patient is slowly stabilizing with decreasing amounts of Levophed Pulmonary patient has worsened significantly Patient went to the operating room on 40% FiO2 5 of PEEP and excellent PO2 FiO2 gradient and return from the operating room 100% FiO2 and PO2 FiO2 gradient consistent with severe ARDS Ventilatory settings were adjusted yesterday and bilevel ventilation was attempted however patient would not tolerate that and resulted in a rising CO2 Patient was then placed on AC ventilation increased PEEP and 100% FiO2 With rising peak inspiratory pressures patient had to be paralyzed with cisatracurium and will remain probably so for the next few days Patient now has florid ARDS which was probably result of aspiration into the both lungs We will gradually wean the FiO2 as the PO2 FiO2 gradient improves If necessary we will place patient on Flolan-epoprostenol inhaler Renal function preserved Once the PO2 FiO2 gradient improves, patient will be scheduled for tracheostomy 08/17/2017 Patient with massive head injury status post craniectomy ICPs were initially very low now range between 15 and 20 mmHg About 150 cc of CSF drainage daily from the ventriculostomy Patient remains critical on maximum neuroprotective measures including Propofol/Versed/fentanyl Prognosis is very guarded and this patient will not have a good outcome based on his age and severity of the neurologic injury He will never be able to work again I have explained this to his family and its big question whether patient will have improved sufficiently to have adequate cognitive and physical recovery 08/18/2017 Neurologically patient remains the same ICP ranges between 12 and 18 mmHg Patient remains on propofol fentanyl/Versed/ Keppra Hemodynamically patient is the same or slightly improving with mean arterial pressure slightly rising but remains on some Levophed Yesterday added vasopressin in face of pulmonary problems Pulmonary patient has worsened. He has florid full-blown ARDS with PO2 FiO2 gradient incompatible with long-term survival. ARDS is so severe that patient is hypercapnic While permissive hypercapnia is awake to manage patient like this level of CO2 is too high and numerous modes of ventilation have been tried Patient was on AC/PRVC ventilation mode and this resulted in moderate hypoxia with hypercapnia 100% FiO2 and 12 of PEEP Patient was changed to bilevel ventilation which she did not tolerate Attempt to put him on pressure regulated ventilation resulted in even higher increase in CO2 At this point patient has massive VQ mismatch which is not only affecting oxygen exchange but also CO2 elimination, which in itself is a ominous sign considering that CO2 is lipid soluble and 10 times more diffusable then oxygen Due to craniectomy as well as large size patient cannot be proned. He is not a candidate for extra corporal membrane oxygenator because of the brain injury and risk of hemorrhage associated with the same. According to his patient is about smoker for 45 years about 1-2 packs a day and about 4 years ago had H1 N1 infection which resulted in ARDS and severe pneumonia for which patient was on the ventilator for about 2 weeks according to his At this point we are running out of options as far as ventilatory settings due to massive lung failure and if patient does not turn the corner this will lead to his demise Will consult Dr. Cuello the medical supervisor instrument mechanics to evaluate the patient as well and render second opinion. We will consult palliative care to discuss issues with the family Objective Vital Signs Date Time Temp Pulse Resp B/P (MAP) Pulse Ox O2 Delivery O2 Flow Rate FiO2 08/18/17 12:00 98.7 75 32 110/53 (72) 95 08/18/17 12:00 100 Intake and Output 08/18/17 08/18/17 08/19/17 08:00 16:00 00:00 Intake Total 2203 ml 1705 ml Output Total 3372 ml Balance -1169 ml 1705 ml Result Diagram: 08/18/17 0440 08/18/17 0440 Other Results Laboratory Tests Test 08/17/17 23:06 08/18/17 04:11 08/18/17 09:59 Blood Gas Puncture Site ART LINE ART LINE ART LINE Blood Gas Patient Temperature 98.6 98.6 98.6 Blood Gas HCO3 31 mmol/L (22-26) 30 mmol/L (22-26) 30 mmol/L (22-26) Blood Gas Base Excess 4.8 mmol/L (-2-2) 4.5 mmol/L (-2-2) 3.8 mmol/L (-2-2) Blood Gas Oxygen Saturation 87 % (90-100) 88 % (90-100) 86 % (90-100) Arterial Blood pH 7.29 (7.380-7.420) 7.31 (7.380-7.420) 7.26 (7.380-7.420) Arterial Blood Partial Pressure CO2 66 mmHg (38-42) 63 mmHg (38-42) 71 mmHg (38-42) Arterial Blood Partial Pressure O2 63 mmHg (61-120) 63 mmHg (61-120) 63 mmHg (61-120) Arterial Blood Oxygen Content 11.4 Vol % (12.0-20.0) 12.0 Vol % (12.0-20.0) 14.4 Vol % (12.0-20.0) Arterial Blood Carboxyhemoglobin 1.4 % (0-4) 1.4 % (0-4) 1.4 % (0-4) Arterial Blood Methemoglobin 1.2 % (0-2) 1.1 % (0-2) 1.1 % (0-2) Blood Gas Hemoglobin 9.3 G/DL (12.0-16.0) 9.7 G/DL (12.0-16.0) 11.9 G/DL (12.0-16.0) Oxygen Delivery Device VENTILATOR VENTILATOR VENTILATOR Blood Gas Ventilator Setting PRVC/ AC PRVC /AC PC/RR32/P32/0.8/+14 Blood Gas Inspired Oxygen 100 % 100 % 100 % Imaging Last 24 hours Impressions Chest X-Ray 08/18/17 0600 Signed Impressions: CONCLUSION: No significant interval change with persistent prominent bilateral pulmonary pa renchymal opacity. 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 Since coming from the OR the other day patient has been in florid full-blown and progressive ARDS with PO2 FiO2 gradient incompatible with long-term survival. ARDS is so severe that patient is hypercapnic While permissive hypercapnia is awake to manage patient like this level of CO2 is too high and numerous modes of ventilation have been tried Patient was on AC/PRVC ventilation mode and this resulted in moderate hypoxia with hypercapnia 100% FiO2 and 12 of PEEP Patient was changed to bilevel ventilation which she did not tolerate Attempt to put him on pressure regulated ventilation resulted in even higher increase in CO2 At this point we are running out of options as far as ventilatory settings due to massive lung failure and if patient does not turn the corner this will lead to his demise Abdomen/GI Nutrition Abdomen soft Renal/I&O Renal function preserved Metabolic/Acid-Base Severe respiratory acidosis with slight metabolic compensation and PCO2 71 which is incompatible long-term management even with permissive hypercapnia Assessment and Plan Attestation Critical CARE 58 minutes Alfred Wright MD Aug 18, 2017 16:24
--- NOTE | 2017-08-18 17:11 | PD.CONS ---
HPI Service Critical Care Medicine Consult Requested By Trauma Service Reason for Consult Hypoxemic Respiratory Failure Primary Care Physician Unknown History of Present Illness This 52-year-old gentleman fell from a height onto a concrete service and sustained severe blunt trauma to his head, face and left torso about 7 days ago. He has sustained severe brain injury including parenchymal bleeding, extra -axial blood collection, and diffuse cerebral infarction. Concomitant with this he has progressed to severe hypoxemic respiratory failure highlighted by complete consolidation of the right lower lobe and near complete consolidation of the left lower lobe. The upper lobes and right middle lobe are acceptably expanded. By auscultation there is bilateral air movement in the upper thorax. The primary pathophysiology at this point appears to be severe shunting through the lower lobes resulting in profound hypoxemia and CO2 retention. Several modes of mechanical ventilation have been attempted without improvement in gas exchange. The prone position is not available due to the severe head injury. Peripheral perfusion is excellent and the bright pink toes are consistent with a diffuse inflammatory response. I have no specific recommendations which would benefit gas exchange in this situation. He is not a candidate for extracorporeal membrane oxygenation due to the brain injury and risk of hemorrhage. Further, the brain injury at this point would appear to preclude meaningful neurological recovery. I have discussed my impression at length with several family members at the bedside. Past Family Social History Allergies: Coded Allergies: No Known Allergies (Unverified , 08/11/17) Physical Exam Vital Signs Vital Signs Date Time Temp Pulse Resp B/P (MAP) Pulse Ox O2 Delivery O2 Flow Rate FiO2 08/18/17 16:33 87 100 08/18/17 16:00 99.2 107 32 145/51 (82) 88 08/18/17 12:00 98.7 75 32 110/53 (72) 95 08/18/17 12:00 100 08/18/17 10:55 77 99/48 08/18/17 09:21 100 08/18/17 08:43 85 100 08/18/17 08:43 85 100 08/18/17 08:35 90 150/60 08/18/17 08:00 99.3 77 32 116/53 (74) 90 08/18/17 06:00 97 08/18/17 04:00 99.8 84 32 122/58 (79) 89 08/18/17 04:00 100 08/18/17 04:00 97 08/18/17 02:52 91 100 08/18/17 02:50 91 100 08/18/17 02:00 97 08/18/17 00:00 97 08/18/17 00:00 100.1 92 32 118/58 (78) 90 08/18/17 00:00 100 08/18/17 00:00 92 118/58 08/17/17 23:53 97 119/55 08/17/17 23:06 91 100 08/17/17 22:00 97 08/17/17 21:29 93 100 08/17/17 20:18 79 130/57 08/17/17 20:00 98.9 79 32 126/56 (79) 93 08/17/17 20:00 100 08/17/17 20:00 79 08/17/17 18:00 80 08/17/17 17:30 90 Laboratory Laboratory Tests Test 08/17/17 18:30 08/17/17 23:06 08/18/17 00:30 08/18/17 04:11 Sodium Level 156 156 Serum Osmolality 329 325 Blood Gas Puncture Site ART LINE ART LINE Blood Gas Patient Temperature 98.6 98.6 Blood Gas HCO3 31 30 Blood Gas Base Excess 4.8 4.5 Blood Gas Oxygen Saturation 87 88 Arterial Blood pH 7.29 7.31 Arterial Blood Partial Pressure CO2 66 63 Arterial Blood Partial Pressure O2 63 63 Arterial Blood Oxygen Content 11.4 12.0 Arterial Blood Carboxyhemoglobin 1.4 1.4 Arterial Blood Methemoglobin 1.2 1.1 Blood Gas Hemoglobin 9.3 9.7 Oxygen Delivery Device VENTILATOR VENTILATOR Blood Gas Ventilator Setting PRVC/ AC PRVC /AC Blood Gas Inspired Oxygen 100 100 Test 08/18/17 04:40 08/18/17 09:59 08/18/17 16:00 White Blood Count 15.0 Red Blood Count 3.15 Hemoglobin 9.0 Hematocrit 27.2 Mean Corpuscular Volume 86.2 Mean Corpuscular Hemoglobin 28.5 Mean Corpuscular Hemoglobin Concent 33.1 Red Cell Distribution Width 15.4 Platelet Count 261 Mean Platelet Volume 8.5 Neutrophils (%) (Auto) 82.5 Lymphocytes (%) (Auto) 9.0 Monocytes (%) (Auto) 4.9 Eosinophils (%) (Auto) 3.3 Basophils (%) (Auto) 0.3 Neutrophils # (Auto) 12.4 Lymphocytes # (Auto) 1.4 Monocytes # (Auto) 0.7 Eosinophils # (Auto) 0.5 Basophils # (Auto) 0.0 CBC Comment AUTO DIFF Differential Total Cells Counted 100 Neutrophils % (Manual) 64 Band Neutrophils % 21 Lymphocytes % 7 Monocytes % 6 Eosinophils % 1 Neutrophils # (Manual) 12.9 Myelocytes 1 Differential Comment FINAL DIFF MANUAL Toxic Granulation 1+ Dohle Bodies PRESENT Platelet Estimate NORMAL Platelet Morphology Comment NORMAL Red Cell Morphology Comment NORMAL Blood Urea Nitrogen 17 Creatinine 0.78 Random Glucose 149 Total Protein 5.6 Albumin 1.5 Calcium Level 7.4 Magnesium Level 2.9 Alkaline Phosphatase 214 Aspartate Amino Transf (AST/SGOT) 46 Alanine Aminotransferase (ALT/SGPT) 20 Total Bilirubin 1.4 Sodium Level 154 Potassium Level 4.3 Chloride Level 114 Carbon Dioxide Level 32.5 Anion Gap 8 Estimat Glomerular Filtration Rate 104 Protein Corrected Calcium 8.2 Blood Gas Puncture Site ART LINE ART LINE Blood Gas Patient Temperature 98.6 98.6 Blood Gas HCO3 30 34 Blood Gas Base Excess 3.8 5.8 Blood Gas Oxygen Saturation 86 83 Arterial Blood pH 7.26 7.19 Arterial Blood Partial Pressure CO2 71 92 Arterial Blood Partial Pressure O2 63 61 Arterial Blood Oxygen Content 14.4 10.9 Arterial Blood Carboxyhemoglobin 1.4 1.2 Arterial Blood Methemoglobin 1.1 1.2 Blood Gas Hemoglobin 11.9 9.2 Oxygen Delivery Device VENTILATOR VENTILATOR Blood Gas Ventilator Setting PC/RR32/P32/0.8/+14 P36/R32/T.75/+14 Blood Gas Inspired Oxygen 100 100 Date/Time Source Procedure Growth Status 08/18/17 14:05 Blood Peripheral Aerobic Blood Culture Pending Received 08/18/17 14:05 Blood Peripheral Anaerobic Blood Culture Pending Received 08/15/17 14:40 Cerebral Spinal Fluid Shunt Fluid Fungal Smear - Final NO FUNGAL ELEMENTS SEEN. Resulted 08/15/17 14:40 Cerebral Spinal Fluid Shunt Fluid Fungal Culture Pending Resulted 08/18/17 10:37 Sputum Endotracheal Gram Stain - Final Resulted 08/18/17 10:37 Sputum Endotracheal Sputum Culture Pending Resulted Result Diagram: 08/18/17 0440 08/18/17 0440 Jonathan Cuello MD Aug 18, 2017 17:11
[2017-08-18] MEDS: REMOVE OLD LIDOCAINE PATCH T-DERMAL SCH (20:23)
[2017-08-18] MEDS: ACETAMINOPHEN 1000 MG/100 ML 100 ML IV PRN (20:29)
[2017-08-18] MEDS: NOREPINEPHRINE 16 MG/D5W 250 ML IV PRN ×4 (21:30)
[2017-08-19] VITALS (9 sets, daily range): BP systolic 45–87; BP diastolic 35–42; PULSE 65–120; RESP 36; TEMP 100.8–101.4; O2SAT 86–88
[2017-08-19] MEDS: VASOPRESSIN 40 U/D5W 100 ML Titrate, Post Cardiac Surgery IV PRN ×2 (01:00)
[2017-08-19] MEDS: EPOPROSTENOL NEB SOLUTION 30 NG/KG/MIN 100 ML NEB SCH ×4 (01:50→11:00)
[2017-08-19] MEDS: MIDAZOLAM 50 MG/50 ML INJ 50 ML IV PRN ×3 (02:00→09:37)
[2017-08-19] MEDS: WATE IV PRN ×4 (02:00→07:33)
[2017-08-19] MEDS: DEXTROSE 5% IV PRN ×4 (02:00→07:33)
[2017-08-19] MEDS: CISATRACURIUM IV PRN ×4 (02:00→07:33)
[2017-08-19] MEDS: ACETAMINOPHEN 1000 MG/100 ML 100 ML IV PRN (02:37)
[2017-08-19] MEDS: PROPOFOL 1000 MG/100 ML INJ 100 ML IV PRN ×4 (03:43→09:36)
[2017-08-19] MEDS: FREE WATER G-TUBE SCH (03:43)
--- NOTE | 2017-08-19 04:25 | RADRPT ---
EXAM DATE: 08/19/2017 4:08 AM EDT AGE/SEX: 52 years / Male INDICATIONS: Short of breath. CLINICAL DATA: This is the patient's subsequent encounter. Patient reports that signs and symptoms h ave been present for 1 week and indicates a pain score of Nonresponsive. MEDICAL/SURGICAL HISTORY: . Diabetes mellitus type I Non-responsive. COMPARISON: [facility] [place], CHEST SINGLE AP, 08/18/2017. . FINDINGS: The ET tube, NG tube and right subclavian line are well placed. There is a left-sided chest tube. A p neumothorax is not seen. There is increased density seen throughout the lungs bilaterally being most prominent in the right upper lung. CONCLUSION: Increased density throughout the lungs likely representing diffuse consolidation. Some degree of atel ectasis may also be present especially in the right upper lung. Suspected effusions. Left chest tube in good position. No pneumothorax is seen. Electronically signed by: Colin Greene MD 08/19/2017 4:23 AM EDT
[2017-08-19 04:53] LABS: AUTOMATED NEUTROPHIL # 19.3 TH/MM3 (1.8-7.7); BASOPHIL # 0.1 TH/MM3 (0-0.2); BASOPHIL % 0.6 % (0.0-2.0); EOSINOPHIL # 0.3 TH/MM3 (0-0.4); EOSINOPHIL % 1.4 % (0.0-4.0); HEMATOCRIT 27.8 % (39.0-51.0); HEMOGLOBIN 8.9 GM/DL (13.0-17.0); LYMPH % 6.8 % (9.0-44.0); LYMPHOCYTE # 1.5 TH/MM3 (1.0-4.8); MEAN CELL VOLUME 87.2 FL (80.0-100.0); MEAN CORPUSCULAR HEMOGLOBIN 27.9 PG (27.0-34.0); MEAN PLATELET VOLUME 8.8 FL (7.0-11.0); MONO % 3.9 % (0.0-8.0); MONOCYTE # 0.9 TH/MM3 (0-0.9); NEUT % 87.3 % (16.0-70.0); PLATELET COUNT 272 TH/MM3 (150-450); RED BLOOD COUNT 3.19 MIL/MM3 (4.50-5.90); RED CELL DISTRIBUTION WIDTH 16.2 % (11.6-17.2); WHITE BLOOD COUNT 22.1 TH/MM3 (4.0-11.0)
[2017-08-19] MEDS: METHOCARBAMOL 500 MG TAB PO SCH (05:19)
[2017-08-19] MEDS: INSULIN ASPART SUPPLEMENTAL SCALE SQ SCH (05:19)
[2017-08-19 05:21] LABS: ALBUMIN 1.3 GM/DL (3.4-5.0); BICARBONATE 32.6 MEQ/L (21.0-32.0); CALCIUM 7.1 MG/DL (8.5-10.1); CALCIUM-PROTEIN CORRECTED 7.8 MG/DL (8.5-10.1); CREATININE 1.58 MG/DL (0.60-1.30); TOTAL BILIRUBIN ADULT 1.5 MG/DL (0.2-1.0); TOTAL PROTEIN 5.7 GM/DL (6.4-8.2)
[2017-08-19] MEDS: CHLORHEXIDINE 0.12% (ORAL KIT) 15 ML CUP MT SCH (07:33)
[2017-08-19 07:49] LABS: BANDS 25 % (0-6); CORRECTED NUCLEATED RBC 1 /100 WBC (0-0); LYMPHOCYTES 7 % (9-44); MONOCYTES 2 % (0-8); NEUTROPHIL # MANUAL DIFF 19.9 TH/MM3 (1.8-7.7); NUCLEATED RED BLOOD CELL 1 (0-0); POLYS (SEG NEUTROPHILS) 65 % (16-70)
--- NOTE | 2017-08-19 08:16 | HHI.PR ---
Neuropsych Emotional Emotional: UnabletoAssess: Emotional, Anxious/Fearful, Depressed/Sad, Hostile/ Resentful, Irritable/Angry/Frustrate, Labile, Constricted/Blunted Behavior Behavior: Unable to Asses: Behavior, Coping/Acceptance, Cooperative w/ Treatment, Motivation, Frustration Tolerance/[place], Impulsive/Agitated, Suicidal/ Homicidal Risk Cognitive Cognitive: Unable to Asses: Cognitive, Attention/Concentration, Confused/ Orientation, Insight/Awareness, Judgement/Problem-Solving, Memory Psychosocial Psychosocial: Intact: Psychosocial, Family/Other Adjustment, Realistic Expectation, Unable to Asses: Self-Esteem/Confidence Progress Notes/Response to Tx Contents of Sessions: Adjustment, Level of Consciousness Time with Patient: 30 minutes Premorbid psychological status Premorbid Cognitive, Emotional and Behavioral Status: Stable. The patient has high school years of education and a solid work history prior to this injury. The patient has no prior psychiatric difficulties, as described above. Substance abuse history is unremarkable. Behavioral Reactions of Patient and Family/Support System: Deferred. The patients family is experiencing ongoing issues of adjustment given the nature of the injury, and this aspect of recovery will require ongoing monitoring. Emotional/Behavioral Status of Patient and Family/Support System: Deferred. Pertinent issues, if appropriate to this patients clinical care, are described in detail above. Maximizing acute care outcome It is recommended that the patient be monitored for emergent behavioral impulsivity as the medical condition evolves. This patients neuropathological challenges may limit his rehabilitation potential going forward, and these challenges will require specialized therapeutic skills to maximize outcome. Additionally, the patients family is experiencing ongoing issues of adjustment given the traumatic nature of the injury, and they may benefit from ongoing psychological assistance. At this point in the recovery process, the patient does not have cognitive capacity as the patient is unable to understand a situation and its likely consequences, nor is he able to manipulate information rationally. Cognitive capacity will be assessed throughout the recovery process. Anticipated Problems Ongoing areas of concern will include behavioral impulsivity, lack of insight and judgment, which is expected to improve with time and treatment. Presently , the patient is critically ill and may not survive. Given the severity of the patient's injuries it is my clinical opinion that this patient will be unable to return to any type of productive employment for at least one year, perhaps longer and likely never. This patient is not considered safe to discharge home without supervision. Treatment Plan This clinician will continue to follow with you throughout the course of this patients critical care treatment, and I will be available to meet with the patients family/support system to facilitate their understanding and the ongoing care of their family member. The goals of neuropsychological intervention shall be both educational and supportive to the family/support system as is deemed clinically appropriate. Fidencio Escalante Level: I:No response-total assistance Impression 52 year old male s/p TBI 2T fall from tree on 08/11/2017. Diagnosis: (1) Major neurocognitive disorder as late effect of traumatic brain injury without behavioral disturbance Progress Note Narrative PTD 8. This patient has severe medical challenges and an optimal outcome is unlikely. No issues of agitation/restlessness in the face of profound brain injury. No other recommendations. He is [place]. I will follow. Roger Flores PhD Aug 19, 2017 8:16 am
[2017-08-19] MEDS: DOCUSATE SODIUM 50 MG/SENNA 8.6 MG TAB PO SCH (09:00)
[2017-08-19] MEDS: LACTULOSE SYRUP 20 GM/30 ML CUP PO SCH (09:00)
[2017-08-19] MEDS: DEXTROSE 5% IV SCH ×2 (09:00)
[2017-08-19] MEDS: SODIUM CHLORIDE 0.9% FLUSH 10 ML FLUSH IV FLUSH SCH (09:00)
[2017-08-19] MEDS: MAGNESIUM HYDROXIDE SUSP 30 ML CUP PO SCH (09:00)
[2017-08-19] MEDS: LEVETIRACETAM IV SCH ×2 (09:00)
[2017-08-19] MEDS: WATER IV SCH ×2 (09:00)
[2017-08-19] MEDS: MUPIROCIN 2% OINT 22 GM TUBE TOPICAL SCH (09:23)
[2017-08-19] MEDS: PANTOPRAZOLE SODIUM 40 MG VIAL IVP SCH (09:23)
--- NOTE | 2017-08-19 09:32 | HHI.NSPN ---
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 The reported. No tonic-clonic movement seen. No tongue biting. No incontinence of stool or urine. Nobody witnessed the event; however, apparently was bleeding on the pavement and finally ambulance was called. It is unknown how long patient had been lying there. The patient was brought to [place] as Trauma alert, priority 1 trauma alert, intubated in the field with C-collar in place on a spinal board by air ambulance. On arrival, patient's [place] Coma Scale was 3 which improved to about 5. He had unequal pupils with anisocoria. He was resuscitated according to the ATLS protocol. Trauma workup revealed multiple injuries including a severe left-sided facial fractures involving the orbit, zygoma, maxilla, nasal fracture, as well as fracture of the base of the skull going through the petrous bone, a right frontotemporal subarachnoid and subdural bleeding with brain contusions on the right, multiple left rib fractures with chest wall deformity, bilateral lung contusion and bilateral aspiration lacerations, laceration probably grade II of the spleen with slight amount of blood around the spleen Neurosurgical consultation was requested 08/12: ICPs currently 16. intubated, sedated. 08/16: patient underwent emergent decompressive craniectomy yesterday, also with placement of ventriculostomy drain. intubated, and sedated. ICPs controlled. 08/17: Intubated and sedated, ventriculostomy draining well, ICPs 1 open, reports when clamped are 20. 08/18: ICPs remain controlled, patient with worsening respiratory status now in ARDS. Intubated and sedated. 08/19: ventriculostomy draining well, ICPs stable. nursing reports respiratory status continues to worsen, patient has been made a DNR. Labs, Micro, & Vital Signs Results Date Time Temp Pulse Resp B/P (MAP) Pulse Ox O2 Delivery O2 Flow Rate FiO2 08/19/17 08:00 100.8 106 36 73/35 (48) 87 08/19/17 08:00 100 6/15/18 07:40 88 100 08/19/17 07:37 87 100 08/19/17 04:02 88 100 08/19/17 04:00 101.0 117 36 82/40 (54) 87 08/19/17 04:00 100 08/19/17 01:02 87 100 08/19/17 01:00 122 08/19/17 00:00 101.4 120 36 87/42 (57) 86 08/19/17 00:00 100 08/18/17 21:30 118 113/45 08/18/17 20:42 90 100 08/18/17 20:00 99 08/18/17 20:00 100 08/18/17 20:00 100.2 108 36 107/50 (69) 92 08/18/17 16:33 87 100 08/18/17 16:00 99.2 107 32 145/51 (82) 88 08/18/17 16:00 100 08/18/17 12:00 98.7 75 32 110/53 (72) 95 08/18/17 12:00 100 08/18/17 10:55 77 99/48 08/20/17 07:00 Intake Total 500 ml Balance 500 ml Constitutional Vital Signs Date Time Temp Pulse Resp B/P (MAP) Pulse Ox O2 Delivery O2 Flow Rate FiO2 08/19/17 08:00 100.8 106 36 73/35 (48) 87 08/19/17 08:00 100 08/19/17 07:40 88 100 08/19/17 07:37 87 100 08/19/17 04:02 88 100 08/19/17 04:00 101.0 117 36 82/40 (54) 87 08/19/17 04:00 100 08/19/17 01:02 87 100 08/19/17 01:00 122 08/19/17 00:00 101.4 120 36 87/42 (57) 86 08/19/17 00:00 100 08/18/17 21:30 118 113/45 08/18/17 20:42 90 100 08/18/17 20:00 99 08/18/17 20:00 100 08/18/17 20:00 100.2 108 36 107/50 (69) 92 08/18/17 16:33 87 100 08/18/17 16:00 99.2 107 32 145/51 (82) 88 08/18/17 16:00 100 08/18/17 12:00 98.7 75 32 110/53 (72) 95 08/18/17 12:00 100 08/18/17 10:55 77 99/48 08/20/17 07:00 Intake Total 500 ml Balance 500 ml Review of Systems ROS Limitations: Clinical Condition, Intubated Physical Exam Mr. Correa is intubated and sedated. Left craniectomy site remains full, firm to palpate. Incision clean and dry, healing well. Ventriculostomy draining clear CSF at 0 cm H20, ICP=1 open Cranial Nerves: Left pupil 6-7mm, right 4 mm bilaterally nonreactive. Conjugate gaze. Motor: no spontaneous movements, no response to pain stimuli x 4 extremities Reflexes: Plantars silent bilaterally. No ankle clonus. Medications Current Medications Current Medications Medications (Trade) Dose Ordered Sig/Mark Route PRN Reason Start Time Stop Time Status Last Admin Dose Admin Sodium Chloride (NS Flush) 2 ml UNSCH PRN IV FLUSH FLUSH AFTER USING IV ACCESS 08/11/17 11:45 Sodium Chloride (NS Flush) 2 ml BID IV FLUSH 08/11/17 21:00 08/18/17 08:11 Naloxone HCl (Narcan Inj) 0.4 mg UNSCH PRN IV PUSH SEE LABEL COMMENTS 08/11/17 11:45 Magnesium Hydroxide (Milk Of Magnesia Liq) 30 ml BID PO 08/11/17 21:00 08/18/17 08:10 Potassium Chloride 100 ml @ 50 mls/hr Q2H PRN IV For Potassium 2.8 - 3.2 mEq/L 08/11/17 14:30 08/17/17 00:31 Potassium Chloride 100 ml @ 50 mls/hr Q2H PRN IV For Potassium 2.8 - 3.2 mEq/L 08/11/17 14:30 08/15/17 18:59 Potassium Bicarb/ Potassium Chloride (K-Lyte Cl Eff) 50 meq UNSCH PRN PO For Potassium 3.3 - 3.5 mEq/L 08/11/17 14:30 Potassium Chloride 100 ml @ 25 mls/hr UNSCH PRN IV For Potassium 3.3 - 3.5 mEq/L 08/11/17 14:30 Potassium Chloride 100 ml @ 50 mls/hr Q2H PRN IV For Potassium 3.3 - 3.5 mEq/L 08/11/17 14:30 08/14/17 13:22 Magnesium Sulfate 4 gm/Sodium Chloride 100 ml @ 50 mls/hr UNSCH PRN IV For Magnesium 0.9 - 1.1 mg/dL 08/11/17 14:30 Magnesium Oxide (Mag-Ox) 800 mg UNSCH PRN PO For Magnesium 1.2 - 1.6 mg/dL 08/11/17 14:30 Magnesium Sulfate 2 gm/Sodium Chloride 100 ml @ 50 mls/hr UNSCH PRN IV For Magnesium 1.2 - 1.6 mg/dL 08/11/17 14:30 Potassium Phosphate (K-Phos) 2,000 mg Q4H PRN PO For Phosphorus < 2.5 mg/dL 08/11/17 14:30 Sodium Phosphate 30 mmol/Sodium Chloride 250 ml @ 42 mls/hr UNSCH PRN IV For Phosphorus < 2.5 mg/dL 08/11/17 14:30 Potassium Phosphate (K-Phos) 2,000 mg UNSCH PRN PO/TUBE SEE LABEL COMMENTS 08/11/17 14:30 Potassium Phosphate 30 mmol/ Sodium Chloride 260 ml @ 42 mls/hr UNSCH PRN IV SEE LABEL COMMENTS 08/11/17 14:30 Chlorhexidine Gluconate (Peridex 0.12% Liq) 15 ml BID@08,20 MT 08/11/17 20:00 08/19/17 07:33 Methocarbamol (Robaxin) 500 mg Q8HR PO 08/11/17 22:00 08/18/17 20:24 Lidocaine HCl (Lidoderm 5% Patch.12 Hr) 1 patch DAILY T-DERMAL 08/11/17 14:30 08/18/17 08:10 Insulin Aspart (NovoLOG SUPPLEMENTAL SCALE) 1 Q6HR SQ 08/11/17 18:00 08/18/17 11:44 Dextrose (D50w (Syr) Inj) 50 ml UNSCH PRN IV PUSH HYPOGLYCEMIA-SEE COMMENTS 08/11/17 14:30 Glucagon (Glucagon Inj) 1 mg UNSCH PRN OTHER HYPOGLYCEMIA-SEE COMMENTS 08/11/17 14:30 Albuterol/ Ipratropium (Duoneb Neb) 1 ampule Q2HR NEB PRN NEB wheezing 08/11/17 14:45 08/15/17 20:33 Miscellaneous Information 1 Q24H T-DERMAL 08/11/17 21:00 08/18/17 20:23 Terbutaline Sulfate (Brethine Inj) 1 mg UNSCH PRN SQ FOR EXTRAVASATION PROTOCOL 08/11/17 18:00 Acetaminophen 100 ml @ 400 mls/hr Q6H PRN IV Temp > 101.5 08/12/17 15:00 08/19/17 02:37 Bisacodyl (Dulcolax Supp) 10 mg DAILY PRN RECTAL CONSTIPATION 08/15/17 12:30 Pantoprazole Sodium (Protonix Inj) 40 mg DAILY IVP 08/16/17 09:00 08/18/17 08:10 Ondansetron HCl (Zofran Odt) 4 mg Q6H PRN PO NAUSEA OR VOMITING 08/15/17 13:45 Calcium Gluconate (Calcium Gluconate Inj) 1 gm UNSCH PRN IV SEE LABEL COMMENTS 08/15/17 12:30 Potassium Chloride 100 ml @ 50 mls/hr UNSCH PRN IV POTASSIUM LESS THAN 4 08/15/17 12:30 Magnesium Sulfate 4 gm/Sodium Chloride 108 ml @ 108 mls/hr UNSCH PRN IV MAGNESIUM LESS THAN 2 08/15/17 12:30 Acetaminophen (Tylenol) 650 mg Q4H PRN PO TEMPERATURE > 101.5 F 08/15/17 12:30 Lactulose (Lactulose Liq) 30 ml DAILY PO 08/16/17 09:00 08/18/17 08:10 Senna/Docusate Sodium (Ronda-Colace) 1 tab BID PO 08/16/17 09:00 08/18/17 08:10 Water (Free Water) 200 ml Q6HR G-TUBE 08/16/17 08:30 08/18/17 04:51 Levetriacetam 500 mg/Dextrose 105 ml @ 400 mls/hr Q12HR IV 08/16/17 10:00 08/18/17 20:29 Fentanyl Citrate 250 ml @ 5 mls/hr TITRATE PRN IV Sedation 08/16/17 09:45 08/18/17 14:54 Midazolam HCl 50 ml @ 2 mls/hr TITRATE PRN IV SEDATION 08/16/17 09:45 08/19/17 05:25 Propofol 100 ml @ 3.987 mls/ hr TITRATE PRN IV SEDATION 08/16/17 09:45 08/19/17 06:00 Dextrose 1,000 ml @ 20 mls/hr Q24H IV 08/16/17 09:45 08/18/17 11:27 Epoprostenol Sodium 60 ml/ Sodium Chloride 100 ml @ 5 mls/hr Q8H NEB 08/16/17 11:00 08/19/17 01:50 Mupirocin (Bactroban 2% Oint) 1 applic TID TOPICAL 08/16/17 18:00 08/18/17 17:30 Cisatracurium Besylate 200 mg/ Dextrose 500 ml @ 22.08 mls/ hr TITRATE PRN IV TOF 1/4 08/17/17 23:00 08/19/17 07:33 Norepinephrine Bitartrate 16 mg/ Dextrose 250 ml @ 1.87 mls/hr TITRATE PRN IV Maintain MAP > 65 mmHg 08/17/17 23:00 08/18/17 21:30 Vasopressin 40 units/Dextrose 100 ml @ 3 mls/hr TITRATE PRN IV Blood Pressure Management 08/17/17 23:45 08/19/17 01:00 Enoxaparin Sodium (Lovenox Inj) 30 mg Q12H SQ 08/18/17 10:00 08/18/17 20:24 Medical Decision Making MDM Remarks 52 year old male fall off tree TBI, Right 1 cm subdural hematoma, right temporal parenchymal and subarachnoid hemorrhage on arrival, 08/15 with elevated ICPs in the 30's, f/u CT Brain with left cerebral ischemia, edema with 1.2 cm left to right midline shift, underwent emergent left decompressive craniectomy, and with placement of ventriculostomy drain 08/15/17, ICP improved, stable Left C7 transverse process fracture Left T1 transverse process fracture Left facial fractures Plan Plan Remarks cont ventriculostomy draining at 0 cm H20, cont ICP monitoring ASHLEY drains x 2 removed, steri-strips placed cont neuro checks and follow exam cont critical care/trauma management Dr. Shelton gomez family in [facility],Rosy MEYERS Aug 19, 2017 09:32
[2017-08-19] MEDS: fentaNYL DRIP 250 ML IV PRN (09:36)
[2017-08-19] MEDS: LIDOCAINE HCL 5% PATCH T-DERMAL SCH (09:37)
[2017-08-19] MEDS ORDERED: PHENYLEPHRINE HCL 10 MG/ML VIAL ONE (09:50)
[2017-08-19] MEDS ORDERED: EPINEPHrine HCL (1:10,000) 1 MG/10 ML SYRINGE ONE (09:55)
[2017-08-19] MEDS ORDERED: ATROPINE SULFATE 1 MG/10 ML SYRINGE ONE (09:55)
[2017-08-19] MEDS: ENOXAPARIN SODIUM 30 MG/0.3 ML SYRINGE SQ SCH (10:00)
[2017-08-19] MEDS ORDERED: PIPERACIL-TAZO 3.375 GM PREMIX 50 ML IV SCH (10:00)
--- NOTE | 2017-08-19 15:02 | HHI.CCPN ---
Subjective Brief History This 52-year-old male fell while working on a tree onto the concrete deck below about 10 feet. Nobody witnessed the event; however, apparently was bleeding on the pavement and finally ambulance was called. It is unknown how long patient had been lying there. The patient was brought to our institution as priority 1 trauma alert, intubated in the field with C-collar in place on a spinal board by air ambulance. On arrival, patient's Amelie Coma Scale was 3 and improved to about 5. FINAL INJURIES DETECTED: 1. Severe left-sided facial fractures involving the orbit, zygoma, maxilla, nasal fracture, as well as fracture of the base of the skull going through the petrous bone. 2. Right frontotemporal subarachnoid and subdural bleeding with brain contusions on the right. 2.a.C7 transverse process fracture right 3. Chest revealed serial left rib fractures with chest wall deformity, bilateral lung contusion and bilateral aspiration. A small amount of subcutaneous air, but no pneumothorax. 4. L Clavicle FX 5. Abdominal CAT scan revealed small lacerations, laceration probably grade II of the spleen with slight amount of blood around the spleen This patient has severe multisystem injuries and in addition it is not clear whether patient might of had suffered a heart attack or some other posterior problem prior to falling off the ladder. This will be worked up now after patient is admitted Neurosurgery is consulted and workup and further ICU resuscitation is in progress Patient is critical and there is a high mortality rate associated with these injuries probably ranging over 50% in the age group 24 Hour Review/Hospital Course 08/12/2017 Patient with massive multisystem injuries including brain and chest Neurologically patient remains intubated ventilated sedated Neuroprotective measures including propofol fentanyl and Versed required in order to keep ICP below 20 mmHg ICP ranging between 14 and 20 mmHg Hemodynamically patient was initially unstable but starting to stabilize slowly Large amount of fluids and 4 units of PRBC administered in order to account for systemic inflammatory response and third space loss. Patient extremely hyperdynamic with cardiac output about 8 L and systemic vascular resistance very low around 500 Requiring active vasomotor support with Levophed and Mark-Synephrine now gradually being weaned off If necessary patient will placed on vasopressin but I would like to avoid that if possible considering his precarious cardiac function Initial elevation of troponins which are now normalizing may be related to the fall itself Bilateral breath sounds decreased over the left side where patient has massive pulmonary contusion with injury to the left upper importance of lower lobe Chest tube drainage decreased and patient does have retained hemothorax In order to maintain adequate PO2 FiO2 gradient and not over extend the right lung patient has been placed on bilevel ventilation Settings currently 50% FiO2 PSVT 28/2 sec high and PSV 0/0.7 seconds low This allows for about 16 L/min ventilation Patient will probably eventually need thoracoscopy and evacuation of hemothorax on the left however right now patient is unstable to go for any further studies to fully evaluate evolving extent of lung injury Abdomen soft no signs of trauma except small splenic laceration which appears to be stable Renal function preserved now the patient is well preloaded I discussed at length the care of this patient with the family and explained to them that there is a high mortality associated with multiplicity and severity of the injuries 08/13/2017 Patient slightly improved Remains sedated ventilated on propofol fentanyl and Versed ICP remains 12-18 mmHg Hemodynamically patient is slowly stabilizing Mark-Synephrine has been weaned off but patient remains still on Levophed Track flow reveals cardiac output of about 7.5 L and SVR about 550 consistent with hyperdynamic state vasodilatation and systemic inflammatory response SIRS Bilateral breath sounds Patient has been placed on bilevel ventilation yesterday which she is tolerating well and arterial blood gases have improved significantly Chest x-ray slowly clearing up the left lung field Abdomen soft will start on trickle feeds 08/14/2017 Neurologically patient is unchanged Intubated ventilated on neuroprotective measures Propofol/fentanyl and addition of Versed in order to keep ICP within physiologic range Even with maximum neuroprotective measures patient's ICP now ranges between 18 and 24 mmHg Around 4-50 days when the brain swelling is most prominent so this is not unexpected Remains on small dose of hypertonic saline and with rising sodium will DC the same Hemodynamically patient is slowly stabilizing with decreasing amounts of Mark- Synephrine and Levophed Maintaining central perfusion pressure as to accommodate for ICP variance Bilateral breath sounds with minimal drainage from the left chest tube Patient was on bilevel ventilation for the last 48 hours but I had to take him down to AC mode due to hypercapnia With correction of hypercapnia the ICP readily stabilized Left lung is clearing up nicely and PO2 FiO2 gradient is improving Considering the severity of injuries to the brain and to the chest this patient is not expected to recover rapidly and will require tracheostomy 08/15/2017 Neurologically patient has worsened throughout the night. As expected and predicted the intracranial pressure has risen due to the brain swelling now that this is the fourth and fifth day post injury ICPs were managed through the night and we were in the range of 20-24 mmHg while this morning ICP suddenly antoine to as high as [address] of the head and chest and was taken to the operating room for decompressive craniectomy after discussing this with the neurosurgeon Upon return from the operating room patient's ICPs down to about 4-8 mmHg Central perfusion pressure is maintained in adequate parameters Hemodynamically patient still is somewhat unstable requiring additional Levophed in order to maintain mean arterial pressure to satisfy CPP requirements Transfuse 2 units PRBC with consequent hemoglobin of 8.9 g/dL Bilateral breath sounds Patient is on assist control ventilation and will switch at this point to bilevel ventilation for patient PO2 FiO2 gradient has worsened throughout the surgical procedure while in the OR Will place on high PSV 30 mmHg / low 0 mm [place] and adjust the time of inspiration and expiration in such a way as to allow for adequate CO2 elimination and slight hypocapnia May need additional adjustments for the same Enteral feeds tolerated This patient will have a kassidy postoperative course and have discussed this again at length with the family stressing that patient will have a long recovery will require tracheostomy and neurologic and overall outcome is still questionable 08/16/2017 Patient with severe brain injury underwent yesterday decompressive craniectomy due to uncontrollable ICP Post craniectomy and ventriculostomy ICP remains initial around 12 mmHg and now about 6-8 mmHg Adequate CPP based on mean arterial pressure Sodium 161 mEq/L with serum osmolality around 320 mOsm per liter Hemodynamically patient is slowly stabilizing with decreasing amounts of Levophed Pulmonary patient has worsened significantly Patient went to the operating room on 40% FiO2 5 of PEEP and excellent PO2 FiO2 gradient and return from the operating room 100% FiO2 and PO2 FiO2 gradient consistent with severe ARDS Ventilatory settings were adjusted yesterday and bilevel ventilation was attempted however patient would not tolerate that and resulted in a rising CO2 Patient was then placed on AC ventilation increased PEEP and 100% FiO2 With rising peak inspiratory pressures patient had to be paralyzed with cisatracurium and will remain probably so for the next few days Patient now has florid ARDS which was probably result of aspiration into the both lungs We will gradually wean the FiO2 as the PO2 FiO2 gradient improves If necessary we will place patient on Flolan-epoprostenol inhaler Renal function preserved Once the PO2 FiO2 gradient improves, patient will be scheduled for tracheostomy 08/17/2017 Patient with massive head injury status post craniectomy ICPs were initially very low now range between 15 and 20 mmHg About 150 cc of CSF drainage daily from the ventriculostomy Patient remains critical on maximum neuroprotective measures including Propofol/Versed/fentanyl Prognosis is very guarded and this patient will not have a good outcome based on his age and severity of the neurologic injury He will never be able to work again I have explained this to his family and its big question whether patient will have improved sufficiently to have adequate cognitive and physical recovery 08/18/2017 Neurologically patient remains the same ICP ranges between 12 and 18 mmHg Patient remains on propofol fentanyl/Versed/ Keppra Hemodynamically patient is the same or slightly improving with mean arterial pressure slightly rising but remains on some Levophed Yesterday added vasopressin in face of pulmonary problems Pulmonary patient has worsened. He has florid full-blown ARDS with PO2 FiO2 gradient incompatible with long-term survival. ARDS is so severe that patient is hypercapnic While permissive hypercapnia is awake to manage patient like this level of CO2 is too high and numerous modes of ventilation have been tried Patient was on AC/PRVC ventilation mode and this resulted in moderate hypoxia with hypercapnia 100% FiO2 and 12 of PEEP Patient was changed to bilevel ventilation which she did not tolerate Attempt to put him on pressure regulated ventilation resulted in even higher increase in CO2 At this point patient has massive VQ mismatch which is not only affecting oxygen exchange but also CO2 elimination, which in itself is a ominous sign considering that CO2 is lipid soluble and 10 times more diffusable then oxygen Due to craniectomy as well as large size patient cannot be proned. He is not a candidate for extra corporal membrane oxygenator because of the brain injury and risk of hemorrhage associated with the same. According to his patient is about smoker for 45 years about 1-2 packs a day and about 4 years ago had H1 N1 infection which resulted in ARDS and severe pneumonia for which patient was on the ventilator for about 2 weeks according to his At this point we are running out of options as far as ventilatory settings due to massive lung failure and if patient does not turn the corner this will lead to his demise Will consult Dr. Cuello the medical aircraft machinist helper to evaluate the patient as well and render second opinion. We will consult palliative care to discuss issues with the family 08/19/2017 Today patient continued to deteriorate Severe ARDS with ever decreasing PO2 FiO2 gradient and arterial blood gases incompatible with survival Patient is hypoxic and massively hypercapnic Blood pressure started dropping this morning despite maximum effort to maintain hemodynamic parameters I cleaned out some of the secretions from the respiratory tree and patient has gangrenous changes in both lungs He this morning Objective Vital Signs Date Time Temp Pulse Resp B/P (MAP) Pulse Ox O2 Delivery O2 Flow Rate FiO2 08/19/17 09:50 65 45/35 08/19/17 09:40 86 100 08/19/17 08:00 100.8 36 Intake and Output 08/19/17 08/19/17 08/20/17 08:00 16:00 00:00 Intake Total 1500 ml Output Total 465 ml Balance 1035 ml Result Diagram: 08/19/17 0430 08/19/17 0430 Other Results Laboratory Tests Test 08/18/17 16:00 08/18/17 18:09 08/19/17 04:24 Blood Gas Puncture Site ART LINE ART LINE ART LINE Blood Gas Patient Temperature 98.6 98.6 98.6 Blood Gas HCO3 34 mmol/L (22-26) 34 mmol/L (22-26) 32 mmol/L (22-26) Blood Gas Base Excess 5.8 mmol/L (-2-2) 6.8 mmol/L (-2-2) 3.6 mmol/L (-2-2) Blood Gas Oxygen Saturation 83 % (90-100) 82 % (90-100) 76 % (90-100) Arterial Blood pH 7.19 (7.380-7.420) 7.26 (7.380-7.420) 7.18 (7.380-7.420) Arterial Blood Partial Pressure CO2 92 mmHg (38-42) 78 mmHg (38-42) 88 mmHg (38-42) Arterial Blood Partial Pressure O2 61 mmHg (61-120) 55 mmHg (61-120) 53 mmHg (61-120) Arterial Blood Oxygen Content 10.9 Vol % (12.0-20.0) 10.9 Vol % (12.0-20.0) 9.9 Vol % (12.0-20.0) Arterial Blood Carboxyhemoglobin 1.2 % (0-4) 1.5 % (0-4) 1.3 % (0-4) Arterial Blood Methemoglobin 1.2 % (0-2) 1.1 % (0-2) 1.0 % (0-2) Blood Gas Hemoglobin 9.2 G/DL (12.0-16.0) 9.4 G/DL (12.0-16.0) 9.2 G/DL (12.0-16.0) Oxygen Delivery Device VENTILATOR VENTILATOR VENTILATOR Blood Gas Ventilator Setting P36/R32/T.75/+14 AC/36/500/+14 AC/36/500/PEEP14 Blood Gas Inspired Oxygen 100 % 100 % 100 % Imaging Last 24 hours Impressions Chest X-Ray 08/19/17 0600 Signed Impressions: The ET tube, NG tube and right subclavian line are well placed. There is a left -sided chest tube. A pneumothorax is not seen. There is increased density seen throughout the lungs bilaterally being most prominent in the right upper lung. CONCLUSION: Increased density throughout the lungs likely representing diffuse consolidatio n. Some degree of atelectasis may also be present especially in the right upper lung. Suspected effusions. Left chest tube in good position. No pneumothorax is seen. Alfred Wright MD Aug 19, 2017 15:02
--- NOTE | 2017-08-20 13:40 | HHI.DS ---
Discharge Summary Admission Date Aug 11, 2017 at 12:12 Discharge Date: Aug 19, 2017 Admitting Diagnosis (1) Right rib fracture ICD Code: S22.31XA - Fracture of one rib, right side, initial encounter for closed fracture Diagnosis: Principal Status: Acute (2) Left rib fracture ICD Code: S22.32XA - Fracture of one rib, left side, initial encounter for closed fracture Diagnosis: Principal Status: Acute (3) Hemothorax, left ICD Code: J94.2 - Hemothorax Diagnosis: Principal Status: Acute (4) ICH (intracerebral hemorrhage) ICD Code: I61.9 - Nontraumatic intracerebral hemorrhage, unspecified Diagnosis: Principal Status: Acute (5) Facial fracture due to fall ICD Code: S02.92XA - Unspecified fracture of facial bones, initial encounter for closed fracture; W19.XXXA - Unspecified fall, initial encounter Diagnosis: Principal Status: Acute (6) C2 cervical fracture ICD Code: S12.100A - Unspecified displaced fracture of second cervical vertebra , initial encounter for closed fracture Diagnosis: Principal Status: Acute (7) T1 vertebral fracture ICD Code: S22.019A - Unspecified fracture of first thoracic vertebra, initial encounter for closed fracture Diagnosis: Principal Status: Acute (8) Fracture of left clavicle ICD Code: S42.002A - Fracture of unspecified part of left clavicle, initial encounter for closed fracture Diagnosis: Principal Status: Acute (9) Left pulmonary contusion ICD Code: S27.321A - Contusion of lung, unilateral, initial encounter Diagnosis: Principal Status: Acute (10) Major contusion of spleen ICD Code: S36.021A - Major contusion of spleen, initial encounter Diagnosis: Principal Status: Acute (11) Respiratory failure after trauma ICD Code: J96.90 - Respiratory failure, unspecified, unspecified whether with hypoxia or hypercapnia (12) Traumatic mediastinal hematoma ICD Code: S27.899A - Unspecified injury of other specified intrathoracic organs , initial encounter Diagnosis: Principal Status: Acute (13) Fall from tree ICD Code: W14.XXXA - Fall from tree, initial encounter Diagnosis: Principal Status: Acute (14) Laceration of ear ICD Code: S01.319A - Laceration without foreign body of unspecified ear, initial encounter Diagnosis: Principal Status: Acute (15) Major neurocognitive disorder as late effect of traumatic brain injury without behavioral disturbance ICD Code: S06.9X9S - Unspecified intracranial injury with loss of consciousness of unspecified duration, sequela; F02.80 - Dementia in other diseases classified elsewhere without behavioral disturbance (16) ARDS (adult respiratory distress syndrome) ICD Code: J80 - Acute respiratory distress syndrome Diagnosis: Principal Status: Acute (17) Cerebral edema ICD Code: G93.6 - Cerebral edema Diagnosis: Principal Status: Acute (18) Spinal fracture Diagnosis: Principal Status: Acute (19) Intracerebral hemorrhage ICD Code: I61.9 - Nontraumatic intracerebral hemorrhage, unspecified Diagnosis: Principal Status: Acute Brief History Fall from a tree. CBC/BMP: 08/19/17 0430 08/19/17 0430 Significant Findings Laboratory Tests Test 08/17/17 18:30 08/17/17 23:06 08/18/17 00:30 08/18/17 04:11 Sodium Level 156 MEQ/L (136-145) 156 MEQ/L (136-145) Serum Osmolality 329 MOSM/KG (275-295) 325 MOSM/KG (275-295) Blood Gas HCO3 31 mmol/L (22-26) 30 mmol/L (22-26) Blood Gas Base Excess 4.8 mmol/L (-2-2) 4.5 mmol/L (-2-2) Blood Gas Oxygen Saturation 87 % (90-100) 88 % (90-100) Arterial Blood pH 7.29 (7.380-7.420) 7.31 (7.380-7.420) Arterial Blood Partial Pressure CO2 66 mmHg (38-42) 63 mmHg (38-42) Arterial Blood Oxygen Content 11.4 Vol % (12.0-20.0) Blood Gas Hemoglobin 9.3 G/DL (12.0-16.0) 9.7 G/DL (12.0-16.0) Test 08/18/17 04:40 08/18/17 09:59 08/18/17 16:00 08/18/17 18:09 White Blood Count 15.0 TH/MM3 (4.0-11.0) Red Blood Count 3.15 MIL/MM3 (4.50-5.90) Hemoglobin 9.0 GM/DL (13.0-17.0) Hematocrit 27.2 % (39.0-51.0) Neutrophils (%) (Auto) 82.5 % (16.0-70.0) Neutrophils # (Auto) 12.4 TH/MM3 (1.8-7.7) Eosinophils # (Auto) 0.5 TH/MM3 (0-0.4) Band Neutrophils % 21 % (0-6) Lymphocytes % 7 % (9-44) Neutrophils # (Manual) 12.9 TH/MM3 (1.8-7.7) Myelocytes 1 % (0-0) Toxic Granulation 1+ (NORMAL) Dohle Bodies PRESENT (NONE SEEN) Random Glucose 149 MG/DL (74-106) Total Protein 5.6 GM/DL (6.4-8.2) Albumin 1.5 GM/DL (3.4-5.0) Calcium Level 7.4 MG/DL (8.5-10.1) Magnesium Level 2.9 MG/DL (1.5-2.5) Alkaline Phosphatase 214 U/L (45-117) Aspartate Amino Transf (AST/SGOT) 46 U/L (15-37) Total Bilirubin 1.4 MG/DL (0.2-1.0) Sodium Level 154 MEQ/L (136-145) Chloride Level 114 MEQ/L (98-107) Carbon Dioxide Level 32.5 MEQ/L (21.0-32.0) Protein Corrected Calcium 8.2 MG/DL (8.5-10.1) Blood Gas HCO3 30 mmol/L (22-26) 34 mmol/L (22-26) 34 mmol/L (22-26) Blood Gas Base Excess 3.8 mmol/L (-2-2) 5.8 mmol/L (-2-2) 6.8 mmol/L (-2-2) Blood Gas Oxygen Saturation 86 % (90-100) 83 % (90-100) 82 % (90-100) Arterial Blood pH 7.26 (7.380-7.420) 7.19 (7.380-7.420) 7.26 (7.380-7.420) Arterial Blood Partial Pressure CO2 71 mmHg (38-42) 92 mmHg (38-42) 78 mmHg (38-42) Blood Gas Hemoglobin 11.9 G/DL (12.0-16.0) 9.2 G/DL (12.0-16.0) 9.4 G/DL (12.0-16.0) Arterial Blood Oxygen Content 10.9 Vol % (12.0-20.0) 10.9 Vol % (12.0-20.0) Arterial Blood Partial Pressure O2 55 mmHg (61-120) Test 08/19/17 04:24 08/19/17 04:30 Blood Gas HCO3 32 mmol/L (22-26) Blood Gas Base Excess 3.6 mmol/L (-2-2) Blood Gas Oxygen Saturation 76 % (90-100) Arterial Blood pH 7.18 (7.380-7.420) Arterial Blood Partial Pressure CO2 88 mmHg (38-42) Arterial Blood Partial Pressure O2 53 mmHg (61-120) Arterial Blood Oxygen Content 9.9 Vol % (12.0-20.0) Blood Gas Hemoglobin 9.2 G/DL (12.0-16.0) White Blood Count 22.1 TH/MM3 (4.0-11.0) Red Blood Count 3.19 MIL/MM3 (4.50-5.90) Hemoglobin 8.9 GM/DL (13.0-17.0) Hematocrit 27.8 % (39.0-51.0) Neutrophils (%) (Auto) 87.3 % (16.0-70.0) Lymphocytes (%) (Auto) 6.8 % (9.0-44.0) Neutrophils # (Auto) 19.3 TH/MM3 (1.8-7.7) Band Neutrophils % 25 % (0-6) Lymphocytes % 7 % (9-44) Neutrophils # (Manual) 19.9 TH/MM3 (1.8-7.7) Nucleated Red Blood Cells 1 /100 WBC (0-0) Blood Urea Nitrogen 35 MG/DL (7-18) Creatinine 1.58 MG/DL (0.60-1.30) Random Glucose 127 MG/DL (74-106) Total Protein 5.7 GM/DL (6.4-8.2) Albumin 1.3 GM/DL (3.4-5.0) Calcium Level 7.1 MG/DL (8.5-10.1) Alkaline Phosphatase 175 U/L (45-117) Aspartate Amino Transf (AST/SGOT) 55 U/L (15-37) Total Bilirubin 1.5 MG/DL (0.2-1.0) Sodium Level 148 MEQ/L (136-145) Carbon Dioxide Level 32.6 MEQ/L (21.0-32.0) Estimat Glomerular Filtration Rate 46 ML/MIN (>89) Protein Corrected Calcium 7.8 MG/DL (8.5-10.1) Hospital Course MI'KMAQ: This 52-year-old male who fell while working on a tree onto the concrete deck below about 10 feet. Nobody witnessed the event; however, apparently was bleeding on the pavement and finally ambulance was called. It is unknown how long patient had been lying there. The patient was brought to our institution as priority 1 trauma alert, intubated in the field with C-collar in place on a spinal board by air ambulance. On arrival, patient's Hamilton Coma Scale was 3 and improved to about 5. FINAL INJURIES DETECTED: 1. Severe left-sided facial fractures involving the orbit, zygoma, maxilla, nasal fracture, as well as fracture of the base of the skull going through the petrous bone. 2. Right frontotemporal subarachnoid and subdural bleeding with brain contusions on the right. 2.a.C7 transverse process fracture right 3. Chest revealed serial left rib fractures with chest wall deformity, bilateral lung contusion and bilateral aspiration. A small amount of subcutaneous air, but no pneumothorax. 4. L Clavicle FX 5. Abdominal CAT scan revealed small lacerations, laceration probably grade II of the spleen with slight amount of blood around the spleen This patient has severe multisystem injuries and in addition it is not clear whether patient might of had suffered a heart attack or some other posterior problem prior to falling off the ladder. This will be worked up now after patient is admitted Neurosurgery is consulted and workup and further ICU resuscitation is in progress Patient is critical and there is a high mortality rate associated with these injuries probably ranging over 50% in the age group Hospital procedures: 08/11: Intubated. 08/11: LEFT CT placed 08/11: ICP bolt 08/15: LEFT fronto temporal-parietal decompressive craniectomy. w/ Ventriculostomy placed. ??? ASPIRATE IN OR ??? 08/16: LEFT ear laceration repair by [facility] 08/19: Bronchoscopy Consults: Neurosurgery. OMFS. Neuropsych. Orthopedics. Plastic surgery. Palliative care. Case management. Hospital Course 08/12/2017 Patient with massive multisystem injuries including brain and chest Neurologically patient remains intubated ventilated sedated Neuroprotective measures including propofol fentanyl and Versed required in order to keep ICP below 20 mmHg ICP ranging between 14 and 20 mmHg Hemodynamically patient was initially unstable but starting to stabilize slowly Large amount of fluids and 4 units of PRBC administered in order to account for systemic inflammatory response and third space loss. Patient extremely hyperdynamic with cardiac output about 8 L and systemic vascular resistance very low around 500 Requiring active vasomotor support with Levophed and Mark-Synephrine now gradually being weaned off If necessary patient will placed on vasopressin but I would like to avoid that if possible considering his precarious cardiac function Initial elevation of troponins which are now normalizing may be related to the fall itself Bilateral breath sounds decreased over the left side where patient has massive pulmonary contusion with injury to the left upper importance of lower lobe Chest tube drainage decreased and patient does have retained hemothorax In order to maintain adequate PO2 FiO2 gradient and not over extend the right lung patient has been placed on bilevel ventilation Settings currently 50% FiO2 PSVT 28/2 sec high and PSV 0/0.7 seconds low This allows for about 16 L/min ventilation Patient will probably eventually need thoracoscopy and evacuation of hemothorax on the left however right now patient is unstable to go for any further studies to fully evaluate evolving extent of lung injury Abdomen soft no signs of trauma except small splenic laceration which appears to be stable Renal function preserved now the patient is well preloaded I discussed at length the care of this patient with the family and explained to them that there is a high mortality associated with multiplicity and severity of the injuries 08/13/2017 Patient slightly improved Remains sedated ventilated on propofol fentanyl and Versed ICP remains 12-18 mmHg Hemodynamically patient is slowly stabilizing Mark-Synephrine has been weaned off but patient remains still on Levophed Track flow reveals cardiac output of about 7.5 L and SVR about 550 consistent with hyperdynamic state vasodilatation and systemic inflammatory response SIRS Bilateral breath sounds Patient has been placed on bilevel ventilation yesterday which she is tolerating well and arterial blood gases have improved significantly Chest x-ray slowly clearing up the left lung field Abdomen soft will start on trickle feeds 08/14/2017 Neurologically patient is unchanged Intubated ventilated on neuroprotective measures Propofol/fentanyl and addition of Versed in order to keep ICP within physiologic range Even with maximum neuroprotective measures patient's ICP now ranges between 18 and 24 mmHg Around 4-50 days when the brain swelling is most prominent so this is not unexpected Remains on small dose of hypertonic saline and with rising sodium will DC the same Hemodynamically patient is slowly stabilizing with decreasing amounts of Mark- Synephrine and Levophed Maintaining central perfusion pressure as to accommodate for ICP variance Bilateral breath sounds with minimal drainage from the left chest tube Patient was on bilevel ventilation for the last 48 hours but I had to take him down to AC mode due to hypercapnia With correction of hypercapnia the ICP readily stabilized Left lung is clearing up nicely and PO2 FiO2 gradient is improving Considering the severity of injuries to the brain and to the chest this patient is not expected to recover rapidly and will require tracheostomy 08/15/2017 Neurologically patient has worsened throughout the night. As expected and predicted the intracranial pressure has risen due to the brain swelling now that this is the fourth and fifth day post injury ICPs were managed through the night and we were in the range of 20-24 mmHg while this morning ICP suddenly antoine to as high as [address] of the head and chest and was taken to the operating room for decompressive craniectomy after discussing this with the neurosurgeon Upon return from the operating room patient's ICPs down to about 4-8 mmHg Central perfusion pressure is maintained in adequate parameters Hemodynamically patient still is somewhat unstable requiring additional Levophed in order to maintain mean arterial pressure to satisfy CPP requirements Transfuse 2 units PRBC with consequent hemoglobin of 8.9 g/dL Bilateral breath sounds Patient is on assist control ventilation and will switch at this point to bilevel ventilation for patient PO2 FiO2 gradient has worsened throughout the surgical procedure while in the OR Will place on high PSV 30 mmHg / low 0 mm [place] and adjust the time of inspiration and expiration in such a way as to allow for adequate CO2 elimination and slight hypocapnia May need additional adjustments for the same Enteral feeds tolerated This patient will have a kassidy postoperative course and have discussed this again at length with the family stressing that patient will have a long recovery will require tracheostomy and neurologic and overall outcome is still questionable 08/16/2017 Patient with severe brain injury underwent yesterday decompressive craniectomy due to uncontrollable ICP Post craniectomy and ventriculostomy ICP remains initial around 12 mmHg and now about 6-8 mmHg Adequate CPP based on mean arterial pressure Sodium 161 mEq/L with serum osmolality around 320 mOsm per liter Hemodynamically patient is slowly stabilizing with decreasing amounts of Levophed Pulmonary patient has worsened significantly Patient went to the operating room on 40% FiO2 5 of PEEP and excellent PO2 FiO2 gradient and return from the operating room 100% FiO2 and PO2 FiO2 gradient consistent with severe ARDS Ventilatory settings were adjusted yesterday and bilevel ventilation was attempted however patient would not tolerate that and resulted in a rising CO2 Patient was then placed on AC ventilation increased PEEP and 100% FiO2 With rising peak inspiratory pressures patient had to be paralyzed with cisatracurium and will remain probably so for the next few days Patient now has florid ARDS which was probably result of aspiration into the both lungs We will gradually wean the FiO2 as the PO2 FiO2 gradient improves If necessary we will place patient on Flolan-epoprostenol inhaler Renal function preserved Once the PO2 FiO2 gradient improves, patient will be scheduled for tracheostomy 08/17/2017 Patient with massive head injury status post craniectomy ICPs were initially very low now range between 15 and 20 mmHg About 150 cc of CSF drainage daily from the ventriculostomy Patient remains critical on maximum neuroprotective measures including Propofol/Versed/fentanyl Prognosis is very guarded and this patient will not have a good outcome based on his age and severity of the neurologic injury He will never be able to work again I have explained this to his family and its big question whether patient will have improved sufficiently to have adequate cognitive and physical recovery 08/18/2017 Neurologically patient remains the same ICP ranges between 12 and 18 mmHg Patient remains on propofol fentanyl/Versed/ Keppra Hemodynamically patient is the same or slightly improving with mean arterial pressure slightly rising but remains on some Levophed Yesterday added vasopressin in face of pulmonary problems Pulmonary patient has worsened. He has florid full-blown ARDS with PO2 FiO2 gradient incompatible with long-term survival. ARDS is so severe that patient is hypercapnic While permissive hypercapnia is awake to manage patient like this level of CO2 is too high and numerous modes of ventilation have been tried Patient was on AC/PRVC ventilation mode and this resulted in moderate hypoxia with hypercapnia 100% FiO2 and 12 of PEEP Patient was changed to bilevel ventilation which she did not tolerate Attempt to put him on pressure regulated ventilation resulted in even higher increase in CO2 At this point patient has massive VQ mismatch which is not only affecting oxygen exchange but also CO2 elimination, which in itself is a ominous sign considering that CO2 is lipid soluble and 10 times more diffusable then oxygen Due to craniectomy as well as large size patient cannot be proned. He is not a candidate for extra corporal membrane oxygenator because of the brain injury and risk of hemorrhage associated with the same. According to his patient is about smoker for 45 years about 1-2 packs a day and about 4 years ago had H1 N1 infection which resulted in ARDS and severe pneumonia for which patient was on the ventilator for about 2 weeks according to his At this point we are running out of options as far as ventilatory settings due to massive lung failure and if patient does not turn the corner this will lead to his demise Will consult Dr. Cuello the medical survey questionnaire designer to evaluate the patient as well and render second opinion. We will consult palliative care to discuss issues with the family 08/19/2017 Today patient continued to deteriorate Severe ARDS with ever decreasing PO2 FiO2 gradient and arterial blood gases incompatible with survival Patient is hypoxic and massively hypercapnic Blood pressure started dropping this morning despite maximum effort to maintain hemodynamic parameters I cleaned out some of the secretions from the respiratory tree and patient has gangrenous changes in both lungs He this morning. Patient was pronounced on 08/19/2009 @ 0959 Pupils fixed and dilated. No corneal response. No spontaneous respirations. No apical pulse. secured entrance monitor shows asystole in 2 leads. No response to verbal or deep painful stimuli. Maranda Nolen rest in peace. Pt Condition on Discharge: Deteriorating Lorene Ventura Aug 20, 2017 13:40
--- NOTE | 2017-08-22 09:34 | PD ---
HPI Chief Complaint: Trauma alert. Time Seen by Provider: 11:18 Travel History International Travel<30 days: No (Unknown) Contact w/Intl Traveler<30days: No (Unknown) Traveled to known affect area: No (Unknown) History of Present Illness HPI This is a 52-year-old male who is brought in as a trauma alert. The patient was working on a tree and fell roughly 10 feet to the concrete below. Patient was intubated prior to arrival. Patient had a Amelie Coma Scale of 3 when he arrived. He did start to move slightly. Unknown past medical history. Unknown whether patient is on blood thinners. PFSH Past Medical History Cancer: No Cardiovascular Problems: No Diabetes: Yes Patient Takes Glucophage: No Endocrine: Yes Genitourinary: No Immune Disorder: No Musculoskeletal: No Neurologic: No Psychiatric: No Reproductive: No Respiratory: Yes Sleep Apnea: Yes Social History Tobacco Use: No (Unknown) Substance Use: No Allergies-Medications (Allergen,Severity, Reaction): Coded Allergies: No Known Allergies (Unverified , 08/11/17) Reported Meds & Prescriptions Reported Meds & Active Scripts Active Review of Systems ROS Limitations: Intubated Except as stated in HPI: all other systems reviewed are Neg Physical Exam Narrative GENERAL: Well-developed well-nourished male in C-spine backboard immobilization. Patient was being bagged valve ventilated through ET tube. SKIN: Focused skin assessment warm/dry. HEAD: Patient has significant edema to his left facial area. He also had a left temporoparietal laceration that was stapled by this physician. EYES: Left pupil was fixed and dilated. Right tube pupil was between 2 and 3 mm. ENT: Probable left hemotympanum. There is blood in the right external ear canal. NECK: Trachea midline. In c-collar mobilization. CARDIOVASCULAR: Regular rate and rhythm. No murmur appreciated. RESPIRATORY: Breath sounds bilaterally. Slight decreased breath sounds on the left lateral chest area. There is questionable crepitance over his left upper chest wall. GASTROINTESTINAL: Abdomen soft, nondistended. MUSCULOSKELETAL: No obvious deformities. Palpable dorsalis pedis pulses bilaterally. NEUROLOGICAL: Patient presented with a GCS of 3. Patient had received paralytics prior to arrival by EMS. His GCS did improve up to a 5. Questionable Babinski on the left. PSYCHIATRIC: Appropriate mood and affect; insight and judgment normal. Data Data Orders Orders I-Stat Profile (08/11/17 11:20) I-Stat Creatinine (08/11/17 11:20) Complete Blood Count With Diff (08/11/17 11:20) Prothrombin Time / Inr (Pt) (08/11/17 11:20) Act Partial Throm Time (Ptt) (08/11/17 11:20) Type And Screen (08/11/17 11:20) Chest, Single Ap (08/11/17 11:20) Iv Access Insert/Monitor (08/11/17 11:20) Ecg Monitoring (08/11/17 11:20) Oximetry (08/11/17 11:20) Oxygen Administration (08/11/17 11:20) Ed Poc Ultrasound (08/11/17 11:20) Basic Metabolic Panel (Bmp) (08/11/17 11:21) Fibrinogen (08/11/17 11:21) Red Blood Cells (Rbc) (08/11/17 11:21) Ct Brain W/O Iv Contrast(Rout) (08/11/17 11:21) Ct Cerv Spine W/O Contrast (08/11/17 11:21) Electrocardiogram (08/11/17 11:21) Mannitol Inj (Mannitol Inj) (08/11/17 11:28) Cefazolin 2 Gm Premix (Ancef 2 Gm Premix (08/11/17 11:28) Qkcm-Chf-Gjdrdl (Booster) Inj (Boostrix (08/11/17 11:28) Ct Abd/Pel W Iv Contrast(Rout) (08/11/17 ) Rocuronium Inj (Zemuron Inj) (08/11/17 11:33) Ct Thorax/ Chest W Iv Contrast (08/11/17 ) Midazolam Inj (Versed Inj) (08/11/17 11:41) Ct Facial Bones W/O Iv Cont (08/11/17 ) Admit To Inpatient (08/11/17 ) Code Status (08/11/17 11:44) Vital Signs (Adult) Q4H (08/11/17 11:44) Activity Bed Rest (08/11/17 11:44) Intake + Output GISELA.QSHIFT (08/11/17 11:44) ^ Orogastric Tube (08/11/17 11:44) Diet Npo (08/11/17 Lunch) Sodium Chlor 0.9% 1000 Ml Inj (Ns 1000 M (08/11/17 11:44) Sodium Chloride 0.9% Flush (Ns Flush) (08/11/17 11:45) Sodium Chloride 0.9% Flush (Ns Flush) (08/11/17 21:00) Pantoprazole Inj (Protonix Inj) (08/11/17 14:00) Basic Metabolic Panel (Bmp) (08/12/17 06:00) Hepatic Functional Panel (08/12/17 06:00) Complete Blood Count With Diff (08/12/17 06:00) Resp Incentive Spirometry (08/11/17 ) Cefazolin Inj (Ancef Inj) (08/11/17 20:00) Post-Op Orders (For Pharmacy) (Misc Post (08/11/17 11:45) Naloxone Inj (Narcan Inj) (08/11/17 11:45) Scd Bilateral/Knee High GISELA.QSHIFT (08/11/17 11:44) Inpatient Certification (08/11/17 ) Consult Neurosurgery (08/11/17 ) Elevate Head Of Bed (08/11/17 11:44) Resp Ventilation- Volume (08/11/17 ) Restraints Non-Violent GISELA.Q3H (08/11/17 11:44) Ventilator Weaning Readiness GISELA.DAILY@0800 (08/11/17 11:44) Propofol 1000 Mg/100 Ml Inj (Diprivan 10 (08/11/17 11:45) Fentanyl Drip (Fentanyl Drip) (08/11/17 11:45) Levetiracetam Inj (Keppra Inj) (08/11/17 13:15) 3% Saline Inj (Sodium Chloride 3% Inj) (08/11/17 12:00) Ct Thor Spine W Iv Contrast (08/11/17 ) Ct Lumb Spine W Iv Contrast (08/11/17 ) Labs Laboratory Tests Test 08/11/17 11:25 White Blood Count 28.9 TH/MM3 Red Blood Count 4.52 MIL/MM3 Hemoglobin 12.4 GM/DL Bedside Hemoglobin 12.9 G/DL Hematocrit 39.2 % Bedside Hematocrit 38.0 % Mean Corpuscular Volume 86.7 FL Mean Corpuscular Hemoglobin 27.4 PG Mean Corpuscular Hemoglobin Concent 31.6 % Red Cell Distribution Width 14.2 % Platelet Count 452 TH/MM3 Mean Platelet Volume 8.3 FL Neutrophils (%) (Auto) 70.9 % Lymphocytes (%) (Auto) 23.8 % Monocytes (%) (Auto) 3.7 % Eosinophils (%) (Auto) 1.0 % Basophils (%) (Auto) 0.6 % Neutrophils # (Auto) 20.5 TH/MM3 Lymphocytes # (Auto) 6.9 TH/MM3 Monocytes # (Auto) 1.1 TH/MM3 Eosinophils # (Auto) 0.3 TH/MM3 Basophils # (Auto) 0.2 TH/MM3 CBC Comment AUTO DIFF Differential Total Cells Counted 100 Neutrophils % (Manual) 61 % Band Neutrophils % 9 % Lymphocytes % 27 % Monocytes % 3 % Neutrophils # (Manual) 20.2 TH/MM3 Differential Comment FINAL DIFF MANUAL Platelet Estimate HIGH Platelet Morphology Comment NORMAL Prothrombin Time 10.7 SEC Prothromb Time International Ratio 1.1 RATIO Activated Partial Thromboplast Time 22.4 SEC Fibrinogen 235 mg/dL Bedside Sodium 140 MMOL/L Blood Urea Nitrogen 15 MG/DL Creatinine 1.28 MG/DL Random Glucose 271 MG/DL Calcium Level 7.9 MG/DL Sodium Level 139 MEQ/L Potassium Level 4.2 MEQ/L Chloride Level 105 MEQ/L Carbon Dioxide Level 18.5 MEQ/L Bedside Potassium 4.3 MMOL/L Bedside Chloride 103 MMOL/L Anion Gap 16 MEQ/L Bedside Blood Urea Nitrogen 15 MG/DL Bedside Creatinine 1.1 MG/DL Estimat Glomerular Filtration Rate 48 ML/MIN Bedside Glucose 261 MG/DL Phosphorus Level 5.5 MG/DL [facility] Medical Decision Making Medical Screen Exam Complete: Yes Emergency Medical Condition: Yes Differential Diagnosis Intracranial injury versus thoracic injury versus intra-abdominal injury. Narrative Course 52-year-old male presents as a trauma alert after he fell while trimming a tree. He reportedly fell 10 feet to concrete. The patient has left-sided facial fractures including nasal bone zygoma and orbital fractures. There is also a fracture at the base of the skull. The patient has subarachnoid and subdural hematomas on the right. Chest x-ray/CT revealed multiple left-sided rib fractures. CT showed bilateral lung contusions with questionable aspiration. Abdominal CT shows small lacerations of the spleen. Patient will be admitted to the intensive care unit. Patient was seen and evaluated with Dr. Wright. Critical Care Narrative Aggregate critical care time was 60 minutes. Time to perform other separately billable procedures was not included in the critical care time. My time did not include minutes spent treating any other patients simultaneously or on activities that did not directly contribute to the patient's treatment. The services I provided to this patient were to treat and/or prevent clinically significant deterioration that could result in: I provided critical care services requiring my management, as noted below: Chart data review, documentation time, medication orders and management, vital sign assessments/reviewing monitor data, ordering and reviewing lab tests, ordering and interpreting/reviewing x-rays and diagnostic studies, care of the patient and discussion of the patient with the admitting physicians. Diagnosis Primary Impression: Multiple facial fractures Additional Impressions: Multiple left-sided rib fractures Bilateral pulmonary contusion Probable pulmonary aspiration Splenic laceration Admitting Information Admitting Physician Requests: Admit Jonathan Fierro MD Aug 22, 2017 09:34
== END 2017-08-19 14:40 | disposition expired | DRG 955 ==
LOC: NEPI 11:17 → N03B 12:12 → EDBD 12:12
PROVIDERS: ADMIT Surgery; ATTEND Surgery
PROC: 00H032Z Insertion of Monitoring Device into Brain, Percutaneous Approach (ICD-10-PCS; principal; 2017-08-11)
PROC: 30233N1 Transfusion of Nonautologous Red Blood Cells into Peripheral Vein, Percutaneous Approach (ICD-10-PCS; 2017-08-11)
PROC: 0W9B30Z Drainage of Left Pleural Cavity with Drainage Device, Percutaneous Approach (ICD-10-PCS; 2017-08-11)
PROC: 02HV33Z Insertion of Infusion Device into Superior Vena Cava, Percutaneous Approach (ICD-10-PCS; 2017-08-11)
PROC: 0BH17EZ Insertion of Endotracheal Airway into Trachea, Via Natural or Artificial Opening (ICD-10-PCS; 2017-08-11)
PROC: 009630Z Drainage of Cerebral Ventricle with Drainage Device, Percutaneous Approach (ICD-10-PCS; 2017-08-15)
PROC: 5A1955Z Respiratory Ventilation, Greater than 96 Consecutive Hours (ICD-10-PCS; 2017-08-15)
PROC: 00N00ZZ Release Brain, Open Approach (ICD-10-PCS; 2017-08-15)
PROC: 00Q20ZZ Repair Dura Mater, Open Approach (ICD-10-PCS; 2017-08-15)
PROC: 09Q1XZZ Repair Left External Ear, External Approach (ICD-10-PCS; 2017-08-16)
PROC: 0B938ZZ Drainage of Right Main Bronchus, Via Natural or Artificial Opening Endoscopic (ICD-10-PCS; 2017-08-19)
PROC: 0B978ZZ Drainage of Left Main Bronchus, Via Natural or Artificial Opening Endoscopic (ICD-10-PCS; 2017-08-19)
DX: S27.322A Contusion of lung, bilateral, initial encounter; S27.1XXA Traumatic hemothorax, initial encounter; J96.91 Respiratory failure, unspecified with hypoxia; G93.6 Cerebral edema; S22.019A Unspecified fracture of first thoracic vertebra, initial encounter for closed fracture; S12.600A Unspecified displaced fracture of seventh cervical vertebra, initial encounter for closed fracture; S36.030A Superficial (capsular) laceration of spleen, initial encounter; Z68.41 Body mass index [BMI] 40.0-44.9, adult; S22.43XA Multiple fractures of ribs, bilateral, initial encounter for closed fracture; R65.10 Systemic inflammatory response syndrome (SIRS) of non-infectious origin without acute organ dysfunction; J93.82 Other air leak; E66.01 Morbid (severe) obesity due to excess calories; E11.9 Type 2 diabetes mellitus without complications; F17.210 Nicotine dependence, cigarettes, uncomplicated; Z66 Do not resuscitate; R40.2432 Glasgow coma scale score 3-8, at arrival to emergency department; G47.30 Sleep apnea, unspecified; S42.002A Fracture of unspecified part of left clavicle, initial encounter for closed fracture; F02.80 Dementia in other diseases classified elsewhere, unspecified severity, without behavioral disturbance, psychotic disturbance, mood disturbance, and anxiety; S02.2XXA Fracture of nasal bones, initial encounter for closed fracture; S02.19XA Other fracture of base of skull, initial encounter for closed fracture; S02.40CA Maxillary fracture, right side, initial encounter for closed fracture; S01.312A Laceration without foreign body of left ear, initial encounter; S00.01XA Abrasion of scalp, initial encounter; I46.9 Cardiac arrest, cause unspecified; I10 Essential (primary) hypertension; H57.02 Anisocoria; W14.XXXA Fall from tree, initial encounter
CPT/HCPCS: 36430; 36556; 36600; 61210; 70450; 70486; 71045; 71250; 71260; 72125; 72129; 72132; 74177; 80048; 80053; 80076; 82040; 82805; 82945; 82948; 83735; 83930; 84100; 84132; 84155; 84157; 84295; 84484; 85007; 85014; 85018; 85025; 85027; 85379; 85384; 85610; 85730; 86850; 86900; 86901; 86920; 87015; 87040; 87070; 87077; 87086; 87102; 87116; 87186; 87205; 87206; 87641; 89051; 90471; 90715; 93005; 93306; 94002; 94003; 94640; 94664; 94770; 94799; 96374; 96375; 99291; C9113; G0390; J0131; J0171; J0461; J0690; J1325; J1580; J1650; J1815; J1940; J1953; J2150; J2250; J2370; J3010; J3480; J7030; J7040; J7050; J7060; J7070; P9016; P9045; Q9967